=== PATIENT | female | born 1950 | race Caucasian/White ===

== ENCOUNTER → 2021-08-06 10:09 | Outpatient (BNVA) | payer MEDICARE, MEDICAID, SELFPAY | PROVIDERS: PCP Family Medicine; Visit Provider Nurse Practitioner Family | DX: M25.50 Pain in unspecified joint (principal); M79.7 Fibromyalgia; M96.1 Postlaminectomy syndrome, not elsewhere classified | CPT/HCPCS: 99202 ==

== ENCOUNTER → 2021-09-01 08:06 | Outpatient (BNVA) | payer MEDICARE, MEDICAID, SELFPAY | PROVIDERS: PCP Family Medicine; Visit Provider Nurse Practitioner Family | DX: M25.50 Pain in unspecified joint (principal); M79.7 Fibromyalgia; M96.1 Postlaminectomy syndrome, not elsewhere classified | CPT/HCPCS: 99212 ==

== ENCOUNTER → 2021-09-15 09:45 | Outpatient (BNVA) | payer MEDICARE, MEDICAID, SELFPAY | PROVIDERS: PCP Family Medicine; Visit Provider Nurse Practitioner Family | DX: M96.1 Postlaminectomy syndrome, not elsewhere classified (principal); M79.7 Fibromyalgia; M25.50 Pain in unspecified joint | CPT/HCPCS: 99212 ==

== ENCOUNTER → 2021-10-15 09:44 | Outpatient (BNVA) | payer MEDICARE, MEDICAID, SELFPAY | PROVIDERS: PCP Family Medicine; Visit Provider Nurse Practitioner Family | DX: M25.50 Pain in unspecified joint (principal); M79.7 Fibromyalgia; M96.1 Postlaminectomy syndrome, not elsewhere classified | CPT/HCPCS: 99212 ==

== ENCOUNTER 2024-10-30 14:30 | Outpatient (AMB) | payer MEDICARE, MEDICAID, SELFPAY ==
--- NOTE | 2024-10-30 14:41 | MHC.OFFVIS ---
Vital Signs 10/30/24 14:42 Height 5 ft 6 in BMI Reason not done Patient refused/unable BP 124/57 L Blood Pressure Location Lt brachial Position Sitting Respiration 17 Pulse 99 Pulse Source Pulse Oximeter Pulse Oximetry (%) 92 Oxygen Delivery Method Room Air Intake Visit Reasons: Low Back Pain VU 10/15/21 w/ Andreina Vergaraashleyjamiekelly Intake Note: Pt states she last took tramadol 10/30/24 @ 7am Returned Goods Inspector Required: No Allergies Utyenoe-HZC-VuO Reductase Inhibitor Allergy (Mild, Verified 10/30/24 14:43) rash Medication List - Last Reconciled 10/30/24 by Tanya Zhang, SHARDA hydrochlorothiazide 25 mg PO DAILY levothyroxine 100 mcg PO DAILY minoxidil mg PO omeprazole 40 mg PO DAILY pregabalin 100 mg PO DAILY tramadol 100 mg PO DAILY PRN valacyclovir 1,000 mg PO BID HPI Comments Details: Lucy is very pleasant 74 years old female who presents in my office with complains on severe pain in the right shoulder arm and forearm well as widespread pain in the lower back. She reports that this pain started many years ago. Her pain in the back is related to spondylosis surgery which was performed in [place]. The surgery was done at T 10 through S1 procedure. For about 1 year and a half she felt very good after surgery. However unfortunately 1 of her screws broke, the hardware was removed, and since then patient is suffering from intractable lower back pain. She also complains on pain in the right shoulder she stated that she went to [facility] for shoulder arthroscopy and spurs removal and unfortunately according to the patient too much of the tissue were removed and now patient is scheduled in November for right total shoulder replacement. In terms of tissue damage she reports her pain as sharp cutting lacerating spreading radiating and piercing sensation. She can not sleep normally because of her pain she can not do activities of daily living she can not take care of herself she can not function normally. She is on permanent disability. She is using cane for ambulation. Currently she is receiving tramadol for her pain. She states that her primary care physician refuses to prescribe her tramadol. She is in my office today to become a member of chronic opioid program. She had extensive physical therapy after shoulder surgery. She has images however they are not available for me today. Past medical history significant for mini stroke and I hemorrhage she is also suffering from arthritis shortness of breath and asthma. Past surgical history see as above. She denies smoking cigarettes admits drinking alcohol drinks coffee and caffeinated beverages and denies recreational drugs. Review of Systems Const All systems reviewed & are unremarkable except as noted in HPI and below Physical Exam Vital Signs: Last Vital Signs Pulse 99 10/30/24 14:42 Resp 17 10/30/24 14:42 BP 124/57 L 10/30/24 14:42 Pulse Ox 92 10/30/24 14:42 Oxygen Delivery Method Room Air 10/30/24 14:42 Const General: cooperative, healthy appearing, no acute distress and alert Nutritional Appearance: overweight Orientation/consciousness: patient oriented x3 Limitations: ambulation with cane HEENT Head: Yes normal to inspection, Yes normocephalic and Yes atraumatic Ears: hearing grossly normal bilaterally Eyes General: appearance normal, both eyes and all related structures Neck Neck: Yes normal visual inspection, Yes supple and Yes no JVD Resp Effort & Inspection: normal respiratory effort, able to speak in complete sentences and no audible wheezes Cardio Jugular venous distension: no JVD Peripheral pulses: Peripheral pulses 2+ throughout (no appreciable rhythmic abnormalities) Back/Spine/Pelvis Other: Very well-healed scar in the posterior surface midline of the back without redness swelling or logical discharge Neuro General: patient oriented x3 Gait exam (Neuro): Antalgic gait present Motor exam (neuro): 5/5 motor strength present throughout Extrem Other: Very limited range of motion of the right shoulder joint. Psych Appearance: grossly normal Mental Status: mental status grossly normal Speech and movement: Pressured speech present Affect: normal affect Attitude: cooperative Thought process: Normal thought process present and Circumstantial thought process present Thought content: Normal thought content present Insight: Good insight present (Psych) Judgement: Good judgement present (Psych) Assessment & Plan Assessment & Plan (1) Failed back syndrome: Code(s): M96.1 - Postlaminectomy syndrome, not elsewhere classified Category: Medical (2) Right shoulder pain: Code(s): M25.511 - Pain in right shoulder Category: Medical (3) Osteoarthritis of right shoulder: Code(s): M19.011 - Primary osteoarthritis, right shoulder Category: Medical (4) Chronic pain syndrome: Code(s): G89.4 - Chronic pain syndrome Category: Medical Plan Prolonged and difficult conversation was held today with the patient. She is insisting me to start her on opioid medications as of today. I explained to the patient that we have our protocol to starting patient on the opioid medications and I carefully explained to her what protocol consists of. She will be sent for the urine drug screen today. She will be able to submitted only tomorrow. She stated that she took her tramadol today and she is planning to take it tomorrow. I also gave her opioid information page, opioid consent and opioid agreement. I told her to carefully read this. In the past she was in our chronic opioid program however she terminated it herself. We would need to perform opioid addiction risk next time as well as see her urine drug screen. Patient Instructions: I here by testify that I spent 48 minutes in conversation with this patient as well as planning her care and organizing this note. Coding Level of Care Code New Pt Level 4 (77648) Diagnoses Failed back syndrome M96.1 Right shoulder pain M25.511 Osteoarthritis of right shoulder M19.011 Chronic pain syndrome G89.4
[2024-10-30 14:42] VITALS: BP 124/57; PULSE 99; RESP 17; O2SAT 92
--- OUTSIDE RECORDS SUMMARY | 2024-10-30 16:24 | XMS_ITS | Data Portability ---
Author Organization [facility] Address [address] [address] Assessment Encounter Date Assessment Date Assessment LastModified by Organization Details LastModified Time 01/15/2022 01/15/2022 Patient is recovering s/p lumbar removal of hardware. [email or web address] Not available 01/15/2022 12:18:30 03/05/2022 03/05/2022 Patient is recovering s/p removal of lumbar hardware. She has pain related to chronic low back pain [email or web address] Not available 03/05/2022 13:10:02 Plan of Treatment Reminders Order Date Submit Date Provider Last Modified By Organization Details Last Modified Time Details Appointments None recorded. Lab None recorded. Referral physical therapist referral - s/p instrumenta tion removal L5-S1 2021 022 [email or web address] Not available 15:57:07 Procedures None recorded. Surgeries None recorded. Imaging None recorded. Medication Orders tramadol 50 mg tablet 2021 022 [email or web address] [id number], [address] [place], [address], 15:51:21 tramadol 50 mg tablet 2021 022 MARVEL [id number], [address] [place], [address], 12:22:08 Patient TargetsNo targets recorded. Patient InstructionsNo instructions recorded. Reason for Referral Physical Therapist Referral for Lumbar spondylosis improve pain and functionality, return to normal activity s/p instrumentation removal L5-S1 Referring Physician: Holden Cantu, Orthopedic Surgery, Encounter Date: 01/15/2022 Results Created Date Observation Date Name Description Value Unit Range Abnormal Flag Note LastModifiedBy Organization Detail LastModifiedTime 01/19/2001/15/2022 XR, lumba r spine , 2 view No observ ation record ed. [facility] [address] [place], [address], 02/11/2022 10:55:27 03/08/20 22 03/05/2022 XR, lumba r spine No observ ation record ed. Not Available 03/2022 14:46:00 Result Notes None recorded. Problems Name Problem SNOMED Code Status Onset Date Resolution Date Notes Provider Name and Address Organization Details Recorded Time Idiopathic scoliosis of thoracic spine 740923757 Active Other idiopathic scoliosis, thoracolum bar region Debbie Luis Armando spence [facility] 2 20:37:29 Pseudoarth rosis of spine 554266732 Active Lumbar Debbie spence [facility] 2 20:38:07 Problem Notes None recorded. Procedures Surgical History Date Name Laterality Status Provider Name and Address Organization Details Recorded Time 12/04/19 removal spinal instrumentation completed Ivon Naylor [facility] 01/15/2022 11:27:59 08/02/19 20 fusion completed Debbie Durán [facility] 12/26/19 22 20:47:56 Imaging Results Imaging Date Name Status LastModified by Organiz ation Details LastModified Time 01/15/2022 XR, lumbar spine, 2 view completed [facility] [address] [place], [address], 02/11/2022 10:55:27 03/05/2022 XR, lumbar spine completed Information not available 03/09/2022 14:46:00 Procedure Notes None recorded. Medical Equipment None Reported. Medications Name Sig Start Date Stop Date Status Note LastModified by Organization Details LastModified Time tramadol 50 mg tablet Take 1 tablet every 6 hours by oral route. 2021 active Not Available Not Available Not Avai lable acetamino phen ER 650 mg tablet,ex tended release Take 2 tablets every 8 hours by oral route as needed. 01/15 completed Not Available Not Available Not Available Valium 5 mg tablet Take 1 tablet every 8 hours by oral route as needed. 01/15 completed For pain spasms Not Available Not Available Not Available Percocet 5 mg-325 mg tablet Take 1 tablet every 6 hours by oral route as needed. 01/15 completed Not Available Not Available Not Available Lyrica 225 mg capsule Take 1 capsule every day by oral route. active Not Available Not Available No t Available levothyro xine Take as directed active Not Available Not Available No t Available omeprazol e Take as directed active Occasion ally Not Available Not Available Not Available valacyclo vir Take as directed active Not Available Not Available No t Available metoprolo l succinate Take as directed active Not Available Not Available No t Available Vitals Date Recorded Body height Body mass index (BMI) Body weight Provider Name and Address Organization Details Last Updated DateTime 01/15/2022 167.64 cm 28.2 kg/m2 57823.66 g Ivon Naylor [facility] 01/15/2022 11:44:45 Social History Question Answer Notes LastModified by Organizat ion Details LastModified Time Tobacco Smoking Status [facility] 20:48:33 What Is Your Level Of Caffeine Consumption? Moderate Information not available 01/15/2022 In The 14 Days Before Symptom Onset, Have You Had Close Contact With A Laboratory-confir med COVID-19 While That Case Was Ill? No Information not available 01/15/2022 In The 14 Days Before Symptom Onset, Have You Had Close Contact With A Person Who Is Under Investigation For COVID-19 While That Person Was Ill? No Information not available 01/15/2022 Are You Currently Employed? No Retired Information not available 01/15/2022 Do You Use Any Illicit Or Recreational Drugs? No Information not available 01/15/2022 Sex: Unknown Functional Status None recorded. Mental Status None recorded. Family History Relationship Description Onset Age of this Age Resolved Age Notes LastModified by Organization Details LastModified Time Unspecified Relation Malignant neoplastic disease [email or web address] Not available 2021 20:49:18 Unspecified Relation Diabetes mellitus [email or web address] Not available 2021 20:49:26 Unspecified Relation Disorder of lung [email or web address] Not available 2021 20:49:41 Unspecified Relation Kidney disease [email or web address] Not available 2021 20:49:49 Unspecified Relation Arthritis [email or web address] Not available 2021 20:49:57 Medical History Condition Response asthma Y arthritis Y other Y Gynecological HistoryNo gynecological history recorded. Obstetrics History GPAL:G 0 P 0 0 0 0 Past Encounters Encounter ID Performer Location Encounter Start Date Encounter Closed Date Diagnosis/Indication Diagnosis SNOMED-CT Code Diagnosis ICD10 Code Diagnosis Note [id number] INGRID Saenz [facility] [address] [phone] 01/15/2022 10:52:39 01/15/2022 12:06:57 Lumbar spondylosis 058366247 M47.896 I recommend 6 weeks of PT. I have provided tramadol refill for pain. Gentle increase in exercise and activity. [id number] Anup Sauceda MD [facility] [address] [address] 03/05/2022 11:28:00 03/05/2022 13:09:49 Lumbar spondylosis 598655312 M47.896 She may proceed with left knee arthroplas ty. She request a refill of tramadol which we will provide. However, I recommend pain management or PCP for any further refills. All questions were answered. Health Concerns Section Related Observation LastModified by Organization Detai ls LastModified Time None Recorded Concern Status LastModified by Organization Details LastModified Time None Recorded Advance Directives Directive None Recorded Payers Encounter Date Sequence Insurance Name Policy Number Policy [place] Covered Member ID [place] Member ID Guarantor Name 01/15/2022 1 [place] [employer] Lucy Hendrickson [id number] Lucy Hendrickson 01/15/2022 2 [place] [facility]rickson [id number] Lucy Hendrickson 03/05/2022 1 [place] [employer] Lucy Hendrickson [id number] Lucy Hendrickson 03/05/2022 2 [place] [facility] Lucy Hendrickson [id number] Lucy Hendrickson Notes Date Note Type Note Provider Name and Address Organization Details Recorded Time 01/15/2022 text/html Ms. Hendrickson return s to the office for her 2nd post op approximately 6 weeks s/p emergent instrumentation removal at L5-S1 on 12/03/2021. She was last seen 3 weeks ago and described uncontrollable severe pain in her low back and buttocks. She was prescribed Valium 5mg , Tylenol ER 650mg to take in addition to the Percocet 5/325mg and Ibuprofen 800mg she was already taking. INGRID Saenz [address] [place] [address], [phone], [facility] 01/15/2022 12:22:09 03/05/2022 text/html Ms. Hendrickson return s to the office for post op follow up 3 months s/p instrumentation removal at L5-S1 on 12/03/2021. She continues to have lower back pain. She is scheduled to have a total knee arthroplasty but has been delayed secondary to pain in her lower back. She had a recent lumbar MRI showing no evidence of stenosis. She denies weakness or paresthesias. Anup Sauceda MD [address] [place], [phone], [facility] 03/07/2022 17:41:10 OBGyn Episode No OBEpisode recorded.
--- OUTSIDE RECORDS SUMMARY | 2024-10-30 16:24 | XMS_ITS | Data Portability ---
Author Organization [place] [facility], [place], [facility] Address [address] [place] [phone] Assessment No assessment recorded. Plan of Treatment Reminders Order Date Submit Date Provider Last Modified By Organization Details Last Modified Time Details Appointments None recorded. Lab venipunctu re 2015 016 WACONIA Maples [facility], [address], [place], [address], 6 13:15:11 CMP, serum or plasma 2015 016 WACONIA [facility], [address], [place], [address], 6 16:55:48 urinalysis , complete 2015 016 WACONIA [facility], [address], [place], [address], 6 10:27:44 T3, free, serum or plasma 2015 016 WACONIA [facility], [address], [place], [address], 6 18:03:45 lipid panel, serum 2015 016 WACONIA Maples [facility], [address], [place], [address], 6 16:55:48 CBC 2015 016 WACONIA [facility], [address], [place], [address], 6 16:49:13 T4, free, serum 2015 016 [facility], [address], [place], [address], 6 18:03:44 TSH, serum or plasma 2015 016 [facility], [address], [place], [address], 6 18:03:[address] referral - CALL TO SCHEDULE APPTPle ase call to schedule the consultati on. If you have any difficulty making this appointmen t, please contact us to assist you. Also, please send consult note when complete. 2015 016 MARVEL Lafleur MD ([facility]), [address] , [place], [address], 6 03:56:28 ENT referral - Please call to schedule the consultati on. If you have any difficulty making this appointmen t, please contact us to assist you. Also, please send consult note when complete. 2012 013 MARVEL Carballo MD, [address] [facility], [facility] [address], [address], 3 04:56:50 Procedures None recorded. Surgeries None recorded. Imaging MAMMO, screening, digital, bilateral - G0202 Screening Mammo, Bilateral 13225 CAD 2015 016 [facility] (Outpt Scheduling), [address] [facility], [place], [address], 6 09:22:39 electrocar diogram 2015 016 ecorrigan In-Office Order, Internal Use Only DO Not Attach Compendium DO Not Attach Compendium, Do Not Delete/merge, [id number] 6 09:52:37 holter monitor 2015 016 mgoff [facility] (Chelle Porter), [address], [place], [address], 6 08:28:06 x-ray, chest - Radiologis t protocol unless specified otherwise 2015 016 MARVEL [facility], [facility] [employer] [facility], All Locations, [place], [address], 6 21:30:20 MAMMO, screening, digital, bilateral - G0202 Screening Mammo, Bilateral 58895 CAD 2012 013 MARVEL [facility] (Interface Testing) ? DO Not Use, [address] [facility], [address], [place], [address], 3 04:58:37 Medication Orders None recorded. Patient TargetsNo targets recorded. Patient Instructions Encounter Date Encounter Id Patient Instructions Last Modified By Organization Details Last Modified Time 11/03/2012 [id number] REVIEWED TESTING WITH PT.? QUESTIONS ANSWERED.? F/U SCHEDULED BELOW OR RTC SOONER IF? ? ?ANY PROBLEMS ARISE.? ? ? PT AGREES.? ? ? micaela Not available 11/03/2012 14:41:13 07/10/2013 [id number] REVIEWED TESTING WITH PT.? QUESTIONS ANSWERED.? F/U SCHEDULED BELOW OR RTC SOONER IF? ? ?ANY PROBLEMS ARISE.? ? ? PT AGREES.? ? ? micaela Not available 07/10/2013 14:24:42 08/09/2013 [id number] ? ? ?Discussed treatment with pt and all questions answered.? ? ? Advised pt to follow up with our office as scheduled.? ? ? Advised her that once she has the documentation needed, we will fill it out.? ? ? Pt agreed hillary Not available 08/09/2013 21:16:46 12/25/2015 [id number] GET OLD RECORDS micaela Not available 12/25/2015 11:24:10 01/08/2016 [id number] COPY TESTING TO SPECIALIST AND COPT TO PT. REVIEWED TESTING TO PATIENT micaela Not available 01/08/2016 14:43:29 Reason for Referral Please call to schedule the consultation. If you have any difficulty making this appointment, please contact us to assist you. Also, please send consult note when complete. Referring Physician: Lora Buenrostro [facility], Encounter Date: 11/03/2012 [place] Referral for El ectrocardiogram abnormal CALL TO SCHEDULE APPTPlease call to schedule the consultation. If you have any difficulty making this appointment, please contact us to assist you. Also, please send consult note when complete. Referring Physician: Lora Buenrostro [facility], Encounter Date: 12/25/2015 Results Created Date Observation Date Name Description Value Unit Range Abnormal Flag Note LastModifiedBy Organization Detail LastModifiedTime 11/03/19 13 11/02/2012 thyro id stimu latin g hormo ne (TSH) TSH 4.100 mIU/m L 0.500- 6.000 Not Available [facility] [address] [facility] [address] [place], [address], 11/02/2012 17:50:17 11/03/19 13 11/02/2012 T4 free FT4 (free thyroxine) 0.80 NG/dL 0.82-1 .74 low Not Available [facility] [address] [place], [address], 11/02/2012 17:50:18 11/03/19 13 11/02/2012 T3 free T3, free 2.02 pg/mL 2.00-4 .40 Not Available [facility] [address] [facility] [address] [place], [address], 11/02/2012 17:50:18 11/03/19 13 11/03/2012 venip unctu re 1 venipuncture CHARGE Not Available [facility] [address] [place] [address] [address] [place], [address], 11/03/2012 11:21:00 12/26/19 16 12/26/2015 urina lysis , compl ete color Yellow Not Available [facility] [address] [place] [address] By, [place], [address], 12/26/2015 10:27:44 12/26/19 16 12/26/2015 urina lysis , compl ete appearance CLEAR clear Not Available [facility] [address] [place] [address], [address], 12/26/2015 10:27:44 12/26/19 16 12/26/2015 urina lysis , compl ete specific gravity 1.020 Not Available [facility] [address] [place] [address], [address], 12/26/2015 10:27:44 12/26/19 16 12/26/2015 urina lysis , compl ete pH 6.5 Not Available [facility] [address] [place] [address], [address], 12/26/2015 10:27:44 12/26/19 16 12/26/2015 urina lysis , compl ete glucose Negati ve negati ve Not Available [facility] [address] [place] [address], [address], 12/26/2015 10:27:44 12/26/19 16 12/26/2015 urina lysis , compl ete bilirubin Negati ve negati ve Not Available [facility] [address] [place] [address] [address] [facility], [place], [address], 12/26/2015 10:27:44 12/26/19 16 12/26/2015 urina lysis , compl ete ketone Negati ve negati ve Not Available [facility] [address] [facility] [address], [place], [address], 12/26/2015 10:27:44 12/26/19 16 12/26/2015 urina lysis , compl ete blood Negati ve negati ve Not Available [facility] [address] [place] [address] [address], [place], [address], 12/26/2015 10:27:44 12/26/19 16 12/26/2015 urina lysis , compl ete protein Negati ve negati ve Not Available [facility] [address] [place], [place] [address]y [address], [place], [address], 12/26/2015 10:27:44 12/26/19 16 12/26/2015 urina lysis , compl ete urobilinogen 0.2 E.U./d L Not Available [facility] [address] [place] [address] [address], [place], [address], 12/26/2015 10:27:44 12/26/19 16 12/26/2015 urina lysis , compl ete nitrite Negati ve negati ve Not Available [facility] [address] [place] [address] [address], [place], [address], 12/26/2015 10:27:44 12/26/19 16 12/26/2015 urina lysis , compl ete leukocytes Small negati ve abnormal Not Available [facility] [address] [place], [place] [address]y [address], [place], [address], 12/26/2015 10:27:44 12/26/19 16 12/26/2015 CBC WBC 5.6 x10^3 /uL 4.4-11 .0 Not Available [facility] [address] [place], [place] [address], [place], [address], 12/26/2015 16:49:13 12/26/19 16 12/26/2015 CBC RBC 3.79 x10^6 /uL 4.50-5 .10 low Not Available [facility] [address], [place], [address], 12/26/2015 16:49:13 12/26/19 16 12/26/2015 CBC HGB 12.9 g/dL 12.3-1 5.3 Not Available [facility] [address], [place], [address], 12/26/2015 16:49:13 12/26/19 16 12/26/2015 CBC HCT 38.8 % 35.9-4 4.6 Not Available [facility] [address], [place], [address], 12/26/2015 16:49:13 12/26/19 16 12/26/2015 CBC MCV 102.3 fL 80.0-9 6.0 high Not Available [facility] [address], [place], [address], 12/26/2015 16:49:13 12/26/19 16 12/26/2015 CBC MCH 34.2 pg 27.5-3 3.2 high Not Available [facility] [address] [place] [address] [address], [place], [address], 12/26/2015 16:49:13 12/26/19 16 12/26/2015 CBC MCHC 33.4 g/dL 33.4-3 5.5 Not Available [facility] [address], [place], [address], 12/26/2015 16:49:13 12/26/19 16 12/26/2015 CBC RDW 13.3 % 11.6-1 3.7 Not Available [facility] [address], [place], [address], 12/26/2015 16:49:13 12/26/19 16 12/26/2015 CBC plt 240 x10^3 /uL 150-45 0 Not Available [facility] Counts include 234 beds at the [facility], [place], [address], 12/26/2015 16:49:13 12/26/19 16 12/26/2015 CBC MPV 8.9 fL 7.4-10 .4 Not Available [facility] Counts include 234 beds at the [facility], [place], [address], 12/26/2015 16:49:13 12/26/19 16 12/26/2015 CBC neut # 2.5 x10^3 /uL 1.5-7. 2 Not Available [facility] [address] [place] [address] [address], [place], [address], 12/26/2015 16:49:13 12/26/19 16 12/26/2015 CBC lymph# 2.0 x10^3 /uL 0.7-4. 9 Not Available [facility] [address] [place] [address] [address] [place], [address], 12/26/2015 16:49:13 12/26/19 16 12/26/2015 CBC mono# 0.7 x10^3 /uL 0.1-0. 9 Not Available [facility] [address] [place] [address] [address] [place], [address], 12/26/2015 16:49:13 12/26/19 16 12/26/2015 CBC eos # 0.3 x10^3 /uL 0.0-0. 4 Not Available [facility] [address] [place] [address] [address], [place], [address], 12/26/2015 16:49:13 12/26/19 16 12/26/2015 CBC baso # 0.0 x10^3 /uL 0.0-0. 2 Not Available [facility] [address] [place] [address] [address], [place], [address], 12/26/2015 16:49:13 12/26/19 16 12/26/2015 CBC neut % 45.2 % 42.2-7 5.2 Not Available [facility] [address] [place], [place] [address]y [address], [place], [address], 12/26/2015 16:49:13 12/26/19 16 12/26/2015 CBC mono% 12.6 % 1.7-9. 3 high Not Available [facility] [address] [place], [place] [address], [place], [address], 12/26/2015 16:49:13 12/26/19 16 12/26/2015 CBC eos% 4.9 % 1.0-6. 0 Not Available [facility] [address] [place], [place] [address]y [address] [place], [address], 12/26/2015 16:49:13 12/26/19 16 12/26/2015 CBC baso% 0.8 % 0.0-4. 0 Not Available [facility] [address] [place], [place] [address], [place], [address], 12/26/2015 16:49:13 12/26/19 16 12/26/2015 CBC lymph % 36.5 % 20.5-5 1.1 Not Available [facility] [address] [place], [place] [address]y [address], [place], [address], 12/26/2015 16:49:13 12/26/19 16 12/26/2015 CMP, serum or plasm a sodium 140 mmol/ L 135-14 5 Not Available [facility] [address] [place], [place] [address], [place], [address], 12/26/2015 16:55:48 12/26/19 16 12/26/2015 CMP, serum or plasm a potassium 4.3 mmol/ L 3.6-5. 1 Not Available [facility] [address] [place], [place] [address]y [address] [place], [address], 12/26/2015 16:55:48 12/26/19 16 12/26/2015 CMP, serum or plasm a chloride 104 mmol/ L 100-11 5 Not Available [facility] [address] [place], [place] [address]y [address], [place], [address], 12/26/2015 16:55:48 12/26/19 16 12/26/2015 CMP, serum or plasm a carbon dioxide 30 mmol/ L 21-33 Not Available [facility] [address] [place], [place] [address], [place], [address], 12/26/2015 16:55:48 12/26/19 16 12/26/2015 CMP, serum or plasm a glucose 80 mg/dL 70-100 Not Available [facility] [address] [place], [place] [address]y [address] [place], [address], 12/26/2015 16:55:48 12/26/19 16 12/26/2015 CMP, serum or plasm a BUN 15 mg/dL 7-25 Not Available [facility] [address] [place], [place] [address] [place], [address], 12/26/2015 16:55:48 12/26/19 16 12/26/2015 CMP, serum or plasm a creatinine 0.9 mg/dL 0.6-1. 3 Not Available [facility] [address] [place], [place] [address]y [address] [place], [address], 12/26/2015 16:55:48 12/26/19 16 12/26/2015 CMP, serum or plasm a BUN/creat ratio 16.7 calc 10.0-2 5.0 Not Available [facility] [address] [place], [place] [address]y [address] [place], [address], 12/26/2015 16:55:48 12/26/19 16 12/26/2015 CMP, serum or plasm a calcium 9.2 mg/dL 8.8-10 .6 Not Available [facility] [address] [place] [address] [address] [place], [address], 12/26/2015 16:55:48 12/26/19 16 12/26/2015 CMP, serum or plasm a total protein 7.2 g/dL 6.4-8. 9 Not Available [facility] [address] [place] [address], [address], 12/26/2015 16:55:48 12/26/19 16 12/26/2015 CMP, serum or plasm a albumin 4.0 g/dL 3.5-5. 7 Not Available [facility] [address] [place] [address], [address], 12/26/2015 16:55:48 12/26/19 16 12/26/2015 CMP, serum or plasm a globulin 3.2 g/dL 1.3-4. 0 Not Available [facility] [address] [place] [address], [address], 12/26/2015 16:55:48 12/26/19 16 12/26/2015 CMP, serum or plasm a A/G ratio 1.3 calc 1.0-2. 8 Not Available [facility] [address] [place] [address], [address], 12/26/2015 16:55:48 12/26/19 16 12/26/2015 CMP, serum or plasm a alk. phosphatase 103 U/L 20-128 Not Available [facility] [address] [place] [address] [address] [place], [address], 12/26/2015 16:55:48 12/26/19 16 12/26/2015 CMP, serum or plasm a ALT (SGPT) 10 U/L 7-52 Not Available [facility] [address] [facility] [address], [place], [address], 12/26/2015 16:55:48 12/26/19 16 12/26/2015 CMP, serum or plasm a AST (SGOT) 16 U/L 13-39 Not Available [facility] [address] [facility] [address], [place], [address], 12/26/2015 16:55:48 12/26/19 16 12/26/2015 CMP, serum or plasm a total bilirubin 0.61 mg/dL 0.30-1 .00 Not Available [facility] [address] [facility] [address], [place], [address], 12/26/2015 16:55:48 12/26/19 16 12/26/2015 CMP, serum or plasm a GFR >60.0 >=60.0 IF PATIE NT IS AFRIC AN AMERI CAN, MULTI PLY RESUL T BY 1.21 Not Available [facility] [address] [facility] [address], [place], [address], 12/26/2015 16:55:48 12/26/19 16 12/26/2015 lipid panel , serum cholesterol 211 mg/dL 20-180 high Not Available [facility] [address] [facility] [address] [place], [address], 12/26/2015 16:55:48 12/26/19 16 12/26/2015 lipid panel , serum triglyceride s 61 mg/dL 30-150 Not Available [facility] [address] [facility] [address], [place], [address], 12/26/2015 16:55:48 12/26/19 16 12/26/2015 lipid panel , serum HDL cholesterol 67 mg/dL 23-[address] [facility] [address] [facility] [address], [place], [address], 12/26/2015 16:55:48 12/26/19 16 12/26/2015 lipid panel , serum LDL calculated 132 mg/dL <=100 high Not Available [facility] [address], [address], 12/26/2015 16:55:48 12/26/19 16 12/26/2015 lipid panel , serum VLDL cholesterol 12 calc Not Available [facility] [address], [address], 12/26/2015 16:55:48 12/26/19 16 12/26/2015 lipid panel , serum HDL risk factor 3.1 calc RISK FACTO R MALE FEMAL E 1/2 AVG RISK 3.4 3.3 AVG RISK 5.0 4.0 2X AVG RISK 9.6 7.1 3X AVG RISK 24.0 11.0 Not Available [facility] [address], [address], 12/26/2015 16:55:48 12/26/19 16 12/26/2015 lipid panel , serum cholesterol/ HDL ratio 3 calc CHOL/ HDL RATIO <3 OPTIM AL 3-4 BORDE RLINE >6 HIGH RISK Not Available [facility] [address], [address], 12/26/2015 16:55:48 12/26/19 16 12/26/2015 lipid panel , serum non-HDL cholesterol 144 calc NON-H DL KAYLEN STERO L <190 MG/DL LOW RISK <160 MG/DL MODER ATE RISK <130 MG/DL HIGH RISK Not Available [facility] [address], [address], 12/26/2015 16:55:48 12/26/19 16 12/26/2015 T4, free, serum FT4 (free thyroxine) 1.46 NG/dL 0.82-1 .74 Not Available [facility] [address] [address] [place], [address], 12/26/2015 18:03:44 12/26/19 16 12/26/2015 TSH, serum or plasm a TSH 1.020 mIU/m L 0.500- 5.000 Not Available [facility] [address] [facility] [address] [place], [address], 12/26/2015 18:03:45 12/26/19 16 12/26/2015 T3, free, serum or plasm a T3, free 2.57 pg/mL 2.00-4 .40 Not Available [facility] [address] [facility] [address] [place], [address], 12/26/2015 18:03:45 12/26/19 16 12/28/2015 cultu re, urine culture, urine, routine SEE NOTE CULTU RE, URINE , ROUTI NE MICRO NUMBE R: [id number] TEST STATU S: FINAL SPECI MEN SOURC E: URINE SPECI MEN QUALI TY: ADEQU ATE RESUL T: Multi ple organ isms prese nt, each less than 10,00 0 CFU/m L. These organ isms, commo nly found on exter nal and inter nal genit tasha, are consi dered to be colon izers . No furth er testi ng perfo rmed. Not Available [facility] [address] [facility] [address] [place], [address], 12/28/2015 00:51:38 12/26/19 16 12/26/2015 venip unctu re venipuncture CHARGE Not Available [facility] [address] [facility] [address] [place], [address], 12/26/2015 13:15:11 12/25/19 16 elect kevin diogr am No observ ation record ed. ecorrigan Not Available 2015 09:52:36 12/25/19 16 10/16/2013 exter nal recor ds No observ ation record ed. [facility] (Radiology) [address], [place], [address], 12/25/2015 17:44:35 12/26/19 16 yesenia r monit or No observ ation record ed. [facility] ([facility]) [address], [place], [address], 01/08/2016 14:43:29 12/26/19 16 12/26/2015 chest 2 views CHEST: TWO VIEWS Histor y: Palpit ations . Compar adrian: No prior studie s, medica l record s, imagin g or imagin g report s of this anatom ic region are availa ble for correl ation. Findin gs: Minima l perihi lar vascul ar promin ence. No acute lobar consol idatio n. If concer dafne for subtle nodule s or lesion s, CT scan is more sensit meg. Cardia c silhou ette grossl y within normal limits . Scolio sis. Degene rative osseou s change s. If clinic al suspic ions persis t, follow up exams may be helpfu l. Impres oswald: No acute pulmon selwyn infilt rates or edema. Scolio sis. Degene rative osseou s change s. Thank you for this referr al. Please Note: The [place] [employer] y, [facility] and the [place] Preven tative Servic es Task Force now approv e CT Low Dose Chest Screen ing in the follow ing patien ts: * Age 55-77 who curren tly smoke or who have quit within the last 15 years * Asympt omatic patien ts with a 30 pack year smokin g histor y (i.e. 1 pack/d ay for 30 years; 2 pack/d ay for 15 years) Electr onical ly signed Guicho degroot Radiol ogist: Reese jimenez M.D. [address], [address], 01/08/2016 14:43:30 01/22/20 16 01/22/2016 echo exam, OB, 2D compl ete No observ ation record ed. [facility] [address] [address] , [place], [address], 01/23/2016 10:27:52 01/29/20 16 01/23/2016 regad enoso n stres s test (PROC ) No observ ation record ed. [facility] [address] , [place], [address], 01/30/2016 07:54:09 Result Notes None recorded. Problems Name Problem SNOMED Code Status Onset Date Resolution Date Notes Provider Name and Address Organization Details Recorded Time Osteoporosis 24929510 Active Porsche Hernández null, [facility], [facility] 13:37:37 Hearing loss 15257625 Active Porsche Hernández null, [facility] 13:37:37 Gastro-esophag eal reflux disease with esophagitis 238486031 Active Porsche Hernández null, 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 13:37:37 Viral disease 02743591 Active Porsche Hernández null, [facility], [facility] 13:37:36 Malaise and fatigue 403708158 Active Porsche Hernández null, [facility] 13:37:37 Disorder of hair AND/OR hair follicle Active Porsche Hernández null, [facility] 13:37:37 Palpitations 22270601 Active Lora Buenrostro, [address], [place], [address], [facility] Physician [facility], [facility] 14:44:17 Electrocardiog donald abnormal 710853842 Active Lora Buenrostro, DO [address], [place], [address], [facility] [employer] [facility], [facility] 6 14:44:17 Problem Notes None recorded. Procedures Surgical History Date Name Laterality Status Provider Name and Address Organization Details Recorded Time 3 Medicare AWV completed Lora Buenrostro, DO [address], [place], [address], [facility] [employer] [facility], [facility] 11/03/2012 14:42:18 2 Colonoscopy completed [facility] In[facility], [facility] 04/25/2012 11:53:35 Imaging Results Imaging Date Name Status LastModified by Organization Details LastModified Time 12/25/2015 electrocardiogram completed [facility] Informa tion not available 07/24/2016 09:52:36 10/16/2013 external records completed [facility] (Radiology) [address] [place] [address], [address], 12/25/2015 17:44:35 12/26/2015 holter monitor completed [facility] ([facility]) [address], [place], [address], 01/08/2016 14:43:29 12/26/2015 chest 2 views completed [address], [address], 01/08/2016 14:43:30 01/22/2016 echo exam, OB, 2D complete completed [facility] [address], [place], [address], 01/23/2016 10:27:52 01/23/2016 regadenoson stress test (PROC) completed [facility] [address], [place], [place], [address], 01/30/2016 07:54:09 Procedure Notes None recorded. Medical Equipment None Reported. Allergies Allergen ID Allergen Name Allergen Category Reaction Reaction Severity Criticality Documentation Date Start Date Code Code System Note Provider Name and Address Organization Details Recorded Time 9451 Product containin g 3-hydroxy -3-methyl glutaryl- coenzyme A reductase inhibitor (product) medicatio n myalgias (muscle pain) Not available Not available 04/25/2012 49259 009 SNOMED Raine Arguelloler [place], [place] - [facility], [facility] 2 11:51:25 Medications Name Sig Start Date Stop Date Status Note LastModified by Organization Details LastModified Time methocarbamol 500 mg tablet Take 1 tablet twice a day by oral route. active Not Available Not Available No t Available prednisone 10 mg tablet active Not Available Not Available No t Available valacyclovir 1 gram tablet TK 1 T PO D active Not Available Not Available No t Available promethazine 12.5 mg tablet active Not Available Not Availab le Not Available spironolactone 100 mg tablet TAKE 1 TABLET BY MOUTH TWICE DAILY 2013 active Not Available Not Available Not Avai lable levothyroxine 75 mcg tablet TAKE 1 TABLET BY MOUTH EVERY DAY active Not Available Not Available No t Available levothyroxine 100 mcg tablet Take 1 tablet every day by oral route. active Not Available Not Available No t Available levothyroxine 88 mcg tablet Take 1 tablet every day by oral route. active Not Available Not Available No t Available cephalexin 500 mg capsule active Not Available Not Available N ot Available neomycin-polym yxin-dexameth 3.5 mg/mL-10,000 unit/mL-0.1% eye drops active Not Available Not Available No t Available triamcinolone acetonide 0.025 % topical ointment active Not Available Not Available Not Available omeprazole 20 mg capsule,delaye d release Take 1 capsule every day by oral route for 90 days. active Not Available Not Available No t Available hydrocortisone 2.5 % topical cream IDALMIS THIN LAYER EXT AA BID active Not Available Not Available No t Available metoprolol succinate ER 25 mg tablet,extende d release 24 hr TK SS T PO ONCE D active Not Available Not Available No t Available cefdinir 300 mg capsule active Not Available Not Available N ot Available amoxicillin 875 mg-potassium clavulanate 125 mg tablet active Not Available Not Availabl e Not Available nabumetone 500 mg tablet Take 1 tablet as needed by oral route. active up to 4 a day Not Available Not Available Not Available Restasis 0.05 % eye drops in a dropperette active Not Available Not Availabl e Not Available Premarin 0.625 mg tablet Take 1 tablet 3 times a week by oral route. active Not Available Not Available No t Available Lyrica 50 mg capsule Take 1 capsule every day by oral route in the morning. active Not Available Not Available No t Available Lyrica 100 mg capsule Take 2 capsules every day by oral route at dinner. active Not Available Not Available No t Available Lyrica 150 mg capsule active Not Available Not Available Not Available Ashley Low Dose Aspirin 1 QD active Not Available Not Available Not Available omeprazole 20 mg tablet,delayed release Take 1 tablet every day by oral route. active Not Available Not Available No t Available Vitals Date Recorded Body weight Body height Body mass index (BMI) Systolic blood pressure Diastolic blood pressure Provider Name and Address Organization Details Last Updated DateTime 11/03/2012 84346.48 001 g 167.64 cm 27.9 kg/m2 118 mm[Hg] 76 mm[Hg] Thuy Pearl [facility], [facility] 3 14:34:49 Date Recorded Body height Respiratory rate Body temperature Heart rate Oxygen saturation Oxygen saturation in Arterial blood by Pulse oximetry Body weight Body mass index (BMI) Systolic blood pressure Diastolic blood pressure Provider Name and Address Organization Details Last Updated DateTime 6 167.64 cm 16 /min 98.2 [degF] 75 /min 97 % 97 % 89028.5 8845 g 29.9 kg/m2 126 mm[Hg] 80 mm[Hg] Porsche Hernández [facility], [facility] 6 10:19:09 Date Recorded Body height Body temperature Body mass index (BMI) Oxygen saturation Oxygen saturation in Arterial blood by Pulse oximetry Heart rate Body weight Respiratory rate Systolic blood pressure Diastolic blood pressure Provider Name and Address Organization Details Last Updated DateTime 6 167.64 cm 98.2 [degF] 30 kg/m2 97 % 97 % 83 /min 07445.1 94518 g 16 /min 122 mm[Hg] 84 mm[Hg] Porsche Hernández [facility], [facility] 6 13:54:00 Date Recorded Body weight Body height Body mass index (BMI) Heart rate Respiratory rate Systolic blood pressure Diastolic blood pressure Provider Name and Address Organization Details Last Updated DateTime 3 90361.9 6394 g 167.64 cm 26.1 kg/m2 76 /min 18 /min 134 mm[Hg] 82 mm[Hg] Mignon Phelan [facility], [facility] 3 14:10:15 Date Recorded Body weight Body height Body mass index (BMI) Heart rate Respiratory rate Systolic blood pressure Diastolic blood pressure Provider Name and Address Organization Details Last Updated DateTime 4 12432.0 3423 g 167.64 cm 28.9 kg/m2 74 /min 16 /min 128 mm[Hg] 80 mm[Hg] Lola Radu [facility], [facility] 4 13:09:46 Social History Question Answer Notes LastModified by [employer] Details LastModified Time Tobacco Smoking Status Never Smoker Raine spence [facility], [facility] 04/25/2012 11:55:35 How Much Tobacco Do You Chew? None Information not available 04/25/2012 Which Illicit Or Recreational Drugs Have You Used? None Information not available 04/25/2012 What Is Your Occupation? Disability Information not available 04/25/2012 Alcohol Use 1-2 Per Day 1 Wine Per Day Information not available 04/25/2012 Marital Status Informatio n not available 04/25/2012 How Much Tobacco Do You Smoke? No Information not available 04/25/2012 Sex: Female Functional Status Question Answer Note LastModified by Yashiat Kloudco Details LastModified Time What is your exercise level? Occasional 3 x a week Information not available 04/25/2012 Mental Status None recorded. Family History Relationship Description Onset Age of this Age Resolved Age Notes LastModified by Organization Details LastModified Time Father Polyp of colon previo usly record ed as Colon polyp( s) [email or web address] Not available 01/08/2016 13:38:29 Father Dyslipidemia [email or web address] Not maggi ilable 01/08/2016 13:38:29 Mother Dyslipidemia [email or web address] Not maggi ilable 01/08/2016 13:38:29 Medical History Condition Response Cancer (location) N Other N Gout N Thyroid Disease Y Kidney Stones N Measles/Mumps N Emphysema/COPD N Sexually Transmitted Disease N Depression N Prostate Problems N Vascular Disease N Rash/Skin Condition N Amputation (location) N Paralysis N Headaches/Migraines N Cardiac Pacemaker/defibrillator N Nerve Damage / Neuropathy Y Arthritis Y Sleep disorder/Insomnia N Heart disease / Heart Attack N HIV/AIDS N Stroke/TIA N High Cholesterol N Colon Problems Y Kidney Disease N Memory Loss/Alzheimer's N Gallbladder disease N High blood pressure N Congestive heart failure Y Falls N Alcohol Overuse N Blood Thinner Treatment N Hormone Replacement Y Nervous Breakdown N Anemia N Urinary Problems N Back pain N Diabetes N Rheumatic Fever Y Bleeding Disorder N Cardiac Arrhythmias /irregular heart rat e N Osteopenia/Osteoporosis Y Anxiety/Stress N Asthma N Vision Problems N Erectile / Sexual Dysfunction N Seizures N Jaundice N Hepatitis N GERD/Ulcer Y Allergies (other than meds) N Gynecological HistoryNo gynecological history recorded. Obstetrics History GPAL:G 2 P 1 0 0 0 Type Value Full Term 1 Total 2 Past Encounters Encounter ID Performer Location Encounter Start Date Encounter Closed Date Diagnosis/Indication Diagnosis SNOMED-CT Code Diagnosis ICD10 Code Diagnosis Note [id number] [facility] [place] [address] [place] [address] 04/25/2012 11:17:15 04/25/2012 13:02:58 [id number] DO EDVIN [facility] [address] [place] [address] 05/09/2012 14:25:21 05/09/2012 15:45:30 [id number] DO EDVIN [place] [facility] [address] [place] [address] 07/13/2012 13:41:00 07/13/2012 15:20:26 [id number] DO EDVIN [place] [facility] [address] [place] [address] 11/03/2012 14:06:57 11/03/2012 15:01:[id number] [place] [address] 07/10/2013 13:37:04 07/10/2013 14:40:39 Gastro-esophageal reflux disease with esophagitis [id number] STABLE. CONT CURRENT MEDS Hypothyroidism [id number] NORMAL THYROID FUNCTION ON RECENT LAB Fibromyositis 59312325 F IBROMYALG [place]. CONT F/U WITH DR JOHNSON Malaise and fatigue [id number] REFER TO ENDO FOR CONSULT FOR VARIOUS ISSUES OF FATIGUE, HAIR LOSS ETC--PT DIDN'T WANT TO GO THERE. SHE IS FEELING OK. CONT SAME TREATMENT Skin finding [id number] [place] [facility] [employer]. SET UP FOR BIOPSY IN 3 [id number] Lora Buenrostro DO [facility] [address] [place] [address] 08/09/2013 12:56:26 08/09/2013 14:05:07 Gastro-esophageal reflux disease with esophagitis [id number] STABLE. CONT CURRENT MEDS Hypothyroidism [id number] NORMAL THYROID FUNCTION ON RECENT LAB Fibromyositis 23322769 S TABLE. FIBROMYALG IA. CONT F/U WITH DR JOHNSON INSTRUCTED . Malaise and fatigue 784092615 STABLE. NO CHANGE SINCE LAST VISIT. CONT SAME TREATMENT Skin finding [id number] [place] [employer] [employer]. PT WANTS TO CHECK WITH BILLING TO VERIFY COST PRIOR TO GETTING LESION REMOVED. PT WILL F/U SCHEDULED. [id number] Lora Buenrostro DO [facility] [address] [place] [address] 12/25/2015 10:10:59 12/25/2015 11:49:13 Palpitations 41066624 R00.2 PT IS ADVISED TO SEE CARDIOLOGI ST FOR HER C/O OF PALPITATIO NS AND TACHYCARDI A. EKG SHOWS Q WAVE III WITH T WAVE INVERSION. NO COMPARISON . TO ER IF PAIN OCCURS. CHECK LAB. EKG HR 66. Electrocar diogram abnormal [id number] R94.[address] [id number] Thuy Pearl [facility] [address] [facility] [place] [address] 01/08/2016 13:26:40 01/08/2016 14:48:45 Palpitations 34337551 R00.2 PT IS ADVISED TO SEE CARDIOLOGI ST FOR HER C/O OF PALPITATIO NS AND TACHYCARDI A. EKG SHOWS Q WAVE III WITH T WAVE INVERSION. NO COMPARISON . TO ER IF PAIN OCCURS. CHECK LAB. EKG HR 66. 6/8 WORKUP NEG SO FAR. PT TO SEE CARDIOLOIG IST TODAY FOR CONSULT. COPY TESTING FOR PT TO HAND CARRY Electrocar diogram abnormal 962957168 R94.[address] Screening mammography 24 256063 Z12.31 Health Concerns Section Related Observation LastModified by Organization Detai ls LastModified Time None Recorded Concern Status LastModified by Organization Details LastModified Time None Recorded Advance Directives Directive None Recorded Payers Encounter Date Sequence Insurance Name Policy Number Policy [place] Covered Member ID [place] Member ID Guarantor Name 11/03/2012 1 [place] Marco Goodman [id number] Lucy Hendrickson 11/03/2012 2 [place] Lucy Hendrickson [id number] Lucy Hendrickson 07/10/2013 1 [place] Marco Goodman [id number] Lucy Hendrickson 08/09/2013 1 [place] Marco Goodman [id number] Lucy Hendrickson 12/25/2015 1 [place] Maroc Goodman [id number] Lucy Hendrickson 12/25/2015 2 [id number]SECONDARY TO MEDICARE) Lucy Hendrickson [id number] Lucy Hendrickson 01/08/2016 1 [place] Marco Goodman [id number] Lucy Hendrickson 01/08/2016 2 [id number] [place]SECONDARY TO MEDICARE) Lucy Hendrickson [id number] Lucy Hendrickson Notes Date Note Type Note Provider Name and Address Organization Details Recorded Time 12/25/2015 text/html Acute HPIReporte d bypatient.Notes:PT HASN'T BEEN SEEN IN OVER 2 YEARS. SHE APPARENTLY HAS TRANSFERRED TO DR HILL BUT I WASN'T AWARE OF IT WHEN PT CAME IN TODAY. SHE TELLS ME THAT SHE HAS HAD PALPITATIONS AND HAS BEEN UNDER TREMENDOUS STRESS TRYING TO LEAVE THE STATE . MY HEART WAS ALL OVER THE PLACE WHEN I INITIALLY CAME INTO THE ROOM SHE TOLD ME HER SYMPTOMS AND TOLD ME SHE HAD SEEN A DOCTOR BUT REFUSED TO TELL ME WHO IT WAS, STATING IT WAS IRRELAVENT AND SHE WASN'T COMFORTABLE TELLING ME WHO IT WAS. I TOLD HER I AM A DOCTOR AND NEED TO HAVE DETAILS THEN SHE TOLD ME WHO IT WAS. SHE WAS UNHAPPY HERE, SEE LAST PHONE MESSAGE, AND THEREFORE WENT TO DR HILL. NOW SHE SAYS SHE IS UNHAPPY WITH HIM AND DIDN'T THINK SHE NEEDED TO HAVE TO PAY FOR TESTING. IF I HAD KNOWN ABOUT HER COMMENTS FROM 2013 I WOULD HAVE DISCHARGED HER FROM THE PRACTICE BUT I AM JUST SEEING IT TODAY. HER COMMENTS WERE INAPPROPRIATE AND I REVIEWED THE ISSUES WITH HER TODAY. NO RECORDS HERE FROM DR FERNANDO. APPARENTLY SHE HAD EKG AND OREDERED STRESS TEST BUT SHE DIDN'T WANT TO PAY THE $200 SO SHE CAME HERE TO SEE WHAT SHE COULD DO MEDICALLY . SHE IS GETTING PALPITATIONS AND POUNDING HEART ALONG WITH PAIN OFF AND ON FOR A YEAR. SHE HAS NEVER GONE TO ER FOR THIS AND HASN'T SEEN A GRADUATE INTERN. SHE NEVER DID THE STRESS TEST. LAST LAB 09/16 PER PT BUT NO RECORDS HERE. SHE SAYS SHE WAS TOLD SHE WOULD PROB NEED TO SEE GRADUATE INTERN BUT DIDN'T GO. SHE DIDN'T DO STRESS TEST WITH HIM DUE TO FINANCES. SHE IS C/O SELLING HER HOUSE, HER EYE EXAM, HER FINANCES, HER FEET ETC. SHE IS GETTING THE SYMPTOMS OF CHEST POUNDING 24/7 DENIES SOB OR DIZZINESS OR LOC. SHE ISN'T VERY ACTIVE BECAUSE SHE HAS A LEFT FOOT BOOT ON. NO FHX OF CAD. SHE SAYS SHE HAS NEVER HEARD HER HEART BEFORE UP UNTIL 18 MONTHS AGO. Lora Buenrostro, [address] [facility] [address], [place], [address], [facility] - [facility], [facility] 12/25/2015 14:22:29 01/08/2016 text/html Acute HPIReporte d bypatient.Notes:PT HASN'T BEEN SEEN IN OVER 2 YEARS. SHE APPARENTLY HAS TRANSFERRED TO DR HILL BUT I WASN'T AWARE OF IT WHEN PT CAME IN TODAY. SHE TELLS ME THAT SHE HAS HAD PALPITATIONS AND HAS BEEN UNDER TREMENDOUS STRESS TRYING TO LEAVE THE STATE . MY HEART WAS ALL OVER THE PLACE WHEN I INITIALLY CAME INTO THE ROOM SHE TOLD ME HER SYMPTOMS AND TOLD ME SHE HAD SEEN A DOCTOR BUT REFUSED TO TELL ME WHO IT WAS, STATING IT WAS IRRELAVENT AND SHE WASN'T COMFORTABLE TELLING ME WHO IT WAS. I TOLD HER I AM A DOCTOR AND NEED TO HAVE DETAILS THEN SHE TOLD ME WHO IT WAS. SHE WAS UNHAPPY HERE, SEE LAST PHONE MESSAGE, AND THEREFORE WENT TO DR HILL. NOW SHE SAYS SHE IS UNHAPPY WITH HIM AND DIDN'T THINK SHE NEEDED TO HAVE TO PAY FOR TESTING. IF I HAD KNOWN ABOUT HER COMMENTS FROM 2013 I WOULD HAVE DISCHARGED HER FROM THE PRACTICE BUT I AM JUST SEEING IT TODAY. HER COMMENTS WERE INAPPROPRIATE AND I REVIEWED THE ISSUES WITH HER TODAY. NO RECORDS HERE FROM DR FERNANDO. APPARENTLY SHE HAD EKG AND OREDERED STRESS TEST BUT SHE DIDN'T WANT TO PAY THE $200 SO SHE CAME HERE TO SEE WHAT SHE COULD DO MEDICALLY . SHE IS GETTING PALPITATIONS AND POUNDING HEART ALONG WITH PAIN OFF AND ON FOR A YEAR. SHE HAS NEVER GONE TO ER FOR THIS AND HASN'T SEEN A GRADUATE INTERN. SHE NEVER DID THE STRESS TEST. LAST LAB 09/16 PER PT BUT NO RECORDS HERE. SHE SAYS SHE WAS TOLD SHE WOULD PROB NEED TO SEE GRADUATE INTERN BUT DIDN'T GO. SHE DIDN'T DO STRESS TEST WITH HIM DUE TO FINANCES. SHE IS C/O SELLING HER HOUSE, HER EYE EXAM, HER FINANCES, HER FEET ETC. SHE IS GETTING THE SYMPTOMS OF CHEST POUNDING / DENIES SOB OR DIZZINESS OR LOC. SHE ISN'T VERY ACTIVE BECAUSE SHE HAS A LEFT FOOT BOOT ON. NO FHX OF CAD. SHE SAYS SHE HAS NEVER HEARD HER HEART BEFORE UP UNTIL 18 MONTHS AGO. 01/07 PT HERE FOR RECHECK. SHE CAN HEAR HER HEART BEATING WHICH SHE SAYS SHE NEVER HEARD IN THE PAST AND ONE OF HER FRIENDS HAD A HEART PROBLEM AND SHE COULD HEAR HER HEART BEAT SO SHE WAS AFRAID. HOLTER STABLE. NO TACHYCARDIA. LAB NORMAL CXR NORMAL. NO CHEST PAIN. SHE SEES DR LAFLEUR TODAY Lora Buenrostro, [address] [facility] [address], [place], [address], [facility] - [facility], [facility] 01/08/2016 14:44:31 OBGyn Episode No OBEpisode recorded.
--- OUTSIDE RECORDS SUMMARY | 2024-10-30 16:24 | XMS_ITS | Patient Health Record ---
Author Organization [facility] Address [address] [place] [address] Care Team Providers Care Klystrom Tube Tester Name Role Phone LoretaPavan Primary Care Provider Harjeet Muniz MD MSc, Raine Unavailable [phone] Allergies Allergen (clinical drug ingredient) Drug/Non Drug Allergy documented on EMR Reaction Allergy Type Onset Date Status Substance with 7-wpmebwi-7-methylgluta ryl-coenzyme A reductase inhibitor mechanism of action (substance) Statins Unknown Drug Allergy Active Reason For Referral No Information Medications Medication SIG (Take, Route, Frequency, Duration) Notes Start Date End Date Status Omeprazole 40 MG 1 capsule 30 minutes before morning meal Orally Once a day for 30 day(s) Active hydroCHLOROthiazide 25 MG 1 tablet in th e morning Orally Once a day for 30 day(s) Active Levothyroxine Sodium 100 MCG 1 tablet in the morning on an empty stomach Orally Once a day for 30 day(s) Active Metoprolol Succinate 25 MG 1 capsule Ora lly Once a day for 30 day(s) Active valACYclovir HCl 1 GM 1 tablet Orally On ce a day for 10 day(s) Active Pregabalin 100 MG 1 capsule Orally Onc e a day Active Social History Alcohol screen Question Answer Notes Did you have a drink contain ing alcohol in the past year? Yes How often did you have a dri nk containing alcohol in the past year? Four or more times a week How many drinks did you have on a typical day when you were drinking in the past year? 1 or 2 How often did you have six o r more drinks on one occasion in the past year? Never Points 4 Interpretation Positive Drug Question Answer Notes Have you used drugs other th an those for medical reasons in the past 12 months? No Plan Of Treatment No Information Insurance Providers Payer Name Payer Address Payer Phone Subscriber Number Group Number Insured Name Patient Relationship to Insured Coverage Start Date Coverage End Date MEDICARE [place] [address] [place] [phone] [id number] Lucy Hendrickson Self - patient is the insured Medical (General) History Medical History History ICD Code Fibromyalgia Osteoarthritis Mild asthma Surgical History Surgery Date(Month/Year) Tonsillectomy 3x left hand surgeries (thumb joint fusi on), 2x right hand surgeries Right knee fusion 2014 Hammer left toe Uterus suspension lumbar fusion L2-S1 for scoliosis 020
--- OUTSIDE RECORDS SUMMARY | 2024-10-30 16:24 | XMS_ITS | Data Portability ---
Author Organization [place] [facility], Allergy Address [address] [place] [address] Care Team Providers Care Metropolitan Editor Name Role Phone ZAID HICKS Primary Care Provider Assessment Encounter Date Assessment Date Assessment LastModified by Organization Details LastModified Time 02/28/2024 02/28/2024 73-year-old female presents for cerumen removal. Cerumen impaction removed bilaterally. Bilateral TMs are intact. Follow-up in three months for repeat debridement. [email or web address] Not available 02/28/2024 10:26:38 05/31/2024 05/31/2024 73-year-old female presents for cerumen removal. Cerumen impaction removed bilaterally. Bilateral TMs are intact. Follow-up in three months for repeat debridement. [email or web address] Not available 05/31/2024 09:18:25 08/31/2024 08/31/2024 Patient has a long history of cerumen impaction. In the past she was seen at 3-month intervals. Today's visit there is no cerumen and I would recommend we begin extending the duration between visits as we are short staffed in our office. Next visit in 6 months with INGRID [email or web address] Not available 08/31/2024 09:17:15 Plan of Treatment Reminders Order Date Submit Date Provider Last Modified By Organization Details Last Modified Time Details Appointments Establish ed 15 2024 09:00A Baltazar TUTTLE PA-C Not available Not available Not available Lab None recorded. Referral None recorded. Procedures None recorded. Surgeries None recorded. Imaging None recorded. Medication Orders None recorded. Patient TargetsNo targets recorded. Patient InstructionsNo instructions recorded. Reason for Referral None Reported. Results Created Date Observation Date Name Description Value Unit Range Abnormal Flag Note LastModifiedBy Organization Detail LastModifiedTime 03/22/20 24 12/27/2018 imagi ng/di agnos tic resul t No observ ation record ed. [email or web address] Not Available 07:53:32 03/22/20 24 06/24/2021 imagi ng/di agnos tic resul t No observ ation record ed. [email or web address] Not Available 07:53:36 03/22/20 24 12/27/2018 audio gram No observ ation record ed. [email or web address] Not Available 07:54:09 Result Notes None recorded. 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; Note: Date Diagnosed : 12/16/2017 4:34 PM (388.72) Not Available [facility] 4 03:01:37 Posterior rhinorrhe a 66298602 Active 2016 Postnasal drip; Note: Date Diagnosed : 7 3:49 PM (R09.82) Not Available [facility] 4 03:01:37 Impacted cerumen in right ear 77369989533 40482 Active 2018 Impacted cerumen, right ear; Note: Date Diagnosed : 08/23/2018 2:40 PM (H61.21) Not Available [facility] 4 03:01:38 Acute sinusitis 39724988 Active 2020 Acute sinusitis , unspecifi ed; Note: Date Diagnosed : 1 10:47 AM (J01.90) Not Available [facility] 4 03:01:37 Abnormal auditory perceptio n 87667009 Active 2017 Other abnormal auditory perceptio ns, right ear; Note: Date Diagnosed : 12/16/2017 3:53 PM (H93.291) Not Available [facility] 4 03:01:37 Sensorine ural hearing loss of bilateral ears 110623153 Active 2018 Sensorine ural hearing loss, bilateral ; Note: Date Diagnosed : 12/27/2018 2:45 PM (H90.3) Not Available [facility] 4 03:01:36 Impacted cerumen in left ear 90886593850 56033 Active 2017 Impacted cerumen, left ear; Note: Date Diagnosed : 12/16/2017 3:48 PM (H61.22) Not Available [facility] 4 03:01:35 Ulcerativ e rhinitis 84046975 Active 2020 Nasal mucositis (ulcerati ve); Note: Date Diagnosed : 11/04/2020 3:45 PM (J34.81) Not Available [facility] 4 03:01:35 Problem Notes None recorded. Procedures Surgical History Date Name Laterality Status Provider Name and Address Organization Details Recorded Time 4 Cerumen removal without microscope bilat completed INGA SHAY PA-C [address] [place] [address], [phone], [facility] 05/31/2024 09:19:06 4 Cerumen removal without microscope bilat completed INGA SHAY PA-C [address] [place] [address], [phone], [facility] 02/28/2024 10:26:17 Imaging Results Imaging Date Name Status LastModified by [facility] Details LastModified Time 12/27/2018 imaging/diagno stic result completed Information not available 03/22/2024 07:53:32 06/24/2021 imaging/diagno stic result completed Information not available 03/22/2024 07:53:36 12/27/2018 audiogram completed Information not available 03/22/2024 07:54:09 Procedure Notes None recorded. Medical Equipment None Reported. Allergies Allergen ID Allergen Name Allergen Category Reaction Reaction Severity Criticality Documentation Date Start Date Code Code System Note Provider Name and Address Organization Details Recorded Time 634657 Product containin g 3-hydroxy -3-methyl glutaryl- coenzyme A reductase inhibitor (product) medicatio n other Not available Not available 12/14/2023 32646 009 SNOMED React ion: unkno wn, unspe cifie d;; Not Available [facility] 01:19:12 Medications Name Sig Start Date Stop Date Status Note LastModified by Organization Details LastModified Time amoxicill in 500 mg capsule TAKE 4 CAPSULES BY MOUTH 1 HOUR PRIOR TO PROCEDUR E 05/31 completed Not Available Not Available Not Available Augmentin 875 mg-125 mg tablet by mouth 05/31 completed Medicati on ID: [id number] D uration Value: 10 Prescri bed By Name: ANDREA Kim nd Name: Silvio waters Send Method: E-Prescr ibed Sub s Allowed: subs OK Speci al Instruct ion: 1 po bid for 10 days Med icationG enericNa me: Augmenti n Not Available Not Available Not Available acetamino phen 325 mg tablet TAKE 3 TABLETS BY MOUTH EVERY 8 HOURS,X3 0 DAYS,TEM PERATURE GREATER THAN 100.5 08/31 completed Not Available Not Available Not Available ibuprofen 800 mg tablet TAKE 1 TABLET BY MOUTH THREE TIMES A DAY FOR 14 DAYS 05/31 completed Not Available Not Available Not Available valacyclo vir 1 gram tablet TAKE 1 TABLET BY MOUTH EVERY DAY active Not Available Not Available No t Available meloxicam 15 mg tablet TAKE 1 TABLET BY MOUTH EVERY DAY WITH FOOD/MIL K 08/31 completed Not Available Not Available Not Available ondansetr on HCl 4 mg tablet TAKE 1 TABLET EVERY 6 HOURS NEEDED 08/31 completed Not Available Not Available Not Available hydroxyzi ne pamoate 50 mg capsule TAKE 1 CAPSULE BY MOUTH AT BEDTIME 08/31 completed Not Available Not Available Not Available clopidogr el 75 mg tablet TAKE 1 TABLET BY MOUTH EVERY DAY active Not Available Not Available No t Available omeprazol e 40 mg capsule,d elayed release TAKE 1 CAPSULE BY MOUTH EVERY DAY active Not Available Not Available No t Available minoxidil 2.5 mg tablet TAKE 2 TABLETS DAILY FOR HAIR LOSS. active Not Available Not Available No t Available aspirin 81 mg tablet,de layed release TAKE 1 TABLET BY MOUTH EVERY DAY active Not Available Not Available No t Available tramadol 50 mg tablet TAKE 1 TABLET BY MOUTH TWICE A DAY NEEDED active Not Available Not Available No t Available acetamino phen 500 mg tablet TAKE 2 TABLETS BY MOUTH EVERY 6 HOURS NEEDED FOR PAIN active Not Available Not Available No t Available amoxicill in 500 mg tablet TAKE 4 TABS ONE HOUR PRIOR TO DENTAL APPOINTM ENT 05/31 completed Not Available Not Available Not Available levothyro xine 75 mcg tablet 01/07 completed Medicati on ID: [id number] D uration Value: 30 Reason: () Brand Name: levothyr oxine Se nd Method: E-Prescr ibed Sub s Allowed: subs HERMANN [place] Instruct ion: TK 1 T PO QD Medic ationGen ericName : levothyr oxine Not Available Not Available Not Available levothyro xine 100 mcg tablet TAKE 1 TABLET BY MOUTH EVERY DAY active Not Available Not Available No t Available oxycodone -acetamin ophen 5 mg-325 mg tablet TAKE 1-2 TABLETS EVERY 12 HOURS NEEDED FOR 7 DAYS 08/31 completed Not Available Not Available Not Available potassium chloride ER 20 mEq tablet,ex tended release(p art/cryst ) 08/31 completed Medicati on ID: [id number] D uration Value: 30 Brand Name: william powers chloride Send Method: E-Prescr ibed Sub s Allowed: subs HERMANN [place] Instruct ion: TK 1 T PO BID Medi cationGe nericNam e: potdomenicaiu m chloride Not Available Not Available Not Available benzonata te 100 mg capsule 09/20 completed Medicati on ID: [id number] D uration Value: 5 Brand Name: benzonat ate Send Method: E-Prescr ibed Sub s Allowed: subs HERMANN [place] Instruct ion: TK 1 C PO TID PRF COUGH Me dication GenericN sheridan: benzonat ate Not Available Not Available Not Available metronida zole 0.75 % topical cream APPLY TO THE AFFECTED AREAS ON THE FACE TWICE DAILY active Not Available Not Available No t Available hydrochlo rothiazid e 25 mg tablet 08/31 completed Medicati on ID: [id number] D uration Value: 90 Brand Name: justin [place] Send Method: E-Prescr ibed Sub s Allowed: subs OK Speci al Instruct ion: TK 1 T PO D ADD THIS TO D SPIRONOL ACTONE FOR PEDAL EDEMA Me dication GenericN sheridan: hydrochl orothiaz lea Not Available Not Available Not Available mupirocin 2 % topical ointment 1 a small amount to affected area 05/31 completed Medicati on ID: [id number] D uration Value: 14 Prescri bed By Name: ANDREA Cast nd Name: vickyi n Send Method: E-Prescr ibed Sub s Allowed: subs OK Speci al Instruct ion: Apply a small amount to the nose TID Medi cationGe nericNam e: mupiroci n Not Available Not Available Not Available metoprolo l succinate ER 25 mg tablet,ex tended release 24 hr TAKE 1 TABLET BY MOUTH EVERY DAY active Not Available Not Available No t Available ibuprofen 600 mg tablet active Not Available Not Available Not Available estradiol 0.01% (0.1 mg/gram) vaginal cream 1 GM VAGINALL Y EVERY WEDNESDAY AND WEDNESDAY active Not Available Not Available No t Available albuterol sulfate HFA 90 mcg/actua tion aerosol inhaler 2 PUFFS INHALATI ON EVERY 6 HOURS,X3 0 DAYS, NEEDED WHEEZING /SHORTNE SS OF BREATH,U SE WITH SPACER 08/31 completed Not Available Not Available Not Available morphine 15 mg immediate release tablet active Not Available Not Available Not Available finasteri de 5 mg tablet TAKE 1/2 TABLET BY MOUTH DAILY active Not Available Not Available No t Available naproxen 500 mg tablet TAKE 1 TABLET BY MOUTH TWICE A DAY 08/31 completed Not Available Not Available Not Available diazepam 5 mg tablet 1 TABLET BY MOUTH EVERY 12 HOURS,X3 DAYS, NEEDED TO DECREASE SPASMS, DO NOT DRIVE/DR INK ALCOHOL 08/31 completed Not Available Not Available Not Available oxycodone 5 mg tablet TAKE 1 TABLET BY MOUTH EVERY 4 HOURS NEEDED FOR PAIN (SEVERE) 08/31 completed Not Available Not Available Not Available cyclospor ine 0.05 % eye drops in a dropperet te INSTILL 1 DROP INTO BOTH EYES TWICE A DAY active Not Available Not Available No t Available pregabali n 100 mg capsule TAKE 1 CAPSULE BY MOUTH TWICE A DAY active Not Available Not Available No t Available pregabali n 150 mg capsule TAKE 1 CAPSULE BY MOUTH TWICE A DAY 05/31 completed Not Available Not Available Not Available pregabali n 200 mg capsule 05/31 completed Medicati on ID: [id number] B rand Name: pregabal in Send Method: E-Prescr ibed Sub s Allowed: subs OK Medic ationGen ericName : pregabal in Not Available Not Available Not Available pregabali n 225 mg capsule 09/20 completed Medicati on ID: [id number] D uration Value: 90 Brand Name: pregabal in Send Method: E-Prescr ibed Sub s Allowed: subs OK Speci al Instruct ion: TAKE 1 CAPSULE BY MOUTH TWICE A DAY Medi cationGe nericNam e: pregabal in Not Available Not Available Not Available Pulmicort Flexhaler 180 mcg/actua tion breath activated INHALE 1 PUFF 2 TIMES DAILY 08/31 completed Not Available Not Available Not Available diclofena c 1 % topical gel APPLY 2 GRAMS TO THE AFFECTED AREA(S) BY TOPICAL ROUTE 4 TIMES PER DAY 08/31 completed Not Available Not Available Not Available Vitals Date Recorded Body height Body mass index (BMI) Body weight Provider Name and Address Organization Details Last Updated DateTime 02/28/2024 167.64 cm 29.1 kg/m2 69002.63 g Marleni Butler [place] [facility] 02/28/2024 09:35:32 Date Recorded Body height Body mass index (BMI) Body weight Provider Name and Address Organization Details Last Updated DateTime 05/31/2024 167.64 cm 29.1 kg/m2 86812.63 g Katy Nam [place] [facility] 05/31/2024 09:13:53 Date Recorded Body height Body weight Provider Name and Address Organization Details Last Updated DateTime 08/31/2024 167.64 cm 43303.63 g Leni Cordova [place] [facility] 08/31/2024 09:03:18 Social History None recorded. Functional Status None recorded. Mental Status None recorded. Family History Nothing Reported. Medical History Condition Response Allergies/Hayfever Y Thyroid Problems Y Asthma Y GERD/Reflux Y Gynecological HistoryNo gynecological history recorded. Obstetrics History GPAL:G 0 P 0 0 0 0 Past Encounters Encounter ID Performer Location Encounter Start Date Encounter Closed Date Diagnosis/Indication Diagnosis SNOMED-CT Code Diagnosis ICD10 Code Diagnosis Note [id number] GUTIERREZ KELLY MD [facility] [address] [address] 02/28/2024 09:32:41 02/28/2024 09:52:53 Impacted cerumen of bilateral ears [id number] 351067 H61.23 [id number] ANGELLA OSUNA MD [facility] [address] [address] 05/31/2024 09:05:50 05/31/2024 12:37:39 Impacted cerumen of bilateral ears 3472638232 819244 H61.23 [id number] GUTIERREZ KELLY MD [facility] [address] [address] 08/31/2024 08:59:10 08/31/2024 09:16:53 Impacted cerumen of bilateral ears 1302701651 759126 H61.23 Health Concerns Section Related Observation LastModified by Organization Detai ls LastModified Time None Recorded Concern Status LastModified by Organization Details LastModified Time None Recorded Advance Directives Directive None Recorded Payers Encounter Date Sequence Insurance Name Policy Number Policy [place] Covered Member ID [place] Member ID Guarantor Name 02/28/2024 2 [place] Lucy Hendrickson [id number] Lucy Hendrickson 02/28/2024 1 [place] [employer] Lucy Hendrickson [id number] Lucy Hendrickson 05/31/2024 2 [place] [facility] Lucy Hendrickson [id number] Lucy Hendrickson 05/31/2024 1 [place] [employer] Lucy Hendrickson [id number] Lucy Hendrickson 08/31/2024 2 [place] [facility] Lucy Hendrickson [id number] Lucy Hendrickson 08/31/2024 1 [place] [facility] Lucy Hendrickson [id number] Lucy Hendrickson Notes Date Note Type Note Provider Name and Address Organization Details Recorded Time 02/28/2024 text/html 73-year-old female presents for cerumen removal. No otologic concerns. GUTIERREZ KELLY MD [address] [place] [address], [phone], [place] [facility] 02/28/2024 17:20:33 05/31/2024 text/html 73-year-old female presents for cerumen removal. No otologic concerns. ANGELLA OSUNA MD [address] [place] [address], [phone], [place] [facility] 05/31/2024 13:37:40 08/31/2024 text/html 73-year-old female presents for cerumen removal. No otologic concerns. GUTIERREZ KELLY MD [address] [place] [address], [phone], [place] [facility] 08/31/2024 09:17:31 OBGyn Episode No OBEpisode recorded.
--- OUTSIDE RECORDS SUMMARY | 2024-10-30 16:24 | XMS_ITS | Continuity of Care Document ---
Author Organization [facility] Address [address] [place] [address] Phone [phone] Social History Type Date Description Comments Sex Unknown Medical Devices Description No Information Available Encounters Description No Information Available Assessments Description No Information Available Plan of Treatment No Information Available Functional Status Description No Information Available Mental Status Description No Information Available Referrals Description No Information Available
--- OUTSIDE RECORDS SUMMARY | 2024-10-30 16:24 | XMS_ITS ---
Author Name [facility] Organization Unknown History of Medication Use Medication Directions Dispensed Refills Start Date End Date Stat metoPROLOL TARTRATE-hydroCHLOROth iazide (LOPRESSOR HCT) 100-25 MG per tablet Take 1 tablet by mouth daily. 12.5MG active levothyroxine (SYNTHROID, LEVOTHROID) 100 MCG tablet Take 1 tablet (100 mcg total) by mouth daily on an empty stomach. active pregabalin (LYRICA) 200 MG capsule Take 1 capsule (200 mg total) by mouth 2 (two) times a day. active Problems Problem Status Onset Date Problem Type Date of Resoluti on Source Muscle weakness active EncounterDiagnosisAct CCT Polyneuropathy active EncounterDiagnosisAct CCT Encounters Encounter Type Encounter Reason Primary Diagnosis Location Date Ambulatory Polyneuropathy, unspecified Polyneuropathy, unspecified [facility] 06/28/2023 [facility]ulatory [facility] 06/07/2023 Ambulatory Muscle weakness (generalized) Muscle weakness (generalized) [facility] 06/07/2023 Care Team Organization Name Specialty Phone Email Start Date End Da te [facility] ZAID HICKS [facility] 06/07/2023 06/07/20 [facility] HIC[facility] 06/07/2023 10/19/19 [facility]
--- OUTSIDE RECORDS SUMMARY | 2024-10-30 16:25 | XMS_ITS | Clinical Summary ---
Author Organization [facility] Address [address] [place] [address] Care Team Providers Care Manager Food Beverage Name Role Phone Pavan Kan MD Primary Care Provider [phone] Allergies Active Allergy Reactions Criticality Noted Date Comments Oxycodone 09/11/2021 Statins Other (See Comments) 06/03/2018 Other reaction(s): Statin not tolerated pt states dosen't know name of medication Medications Medication Sig Dispensed Refills Start Date End Date Status Acetaminophen 325 MG CAPS Take 650 mg by mouth. 0 03/23/2021 Act meg albuterol 108 (90 Base) MCG/ACT inhaler 0 09/10/2021 Active baclofen (LIORESAL) 10 MG tablet Take 10 mg by mouth. 0 07/17/2021 Ac tive Restasis 0.05 % ophthalmic emulsion Place 1 drop into both eyes 2 (two) times a day. 0 07/09/2021 Active erythromycin (ROMYCIN) ophthalmic ointment APPLY TO AFFECTED AREA OF LEFT UPPER LID AT BEDTIME 0 08/20/2021 Active estradiol (ESTRACE) 0.1 MG/GM vaginal cream INSERT 1 GRAM VAGINALLY DAILY AT BEDTIME 0 06/09/2021 Active hydroCHLOROthiazide (HYDRODIURIL) tablet 25 mg Take 25 mg by mouth daily. 0 08/25/2021 Active levothyroxine (SYNTHROID) tablet 100 mcg Take 100 mcg by mouth daily. 0 07/09/2021 Active metoprolol succinate (TOPROL-XL) 24 hr tablet 25 mg Take 25 mg by mouth daily. 0 08/12/2021 Active metroNIDAZOLE (METROCREAM) 0.75 % cream APPLY TOPICALLY TO AFFECTED AREAS OF FACE TWICE A DAY 0 08/01/2021 Active minoxidil (LONITEN) 2.5 MG tablet TAKE 1/2 TABLET DAILY FOR HAIR LOSS OR ONE TABLET EVERY OTHER DAY 0 08/09/2021 Active Mirabegron ER (MYRBETRIQ) 25 MG TB24 24 hr tablet Take 25 mg by mouth. 0 06/23/2021 Active omeprazole (PriLOSEC) 40 MG capsule Take 40 mg by mouth daily. 0 07/09/2021 Active pregabalin (LYRICA) capsule 100 mg See Instructions, 1 capsule By Mouth a day, # 30 capsule, 3 Refills, Maintenance, 05/13/21 13:25:00 EDT, Capsule, [id number], Partial fill upon patient request if the prescription is for a schedule II opioid drug., 168, cm, 04/30/21 11:10:00... 0 05/13/2021 Active traMADol (ULTRAM) 50 MG tablet Take 50 mg by mouth. 0 08/19/2021 Ac tive Active Problems No known active problems Social History Tobacco Use Types Packs/Day Years Used Date Smoking Tobacco: Never Smokeless Tobacco: Never Alcohol Use Standard Drinks/Week Comments Yes 0 (1 standard drink = 0.6 oz pur e alcohol) Sex and Gender Information Value Date Recorded Sex Assigned at Female 03/25/2023 10:42 AM EDT Gender Identity Not on file Sexual Orientation Not on file Job Start Date Occupation Industry Not on file Not on file Not on file Last Filed Vital Signs Vital Sign Reading Time Taken Comments Blood Pressure 137/108 05/13/2023 9:20 AM EDT Pulse 86 05/13/2023 9:20 AM EDT Temperature 35.9 ??C (96.7 ??F) 05/13/2023 9:20 AM ED T Respiratory Rate - - Oxygen Saturation 100% 05/13/2023 9:20 AM EDT Inhaled Oxygen Concentration - - Weight - - Height - - Body Mass Index - - Plan of Treatment Health Maintenance Due Date Last Done Comments Hepatitis C Screening 1950 Depression Screening 1962 Preventative Health Evaluation 1968 DTap / Tdap / Td (1 - Tdap) 1969 Colon Cancer Screening (Colonoscopy) 1995 Breast Cancer Screening (Mammogram) 2000 Shingrix-Zoster Vaccine (1 o f 2) 2000 Fall Risk Assessment 2015 Osteoporosis Screening (DEXA Scan) 2015 Pneumococcal Vaccine (1 of - PCV) 2015 COVID-19 Vaccine (3 2023-2 5 season) 2024 10/26/2020, 09/27/2020 Influenza Vaccine (#1) 2024 RSV Adult > 60+ Yrs or (1 - 1-dose 75+ series) 2025 Hepatitis B Vaccines Aged Out No long er eligible based on patient's age to complete this topic RSV Ped < 20 months Aged Out No longe r eligible based on patient's age to complete this topic Care Teams Manager Food Beverage Relationship Specialty Start Date End Date Pavan Kan MD [address] [place] [address] PCP - General Family Medicine 08/08/21
--- OUTSIDE RECORDS SUMMARY | 2024-10-30 16:25 | XMS_ITS | Clinical Summary ---
Author Organization [facility] Address [address] [place] [address] Care Team Providers Care Thread Inspector Name Role Phone Pavan Kan MD Primary Care Provider [phone] Allergies Active Allergy Reactions Criticality Noted Date Comments Oxycodone Other (See Comments) Low 09/11/2021 Dizzy Statins Other (See Comments) Low 06/29/2022 Chronic pain. Medications Medication Sig Dispensed Refills Start Date End Date Status metoPROLOL TARTRATE-hydroCHLOROth iazide (LOPRESSOR HCT) 100-25 MG per tablet Take 1 tablet by mouth daily. 12.5MG Active OMEprazole (PriLOSEC) 40 MG capsule Take 1 capsule (40 mg total) by mouth every morning before breakfast. Active levothyroxine (SYNTHROID, LEVOTHROID) 100 MCG tablet Take 1 tablet (100 mcg total) by mouth daily on an empty stomach. Active valGANciclovir (VALCYTE) 450 MG tablet Take 1 mg by mouth every morning with breakfast. 1 GRAM Active minoxidil (LONITEN) 2.5 MG tablet Take 1 tablet (2.5 mg total) by mouth daily. Active pregabalin (LYRICA) 200 MG capsule Take 1 capsule (200 mg total) by mouth 2 (two) times a day. Active Social History Tobacco Use Types Packs/Day Years Used Date Smoking Tobacco: Never Assessed Alcohol Use Standard Drinks/Week Comments Never 0 (1 standard drink = 0.6 oz pur e alcohol) Sex and Gender Information Value Date Recorded Sex Assigned at Not on file Gender Identity Not on file Sexual Orientation Not on file Last Filed Vital Signs Vital Sign Reading Time Taken Comments Blood Pressure 139/83 06/07/2023 11:15 AM EST Pulse 70 06/07/2023 11:15 AM EST Temperature - - Respiratory Rate - - Oxygen Saturation - - Inhaled Oxygen Concentration - - Weight 85.1 kg (187 lb 11.2 oz) 023 11:15 AM EST Height 167.6 cm (5' 6 ) 06/07/2023 11:1 5 AM EST Body Mass Index 30.3 06/07/2023 11:15 AM EST Plan of Treatment Health Maintenance Due Date Last Done Comments Hepatitis C Virus Screening 1950 DTaP/Tdap/Td Vaccines (1 - Tdap) 1969 Mammogram 1990 Colonoscopy 1995 Pneumococcal Vaccines 50+ (1 of 1 - PCV) 2000 Zoster (Shingles) Vaccine (1 of 2) 2000 DXA Bone Density (Females,Ages 65 and older) 2015 Influenza Vaccine 03/02/2024 COVID-19 Vaccine (3 - 2023-2 5 season) 2024 10/26/2020, 09/27/2020 RSV Vaccine 60 years and older and Patients (1 - 1-dose 75+ series) 2025 Hepatitis B Vaccines Aged Out No long er eligible based on patient's age to complete this topic Care Teams Thread Inspector Relationship Specialty Start Date End Date Pavan Kan MD [address] [place] [address] PCP - General Psychiatry, General 05/25/23
== END 2024-10-30 15:16 | disposition home or self-care (01) ==
LOC: HO.PMC 14:31
PROVIDERS: PCP Family Medicine; Visit Provider Anesthesiology
DX: M96.1 Postlaminectomy syndrome, not elsewhere classified (principal); M25.511 Pain in right shoulder; M19.011 Primary osteoarthritis, right shoulder; G89.4 Chronic pain syndrome
CPT/HCPCS: 99204

== ENCOUNTER → 2024-10-30 14:30 | Outpatient (BNVA) | payer MEDICARE, MEDICAID, SELFPAY | PROVIDERS: PCP Family Medicine; Visit Provider Anesthesiology | DX: M96.1 Postlaminectomy syndrome, not elsewhere classified (principal); G89.4 Chronic pain syndrome; M19.011 Primary osteoarthritis, right shoulder; Z86.73 Personal history of transient ischemic attack (TIA), and cerebral infarction without residual deficits | CPT/HCPCS: 99202 ==

== ENCOUNTER 2025-04-28 09:56 | Emergency (ER) | payer MEDICARE, MEDICAID, SELFPAY ==
--- OUTSIDE RECORDS SUMMARY | 2016-01-02 20:00 | XMS_ITS | Continuity of Care Document ---
Author Organization [facility] Address [address] [place] [phone] Phone Care Team Providers Care Yarn Dry Room Worker Name Role Phone RCM, Rendering Unavailable Unavailable [...] Copied on Encounter [facility], [facility] [place], [place], [id number] , tel: [phone] [facility] No Information Demarcus-0 3-201 6 RCM Rendering . [address] [place] [address], [address], [place]. tel: [phone] [facility], [address] [place] [address], [id number] , [place] tel: [phone] [facility] Pseudophakia Maxim-0 3-201 4 RCM Rendering . [address] [place] [address], [address], [place]. tel: [phone] [facility], [address] [place] [address], [id number] , [place] tel: [phone] [facility] PseudophakiaCorneal Edema/ Decomp Unspec Dec-2 4-201 3 RCM Rendering . [place], [address], [place]. tel: [phone] [facility], [address] [place], [id number] , [place] tel: [phone] [facility] Cataract Posterior SubcapsularCataract Nuclear Sclerotic 3 RCM Rendering . [place], [address], [place]. tel: [phone] Family History Family Member Type Diagnosis Age At Onset No Information Payers Payer name Insurance type Covered democrat ID Authoriza tion(s) No Information Social History [...]
--- NOTE | ~2025-04-28 | XR_ITS ---
CLINICAL HISTORY: injury, pain; patient states unable to remove rings for imaging 4 view right wrist Comparison: None provided Findings: There are postoperative changes related to the 1st digit with fusion of the 1st metacarpal and proximal phalanx and resection of the proximal 1st metacarpal. There is chondrocalcinosis of the triangular fibrocartilage. No erosions. No radiopaque foreign body. No acute bony abnormalities are noted. IMPRESSION: 1. No acute findings 2. Chondrocalcinosis of the triangular fibrocartilage. 3. Postoperative changes 1st digit as above. This document has been electronically signed by: Grady Mendes MD on 04/28/2025 12:53:18
--- NOTE | ~2025-04-28 | XR_ITS ---
CLINICAL HISTORY: injury, pain; patient states unable to remove rings for imaging 3 view right hand Comparison: None provided Findings: There are postoperative changes related to the 1st digit with fusion of the 1st metacarpal and proximal phalanx and resection of the proximal 1st metacarpal. There is chondrocalcinosis of the triangular fibrocartilage. No erosions. No radiopaque foreign body. No acute bony abnormalities are noted. IMPRESSION: 1. No acute findings 2. Chondrocalcinosis of the triangular fibrocartilage. 3. Postoperative changes 1st digit as above. This document has been electronically signed by: Grady Mendes MD on 04/28/2025 12:51:16
[2025-04-28 10:18] VITALS: BP 105/68; BP 128/66; PULSE 90; PULSE 92; RESP 20; TEMP 36.5; O2SAT 98; O2SAT 99; BMI 29.0
--- NOTE | 2025-04-28 10:28 | ED.EXTPRO ---
HPI - Extremity Problem General Chief complaint: Extremity Injury, Upper Stated complaint: PAIN IN LEFT HAND Time Seen by Provider: 04/28/25 10:10 Source: patient, RN notes reviewed and old records reviewed Mode of arrival: EMS Limitations: no limitations History of Present Illness ED Provider: ANDREA Garcia HPI Narrative: 74-year-old female with medical history of chronic pain syndrome, osteoarthritis, fibromyalgia, presents to the ED due to right hand pain that began yesterday after moving boxes at home. Patient states she noticed some pain last night after finishing the moving job. Patient states she woke up this morning with increased pain of the right hand, warmth, and pain with moving the hand. Patient denies fevers Related Data Home Medications ?Medication ?Instructions ?Recorded ?Confirmed hydrochlorothiazide 25 mg tablet 25 mg PO DAILY 08/06/21 10/30/24 levothyroxine 100 mcg tablet 100 mcg PO DAILY 08/06/21 10/30/24 omeprazole 40 mg capsule,delayed 40 mg PO DAILY 08/06/21 10/30/24 release valacyclovir 1 gram tablet 1,000 mg PO BID 08/06/21 10/30/24 minoxidil 2.5 mg tablet mg PO 09/01/21 10/30/24 pregabalin 100 mg capsule 100 mg PO DAILY 10/30/24 10/30/24 tramadol 50 mg tablet 100 mg PO DAILY PRN pain 10/30/24 Previous Rx's ?Medication ?Instructions ?Recorded oxycodone 5 mg capsule 5 mg PO BID PRN pain #6 caps 04/28/25 prednisone 10 mg tablet 10 mg PO DAILY #47 tabs 04/28/25 Allergies Allergy/AdvReac Type Severity Reaction Status Date / Time [id number] Reductase Allergy Mild rash Verified 04/28/25 10:22 Inhibitor Review of Systems Review of Systems: CONST: Negative for fever, body aches and chills. HENT: Negative for neck pain/stiffness, headache, congestion, sore throat, swelling. EYES: Negative for discharge/pain or vision changes. RESP: Negative for cough/hemoptysis and shortness of breath. CV: Negative chest pain, difficulty breathing, palpitations. ABD: Negative pain, nausea, vomiting. : Negative increase frequency, dysuria, blood in urine or stool. MUSC: Negative for muscle aches, edema. POS pain of dorsal R hand SKIN: Negative rash, lesions/sores. NEURO: Negative headache, dizziness, weakness. [facility] Past Medical History Attestation statement: The following information was validated with the patient. Source: old records reviewed and nursing notes reviewed Social History Social History Advance Directives: Yes Advance Directives Information Provided: No Advance Directives on File: No Do you have a plan to hurt others: No Plan Physical Exam Vital Signs: Vital Signs: Last Vital Signs Temp 98 F 04/28/25 14:51 Pulse 79 04/28/25 14:51 Resp 16 04/28/25 14:51 BP 130/58 L 04/28/25 14:51 Pulse Ox 98 04/28/25 14:51 O2 Del Method Room Air 04/28/25 14:51 BMI result Body Mass Index 29.0 GENERAL APPEARANCE: ?AxOx4, no acute distress. HEENT: ?NC, AT. MMM. EOMI, clear conjunctiva, oropharynx clear. NECK: ?Supple without lymphadenopathy.? No stiffness or restricted ROM. HEART:? Normal rate and regular rhythm, normal S1/S2, no m/r/g LUNGS:? CTAB, moving air well. No crackles or wheezes are heard. EXTREMITIES: ?Without cyanosis, clubbing or edema. NEUROLOGICAL: ?Grossly nonfocal. Alert and oriented, moving all 4 extremities. Observed to ambulate with normal gait. Skin: ?Warm and dry without any rash. Medications Administered Discontinued Medications Generic Name Dose Route Start Last Admin Trade Name Songq PRN Reason Stop Dose Admin Acetaminophen 975 mg 04/28/25 10:33 04/28/25 10:41 Acetaminophen 325 Mg Tablet PO 04/28/25 10:34 975 mg ONCE ONE Administration Ketorolac Tromethamine 30 mg 04/28/25 13:25 04/28/25 13:33 Ketorolac Tromethamine 30 Mg/Ml Vial IM 04/28/25 13:26 30 mg ONCE ONE Administration Morphine Sulfate 2 mg 04/28/25 11:08 04/28/25 11:26 Morphine Sulfate 2 Mg/Ml Cartridge IM 04/28/25 11:09 2 mg ONCE ONE Administration Protocol Oxycodone HCl 5 mg 04/28/25 10:32 04/28/25 10:41 Oxycodone Hcl Immed Release 5 Mg Tablet PO 04/28/25 10:33 5 mg ONCE ONE Administration Prednisone 60 mg 04/28/25 14:31 04/28/25 14:44 Prednisone 20 Mg Tablet PO 04/28/25 14:32 60 mg ONCE ONE Administration Medical Decision Making Medical Decision Making [facility] Narrative: 74-year-old female with medical history of chronic pain syndrome, osteoarthritis, fibromyalgia, presents to the ED due to right hand pain that began yesterday after moving boxes at home. Patient states she noticed some pain last night after finishing the moving job. Patient states she woke up this morning with increased pain of the right hand, warmth, and pain with moving the hand. Patient denies fevers Plan: labs, XR R hand, XR R wrist Labs without leukocytosis/leukopenia, macrocytic anemia with hemoglobin of 10.9, hematocrit of 31.6, ESR mildly elevated at 38, CRP mildly elevated at 0.64, no electrolyte abnormality. XR R wrist negative for fracture or dislocation however does reveal chondrocalcinosis of the triangular fibrocartilage XR R hand negative for fracture or dislocation, however does reveal costochondritis of the triangular fibrocartilage same as XR R wrist. 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 Patient will be prescribed prednisone taper for treatment, with first dose given in the department. I counseled patient to follow up with her primary care doctor. Patient is in agreement with the plan. Differential Diagnosis Differential Diagnoses: The differential diagnosis associated with the presentation includes Gout Cellulitis Hand fracture Tenosynovitis Admission/Observation Consideration of admission/observation: Escalation of care including admission/observation considered Lab Data [facility] Lab Attestation statement: I reviewed the patient's lab results. 04/28/25 10:54 04/28/25 10:54 Labs: Lab Results 04/28/25 Range/Units 10:54 WBC 9.4 (4.8-10.8) X10*3/uL RBC 3.05 L (4.20-5.50) X10*6/uL Hgb 10.9 L (12.0-16.0) g/dl Hct 31.6 L (37.0-47.0) % MCV 103.6 H (80.0-98.0) fL MCH 35.7 H (27.0-33.0) pg MCHC 34.5 (31.0-35.0) g/dl RDW 13.7 (11.0-16.0) % Plt Count 223 (160-400) X10*3/uL MPV 9.4 (9.4-12.3) fL Immature Gran % (Auto) 0.5 H (0.0-0.4) % Neut % (Auto) 66.2 (45-73) % Lymph % (Auto) 18.8 L (20-40) % [place] % (Auto) 12.7 H (2-11) % Eos % (Auto) 1.1 (0-4) % Baso % (Auto) 0.7 (0-2) % Lymph # (Auto) 1.8 (1.2-4.9) X10*3/uL [place] # (Auto) 1.2 (0.1-1.2) X10*3/uL Eos # (Auto) 0.1 (0.0-0.4) X10*3/uL Baso # (Auto) 0.1 (0.0-0.2) X10*3/uL Abs Immat Gran (auto) 0.05 H (0.00-0.03) X10*3/uL Absolute Neuts (auto) 6.2 (2.0-8.3) x10*3/uL Absolute Nucleated RBC 0.000 (0.0-0.012) X10*3/uL Nucleated RBC % (auto) 0.0 (0.0-0.2) /100WBC ESR 38 H (0-20) MM/HR Sodium 140 (135-145) mmol/L Potassium 3.6 (3.3-5.1) mmol/L Chloride 109 H (96-108) mmol/L Carbon Dioxide 26 (22-29) mmol/L Anion Gap 9 L (12-20) BUN 20 H (9-16) mg/dL Creatinine 0.84 (0.5-1.4) mg/dL Estim Creat Clear Calc 63.2 Estimated GFR > 60 Random Glucose 116 H (60-115) mg/dL Uric Acid 4.5 (2.4-5.7) mg/dL Calcium 8.4 (8.4-10.2) mg/dL Total Bilirubin 0.6 (0.0-1.0) mg/dL AST 22 (5-31) U/L ALT 10 (0-31) U/L Alkaline Phosphatase 76 (39-117) U/L C-Reactive Protein 0.64 H (< or = 0.50) mg/dL Total Protein 6.3 L (6.5-8.0) g/dL Albumin 3.6 (3.5-5.0) g/dL Independent Interpretation I performed an independent interpretation of an: Plain X-Ray Interpretation: XR R hand negative for fracture or dislocation, I agree with the radiologist's interpretation XR R wrist negative for fracture dislocation, I agree with the radiologist's interpretation Radiology Impression Discussion of test interpretation with radiology: I have reviewed the radiologist's reading. Radiologist Impression: XR R hand Findings: There are postoperative changes related to the 1st digit with fusion of the 1st metacarpal and proximal phalanx and resection of the proximal 1st metacarpal. There is chondrocalcinosis of the triangular fibrocartilage. No erosions. No radiopaque foreign body. No acute bony abnormalities are noted. IMPRESSION: 1. No acute findings 2. Chondrocalcinosis of the triangular fibrocartilage. 3. Postoperative changes 1st digit as above. This document has been electronically signed by: Grady Mendes MD on 04/28/2025 12:51:16 Dictated By: Grady Mnedes MD Signed By: <Electronically signed by Grady Mendes MD in [place]> 04/28/25 1252 XR R wrist Findings: There are postoperative changes related to the 1st digit with fusion of the 1st metacarpal and proximal phalanx and resection of the proximal 1st metacarpal. There is chondrocalcinosis of the triangular fibrocartilage. No erosions. No radiopaque foreign body. No acute bony abnormalities are noted. IMPRESSION: 1. No acute findings 2. Chondrocalcinosis of the triangular fibrocartilage. 3. Postoperative changes 1st digit as above. This document has been electronically signed by: Grady Mendes MD on 04/28/2025 12:53:18 Dictated By: Grady Mendes MD Signed By: <Electronically signed by Grady Mendes MD in [place]> 04/28/25 1254 External Record Review External record reviewed: Inpatient record, Office record and Outpatient record Chronic Conditions Patient?s care impacted by: Other (chronic pain syndrome, osteoarthritis, fibromyalgia) Discharge Plan Discharge Clinical Impression: Pseudogout of hand Patient Disposition: Home, Self-Care Additional Instructions: You were evaluated in the emergency department due to right hand pain. Your lab work was negative for evidence of infection however your inflammatory markers were elevated showing inflammation of the right hand. The right hand and right wrist x-ray revealed chondral calcification of the tissue this is consistent with pseudogout. You will be prescribed a prednisone taper to treat. You were given your 1st dose while in the department today. You do not need to take another dose until tomorrow, please finish entire course of medication Additionally, you can manage this pain by alternating 500 mg of Tylenol, and 400 mg of ibuprofen every 6 hours. Please return to the emergency department if you experiencing worsening hand pain, fevers over 100.4?, chest pain, shortness of breath or any new/worsening/concerning symptoms. Prescriptions: New prednisone 10 mg tablet 10 mg PO DAILY Qty: 47 0RF Rx Instructions: Patient received 1st 60 mg dose in the emergency department Days 2-5 take 60 mg (6 pills total) Days 6-7 take 50 mg (5 pills total) Days 8-9 take 40 mg (4 pills total) Days 10-11 take 30 mg (3 pills total) Days 12-13 take 20 mg (2 pills total) Day 14 take 10 mg, (1 pill) oxycodone 5 mg capsule 5 mg PO BID PRN (Reason: pain) Qty: 6 0RF Rx Instructions: Partial Fill upon patient request. No Action minoxidil 2.5 mg tablet PO levothyroxine 100 mcg tablet 100 mcg PO DAILY omeprazole 40 mg capsule,delayed release(DR/EC) 40 mg PO DAILY valacyclovir 1 gram tablet 1,000 mg PO BID hydrochlorothiazide 25 mg tablet 25 mg PO DAILY tramadol 50 mg tablet 100 mg PO DAILY PRN (Reason: pain) pregabalin 100 mg capsule 100 mg PO DAILY Interventions: ED Discharge Assessment Last Done: 04/28/25 14:51 Print Language: Italian
--- OUTSIDE RECORDS SUMMARY | 2025-04-28 10:35 | XMS_ITS | Clinical Summary ---
Author Organization [facility] Address [address] [place] [address] Care Team Providers Care Certified Addiction Counselor Name Role Phone Yojana Pyle DMD Primary Care Provider [phone] Source Comments PLEASE NOTE, if this patient is a minor, it may be UNLAWFUL to discuss sensitive information that is contained in these records (such as FAMILY PLANNING, MENTAL HEALTH or SUBSTANCE ABUSE) with the minor patient's parent or other person without the patient's specific authorization.[facility] Medications chlorhexidine gluconate (PERIDEX) 0.12 % solutionIndicati ons:Gum inflammation Swish and spit 15 mL 2 (two) times daily 473 mL 2 Active fluoride, sodium, (SF 5000 PLUS) 1.1 % creaIndications: Encounter for dental examination Place in mouth once daily apply a thin ribbon on toothbrush. [place] thoroughly once daily for two minutes, preferably at bedtime. After use expectorate. For best results, do not eat, drink, or rinse for 30 minutes. 51 g 2 2 Active amoxicillin (AMOXIL) 500 mg capsuleIndicatio ns:Prophylactic antibiotic TAKE 4 CAPSULES BY MOUTH 1 HOUR BEFORE DENTAL APPOINTMENT FOR PROPHYLAXIS. 8 Capsule 5 Active Active Problems Problem Noted Date Diagnosed Date Interstitial lung disease (CMS & HHS-HCC) 2024 Back pain 02/05/2022 Neck pain 02/05/2022 Encounters Date Type Department Care Team Description 02/27/2025 9:00 AM EDT Office Visit [facility] [address] [place] [phone] Lola Garcia from Last 3 Months Immunizations Immunization Administration Dates Next Due Moderna COVID-19 Vaccine, re d cap blue label, 12+ Primary Series 10/26/2020,09/27/2020 Social History Tobacco Use Types Packs/Day Years Used Date Smoking Tobacco: Never Smokeless Tobacco: Never Tobacco Cessation:Counseling Given: Not Answered Social Connections Answer Date Recorded Connectedness 0 04/13/2024 Financial Resource Strain Answer Date R ecorded Financial Resource Strain 0 2020 Stress Answer Date Recorded Stress 0 09/27/2020 Physical Activity Answer Date Recorded Physical Activity 0 09/27/2020 Food Insecurity Answer Date Recorded Food 0 04/27/2024 Transportation Needs Answer Date Record ed Transportation 0 09/27/2020 Housing Stability Answer Date Recorded Housing 0 09/27/2020 Safety and Environment Answer Date Sixto rded Safety 0 09/27/2020 Utilities Answer Date Recorded Utilities 0 09/27/2020 Employment Answer Date Recorded Stress 0 04/13/2024 Comments Unknown Sex and Gender Information Value Date Recorded Sex Assigned at Not on file Legal Sex Female 6:42 AM PDT Gender Identity Not on file Sexual Orientation Not on file Last Filed Vital Signs Vital Sign Reading Time Taken Comments Blood Pressure 123/75 02/28/2025 1:47 PM EDT Pulse 66 02/28/2025 1:47 PM EDT Temperature - - Respiratory Rate - - Oxygen Saturation - - Inhaled Oxygen Concentration - - Weight - - Height - - Body Mass Index - - Plan of Treatment Upcoming Encounters Date Type Department Care Team (Late st Contact Info) Description 08/30/2025 9:00 AM EST Office Visit [facility] [place] [phone] Lola Gracia [address] [place] [id number] Health Maintenance Due Date Last Done Comments Hepatitis C Screening 1950 Lipid Screening 1950 Medicare Annual Wellness Visit 1968 Imm-DTaP/Tdap/Td (1 - Tdap) 1969 Breast Cancer Screening (Mammogram) 1990 CT Colonography 1995 Colonoscopy 1995 Colorectal Cancer Screening 1995 FIT/gFOBT 1995 Fecal DNA 1995 Flexible Sigmoidoscopy 1995 Imm-Pneumococcal 50+ (1 of 1 - PCV) 2000 Imm-Zoster, Recombinant (1 of 2) 2000 Bone Density Screening 2015 Falls Prevention 2015 Alcohol and Drug Screen 08/02/2024 Depression Annual Screen 08/02/2024 Cja-DONAZ-03 (3 - season) 2025 021, 09/27/2020 Imm-Influenza (#1) 2025 Hypertension Screening (#1) 02/28/2026 Tobacco Screening 02/28/2026 02/28/2025 Dental BW 03/01/2026 02/27/2025, 08/03, 02/23/2024, Additional history exists Dental Examination 03/01/2026 02/27/2025, 0 08/29/2024, 02/23/2024, Additional history exists Dental Perio Charting 03/01/2026 02/27/2025 , 08/29/2024, 02/23/2024, Additional history exists Dental Prophy 03/01/2026 02/27/2025, 08/03, 02/02/2024, Additional history exists Dental FMX/Pano 02/24/2029 02/23/2024 Procedures Procedure Name Priority Date/Time Associated Diagnosis Comments PERIODIC ORAL EVALUATION ESTABLISHED PATIENT Routine 02/27/2025 9:00 AM EDT Encounter for dental examination DENTAL CASE MANAGEMENT - MOTIVATIONAL INTV Routine 02/27/2025 9:00 AM EDT Encounter for dental examination PROPHYLAXIS - ADULT Routine 02/27/2025 9 :00 AM EDT Encounter for dental examination COMP PERIODONTAL EVALUATION - NEW/EST PATIENT Routine 02/27/2025 9:00 AM EDT Encounter for dental examination BITEWINGS - FOUR RADIOGRAPHIC IMAGES Routine 02/27/2025 9:00 AM EDT Encounter for dental examination CARIES RISK ASSESSMENT & DOC FINDING HIGH RISK Routine 02/27/2025 9:00 AM EDT Encounter for dental examination NUTRITIONAL COUNSELING CONTROL OF DENTAL DISEASE Routine 02/27/2025 9:00 AM EDT Encounter for dental examination ORAL HYGIENE INSTRUCTIONS Routine 02/27/2025 9:00 AM EDT Encounter for dental examination ORAL CANCER SCREENING Routine 02/27/2025 9:00 AM EDT Encounter for dental examination CASE PRESENTATION SUBS DTL & EXTENSIVE TX PLN Routine 02/27/2025 9:00 AM EDT Encounter for dental examination INTRAORAL - COMP SERIES OF RADIOGRAPHIC IMAGES Routine 02/23/2024 9:00 AM EDT Caries from Last 3 Months or Most Recently Relevant to Health Maintenance Insurance HEALTH SAFETY [facility] [place] Care Teams Certified Addiction Counselor Relationship Specialty Start Date End Date Yojana Pyle DMD [address] [place] [address] PCP - General 10/11/20
--- OUTSIDE RECORDS SUMMARY | 2025-04-28 10:36 | XMS_ITS ---
Author Name [facility] Organization Unknown History of Medication Use Medication Directions Dispensed Refills Start Date End Date Stat us levothyroxine (SYNTHROID, LEVOTHROID) 100 MCG tablet Take 1 tablet (100 mcg total) by mouth daily on an empty stomach. active metoPROLOL TARTRATE-hydroCHLOROth iazide (LOPRESSOR HCT) 100-25 MG per tablet Take 1 tablet by mouth daily. 12.5MG active pregabalin (LYRICA) 200 MG capsule Take 1 capsule (200 mg total) by mouth 2 (two) times a day. active Allergies Allergen Reaction Severity Comment Documented Date Source Statu s STATINS OTHER (SEE COMMENTS) Chronic pain. 06/29/2022 CCT active OXYCODONE OTHER (SEE COMMENTS) Dizzy 09/11/2021 CCT active Problems Problem Status Onset Date Problem Type Date of Resoluti on Source Muscle weakness active EncounterDiagnosisAct CCT Polyneuropathy active EncounterDiagnosisAct CCT Encounters Encounter Type Encounter Reason Primary Diagnosis Location Date Ambulatory Polyneuropathy, unspecified Polyneuropathy, unspecified [facility] 06/28/2023 Ambulatory [facility] 06/07/2023 Ambulatory Muscle weakness (generalized) Muscle weakness (generalized) [facility] 06/07/2023 Care Team Organization Name Specialty Phone Email Start Date End Da te [facility] 06/07/2023 10/19/19 [facility] 06/07/2023 06/07/20 [facility]
--- OUTSIDE RECORDS SUMMARY | 2025-04-28 10:36 | XMS_ITS | Clinical Summary ---
Author Organization [facility] Address [address] [place] [address] Care Team Providers Care Vector Control Assistant Name Role Phone Pavan Kan MD Primary Care Provider [phone] Allergies Active Allergy Reactions Criticality Noted Date [...] Refills, Maintenance, 05/13/21 13:25:00 EDT, Capsule, [id number], Partial fill upon patient request if the [...] 86 05/13/2023 9:20 AM EDT Temperature 35.9 C (96.7 F) 05/13/2023 9:20 AM EDT Respiratory Rate - - Oxygen Saturation 100% [...] (DEXA Scan) 2015 Pneumococcal Vaccine (1 of 1 - PCV) 2015 COVID-19 Vaccine (3 - 2024-2 6 season) 2025 10/26/2020, 09/27/2020 Influenza Vaccine (#1) 2025 RSV Adult > 60+ Yrs or (1 - 1-dose 75+ series) 2025 Hepatitis B Vaccines Aged Out No long er eligible based on patient's age to complete this topic RSV Ped < 20 months Aged Out No longe r eligible based on patient's age to complete this topic Care Teams Vector Control Assistant Relationship Specialty Start Date End Date Pavan Kan MD [address] [place] [id number] PCP - General Family Medicine 08/08/21
--- OUTSIDE RECORDS SUMMARY | 2025-04-28 10:36 | XMS_ITS | Clinical Summary ---
Author Organization [facility] Address [address] [place] [address] Care Team Providers Care Health Occupations Instructor Name Role Phone Pavan Kan MD Primary Care Provider [phone] Allergies Active Allergy Reactions Criticality Noted Date Comments Oxycodone Other (See Comments) Low 09/11/2021 Dizzy Statins Other (See Comments) Low 06/29/2022 Chronic pain. Medications metoPROLOL TARTRATE-hydroC HLOROthiazide (LOPRESSOR HCT) 100-25 MG per tablet Take [...] drink = 0.6 oz pur e alcohol) Comments Unknown Sex and Gender Information Value Date Recorded Sex Assigned at Not on file Legal Sex Female 10:29 AM EDT Gender Identity Not on file [...] Health Maintenance Due Date Last Done Comments Advance Care Planning 1950 Hepatitis C Virus Screening 1950 DTaP/Tdap/Td Vaccines (1 - Tdap) 1969 Mammogram 1990 Colonoscopy 1995 Pneumococcal Vaccines 50+ (1 of 1 - PCV) 2000 Zoster (Shingles) Vaccine (1 of 2) 2000 DXA Bone Density (Females,Ages 65 and older) 2015 Influenza Vaccine 03/02/2025 COVID-19 Vaccine (3 - 2024-2 6 season) 2025 10/26/2020, 09/27/2020 RSV Vaccine 60 years and older and Patients (1 - 1-dose 75+ series) 2025 Hepatitis B Vaccines Aged Out No long er eligible based on patient's age to complete this topic Insurance MEDICARE PART A & B [facility] Care Teams Health Occupations Instructor Relationship Specialty Start Date End Date Pavan Kan MD [address] [place] [address] PCP - General Psychiatry, General 05/25/23
--- OUTSIDE RECORDS SUMMARY | 2025-04-28 10:36 | XMS_ITS | Patient Health Record ---
Author Organization [facility] Address [address] [place] [address] Care Team Providers Care Payer Specialist Name Role Phone Kan, Gary Primary Care Provider Harjeet Muniz MD MSc, Raine Unavailable [phone] Allergies Allergen (clinical drug ingredient) Drug/Non Drug Allergy documented on EMR Reaction Allergy Type Onset Date Status Substance with 7-afvihdh-0-methylgluta ryl-coenzyme A reductase inhibitor mechanism of action (substance) Statins Unknown Drug Allergy Active Reason For Referral No Information Medications Medication SIG (Take, Route, Frequency, Duration) Notes Start Date End Date Status Omeprazole 40 MG 1 capsule 30 minutes before morning meal Orally Once a day; Duration: 30 day(s) Active hydroCHLOROthiazide 25 MG 1 tablet in th e morning Orally Once a day; Duration: 30 day(s) Active Levothyroxine Sodium 100 MCG 1 tablet in the morning on an empty stomach Orally Once a day; Duration: 30 day(s) Active Metoprolol Succinate 25 MG 1 capsule Ora lly Once a day; Duration: 30 day(s) Active valACYclovir HCl 1 GM 1 tablet Orally On ce a day; Duration: 10 day(s) Active Pregabalin 100 MG 1 [...] MEDICARE NGS [address] [place] [id number] Lucy Hendrickson Self - patient is the insured Medical (General) History Medical History History ICD Code Fibromyalgia Osteoarthritis Mild asthma Surgical History Surgery Date(Month/Year) Tonsillectomy 3x left hand surgeries (thumb joint fusi on), 2x right hand surgeries Right knee fusion 2014 Hammer left toe Uterus suspension lumbar fusion L2-S1 for scoliosis 020
--- OUTSIDE RECORDS SUMMARY | 2025-04-28 10:36 | XMS_ITS | Patient Health Record ---
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 Name Role Phone Pavan Kan Primary Care Provider UnavailJuan Luis Greco Unavailable [phone] Ysabel Medina Unavailable [phone] Elida Paniagua Unavailable [phone] Allergies Allergen (clinical drug ingredient) Drug/Non Drug Allergy documented on EMR Reaction Allergy Type Onset Date Status oxycodone Oxycodone Unknown Drug Allergy Active Substance with 1-sqaoovq-5-methylgluta ryl-coenzyme A reductase inhibitor mechanism of action (substance) Statins Unknown Drug Allergy Active Reason For Referral No Information Medications Medication SIG (Take, Route, Frequency, Duration) Notes Start Date End Date Status Levothyroxine Sodium 100 MCG 1 tablet in the morning on an empty stomach Orally Once a day Active Finasteride 5 MG 1 tablet Orally Once a day Active valACYclovir HCl 1 GM 1 tablet Orally On ce a day Active traMADol HCl 50 MG 1 tablet as needed Orally Once a day Active Restasis 0.05 % 1 drop into affected eye Ophthalmic Twice a day Active Omeprazole 40 MG 1 capsule 1/2 to 1 h our before morning meal Orally Once a day Active Metoprolol Tartrate 25 MG 1 tablet with food Orally Twice a day Active Omeprazole 20 MG 1 capsule 1/2 to 1 h our before morning meal Orally Once a day Active Acetaminophen 500 MG 1 capsule as needed Orally every 6 hrs Active Problems Problem Type SNOMED Code ICD Code Onset Dates Problem Status W/U Status Risk Notes Problem Essential hypertension (44019467) Essential (primary) hypertension (I10) Active confirmed Problem Ventricular premature depolarization (360877478) 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) Active confirmed Problem Idiopathic pulmonary fibrosis (306886877) Idiopathic pulmonary fibrosis (J84.112) Active confirmed Problem Non-pressure 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 (L97.822) Active confirmed Problem Fibromyalgia (092260722) Fibromyalgia (M79.7) Active confirmed Problem Post-laminectomy syndrome (70322817) Postlaminectomy syndrome, not elsewhere classified (M96.1) Active confirmed Problem Open wound of left lower leg (5795851900057598 6) Unspecified open wound, left lower leg, subsequent encounter (S81.802D) Active confirmed Problem Anemia (218028592) Anemia (D64.9) Active confirmed Problem Renal failure (88541785) Renal failure (N19) Active confirmed Problem Hypothyroidism (68767881) Hypothyroidism (E03.9) Active confirmed Problem Macrocytosis (90461219) Macrocytosis (D75.89) Active confirmed Problem Urinary incontinence (692693097) Urinary incontinence (R32) Active confirmed Vital Signs Heart Rate 87 /min 10/31/2024 Temperature 97.0 degrees Fahrenheit 10/31/2024 Respiratory Rate 18 /min 10/31/2024 Height-cm 167.64 cm 10/31/2024 Oximetry 93 % 10/31/2024 Blood pressure diastolic 72 mm Hg 10/31/2024 Weight-kg 77.11 kg 10/31/2024 Height 66 in 10/31/2024 Blood pressure systolic 128 mm Hg 10/31/2024 Weight 170 lbs 10/31/2024 BMI 27.44 kg/m2 10/31/2024 Encounters Encounter Location Date Provider Diagnosis [facility] [address] [address] 09/05/2024 Juan Luis Cheung Essential (primary) hypertension I10 and Unspecified open wound, left lower leg, initial encounter S81.802A [facility] [address] [address] 09/12/2024 Jooyun Paniagua Unspecified open wound, left lower leg, initial encounter S81.802A ; Unspecified open wound, left lower leg, subsequent encounter S81.802D and Essential (primary) hypertension I10 [facility] [address] [address] 09/19/2024 Juan Luis Cheung Unspecified open wound, left lower leg, subsequent encounter S81.802D ; Non-pressure 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 L97.822 and Essential (primary) hypertension I10 [facility] [address] [address] 09/26/2024 Juan Luis Cheung Unspecified open wound, left lower leg, subsequent encounter S81.802D ; Non-pressure 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 L97.822 and Essential (primary) hypertension I10 [facility] [address] [address] 10/03/2024 Juan Luis Orrnne Unspecified open wound, left lower leg, subsequent encounter S81.802D ; Non-pressure 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 L97.822 and Essential (primary) hypertension I10 [facility] [address] [address] 10/10/2024 Juan Luis Cheung Unspecified open wound, left lower leg, subsequent encounter S81.802D ; Non-pressure 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 L97.822 and Essential (primary) hypertension I10 [facility] [address] 10/17/2024 Juan Luis Cheung Unspecified open wound, left lower leg, subsequent encounter S81.802D ; Non-pressure 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 L97.822 and Essential (primary) hypertension I10 [facility] [address] 10/24/2024 Juan Luis Cheung Unspecified open wound, left lower leg, subsequent encounter S81.802D ; Non-pressure 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 L97.822 and Essential (primary) hypertension I10 [facility] [address] 10/31/2024 Anzjeanninea Tyrela Essential (primary) hypertension I10 and Non-pressure 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 L97.822 [facility] [address] [address] 09/01/2024 Juan Luis Cheung [facility] [address] [place] [address] 09/06/2024 Juan Luis Cheung [facility] [address] [address] 09/22/2024 Juan Luis Cheung Assessments Encounter Date Diagnosis (ICD Code) Assessment Notes Treatment Notes Treatment Clinical Notes Section Notes 09/05/2024 Essential (primary) hypertension (ICD-10 - I10) 09/05/2024 Unspecified open wound, left lower leg, initial encounter (ICD-10 - S81.802A) 09/12/2024 Unspecified open wound, left lower leg, initial encounter (ICD-10 - S81.802A) 09/12/2024 Unspecified open wound, left lower leg, subsequent encounter (ICD-10 - S81.802D) On assessment today, Lucy is noted to be afebrile and other VS were within normal limits. The patient reports burning paiin related to wound. We removed dressings, and examined the wound site. The open hematoma to left anterior paniagua: the wound bed is noted with blood clots, mod thick slough throughout with epibole and fibrinous edges. There was mild surround erythema, but no increased warmth or foul odor noted. There was no suggestive s/s of an underlying infectious process. After examination, I discussed the indication of debridement and they were agreeable. I then performed debridement to remove devitalized tissues as outlined. She tolerated procedure well.The wound site were then cleansed with saline and thereafter, we applied Aquacel extra onto the wound sites and zinc to taye wound areas. The sites were then covered with a dry dressing. Patient will continue to perform the above dressing changes every other day. Pt did not tolerat the PARTH due to the left leg pain today. S/S of infection reviewed and when to go to ED. Patient was educated on elevating their legs and protect wound site. Patient will have FU in one week I, VERENA Rose, examined, evaluated, and treated the patient. Dr. Sejal Burnett was available for any questions or concerns that I may have had. 09/19/2024 Non-pressure 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 (ICD-10 - L97.822) 09/19/2024 Unspecified open wound, left lower leg, subsequent encounter (ICD-10 - S81.802D) Lucy returns today for her weekly follow-up visit. Currently, she is performing her own dressing changes with Aquacel extra as she reports she has a silver allergy. She has no other acute concerns today. On assessment today, Lucy is noted to be afebrile and other VS were within normal limits. She denies pain or discomfort related to wound. We removed dressings, and I examined the wound site.There is no suggestive underlying s/s of infectious property, no odor. Wound to left anterior paniagua: Her wound is noted as stable with no significant changes based on measurements and assessment from last visit. The wound bed is noted with dry blood and slough throughout. The periwound is noted with fibrinous edges. After examination, I discussed the indication of debridement and they were agreeable. I then performed debridement to remove devitalized tissues as outlined above. She tolerated procedure well. The wound site were then cleansed with saline and thereafter, we applied Xeroform onto the wound sites and zinc to taye wound areas. The sites were then covered with a dry dressing. I recommend changing dressing from Aquacel to Xeroform due to wound bed is dry and scant drainage Patient will continue to perform the above dressing changes every day. S/S of infection reviewed and when to go to ED. Patient was educated on elevating their legs and protect wound site. Patient will have FU in one week I Juan Luis Cheung, MSN, TRACK HOE OPERATOR, SECURITY AND PRIVACY CONSULTANT-C, examined, evaluated, and treated the patient. Dr. Sejal Burnett was available for any questions or concerns that I may have had. 09/26/2024 Unspecified open wound, left lower leg, subsequent encounter (ICD-10 - S81.802D) 10/03/2024 Unspecified open wound, left lower leg, subsequent encounter (ICD-10 - S81.802D) 10/10/2024 Unspecified open wound, left lower leg, subsequent encounter (ICD-10 - S81.802D) 10/17/2024 Unspecified open wound, left lower leg, subsequent encounter (ICD-10 - S81.802D) 10/24/2024 Unspecified open wound, left lower leg, subsequent encounter (ICD-10 - S81.802D) 10/31/2024 Essential (primary) hypertension (ICD-10 - I10) 10/31/2024 Non-pressure 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 (ICD-10 - L97.822) 10/24/2024 Non-pressure 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 (ICD-10 - L97.822) 10/10/2024 Non-pressure 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 (ICD-10 - L97.822) 10/17/2024 Non-pressure 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 (ICD-10 - L97.822) 09/26/2024 Non-pressure 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 (ICD-10 - L97.822) 10/03/2024 Non-pressure 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 (ICD-10 - L97.822) 09/19/2024 Essential (primary) hypertension (ICD-10 - I10) 09/12/2024 Essential (primary) hypertension (ICD-10 - I10) 10/03/2024 Essential (primary) hypertension (ICD-10 - I10) 09/26/2024 Essential (primary) hypertension (ICD-10 - I10) 10/10/2024 Essential (primary) hypertension (ICD-10 - I10) 10/17/2024 Essential (primary) hypertension (ICD-10 - I10) 10/24/2024 Essential (primary) hypertension (ICD-10 - I10) 09/05/2024 [place] Ayala is a 74 [id number] that presents today for initial evaluation and treatment of wound to left calf, hematoma with ulcer Past medical history is significant for HTN, hypothyroid, anemia, renal failure, fibromyalgia The patient reports that the wound was first noted Aug 08 2024, and they went to the hospital and for treatment used water to cleanse every day then an antibiotic ointment and covered with dry dressing. On assessment today, Lucy is noted to be afebrile and other VS were within normal limits. The patient denies pain or discomfort related to wound. We removed dressings, with no suggestive s/s of an underlying infectious process. There was no foul odor noted. Open hematoma to left anterior paniagua: the wound bed is noted with dry blood, mod slough throughout with epibole and fibrinous edges. After examination, I discussed the indication of debridement and they were agreeable. I then performed debridement to remove devitalized tissues as outlined. She tolerated procedure well. The wound site were then cleansed with saline and thereafter, we applied Aquacel AG onto the wound sites and zinc to taye wound areas. The sites were then covered with a dry dressing. Patient was educated on elevating their legs and protect wound site Patient will continue to perform the above dressing changes every other day need PARTH done at next visitS/S of infection reviewed and when to go to ED Patient will have FU in one week A total of 45 minutes was spent on this visit (face to face and non face to face) documenting HPI and performing physical exam, reviewing previous notes and testing, reviewing and adjusting treatment plan, counseling the patient on treatment choices, disease process, expected outcomes, and documenting the findings in the note. I, Juan Luis Cheung, MSN, TRACK HOE OPERATOR, SECURITY AND PRIVACY CONSULTANT-C, examined, evaluated, and treated the patient. Dr. Sejal Burnett was available for any questions or concerns that I may have had. Reviewed past medical records, labs, hospitalizations, performed a complete wound assessment to assist in the identification of underlying cause of the wound to individualize treatment plan going forward. Will obtain consultations as indicated from different disciplines if not already involved with current care, including but not limited to: vascular intervention, endocrine, diabetic and nutrition education, infectious disease, dermatology, surgery. Will continue to review and assess interventions including but not limited to orthotics, and compression therapy, PARTH, labs, and cultures. Documentation will be provided to primary physicians or referring physicians to keep them informed of patients' progress. Due to the many factors that impact the healing of wounds, including but not limited to endocrine disorder, autoimmune disorders, Diabetes, weight gain, cardiovascular disease, poor circulation, and medications, and more not listed, and the role they play on the delay in wound healing, all referrals will be made promptly as well as discussed with patient prior too. We reviewed the importance of multidisciplinary team to maximize wound outcomes.patient verbalized understand and denies questions or concerns at this time 09/26/2024 Other Lucy presents for her weekly FU visit for wound to left anterior paniagua. VNA is assisting with dressing changes that consist of Xeroform and dry dressing daily. 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 She has no other acute concerns today. On assessment today, Lucy is noted to be afebrile and other VS were within normal limits. She denies pain or discomfort related to wound. We removed dressings, and I examined the wound site.There is no suggestive underlying s/s of infectious property, no odor. Wound to left anterior paniagua: she continues with her wound being stable based on assessment and measurements. However, the measurements have improved slightly this week. She continues with slough throughout the wound bed and the periwound is fibrinous. She had granulation noted to the wound bed. After examination, I discussed the indication of debridement and they were agreeable. I then performed debridement to remove devitalized tissues as outlined above. She tolerated procedure well. The wound site were then cleansed with saline and thereafter, we applied Xeroform onto the wound sites and zinc to taye wound areas. The sites were then covered with a dry dressing. Patient/VNA continue to perform the above dressing changes daily S/S of infection reviewed and when to go to ED. Patient was educated on elevating their legs and protect wound site. Patient will have FU in one week I Juan Luis Cheung, MSN, TRACK HOE OPERATOR, SECURITY AND PRIVACY CONSULTANT-C, examined, evaluated, and treated the patient. Dr. Sejal Burnett was available for any questions or concerns that I may have had. 10/03/2024 [place] Ayala continues with weekly FU visit for wound to left anterior paniagua. Currently her treatment is with xerform daily, and VNA is assisting with dressing changes. She reports just using dry guaze and dressing stilcking to her wound. She has no other acute concerns today. On assessment today, Lucy is noted to be afebrile and other VS were within normal limits. She denies pain or discomfort related to wound. We removed dressings, and I examined the wound site.There is no suggestive underlying s/s of infectious property, no odor. Wound to left anterior paniagua:her wound has improved based on assessment and measurements. She continues with slough throughout the wound bed and the periwound is fibrinous. She had granulation noted to the wound bed. After examination, I discussed the indication of debridement and they were agreeable. I then performed debridement to remove devitalized tissues as outlined above. She tolerated procedure well. The wound site were then cleansed with saline and thereafter, we applied hydrogel onto the wound sites and zinc to taye wound areas. The sites were then covered with a dry dressing. Patient/VNA continue to perform the above dressing changes daily S/S of infection reviewed and when to go to ED. Patient was educated on elevating their legs and protect wound site. she was using neosporin on her wound, however educated not to apply products not recommended by wound care at this time Patient will have FU in one week I Juan Luis Cheung, MSN, TRACK HOE OPERATOR, SECURITY AND PRIVACY CONSULTANT-C, examined, evaluated, and treated the patient. Dr. Sejal Burnett was available for any questions or concerns that I may have had. 10/10/2024 Other On assessment today, Lucy is noted to be afebrile and other VS were within normal limits. She denies pain or discomfort related to wound. However, with debridement, during or not during procedure, she will yell in pain if you are near the wound. Talking to her to aid with distraction helps reduce her anxiety, and then she does not yell. We removed dressings, and I examined the wound site.There is no suggestive underlying s/s of infectious property, no odor. Wound to left anterior paniagua:her wound has improved based on assessment and measurements. Her wound is noted with hyperkeratotic tissue to periwound with wound bed is noted with exudate, biofilm formation, and scant amount of slough. This is a probable contributing factor for slow wound healing. After examination, I discussed the indication of debridement and they were agreeable. I then performed debridement to remove devitalized tissues as outlined above. She tolerated procedure well. The wound site were then cleansed with saline and thereafter, we applied hydrogel onto the wound sites and zinc to taye wound areas. The sites were then covered with a dry dressing. Patient/VNA continue to perform the above dressing changes daily S/S of infection reviewed and when to go to ED. Due to patient limiting time of debridement, Her wound is noted with hyperkeratotic tissue to periwound with wound bed noted with exudate, biofilm formation. This is a probable contributing factor for slow wound healing. Patient will have FU in one week I Juan Luis Cheung, MSN, TRACK HOE OPERATOR, SECURITY AND PRIVACY CONSULTANT-C, examined, evaluated, and treated the patient. Dr. Sejal Burnett was available for any questions or concerns that I may have had. 10/17/2024 Other On assessment today, Lucy is noted to be afebrile and other VS were within normal limits. She denies pain or discomfort related to wound. However, she yells when near the wound. We removed dressings, and I examined the wound site.There is no suggestive underlying s/s of infectious property, no odor. Wound to left anterior paniagua:her wound has improved based on assessment and measurements. Her wound is noted with thick callus to periwound. The wound bed I is noted with granular tissue today and minimal slough. After examination, I discussed the indication of debridement and they were agreeable. I then performed debridement to remove devitalized tissues as outlined above. She tolerated procedure well. The wound site were then cleansed with saline and thereafter, we applied hydrogel onto the wound sites and zinc to taye wound areas. The sites were then covered with a dry dressing. Patient/VNA continue to perform the above dressing changes dailyShe is educated on importance of not cutting gauze due to the fibers getting into the wound, she verbalized understanding of educationS/S of infection reviewed and when to go to ED. Typically patient does not allow for enough time during debridement to remove devitalized tissue in its entirety, however today I was able to remove the callus to periwound which revealed healthy growing skin underneath. Patient will have FU in one week I Juan Luis Cheung, MSN, TRACK HOE OPERATOR, SECURITY AND PRIVACY CONSULTANT-C, examined, evaluated, and treated the patient. Dr. Sejal Burnett was available for any questions or concerns that I may have had. 10/24/2024 Other On assessment today, Lucy is noted to be afebrile and other VS were within normal limits. She denies pain or discomfort related to wound. We removed dressings, and I examined the wound site.There is no suggestive underlying s/s of infectious property, no odor. Wound to left anterior paniagua:her wound has improved based on assessment and measurements. Her wound is noted with callus /fibrinous rim. The wound bed is noted with granular tissue today ,bifilm, slough After examination, I discussed the indication of debridement and they were agreeable. I then performed debridement to remove devitalized tissues as outlined above. She tolerated procedure well. The wound site were then cleansed with saline and thereafter, we applied hydrogel onto the wound sites and zinc to taye wound areas. The sites were then covered with a dry dressing. Patient/VNA continue to perform the above dressing changes dailyShe is educated on importance of not cutting gauze due to the fibers getting into the wound, she verbalized understanding of educationS/S of infection reviewed and when to go to ED. Typically patient does not allow for enough time during debridement to remove devitalized tissue in its entirety, however today I was able to remove the callus to periwound which revealed healthy growing skin underneath. Patient will have FU in one week I Juan Luis Cheung, MSN, TRACK HOE OPERATOR, SECURITY AND PRIVACY CONSULTANT-C, examined, evaluated, and treated the patient. Dr. Sejal Burnett was available for any questions or concerns that I may have had. 10/31/2024 Other On exam, vital signs stable, afebrile, non-ill appearing. I removed the dressing and examined the wound located on the left anterior lower leg. The wound is now covered with a dry scab, no drainage, no surrounding erythema or signs of infection. We applied skin prep and covered the gauze. I recommended applying daily moisturizer and allow the scab to fall off naturally. She does not need any further follow up. Thank you for allowing us to participate in your care. I Ysabel CARTWRIGHT-C, examined, evaluated and treated the patient. Dr. Sejal Burnett was available for any question or concerns that I may have had. Plan Of Treatment No Information Insurance Providers Payer Name Payer Address Payer Phone Subscriber Number Group Number Insured Name Patient Relationship to Insured Coverage Start Date Coverage End Date Medicare [address] [place], [place] [id number] Lucy Hendrickson Self - patient is the insured [address] [facility] [address] (Medicaid) [address] [place], [place] [id number] [phone] [id number] Lucy Hendrickson Self - patient is the insured 8 Medical (General) History Medical History History ICD Code Back pain M54.9 Dyspnea on exertion R06.09 Contusion of unspecified eyelid and taye ocular area, initial encounter S00.10XA Postlaminectomy syndrome, not elsewhere classified M96.1 Fibromyalgia M79.7 Nontraumatic hematoma of soft tissue M79 .81 Hypothyroidism E03.9 Muscle weakness M62.81 Idiopathic pulmonary fibrosis J84.112 Anemia D64.9 Macrocytosis D75.89 Cyst of pancreas K86.2 Essential (primary) hypertension I10 Ventricular premature depolarization I49 .3 Renal failure N19 Spinal stenosis, lumbosacral region M48. 07 Urinary incontinence R32 Unspecified open wound, left lower leg, initial encounter S81.802A Surgical History Surgery Date(Month/Year) shoulder surgery Right back surgery hysterectomy tonsillectomy midurethral sling
--- OUTSIDE RECORDS SUMMARY | 2025-04-28 10:37 | XMS_ITS | Patient Health Record ---
Author Organization [facility] Address [address] [place] [address] Care Team Providers Care Asphalt Blender Name Role Phone Herlinda Zaragoza MD Primary Care Provider Unavail able Allergies Allergen (clinical drug ingredient) Drug/Non Drug Allergy documented on EMR Reaction Allergy Type Onset Date Status Dog dander dog dander (uncoded) Unknown Allergy Active Pollen pollen (uncoded) Unknown Allergy Act meg Statins Support Unknown Drug Allergy A ctive Reason For Referral No Information Medications Medication SIG (Take, Route, Frequency, Duration) Notes Start Date End Date Status HYDROcodone-Acetaminophen 5- 325 MG Tablet 1 tablet as needed Orally tid Active Lyrica 225 MG Capsule 1 capsule Orally bid Active Levothyroxine Sodium 75 MCG Tablet 1 tablet in the morning on an empty stomach Orally Once a day Active Metoprolol Succinate 25 MG Capsule ER 24 Hour Sprinkle 1 capsule Orally Once a day Active valACYclovir HCl 1 GM Tablet 1 tablet Orally qd Active hydroCHLOROthiazide 25 MG Tablet 1 tablet in the morning Orally Once a day Active Social History Tobacco Use: Social History Observation Description Date Details (start date - stop date) Never Smoker NA - NA Social History Tobacco Use: Social Info Question Answer Notes Tobacco Use/Smoking Are you a nonsmoker Additional Findings: Tobacco Non-User Current no n-smoker Section Notes: mother and father both smoke d and developed lung cancer Problems Problem Type SNOMED Code ICD Code Onset Dates Problem Status W/U Status Risk Notes Problem Thoracic spondylosis without myelopathy (682667558) Spondylosis without myelopathy or radiculopathy, thoracic region (M47.814) Active confirmed Plan Of Treatment No Information Insurance Providers Payer Name Payer Address Payer Phone Subscriber Number Group Number Insured Name Patient Relationship to Insured Coverage Start Date Coverage End Date [place] [address] [place] [phone] [id number] ABDIEL HOUSE Self - patient is the insured [employer] [place] of [place] [address] [place] [phone] [id number] HARSH ABDIEL Self - patient is the insured Medical (General) History Medical History History ICD Code solitary sacrolitis scoliosis deformity of spine chronic pain syndrome tronchanteric bursitis fibromyalgia disorder of sacrum lumbosacral stenosis low back pain degeneration of lumbosacral intervertebr al disc lumbar spondylosis Surgical History Surgery Date(Month/Year) bl hand surgery bl foot surgery tonsillectomy hysterectomy
[2025-04-28] MEDS: oxyCODONE HCl Immed Release 5 MG TABLET PO (10:41)
[2025-04-28 10:59] LABS: MANUAL DIFF FLAG NO
[2025-04-28 11:00] LABS: Hematocrit 31.6 % (37.0-47.0); Hemoglobin 10.9 g/dl (12.0-16.0); Imm Gran Abs Auto 0.05 X10*3/uL (0.00-0.03); Imm Gran Pct Auto 0.5 % (0.0-0.4); Lymphocytes Absolute Auto 1.8 X10*3/uL (1.2-4.9); Mean Corpuscular HGB Conc 34.5 g/dl (31.0-35.0); Mean Corpuscular Hemoglobin 35.7 pg (27.0-33.0); Mean Corpuscular Volume 103.6 fL (80.0-98.0); NRBC Abs Auto 0.000 X10*3/uL (0.0-0.012); NRBC Pct Auto 0.0 /100WBC (0.0-0.2); Platelet Count 223 X10*3/uL (160-400); Red Blood Count 3.05 X10*6/uL (4.20-5.50); White Blood Count 9.4 X10*3/uL (4.8-10.8)
[2025-04-28 11:17] LABS: Alanine Aminotransferase 10 U/L (0-31); Albumin Level 3.6 g/dL (3.5-5.0); Alkaline Phosphatase 76 U/L (39-117); Anion Gap 9 (12-20); Aspartate Amino Transferase 22 U/L (5-31); Blood Urea Nitrogen 20 mg/dL (9-16); Calcium 8.4 mg/dL (8.4-10.2); Carbon Dioxide 26 mmol/L (22-29); Chloride 109 mmol/L (96-108); Creatinine Clr Calc Pharmacy 63.2; Estimated Glomerular Filt Rate > 60; Potassium 3.6 mmol/L (3.3-5.1); Sodium 140 mmol/L (135-145); Total Protein 6.3 g/dL (6.5-8.0)
[2025-04-28 11:30] VITALS: BP 99/52; PULSE 89; RESP 19; O2SAT 98
[2025-04-28 12:00] VITALS: BP 99/52; PULSE 89; RESP 19; O2SAT 98
[2025-04-28 13:37] VITALS: BP 104/57; PULSE 85; RESP 16; O2SAT 98
[2025-04-28 13:45] LABS: Uric Acid 4.5 mg/dL (2.4-5.7)
[2025-04-28 14:46] VITALS: BP 130/58; PULSE 79; RESP 16; O2SAT 98
[2025-04-28 14:51] VITALS: BP 130/58; PULSE 79; RESP 16; TEMP 36.6; O2SAT 98
== END 2025-04-28 15:05 | disposition home or self-care (01) ==
PROVIDERS: Emergency Provider Emergency Medicine
DX: M10.9 Gout, unspecified (principal)
CPT/HCPCS: 36415; 73110; 73130; 80053; 84550; 85025; 85652; 86140; 96372; 99284; 99285; J1885; J2270

== ENCOUNTER 2025-05-19 00:35 | Emergency (ER) | payer MEDICARE, MEDICAID, SELFPAY ==
--- OUTSIDE RECORDS SUMMARY | 2016-01-02 20:00 | XMS_ITS | Continuity of Care Document ---
Author Organization [facility] Address [address] [place] [phone] Phone Care Team Providers Care Bender Hand Name Role Phone RCM, Rendering Unavailable Unavailable [...] Copied on Encounter [facility], [facility] [place], [place], [id number] , tel: [phone] [facility] Location No Information Demarcus-0 3-201 6 RCM Rendering . [address] [place] [address], [address], [place]. tel: [phone] [facility], [address] [place] [address], [id number] , [place] tel: [phone] [facility] Pseudophakia Maxim-0 3-201 4 RCM Rendering . [address] [place] [address], [address], [place]. tel: [phone] [facility], [address] [place] [address], [id number] , [place] tel: [phone] [facility] PseudophakiaCorneal Edema/ Decomp Unspec Dec-2 4-201 3 RCM Rendering [place], [address], [place]. tel: [phone] [facility], [address] [place], [id number] , [place] tel: [phone] [facility] Cataract Posterior SubcapsularCataract Nuclear Sclerotic 3 RCM Rendering [place], [address], [place]. tel: [phone] Family History Family Member Type Diagnosis Age At Onset No Information Payers Payer name Insurance type Covered constitution party ID Authoriza tion(s) No Information Social [...] V43.1 Impression/Plan Related to Diagn osis Description: LENS (PSEUDOPHAKOS) OS \nDiagnosis Code: V43.1 Impression/Plan Related to Diagn osis Description: EDEMA, CORNEAL NOS OS \nDiagnosis Code: 371.20 Impression/Plan Related to Diagn osis Description: CATARACT, NUCLEAR SCLEROSIS OS \nDiagnosis Code: 366.16 Impression/Plan Related to Diagn osis Description: CATARACT, POSTERIOR SUBCAPSULAR (SENILE) OS \nDiagnosis Code: 366.14 Assessments Type Assessment Date No Information Patient Care Teams Name Effective Dates (start - stop) Status Members No Information
[2025-05-19] VITALS (8 sets, daily range): BP systolic 119–138; BP diastolic 60–70; PULSE 85–101; RESP 16–20; TEMP 36.7–37; O2SAT 90–98; BMI 29.0
--- NOTE | ~2025-05-19 | XR_ITS ---
CLINICAL HISTORY: Pleurisy; Recent Sx Exam: AP portable chest x-ray. Comparison: None provided. Findings: Lungs are hypoinflated. Cardiac silhouette is within normal limits for this degree of inflation. There is consolidation of the mid to medial aspect of the left lung base with partial obscuration of the left inferior heart border and left medial hemidiaphragm. No infiltrates are seen within the right lung. There may be a small left pleural effusion. No pneumothorax. Reverse right shoulder arthroplasty is in place. There soft tissue gas superior to the prosthesis suggesting recent surgery. No pneumothorax or pleural effusion seen on the right. Impression: 1. Likely recent reverse right shoulder arthroplasty. Correlation with the timing of the patient's surgery suggested. 2. Hypoinflation with left basilar consolidation and likely small left pleural effusion. This can be seen with atelectasis or pneumonia This document has been electronically signed by: Salty Dee MD on 05/19/2025 05:09:42
--- NOTE | ~2025-05-19 | CT_ITS ---
CLINICAL HISTORY: Pleurisy; Positive D Dimer CT angiography chest with contrast. 3D Postprocessing. Comparison: None provided Findings: The heart size is normal. RV/LV ratio is normal. Unremarkable thoracic aorta and great vessels. No aneurysm. No acute pulmonary embolus. The visualized thyroid and mediastinum are unremarkable. There is bilateral consolidation most pronounced in the lower lobes. Differential considerations would include pneumonia, subsegmental atelectasis, or scarring.. The visualized upper abdomen is unremarkable. The bones are intact. IMPRESSION: 1. No pulmonary embolus. 2. Bilateral consolidation, differential considerations noted This document has been electronically signed by: Juan Luis Pacheco MD on 05/19/2025 09:56:21
--- OUTSIDE RECORDS SUMMARY | 2025-05-19 01:20 | XMS_ITS | Data Portability ---
Author Organization [facility] Address [address] [address] Assessment Encounter Date Assessment Date Assessment LastModified by Organization Details LastModified Time 01/15/2022 01/15/2022 Patient is recovering s/p lumbar removal of hardware. [email or web address] Not available 01/15/2022 12:18:30 03/05/2022 03/05/2022 Patient is recovering s/p removal of lumbar hardware. She has pain related to chronic low back pain [email or web address] Not available 03/05/2022 13:10:02 Plan of Treatment [...] mg tablet 2021 022 [email or web address] [id number], [address] [place], [address], 15:51:21 tramadol 50 mg tablet 2021 022 [id number], [address] [place], [address], 12:22:08 Patient TargetsNo targets recorded. Patient InstructionsNo instructions recorded. Reason for Referral Physical Therapist Referral for Lumbar spondylosis improve pain and functionality, return to normal activity s/p instrumentation removal L5-S1 Referring Physician: Holden Cantu, Orthopedic Surgery, [phone] Encounter Date: 01/15/2022 Results Created Date Observation Date Name Description Value Unit Range Abnormal Flag Note LastModifiedBy Organization Detail LastModifiedTime 01/19/20 22 01/15/2022 XR, lumba r spine , 2 view No observ ation record ed. [facility] [address], [place], [address], 02/11/2022 10:55:27 03/08/20 22 03/05/2022 XR, lumba r spine No observ ation record ed. Not Available 03/2022 14:46:00 Result Notes None recorded. Problems Name Problem SNOMED Code Status Onset Date Resolution Date Notes Provider Name and Address Organization Details Recorded Time Idiopathic scoliosis of thoracic spine 707047737 Active Other idiopathic scoliosis, thoracolum bar region Debbie spence [facility] 2 20:37:29 Pseudoarth rosis of spine 014381173 Active Lumbar Debbie spence [facility] 2 20:38:07 Problem Notes None recorded. Procedures Surgical History Date Name Laterality Status Provider Name and Address Organization Details Recorded Time 12/04/19 removal spinal instrumentation completed Ivon Naylor [facility] 01/15/2022 11:27:59 08/02/19 fusion completed Debbie Durán [facility] 12/26/19 22 20:47:56 Imaging Results None recorded. Procedure Notes None recorded. Medical Equipment None [...] 6 hours by oral route as needed. 06/16 /2022 completed Not Available Not Available Not Available [...] Updated DateTime 01/15/2022 167.64 cm 28.2 kg/m2 14762.66 g Ivon Adamsherbertbrandycece [facility] 01/15/2022 11:44:45 Social History Question Answer Notes LastModified by Organizat ion Details LastModified Time Tobacco Smoking Status Never Smoker Debbie spence, [facility] 12/25/2021 20:48:33 What Is Your Level Of Caffeine Consumption? Moderate Information not available 01/15/2022 In The 14 Days Before Symptom Onset, Have You Had Close Contact With A Laboratory-confirm ed COVID-19 While That Case Was Ill? No Information n ot available 01/15/2022 In The 14 Days Before Symptom Onset, Have You Had Close Contact With A Person Who Is Under Investigation For COVID-19 While That Person Was Ill? No Information not available 01/15/2022 Sex: Unknown Functional Status Question Answer Note LastModified by Organizat ion Details LastModified Time Do you use any illicit or recreational drugs? No Information not available 01/15/2022 What is your level of alcohol consumption? Yes 1 glass of wine daily [email or web address] Information not available 12/25/2021 Are you currently employed? No Retired Information not available 01/15/2022 Mental Status None recorded. Family History Relationship Description Onset Age of this Age Resolved Age Notes LastModified by Organization Details LastModified Time Unspecified Relation Malignant neoplastic disease [email or web address] Not available 2021 20:49:18 Unspecified Relation Diabetes mellitus [email or web address] Not available 2021 20:49:26 Unspecified Relation Disorder of lung [email or web address] Not available 2021 20:49:41 Unspecified Relation Kidney disease [email or web address] Not available 2021 20:49:49 Unspecified Relation Arthritis [email or web address] Not available 2021 20:49:57 Medical History Condition Response ARTHRITIS Y other Y ASTHMA Y Gynecological HistoryNo gynecological history recorded. Obstetrics History GPAL:G 0 P 0 0 0 0 Past Encounters Encounter ID Performer Location Encounter Start Date Encounter Closed Date Diagnosis/Indication Diagnosis SNOMED-CT Code Diagnosis ICD10 Code Diagnosis IMO Codes Diagnosis Note [id number] INGRID Saenz [facility] [address] [address] 01/15/2022 10:52:39 01/15/2022 12:06:57 Lumbar spondylosis 524309419 M47.896 I recommend 6 weeks of PT. I have provided tramadol refill for pain. Gentle increase in exercise and activity. [id number] Anup Sauceda MD [facility] [address] [phone] 03/05/2022 11:28:00 03/05/2022 13:09:49 Lumbar spondylosis 095653926 M47.896 She may proceed with left knee [...] Recorded Advance Directives Directive None Recorded Payers Insurance Date Sequence Insurance Name Policy Number Policy [place] Covered Member ID [place] Member ID Guarantor Name 03/05/2022 2 [place] Lucy Hendrickson [id number] Lucy Hendrickson 03/05/2022 1 [place]IC[place] B[place] [employer] Lucy Hendrickson [id number] Lucy Hendrickson Notes Date Note Type Note Provider Name and Address Organization Details Recorded Time 01/15/2022 text/html Ms. Hendrickson returns to the office for her 2nd post op approximately 6 weeks s/p emergent instrumentation removal at L5-S1 on 12/03/2021. She was last seen 3 weeks ago and described uncontrollable severe pain in her low back and buttocks. She was prescribed Valium 5mg , Tylenol ER 650mg to take in addition to the Percocet 5/325mg and Ibuprofen 800mg she was already taking. INGRID Saenz [address] [place] [address], [phone], [facility] 01/15/2022 12:22:09 03/05/2022 text/html Ms. Hendrickson returns to the office for post op follow up 3 months s/p instrumentation removal at L5-S1 on 12/03/2021. She continues to have lower back pain. She is scheduled to have a total knee arthroplasty but has been delayed secondary to pain in her lower back. She had a recent lumbar MRI showing no evidence of stenosis. She denies weakness or paresthesias. Anup Sauceda MD [address] [place] [address], [phone], [facility] 03/07/2022 17:41:10 OBGyn Episode No OBEpisode recorded.
--- OUTSIDE RECORDS SUMMARY | 2025-05-19 01:20 | XMS_ITS | Clinical Summary ---
Author Organization [facility] Address [address] [place] [address] Care Team Providers Care Sales Promotion Manager Name Role Phone Pavan Kan MD Primary Care Provider [phone] Allergies Active Allergy Reactions Criticality Noted Date [...] Refills, Maintenance, 05/13/21 13:25:00 EDT, Capsule, [id number], Partial fill upon patient request if the [...] age to complete this topic Care Teams Sales Promotion Manager Relationship Specialty Start Date End Date Pavan Kan MD [address] [place] [id number] PCP - General Family Medicine 08/08/21
--- OUTSIDE RECORDS SUMMARY | 2025-05-19 01:20 | XMS_ITS | Clinical Summary ---
Author Organization [facility] Address [address] [place] [address] Care Team Providers Care Certified Wellness Program Coordinator Name Role Phone Yojana Pyle DMD Primary Care Provider [phone] Source Comments PLEASE NOTE, if this patient [...] daily apply a thin ribbon on toothbrush. [place] thoroughly once daily for two minutes, preferably at bedtime. After use expectorate. For best results, do not eat, drink, or rinse for 30 minutes. 51 g 2 2 Active amoxicillin (AMOXIL) 500 mg capsuleIndicatio ns:Prophylactic antibiotic TAKE 4 CAPSULES BY MOUTH 1 HOUR BEFORE DENTAL APPOINTMENT FOR PROPHYLAXIS. 8 Capsule 5 Active Active Problems Problem Noted Date Diagnosed Date Interstitial lung disease 10/19/2024 Back pain 02/05/2022 Neck pain 02/05/2022 Encounters Date Type Department Care Team Description 02/27/2025 9:00 AM EDT Office Visit [facility] [address] [place] [phone] Lola Garcia from Last 3 Months Immunizations [...] Description 08/30/2025 9:00 AM EST Office Visit [facility] [place] [address] Lola Garcia [address] [place] [phone] Health Maintenance Due Date Last Done Comments [...] Drug Screen 08/02/2024 Depression Annual Screen 08/02/2024 Xca-KEEOR-13 (3 - season) 2025 021, 09/27/2020 Imm-Influenza [...] Relevant to Health Maintenance Insurance HEALTH SAFETY NET DENTAL MEDIC[place] - [place] Care Teams Certified Wellness Program Coordinator Relationship Specialty Start Date End Date Yojana Pyle DMD [address] [place] [address] PCP - General 10/11/20
--- OUTSIDE RECORDS SUMMARY | 2025-05-19 01:20 | XMS_ITS | Data Portability ---
Author Organization [place] [facility] Address [address] [place] [id number] Care Team Providers Care Contract Associate Manager Name Role Phone ZAID HICKS Primary Care Provider [phone] Assessment Encounter Date Assessment Date Assessment LastModified by Organization Details LastModified Time 03/23/2020 03/23/2020 Overview/History : 69-year-old female released from rehab 4 days ago reports feeling not herself, weak, dizzy, nauseous sense and reports at least 2 weeks of diarrhea for which she had been on an antibiotic and was to have continued after discharge from rehab but never received the prescription. States followed with PCP regarding this and is calling the pharmacy to ensure that it has arrived today. Denies fevers but reports occasional chills. Denies chest pain, palpitations, worsening shortness of breath, abdominal pain, vomiting. Reports drinking soda, juice, eating soup and cereal. Exam: Tired appearing female, afebrile. Heart sounds regular, lungs clear, abdomen soft and nontender with normoactive bowel sounds. Extraocular motions intact without nystagmus. Cranial nerves II-X normal although patient not fully cooperative with exam. EKG sinus tachycardia, no ischemic changes. Chem-8 shows very mild hypokalemia. DDx considered, but not limited to: Consider continued C diff infection unresolved likely due to lack of antibiotic coverage. Consider electrolyte derangement, blood work shows a very mild hypokalemia likely in the setting of HCTZ use and C diff with poor oral intake. Consider dehydration although patient is urinating well. Work up/Results: EKG sinus tachycardia, no ischemic changes. Chem-8 shows very mild hypokalemia. Plan/Discussion: Patient does not appear to have actual altered mental status and appears neurologically intact on exam. Patient advised to hold HCTZ for 2 days, has already taken it today, and this medication has been removed from her medication dose back for her. I advised to drink plenty of fluids throughout the day, suggested Gatorade, power aid, Pedialyte. Advise eat regularly throughout the day. Patient is following up with PCP and her pharmacy regarding vancomycin for treatment of C. diff. Advised if symptoms worsen, go to the ED. Patient instructed to call if symptoms worsen or do not improve; patient acknowledges understands and agrees with plan. Note created with voice recognition software and may contain grammatical errors due to this. Patients PCP contacted and updated on patient status. Patient verbalized understanding of discharge instructions and when to follow up with PCP/911/ED as needed. Patient in agreement with current plan and treatment. Proper Personal Protective Equipment (PPE), including gloves, eye protection and masks were donned and doffed appropriately and all equipment cleaned using approved technique with germicidal disposable wipes prior to and after care of this patient according to [facility]'s infection prevention protocols. In order to obtain further information and compare any laboratory results/values, I have accessed patient records on the [employer]. This information was pertinent in my medical decision making today. [email or web address] Not available 03/23/2020 13:11:26 04/08/2020 04/08/2020 Overview/History : Overview: 69yoF known to pmx fibromyalgia, HTN, and major spine surgery is seen for 2 days of diffuse weakness. Patient had a recent diagnosis of cdiff and was treated with vancomycin. On wednesday her stool was negative for cdiff. She reports 3bm yesterday and one today. No fever or abdominal pain. No nausea or vomiting. No chest pain, sob, nasal congestion, cough, or headach. Patient reports chronic back R hip and R knee pain. She has had injections into her right hip and knee without relief. She denies any sick contact. Exam: Patient is slightly hypotensive, and unchanged from last vitis non toxic appearing Heart and lung sounds are clear Abdomen is soft and non tender no Le edema noted 5/5 motor throughout all 4 extremities. DDx considered, but not limited to: hypotension hypothyroidism dehydration transverse myelitis-doubt as no weakness on exam Work up/Results: chem 8 demonstrated an elevated BUN Plan/Discussion: The patient is slightly hypotensive actively drinking Gatorade seen today for diffuse body weakness. She is not demonstrating any signs of an infection at this time and does not have any weakness on exam. Her blood work demonstrated dehydration and mild hyponatremia. She is tolerating fluids well. We will also check her TSH and Free T4 and follow up. The patient was instructed to stop her hydrochlorothiazi de at this time due to her low blood pressure and hyponatremia. She will call her primary care provider tomorrow. The patient was instructed to seek immediate medical care if she develops chest pain, shortness of breathe, abdominal pain, worsened weakness or feels she is going to pass out. She verbalized understanding and was agreeable with overall plan. Again I reiterized the importance of drinking plenty of fluids. Proper Personal Protective Equipment (PPE), including gloves, eye protection and masks were donned and doffed appropriately and all equipment cleaned using approved technique with germicidal disposable wipes prior to and after care of this patient according to [facility]'s infection prevention protocols. In order to obtain further information and compare any laboratory results/values, I have accessed old patient records. This information was pertinent in my medical decision making today. Time On Scene with Patient: 00:40:01 [email or web address] Not available 04/08/2020 13:56:42 11/18/2021 11/18/2021 Time On Scene with Patient: 00:52:59 Overview/History: 71 y/o female known to DH pmhx fibromyalgia, HTN, hyporhyroidism, major spine surgery, and chronic pain syndrome. She was taken to [facility] via ambulance for severe right lower back pain on 11/12 with imaging being done. Prior to her hospital visit she had an MRI of her back ordered by from [facility]. She was discharged on 11/14 with Dilaudid and instructed to follow up with PCP as well as neurosurgeon. She has an appointment on 11/20 with neurosurgeon located in [place] for pain management. She is out of Hydromorphone prescribed by ER. She denies any physical trauma leading to her ER visit. She contacted PCP office for refill of pain medication however he is not in the office. She is currently on Lyrica, Ibuprofen, and Tylenol which she states is not helping with her back pain. Exam: Patient sitting on her couch, overweight, well developed. VS stable. Ambulates with walker HEENT: Normacephalic, atraumatic, EOMI Lungs: BLCTA Cardiac: RRR Skin:Dry and intact, no rash, no bruise Back: lower spinal tenderness, right paraspinous tenderness. Psych: Alert and oriented, pleasant. Plan/Discussion: Patient was admitted for intractable chronic back pain. She needs to follow up with neurosurgeon in [place] for resolution of problem however is reluctant to do so. PCP office was contacted, speaking to Dayanna who would relay the message to provider available for possible 2 day supply of pain medication, until she is seen by neurosurgeon on 11/20 for pain management. PCP office will contact her directly with any questions,concern s, and outcome of refill medication. The patient is advised to make an appt with PCP in 3-5 days to discuss ongoing symptoms/ further management. The patient is also advised to go to the ED immediately for any worsening symptoms. The patient understood and agreed with this plan. The patient was given discharge instructions and all questions were answered prior to DH team departure. In order to obtain further information and compare any laboratory results/values, I have accessed patient records on the [employer] [employer]. This information was pertinent in my medical decision making today. MRI ordered by done on 11/09/21 with impression of: There is a well-circumscribe d fluid collection in the surgical bed extending from T12 through L4, measuring approximately 14 cm in superior inferior extent, and approximately 5.6 x 2.9 cm in cross-section. There is diffuse fatty atrophy of the posterior paraspinal musculature. Edema of the posterior soft tissues is identified. No significant abnormality of the prevertebral soft tissues. Findings by level: T12-L1: Prior fusion and laminectomy. No significant disc herniation, central stenosis, or neural foraminal narrowing. L1-2: Prior fusion and laminectomy. No significant disc herniation, central stenosis, or neural foraminal narrowing. L2-3: Prior fusion and laminectomy. No significant disc herniation, central stenosis, or neural foraminal narrowing. L3-4: Prior fusion and laminectomy. No significant central canal stenosis or neural foraminal narrowing. L4-5: Prior fusion and laminectomy. Grade 1 anterolisthesis. No significant central stenosis or neural foraminal narrowing. L5-S1: Prior fusion and laminectomy. Mild broad-based disc osteophyte complex. No significant central stenosis. Suspected mild right and no left neural foraminal narrowing. Not available 11/18/2021 14:26:11 04/09/2023 04/09/2023 Time On Scene with Patient: 00:34:48 Brief Overview: 72 y/o female c/o chronic edema in her feet and ankles. states she used to take HCTZ for this but PCP DC the med as her potassium was low. pt reports the past 2-3 days ankles and feet have been swollen again L>R. swelling is worse at the end of the day and better when she gets up in the am. no calf pain, redness, warmth, wounds or reported injury. Vital Signs: BP 126/70, HR 77, RR 18, T 98.4, O2 99% RA Exam: 72 y/o female well appearing, alert NAD sitting in living room chair. lungs: CTAB no wheezes rales or rhonchi. heart: RRR no murmur rubs or gallops. no peripheral edema. no calf tenderness or edema, negative homans. mild edema noted lateral ankle and dorsal feet bilaterally, non pitting. varicosities noted bilaterally. skin: warm and dry no rashes or lesions. no erythema, warmth. strength is normal and equal bilaterally. distal pulses 2+ bilaterally. DDx considered, with rationale: DVT: considered but no unilateral edema or calf tenderness. no tachycardia. CHF: considered but lungs are clear, no peripheral edema, no reported weight gain. Cellulitis: considered but no erythema, warmth or abrasions or wounds on exam. Results/ work up: n/a Proper Personal Protective Equipment (PPE), including gloves, eye protection and masks were donned and doffed appropriately and all equipment cleaned using approved technique with germicidal disposable wipes prior to and after care of this patient according to [facility]'s infection prevention protocols. [email or web address] Not available 04/09/2023 17:19:50 Plan of Treatment Reminders Order Date Submit Date Provider Last Modified By Organization Details Last Modified Time Details Appointments None recorded. Lab BMP + ionized calcium, serum or plasma 020 [email or web address] Spr [facility] h, [address] [place] [address], [id number], 0 08:09:42 TSH, serum or plasma MARVEL [facility] (Centralized Electronic Ordering - All Locations), Patient Can Go To The Location Of Their Choice, [id number] 0 19:26:00 BMP + ionized calcium, serum or plasma 020 [facility], [place], [address], 0 12:04:27 Referral None recorded. Procedures None recorded. Surgeries None recorded. Imaging None recorded. Medication Orders None recorded. Patient TargetsNo targets recorded. Patient Instructions Encounter Date Encounter Id Patient Instructions Last Modified By Organization Details Last Modified Time 04/08/2020 [id number] CONTINUE TO TAKE YOUR MEDICATIONS INSTRUCTED YOU NEED TO INCREASE YOUR FLUID INTAKE FOLLOW UP WITH YOUR PRIMARY CARE PROVIDER INSTRUCTED YOUR VITAL SIGNS TODAY WERE: Temp 96.8 Heart Rate 78 Blood pressure 104/60 Respiration rate 16 Oxygen saturation 100% ALL OF YOUR LAB WORK TODAY APPEARED NORMAL OTHER THAN YOU ARE DEHYDRATED AND YOU ABSOLUTELY NEED TO DRINK MORE FLUIDS WE WILL CALL WITH THE RESULTS OF YOUR TSH AND FREE T4 I WOULD TALK TO YOUR PRIMARY CARE PROVIDER ABOUT STOPPING YOUR HYDROCHLOROTHIAZIDE YOUR BLOOD PRESSURE CONTINUES TO BE ON THE LOW SIDE AND AGAIN YOU ARE DEHYDRATED PLEASE AGAIN SEEK MEDICAL CARE IF SYMPTOMS CONTINUE WE MAY NEED TO GIVE YOU IV FLUIDS AT THAT TIME PLEASE ALSO SEEK MEDICAL CARE IF YOU DEVELOP A FEVER, CHEST PAIN, SHORTNESS OF BREATHE, ABDOMINAL PAIN OR YOUR DIARRHEA CONTINUES. Thank you for your visit with [facility] today. We cannot always find the exact cause of your symptoms during your initial visit. Please follow up with your primary care provider or specialist within 24-48 hours to be rechecked or seek medical attention if your symptoms do not go away or get worse. If you develop any new or worsening symptoms and need after hours care, please go to nearest ER and/or call 911. If you have additional concerns or develop a change in your condition between 8am-10pm, please call [facility] at [phone] to help navigate your care. [email or web address] Not available 04/08/2020 12:58:28 11/18/2021 [id number] Please follow up with neurosurgeon on 11/20 for pain management. Seek ER care with worsening of symptoms. [email or web address] Not available 11/18/2021 14:27:35 04/09/2023 [id number] [facility] you [facility] yo [facility]. We cannot always find the exact cause of your symptoms during your initial visit. Please follow up with your primary care provider or specialist within 2-3 days to be rechecked or seek medical attention if your symptoms do not go away or get worse. If you develop any new or worsening symptoms and need after hours care, please go to nearest ER and/or call 911. If you have additional concerns or develop a change in your condition between 8am-10pm, please call [facility] at [phone] to help navigate your care. [email or web address] Not available 04/09/2023 17:28:05 Reason for Referral None Reported. Results Created Date Observation Date Name Description Value Unit Range Abnormal Flag Note LastModifiedBy Organization Detail LastModifiedTime 03/23/20 20 03/23/2020 BMP + ioniz ed calci um, serum or plasm a glu 131 mg/dL 70-105 Not Available [facility] [address] [place], [address], 03/30/2020 21:53:37 03/23/20 20 03/23/2020 BMP + ioniz ed calci um, serum or plasm a BUN 12 mg/dL 8-26 Not Available [facility] [address] [place], [address], 03/30/2020 21:53:37 03/23/2003/23/2020 BMP + ioniz ed calci um, serum or plasm a crea 0.6 mg/dL 0.6-1. 3 Not Available [facility] [address] [place], [address], 03/30/2020 21:53:37 03/23/20 20 03/23/2020 BMP + ioniz ed calci um, serum or plasm a Na 138 mmol/ L 138-14 6 Not Available [facility] [address] [place], [address], 03/30/2020 21:53:37 03/23/20 20 03/23/2020 BMP + ioniz ed calci um, serum or plasm a K 3.2 mmol/ L 3.5-4. 9 Not Available [address], [address], 03/30/2020 21:53:37 03/23/20 20 03/23/2020 BMP + ioniz ed calci um, serum or plasm a cL 94 mmol/ L 98-109 Not Available [address], [address], 03/30/2020 21:53:37 03/23/20 20 03/23/2020 BMP + ioniz ed calci um, serum or plasm a TCO2 30 mmol/ L 24-29 Not Available [address], [address], 03/30/2020 21:53:37 03/23/20 20 03/23/2020 BMP + ioniz ed calci um, serum or plasm a angap 18 mmol/ L 10-20 Not Available [address], [address], 03/30/2020 21:53:37 03/23/20 20 03/23/2020 BMP + ioniz ed calci um, serum or plasm a ica 1.17 mmol/ L 1.12-1 .32 Not Available [address], [address], 03/30/2020 21:53:37 03/23/20 20 03/23/2020 BMP + ioniz ed calci um, serum or plasm a HCT 35 %pcv 37-47 Not Available [address], [address], 03/30/2020 21:53:37 03/23/20 03/23/2020 BMP + ioniz ed calci um, serum or plasm a Hb 11.9 g/dL 12-17 Not Available [address], [address], 03/30/2020 21:53:37 04/08/2004/08/2020 TSH, serum or plasm a TSH 0.85 uIU/m L (0.4-4 .00) Not Available [facility] (Centralized Electronic Ordering - All Locations) Patient Can Go To The Location Of Their Choice, [id number] 04/08/2020 19:25:59 04/08/20 20 04/08/2020 BMP + ioniz ed calci um, serum or plasm a glu 109 mg/dL 70-105 Not Available [address], [address], 04/09/2020 11:20:23 04/08/2004/08/2020 BMP + ioniz ed calci um, serum or plasm a BUN 38 mg/dL 8-26 Not Available [address], [address], 04/09/2020 11:20:23 04/08/20 20 04/08/2020 BMP + ioniz ed calci um, serum or plasm a crea 0.9 mg/dL 0.6-1. 3 Not Available [address], [address], 04/09/2020 11:20:23 04/08/2004/08/2020 BMP + ioniz ed calci um, serum or plasm a Na 136 mmol/ L 138-14 6 Not Available [address], [address], 04/09/2020 11:20:23 04/08/20 20 04/08/2020 BMP + ioniz ed calci um, serum or plasm a K 3.9 mmol/ L 3.5-4. 9 Not Available [address], [place], [address], 04/09/2020 11:20:23 04/08/20 20 04/08/2020 BMP + ioniz ed calci um, serum or plasm a cL 99 mmol/ L 98-109 Not Available [address], [address], 04/09/2020 11:20:23 04/08/20 20 04/08/2020 BMP + ioniz ed calci um, serum or plasm a TCO2 23 mmol/ L 24-29 Not Available [address], [address], 04/09/2020 11:20:23 04/08/20 20 04/08/2020 BMP + ioniz ed calci um, serum or plasm a angap 18 mmol/ L 10-20 Not Available [address], [address], 04/09/2020 11:20:23 04/08/20 20 04/08/2020 BMP + ioniz ed calci um, serum or plasm a ica 1.18 mmol/ L 1.12-1 .32 Not Available [address], [address], 04/09/2020 11:20:23 04/08/20 20 04/08/2020 BMP + ioniz ed calci um, serum or plasm a HCT 43 %pcv 37-47 Not Available [address], [address], 04/09/2020 11:20:23 04/08/20 20 04/08/2020 BMP + ioniz ed calci um, serum or plasm a Hb 14.6 g/dL 12-17 Not Available [address], [address], 04/09/2020 11:20:23 04/04/20 20 [email or web address] No observ ation record ed. [email or web address] Not Available 2019 14:42:52 Result Notes None recorded. Procedures Surgical History Date Name Laterality Status Provider Name and Address Organization Details Recorded Time 04/08/20 20 Venipuncture - completed INGRID HERRERA [address], [place], [address], [place] [facility] 04/12/2020 08:38:22 03/23/20 20 Venipuncture - completed INGRID ELLIS [address], [place], [address], [place] [facility] 03/23/2020 12:08:42 03/23/20 20 ECG Interpretation - completed INGRID ELLIS [address], [place], [address], [place] [facility] 03/23/2020 12:49:31 Back Surgery completed INGRID العلي [address], [place], [address], [place] [facility] 04/09/2023 15:44:35 Imaging Results None recorded. Procedure Notes None recorded. Medical Equipment None Reported. Allergies Allergen ID Allergen Name Allergen Category Reaction Reaction Severity Criticality Documentation Date Start Date Code Code System Note Provider Name and Address Organization Details Recorded Time 113564 Product containin g 3-hydroxy -3-methyl glutaryl- coenzyme A reductase inhibitor (product) medicatio n Not available Not available Not available 03/23/2020 14945 009 SNOMED INGRID ELLIS [address] [place], [address], [place] [facility] 11:[facility] Medications Name Sig Start Date Stop Date Status Note LastModified by Organization Details LastModified Time bchz ketoprofen 15 pain en APPLY 4-5 GRAMS (4-5 PUMPS) TOPICALLY TO AFFECTED AREA TWICE DAILY RIGHT ANKLE 04/09 completed Not Available Not Available Not Available celecoxib 200 mg capsule TAKE 1 CAPSULE BY MOUTH EVERY DAY 04/09 completed Not Available Not Available Not Available cyclobenzap rine 10 mg tablet TAKE 1 TABLET BY MOUTH EVERYDAY AT BEDTIME 11/18 completed Not Available Not Available Not Available acetaminoph en 325 mg tablet TAKE 3 TABLETS BY MOUTH EVERY 8 HOURS,X30 DAYS,TEMP ERATURE GREATER THAN 100.5 04/09 completed Not Available Not Available Not Available doxycycline hyclate 100 mg capsule 03/23 completed Not Available Not Available Not Available tizanidine 2 mg tablet TAKE 1 TABLET BY MOUTH EVERYDAY AT BEDTIME 11/18 completed Not Available Not Available Not Available Vitamin C 500 mg tablet TAKE 1 TABLET BY MOUTH EVERY DAY 04/09 completed Not Available Not Available Not Available ibuprofen 800 mg tablet TAKE 1 TABLET BY MOUTH THREE TIMES DAILY WITH FOOD 04/09 completed Not Available Not Available Not Available tizanidine 4 mg tablet TAKE 1 TABLET BY MOUTH EVERY 8 HOURS 04/09 completed Not Available Not Available Not Available valacyclovi r 1 gram tablet TAKE 1 TABLET BY MOUTH TWICE A DAY active Not Available Not Available No t Available hydrocodone 5 mg-acetamin ophen 325 mg tablet 04/08 completed Not Available Not Available Not Available chlorpromaz ine 100 mg tablet 04/09 completed Not Available Not Available Not Available meloxicam 15 mg tablet TAKE 1 TABLET BY MOUTH ONCE DAILY 04/09 completed Not Available Not Available Not Available ondansetron HCl 4 mg tablet TAKE 1 TAB BY MOUTH THREE TIMES A DAY NEEDED NAUSEA/ VOMITING 04/09 completed Not Available Not Available Not Available prednisone 20 mg tablet 04/08 completed Not Available Not Available Not Available methylpredn isolone 4 mg tablet TAKE 6 TABLETS ON DAY 1 DIRECTED ON PACKAGE AND DECREASE BY 1 TAB EACH DAY FOR A TOTAL OF 6 DAYS 11/18 completed Not Available Not Available Not Available omeprazole 40 mg capsule,del ayed release TAKE 1 CAPSULE BY MOUTH EVERY DAY active Not Available Not Available No t Available minoxidil 2.5 mg tablet TAKE 2 TABLETS BY MOUTH DAILY FOR HAIR LOSS active Not Available Not Available No t Available tramadol 50 mg tablet TAKE 1 TABLET BY MOUTH EVERY DAY NEEDED FOR PAIN active Not Available Not Available No t Available amoxicillin 500 mg tablet TAKE 4 TABS ONE HOUR PRIOR TO DENTAL APPOINTME NT 04/09 completed Not Available Not Available Not Available levothyroxi ne 100 mcg tablet TAKE 1 TABLET BY MOUTH EVERY DAY active Not Available Not Available No t Available oxycodone-a cetaminophe n 5 mg-325 mg tablet TAKE 1-2 TABLETS BY MOUTH EVERY [address] DRIVE WHILE TAKING THIS MEDICATIO N 04/09 completed Not Available Not Available Not Available hydromorpho ne 2 mg tablet TAKE 1-2 TABS BY MOUTH EVERY 6 HRS NEEDED PAIN DO NOT DRIVE WHILE TAKING THIS MEDICATIO N 04/09 completed Not Available Not Available Not Available diazepam 2 mg tablet TAKE 1 TABLET BY MOUTH THREE TIMES A DAY NEEDED FOR MUSCLE SPASMS 04/09 completed Not Available Not Available Not Available baclofen 10 mg tablet TAKE 1 TABLET BY MOUTH TWICE A DAY NEEDED FOR MUSCLE SPASMS 04/09 completed Not Available Not Available Not Available doxepin 100 mg capsule 04/09 completed Not Available Not Available Not Available erythromyci n 5 mg/gram (0.5 %) eye ointment APPLY TO AFFECTED AREA OF LEFT UPPER LID AT BEDTIME 04/09 completed Not Available Not Available Not Available metronidazo le 0.75 % topical cream APPLY TO THE AFFECTED AREAS ON THE FACE TWICE A DAY 04/09 completed Not Available Not Available Not Available vancomycin 50 mg/mL oral solution 11/18 completed Not Available Not Available Not Available docusate sodium 100 mg capsule TAKE 1 CAPSULE BY MOUTH DAILY NEEDED FOR CONSTIPAT ION 04/09 completed Not Available Not Available Not Available omeprazole 20 mg capsule,del ayed release TAKE 1 CAPSULE BY MOUTH EVERY DAY 11/18 completed Not Available Not Available Not Available hydrochloro thiazide 25 mg tablet TAKE 1 TABLET BY MOUTH EVERY DAY 04/09 completed Not Available Not Available Not Available metoprolol succinate ER 25 mg tablet,exte nded release 24 hr TAKE 1 TABLET BY MOUTH EVERY DAY active Not Available Not Available No t Available diazepam 10 mg tablet TAKE 1 TABLET BY MOUTH THREE TIMES A DAY 04/09 completed Not Available Not Available Not Available ibuprofen 600 mg tablet TAKE 1 TABLET BY MOUTH EVERY 6 HOURS NEEDED FOR PAIN WITH FOOD OR MILK 11/18 completed Not Available Not Available Not Available estradiol 0.01% (0.1 mg/gram) vaginal cream INSERT 1 GRAM VAGINALLY DAILY AT BEDTIME 04/09 completed Not Available Not Available Not Available albuterol sulfate HFA 90 mcg/actuati on aerosol inhaler INHALE 2 PUFFS EVERY 6 HOURS NEEDED FOR WHEEZING/ SHORTNESS OF BREATH 04/09 completed Not Available Not Available Not Available hydromorpho ne 4 mg tablet TAKE 1/2 TO 1 TABLET BY MOUTH EVERY 4 HOURS NEEDED FOR MODERATE TO SEVERE PAIN 04/09 completed Not Available Not Available Not Available naproxen 500 mg tablet TAKE 1 TABLET BY MOUTH TWICE A DAY WITH FOOD 04/09 completed Not Available Not Available Not Available diazepam 5 mg tablet TAKE 1 TABLET BY MOUTH 3 TIMES A DAY 04/09 completed Not Available Not Available Not Available amoxicillin 875 mg-potassiu m clavulanate 125 mg tablet TAKE 1 TABLET BY MOUTH TWICE A DAY FOR 10 DAYS 11/18 completed Not Available Not Available Not Available oxycodone 5 mg tablet TAKE 1 TABLET BY MOUTH EVERY 4 HOURS NEEDED FOR PAIN (SEVERE) 04/09 completed Not Available Not Available Not Available cyclosporin e 0.05 % eye drops in a dropperette INSTILL 1 DROP INTO BOTH EYES TWICE A DAY 04/09 completed Not Available Not Available Not Available metoprolol tartrate 25 mg tablet TK 1/2 T PO D 11/18 completed Not Available Not Available Not Available duloxetine 20 mg capsule,del ayed release TAKE 1 CAPSULE BY MOUTH EVERY DAY 04/09 completed Not Available Not Available Not Available pregabalin 25 mg capsule TAKE 3 CAPSULES BY MOUTH DAILY AT BEDTIME 04/09 completed Not Available Not Available Not Available pregabalin 75 mg capsule TAKE 1 CAPSULE BY MOUTH TWICE A DAY 04/09 completed Not Available Not Available Not Available pregabalin 100 mg capsule TAKE 1 CAPSULE BY MOUTH TWICE A DAY 04/09 completed Not Available Not Available Not Available pregabalin 150 mg capsule TAKE 1 CAPSULE BY MOUTH TWICE A DAY active Not Available Not Available No t Available pregabalin 225 mg capsule TAKE 1 CAPSULE BY MOUTH TWICE A DAY 11/18 completed Not Available Not Available Not Available Restasis active Not Available Not Avai lable Not Available cholecalcif stephani (vitamin D3) 50 mcg (2,000 unit) capsule TAKE 1 CAPSULE BY MOUTH EVERY DAY 04/09 completed Not Available Not Available Not Available Gavilyte-C 240 gram-22.72 gram-6.72 gram-5.84 gram oral solution TAKE 8 OUNCE BY MOUTH DIRECTED FOLLOW INSTRUCTI ONS GIVEN BY DOCTORS OFFICE 04/09 completed Not Available Not Available Not Available Gavilax 17 gram/dose oral powder TAKE 17 GRAMS DAILY FOR 7 DAYS. DISSOLVE IN WATER BEFORE TAKING 04/09 completed Not Available Not Available Not Available Myrbetriq 25 mg tablet,exte nded release TAKE 1 TABLET BY MOUTH EVERY DAY 04/09 completed Not Available Not Available Not Available Eliquis 2.5 mg tablet TAKE 1 TABLET BY MOUTH TWO TIMES A DAY 04/09 completed Not Available Not Available Not Available Narcan 4 mg/actuatio n nasal spray GENTLY INSERT THE TIP INTO ONE NOSTRIL AND PRESS THE PLUNGER FIRMLY; IF NO RESPONSE MAY REPEAT EVERY 2 TO 3 MINUTES IN ALTERNATE NOSTRIL 04/09 completed Not Available Not Available Not Available Firvanq 04/09 completed Not Available Not Available Not Available Vitals Date Recorded Body temperature Respiratory rate Heart rate Oxygen saturation Oxygen saturation in Arterial blood by Pulse oximetry Systolic And Diastolic Provider Name and Address Organization Details Last Updated DateTime 2 97.4 [degF] 18 /min 92 /min 96 % 96 % 124/70 mm[Hg] Not Available [facility] 2 13:00:42 Date Recorded Oxygen saturation Oxygen saturation in Arterial blood by Pulse oximetry Heart rate Respiratory rate Body temperature Systolic And Diastolic Provider Name and Address Organization Details Last Updated DateTime 0 95 % 95 % 98 /min 22 /min 98.3 [degF] 102/68 mm[Hg] Not Available [facility] 0 11:53:22 Date Recorded Body temperature Heart rate Oxygen saturation Oxygen saturation in Arterial blood by Pulse oximetry Respiratory rate Systolic And Diastolic Provider Name and Address Organization Details Last Updated DateTime 0 96.8 [degF] 78 /min 100 % 100 % 16 /min 104/60 mm[Hg] Not Available [facility] 0 12:32:15 Date Recorded Body temperature Oxygen saturation Oxygen saturation in Arterial blood by Pulse oximetry Respiratory rate Heart rate Systolic And Diastolic Provider Name and Address Organization Details Last Updated DateTime 3 98.4 [degF] 99 % 99 % 18 /min 77 /min 126/70 mm[Hg] Not Available [facility] 15:41:53 Social History Question Answer Notes LastModified by Organizat ion Details LastModified Time Tobacco Smoking Status Never Smoker [facility] [address] [place], [address], [place] [facility] 04/09/2023 15:44:50 Excessive Alcohol Or Drug Use No Information not available 04/09/2023 Does This Patient Have A PCP? Yes [email or web address] Information not available 04/09/2023 Has The Patient Seen Their PCP In The Past 6 Months? Yes Information not available 04/09/2023 What Is Your Housing Situation Today? I Have Housing [email or web address] Information not available 04/09/2023 Sex: Unknown Functional Status Question Answer Note LastModified by Organizat ion Details LastModified Time Do you use any illicit or recreational drugs? No [email or web address] Information not available 04/09/2023 What is your level of alcohol consumption? None [email or web address] Information not available 04/09/2023 Mental Status None recorded. Family History Nothing Reported. Medical History Condition Response Coronary Artery Disease N COPD N Depression N Hypothyroidism Y Diabetes N Cancer N Stroke N Asthma N High Cholesterol N Pulmonary Embolism N Hypertension Y Kidney Disease N Gynecological HistoryNo gynecological history recorded. Obstetrics History GPAL:G 0 P 0 0 0 0 Past Encounters Encounter ID Performer Location Encounter Start Date Encounter Closed Date Diagnosis/Indication Diagnosis SNOMED-CT Code Diagnosis ICD10 Code Diagnosis IMO Codes Diagnosis Note [id number] [facility] [address] [place] [address] 03/23/2020 11:45:44 03/26/2020 16:19:58 Altered mental status 511129704 R41.82 Weakness present 0770470 07 M62.81 Dizziness 318114007 R42 Clostridio ides difficile infection 024380522 A04.72 [id number] [facility] [address] [facility] [place] [address] 04/08/2020 12:16:53 04/11/2020 11:59:41 Muscle weakness 90315050 M62.81 [id number] Enid Stewart NP [facility] [address] [facility] [address] 11/18/2021 12:54:28 11/19/2021 15:58:45 Chronic low back pain 250561888 M54.50 [id number] [facility] [address] [facility] [place] [address] 04/09/2023 15:35:37 04/12/2023 14:59:37 Venous stasis edema of bilateral lower limbs 4414142631 2764696 I87.2 Status of condition: Exacerbati on/Acute on chronic. Testing/Re sults: n/a Discussion :advised pt to elevate her legs and feet.follo w low sodium diet.no pitting edema on exam.compr ession stockings would be helpful if she can tolerate wearing them during the day.edema likely related to venous stasis and possibly OA seen on recent MRI left ankle.pict ures taken on scene today for pcp review. Plan, Medication Management & Follow-up recommenda tions:foll ow up with pcp in 3-5 days or sooner prn.go to the ER with worsening symptoms cp, sob, weakness, dizziness, increasing edema, erythema, calf pain/ leg pain, numbness, fever, weight gain. Essential hypertension 88653548 I10 Status of condition: Chronic. Testing/Re sults: BP 126/70 on scene. Discussion : BP controlled on current regimen. she is asymptomat ic. Plan, Medication Management & Follow-up recommenda tions:foll ow up with pcp as scheduled. go to the ER with worsening symptoms cp, sob, weakness, dizziness, weight gain, HAs, vision changes. Health Concerns Section Related Observation LastModified by Organization Detai ls LastModified Time None Recorded Concern Status LastModified by Organization Details LastModified Time None Recorded Advance Directives Directive None Recorded Payers Insurance Date Sequence Insurance Name Policy Number [place] Covered Member ID Becah Member ID Guarantor Name 03/22/2020 1 [place] [employer] [employer] Lucy Hendrickson [id number] Lucy Hendrickson 03/22/2020 1 *SELF PAY* Lucy Hendrickson [id number] Lucy Hendrickson 04/08/2023 1 [place] [employer] [employer] Lucy Hendrickson [id number] Lucy Hendrickson 11/19/2021 2 [place] [facility] Lucy Hendrickson [id number] Lucy Hendrickson 04/15/2023 1 [place]: [facility] [employer] Lucy Hendrickson [id number] Lucy Hendrickson 04/09/2023 2 [place] [facility] Lucy Hendrickson [id number] Lucy Hendrickson Notes Date Note Type Note Provider Name and Address Organization Details Recorded Time 03/23/2020 text/html 69-year-old female, with recent back surgery, presents for evaluation. Reports had back surgery in [place] on 01/29, 01/30, and 01/[address] Sauceda and was released from rehab at [facility] 4 days ago. States has not been feeling herself but cannot explain, only states usually does her makeup but has not wanted to. States has had diarrhea for 2 weeks. Denies fever but states has felt chills. Denies chest pain, palpitations, worsening shortness of breath, abdominal pain, vomiting, urinary difficulty. Reports dizziness, nausea, weakness. Reports drinking soda, juice, eating cereal, soup. Reports was supposed to be on a liquid antibiotic, but has not received. States her PCP ordered this but the pharmacy has not received it. States she believes her problems are due to not having this antibiotic. [facility] [address], [place], [address], [place] [facility] 03/23/2020 13:11:37 04/08/2020 text/html 69yoF pmhx fibromyalgia, scoliosis, hypoglycemia, and hypothyroidism is seen today for diffuse body weakness x 2 days. Patient reports she has been eating and drinking well. No COLEMAN, chest pain, sob, URI symptoms, no sig abdominal pain. Patient did have a hx of c diff. Recent fecal sample went out and was negative. Patient recently underwent 3 significant thoracis and lumbar surgeries in December and January. Patient did take some oxycodone yesterday for the pain, she has otherwise been taking Lyrica for the pain [facility] [address], [place], [address], [place] [facility] 04/12/2020 08:38:31 11/18/2021 text/html 71 y/o female known to DH pmhx fibromyalgia, HTN, hyporhyroidism, major spine surgery, and chronic pain syndrome. She was taken to [facility] via ambulance for severe right lower back pain on 11/12 with imaging being done. Prior to her hospital visit she had an MRI of her back ordered by from [facility]. She was discharged on 11/14 with Dilaudid and instructed to follow up with PCP as well as neurosurgeon. She has an appointment on 11/20 with neurosurgeon located in [place] for pain management. She denies any physical trauma leading to her ER visit. She contacted PCP office for refill of pain medication however he is not in the office. She is currently on Lyrica, Ibuprofen, and Tylenol which she states is not helping with her back pain. Enid Stewart NP [address], [place], [address], [place] [facility] 11/18/2021 14:27:44 04/09/2023 text/html General HPI Temp late - DHReported by Patient 72 y/o female known to new to provider with hx of HTN, hypothyroidism, fibromyalgia, macrocytic anemia, spinal stenosis, failed back surgical syndrome, interstitial lung disease, scoliosis. pt reports she has had chronic edema in her feet for years. she used to take HCTZ for edema but her pcp DC the med a while ago due to her hypokalemia. pt reports the past couple days her feet and ankles have been swollen L>R. she reports she did recently have an MRI of her left ankle and was told she had moderate OA. pt states edema is worse at the end of the day and better in the am when she wakes up. no wounds, redness, warmth. she denies cp, sob, wheezing, cough, weakness, dizziness. she denies decreased ROM, no numbness. Recent chem from 03/13/23 shows BUN 19, Creat 0.8, K 4.1, GFR 78. [facility] [address], [place], [address], [place] [facility] 04/09/2023 17:30:25 OBGyn Episode No OBEpisode recorded.
--- OUTSIDE RECORDS SUMMARY | 2025-05-19 01:20 | XMS_ITS | Continuity of Care Document ---
Author Organization [facility] Address [address] [place] [address] Phone [phone] Social History Type Date Description Comments Sex Female Sex Unknown Medical Devices Description No Information Available Encounters Description No Information Available Assessments Description No Information Available Plan of Treatment No Information Available Functional Status Description No Information Available Mental Status Description No Information Available Referrals Description No Information Available
--- OUTSIDE RECORDS SUMMARY | 2025-05-19 01:20 | XMS_ITS | Patient Health Record ---
Author Organization [facility] Address [address] [place] [address] Care Team Providers Care Softball Core Molder Name Role Phone Pavan Kan Primary Care Provider UnavailJuan Luis Greco Unavailable [phone] Ysabel Medina Unavailable [phone] Elida Paniagua Unavailable [phone] Allergies Allergen (clinical drug ingredient) Drug/Non Drug Allergy documented on EMR Reaction Allergy Type Onset Date Status oxycodone Oxycodone Unknown Drug Allergy Active Substance with 2-zckrzcu-7-methylgluta ryl-coenzyme A reductase inhibitor mechanism of action [...] W/U Status Risk Notes Problem Essential hypertension (93085318) Essential (primary) hypertension (I10) Active confirmed Problem Ventricular premature depolarization (716174857) 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) Active confirmed Problem Idiopathic pulmonary fibrosis (206071442) Idiopathic pulmonary fibrosis (J84.112) Active confirmed Problem Non-pressure 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 (L97.822) Active confirmed Problem Fibromyalgia (444748856) Fibromyalgia (M79.7) Active confirmed Problem Post-laminectomy syndrome (08659739) Postlaminectomy syndrome, not elsewhere classified (M96.1) Active confirmed Problem Open wound of left lower leg (9042526266587272 6) Unspecified open wound, left lower leg, subsequent encounter (S81.802D) Active confirmed Problem Anemia (970391693) Anemia (D64.9) Active confirmed Problem Renal failure (87793191) Renal failure (N19) Active confirmed Problem Hypothyroidism (01242700) Hypothyroidism (E03.9) Active confirmed Problem Macrocytosis (98982629) Macrocytosis (D75.89) Active confirmed Problem Urinary incontinence (848019149) Urinary incontinence (R32) Active confirmed Vital Signs Heart Rate 87 /min 10/31/2024 Temperature 97.0 degrees Fahrenheit 10/31/2024 Respiratory Rate 18 /min 10/31/2024 Blood pressure diastolic 72 mm Hg 10/31/2024 Oximetry 93 % 10/31/2024 Height-cm 167.64 cm 10/31/2024 Weight-kg 77.11 kg 10/31/2024 Height 66 in 10/31/2024 Blood pressure systolic 128 mm Hg 10/31/2024 Weight 170 lbs 10/31/2024 BMI 27.44 kg/m2 10/31/2024 Encounters Encounter Location Date Provider Diagnosis [facility] [address] [address] 09/05/2024 Juan Luis Cheung Essential (primary) hypertension I10 and Unspecified open wound, left lower leg, initial encounter S81.802A [facility] [address] [address] 09/12/2024 Jooyun Paniagua Unspecified open wound, left lower leg, initial encounter S81.802A ; Unspecified open wound, left lower leg, subsequent encounter S81.802D and Essential (primary) hypertension I10 [facility] [address] [address] 09/19/2024 Juan Luis Cheung Unspecified open wound, left lower leg, subsequent encounter S81.802D ; Non-pressure 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 L97.822 and Essential (primary) hypertension I10 [facility] [address] [address] 09/26/2024 Juan Luis Cheung Unspecified open wound, left lower leg, subsequent encounter S81.802D ; Non-pressure 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 L97.822 and Essential (primary) hypertension I10 [facility] [address] [address] 10/03/2024 Juan Luis Orrnne Unspecified open wound, left lower leg, subsequent encounter S81.802D ; Non-pressure 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 L97.822 and Essential (primary) hypertension I10 [facility] [address] [address] 10/10/2024 Juan Luis Cheung Unspecified open wound, left lower leg, subsequent encounter S81.802D ; Non-pressure 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 L97.822 and Essential (primary) hypertension I10 [facility] [address] 10/17/2024 Juan Luis Cheung Unspecified open wound, left lower leg, subsequent encounter S81.802D ; Non-pressure 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 L97.822 and Essential (primary) hypertension I10 [facility] [address] 10/24/2024 Juan Luis Cheung Unspecified open wound, left lower leg, subsequent encounter S81.802D ; Non-pressure 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 L97.822 and Essential (primary) hypertension I10 [facility] [address] 10/31/2024 Anzjeanninea Tyrela Essential (primary) hypertension I10 and Non-pressure 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 L97.[address] [facility] [address] [address] 09/01/2024 Juan Luis Cheung [facility] [address] [place] [address] 09/06/2024 Juan Luis Cheung [facility] [address] [address] 09/22/2024 Juan Luis Cheung Assessments Encounter Date [...] one week I Juan Luis Cheung, MSN, POWER NUT RUNNER OPERATOR, BOLT MACHINE OPERATOR-C, examined, evaluated, and treated the patient. Dr. [...] I10) 09/05/2024 [place] Ayala is a 74 [id number] that presents today for initial evaluation and [...] the note. I, Juan Luis Cheung, MSN, POWER NUT RUNNER OPERATOR, BOLT MACHINE OPERATOR-C, examined, evaluated, and treated the patient. Dr. [...] one week I Juan Luis Cheung, MSN, POWER NUT RUNNER OPERATOR, BOLT MACHINE OPERATOR-C, examined, evaluated, and treated the patient. Dr. [...] one week I Juan Luis Cheung, MSN, POWER NUT RUNNER OPERATOR, BOLT MACHINE OPERATOR-C, examined, evaluated, and treated the patient. Dr. [...] one week I Juan Luis Cheung, MSN, POWER NUT RUNNER OPERATOR, BOLT MACHINE OPERATOR-C, examined, evaluated, and treated the patient. Dr. [...] one week I Juan Luis Cheung, MSN, POWER NUT RUNNER OPERATOR, BOLT MACHINE OPERATOR-C, examined, evaluated, and treated the patient. Dr. [...] one week I Juan Luis Cheung, MSN, POWER NUT RUNNER OPERATOR, BOLT MACHINE OPERATOR-C, examined, evaluated, and treated the patient. Dr. [...] Medicare [address] [place], [place] [id number] Lucy Hendrickson Self - patient is the insured 5 [facility] (Medicaid) [address] [place], [place] [id number] Lucy Hendrickson Self - patient is the [...]
--- OUTSIDE RECORDS SUMMARY | 2025-05-19 01:20 | XMS_ITS | Clinical Summary ---
Author Organization [facility] Address [address] [place] [address] Care Team Providers Care Supervisor Riprap Placing Name Role Phone Pavan Kan MD Primary Care Provider [phone] Allergies Active Allergy Reactions Criticality Noted Date [...] 6 season) 2025 10/26/2020, 09/27/2020 RSV Vaccine 50 years and older and Patients (1 - 1-dose 75+ series) 2025 Hepatitis B Vaccines Aged Out No long er eligible based on patient's age to complete this topic Insurance MEDICARE PART A & B [facility] Care Teams Supervisor Riprap Placing Relationship Specialty Start Date End Date Pavan Kan MD [address] [place] [address] PCP - General Psychiatry, General 05/25/23
--- OUTSIDE RECORDS SUMMARY | 2025-05-19 01:21 | XMS_ITS | Patient Health Record ---
Author Organization [facility] Address [address] [place] [address] Care Team Providers Care Microsoft Bi Consultant Name Role Phone Herlinda Zaragoza MD Primary [...] Risk Notes Problem Thoracic spondylosis without myelopathy (537788325) Spondylosis without myelopathy or radiculopathy, thoracic region (M47.814) Active confirmed Plan Of Treatment No Information Insurance Providers Payer Name Payer Address Payer Phone Subscriber Number Group Number Insured Name Patient Relationship to Insured Coverage Start Date Coverage End Date [place] B [place] [address] [place] [phone] [id number] ABDIEL HOUSE Self - patient is the insured [employer] [place] of [place] [address] [place] [phone] [id number] HARSH ABDIEL Self - patient is the insured Medical (General) History Medical History History ICD Code solitary sacrolitis scoliosis deformity of spine chronic pain syndrome tronchanteric bursitis fibromyalgia disorder of sacrum lumbosacral stenosis low back pain degeneration of lumbosacral intervertebr al disc lumbar spondylosis Surgical History Surgery Date(Month/Year) bl hand surgery bl foot surgery tonsillectomy hysterectomy
--- OUTSIDE RECORDS SUMMARY | 2025-05-19 01:21 | XMS_ITS | Patient Health Record ---
Author Organization [facility] Address [address] [place] [address] Care Team Providers Care Hog Grader Name Role Phone Kan, Gary Primary Care Provider Harjeet Muniz MD MSc, Raine Unavailable [phone] Allergies Allergen (clinical drug ingredient) Drug/Non Drug Allergy documented on EMR Reaction Allergy Type Onset Date Status Substance with 1-jddrgba-1-methylgluta ryl-coenzyme A reductase inhibitor mechanism of action [...] MEDICARE [place] [address] [place] [phone] [id number] Lucy Hendrickson Self - patient is the insured Medical (General) History Medical History History ICD Code Fibromyalgia Osteoarthritis Mild asthma Surgical History Surgery Date(Month/Year) Tonsillectomy 3x left hand surgeries (thumb joint fusi on), 2x right hand surgeries Right knee fusion 2014 Hammer left toe Uterus suspension lumbar fusion L2-S1 for scoliosis 020
--- OUTSIDE RECORDS SUMMARY | 2025-05-19 01:21 | XMS_ITS | Data Portability ---
Author Organization [place] [facility] [place], [facility] - INPATIENT Address [address] [place] [id number] Care Team Providers Care Loss Control Manager Name Role Phone ZAID HICKS Primary Care Provider [phone] Assessment Encounter Date Assessment Date Assessment LastModified by Organization Details LastModified Time 02/25/2024 02/25/2024 Imaging: Radiogr aphs of the right shoulder were reviewed. There is significant superior translation of the humeral head relative the glenoid acromiohumeral interval is significantly narrowed. There may be evidence of a anterior acromial fracture. Minimal degenerative change of the glenohumeral joint. Impression and plan: Abdiel is a very pleasant 73-year-old female with cuff tear arthropathy of the right shoulder. I long conversation with her in the office today. We talked about treatment options. Unfortunately she really is quite limited and decompensated on the right side. She has a advanced cuff tear arthropathy. We talked about treatment options. We discussed both nonoperative as well as operative intervention. Unfortunately, the only operative intervention would be a reverse shoulder arthroplasty given her failed prior surgery and advanced cuff tear arthropathy. She feels that she is so limited that she really needs to do something more definitive and therefore I do think that would be reasonable. We discussed risk, benefits and alternatives of this. She like to proceed. She will need a CT scan for preoperative planning purposes. Will get this scheduled for her at her earliest convenience. All of her questions were addressed today. I have discussed a reverse shoulder replacement with the patient. The success rate of the procedure largely depends upon the condition of the shoulder girdle musculature, bone stock, and the extent of destruction of the function of the rotator cuff and the adjacent shoulder musculature. I have discussed the potential benefits and risks of reverse shoulder replacement, including but not limited to stress fracture of the acromion or scapular spine, component loosening, dislocation, and infection. Alternative treatments were also discussed such as continued observation, activity modification, occasional steroid injection and prolonged use of NSAIDS (and the risks associated with the use of NSAIDS). We discussed the potential need for revision surgery in the future and risks of hardware failure. We also discussed surgical risks including risk of anesthetic complications, bleeding, infection, dislocation, damage to nerves and blood vessels, poor wound healing, and need for more surgery. This is a summary of the discussion with Abdiel and in no way is intended to be a verbatim summation of everything discussed. I spent a total of 30 minutes on the day of the visit, which included time spent preparing to see the patient by reviewing any pertinent aspects of the patient's medical record, such as prior clinical notes, imaging studies or test results, obtaining patient history, performing a medically necessary examination, counseling/educating the patient on both nonoperative and operative management of their condition including the expected recovery time frame and treatment course, ordering tests including CT , independently interpreting test results including XR , coordinating patient care, and documenting information in the EHR. [id number] Not available 02/25/2024 09:54:32 11/24/2024 11/24/2024 X-Ray AP/Grashey right shoulder-11/24/24: Superior migration of humeral head consistent with rotator cuff tearing or deficiency. Acetabularization of the acromion. Rotator cuff arthropathy. Severe glenohumeral osteoarthritis with complete loss of glenohumeral joint spacing. Inferior osteophyte formation. ASSESSMENT: - Right shoulder arthritis with rotator cuff tear - Unsteadiness and muscle loss in legs post-back surgery - Fluid on lower back PLAN: I discussed with the patient the nature of her right shoulder condition, including the presence of arthritis and a rotator cuff tear. I explained that while injections and physical therapy are options, she may ultimately require a shoulder replacement. However, due to her current unsteadiness and balance issues, I advised postponing the surgery until her balance improves. I emphasized the importance of addressing her lower back fluid and muscle loss in her legs to improve her overall stability. The patient was given a booklet with information about the surgery and how to prepare. She was also provided with the contact information for my sales assistant, Lucie, for any further questions or concerns. We agreed to keep the surgery date for 12/20, but will reassess her balance closer to the date to determine if it is safe to proceed. Had a lengthy conversation today with the patient regarding their shoulder. Patient has watched the pre-visit video. Explained to patient in detail the anatomy of a shoulder. Reviewed X-Rays. Reviewed all possible treatment options which include: nothing until pain is unbearable, injections or surgery. Discussed the possible surgical options would be a total shoulder replacement or a reverse shoulder replacement. I am more inclined to perform a reverse for the patient given the anatomic replacement's risk for rotator cuff tearing in the future, as well as the reverse's improved longevity comparatively. Discussed optimal treatment outcomes, with realistic healing, pain and range of motion levels post-surgically. Reviewed the seven general surgical risks; infection, medical risk factors, dislocation/popping out of socket, implant failure, nerve injury, stress fracture, and the possibility of still having pain. I am especially concerned by the patient's risk for acromial stress fracture. Should this occur, immobilization in a sling will be necessary for 4-6 weeks, which can be quite discouraging. Surgical repair of the fracture may be necessary, but this is a very rare occurrence. Ultimately, there is a chance that, functionally, the patient will be unchanged or worse off compared to their current condition should this fracture occur. Barring any complications, however, surgery should improve the patient's general pain and function reliably. Despite the risks and benefits, they would like to proceed with surgery, as the pain and dysfunction affect their quality of life on a daily basis. They are scheduled for a RIGHT Reverse for 12/20/24. Reviewed operative and post op healing process. Discussed that patient is allowed to do small movements in front of body and driving usually is allowed within 2-6 weeks, once they are off pain medication and has practiced with family/friends. Patient received a pre-op binder. Given the patient's pain, dysfunction, and advanced degenerative changes, advised against enrollment in a formal physical therapy program, as this will likely exacerbate their shoulder pain. I spent a total of 45 minutes on the day of the visit which included In depth discussion and shared decision making with patient regarding options for non-surgical and surgical treatment. This discussion included but was not limited to preoperative optimization, surgical procedure and approach, appropriate implant selection and technologies, benefits and risks of surgery as well as postoperative care and recovery. This plan is subject to change based on clinical presentation and intraoperative decision making. This appointment note was dictated in real-time using AI-assisted software. Given the limitations of this software, please disregard any redundancies, grammatical errors, or oversimplification of medical terminology throughout this transcript. [email or web address] Not available 11/24/2024 08:43:48 Plan of Treatment Reminders Order Date Submit Date Provider Last Modified By Organization Details Last Modified Time Details Appointments Post-Oper ative F/U 20 2024 11:40A M INGRID CORLEY Not available Not available Not available Post-Oper ative F/U 20 2024 11:40A M BRANDON OTTO MD Not available Not available Not available Post-Oper ative F/U 15 2025 12:30P M INGRID CORLEY Not available Not available Not available Lab None recorded. Referral None recorded. Procedures None recorded. Surgeries orthopaed ic surgery (SURG) 2024 025 [email or web address] [facility] (Surgery Scheduling), [address] [place] [address], [id number], 04/19/2025 12:27:44 Imaging None recorded. Medication Orders None recorded. Patient TargetsNo targets recorded. Patient InstructionsNo instructions recorded. Reason for Referral None Reported. Results Created Date Observation Date Name Description Value Unit Range Abnormal Flag Note LastModifiedBy Organization Detail LastModifiedTime 04/18/2004/18/2025 CBC WBC 7.53 K/uL 4.00-1 1.00 Not Available [facility] [address] [place], [address], 04/18/2025 13:18:36 04/18/2004/18/2025 CBC RBC 3.35 M/uL 3.60-5 .30 low Not Available [facility] [address] [place], [address], 04/18/2025 13:18:36 04/18/2004/18/2025 CBC hemoglobin 11.6 g/dL 12.0-1 6.0 low Not Available [facility] [address] [facility], [place], [address], 04/18/2025 13:18:36 04/18/20 25 04/18/2025 CBC hematocrit 35.3 % 36.0-4 8.0 low Not Available [facility] [address] [place] [address], [place], [address], 04/18/2025 13:18:36 04/18/20 25 04/18/2025 CBC MCH 34.6 pg 27.0-3 4.0 high Not Available [facility] [address] [place] [address], [place], [address], 04/18/2025 13:18:36 04/18/20 25 04/18/2025 CBC MCHC 32.9 g/dL 31.0-3 6.0 Not Available [facility] [address] [place] [address], [place], [address], 04/18/2025 13:18:36 04/18/20 25 04/18/2025 CBC MCV 105 fL 80-98 high Not Available [facility] [address] [place] [address], [place], [address], 04/18/2025 13:18:36 04/18/20 25 04/18/2025 CBC RDW 13.5 % 11.5-1 4.5 Not Available [facility] [address] [place] [address], [place], [address], 04/18/2025 13:18:36 04/18/20 25 04/18/2025 CBC RDW-SD 52.7 fL 35.1-4 6.3 high Not Available [facility] [address] [place] [address], [address], 04/18/2025 13:18:36 04/18/20 25 04/18/2025 CBC platelet count 273 K/uL 150-40 0 Not Available [facility] [address] [place] [address] Ave, [place], [address], 04/18/2025 13:18:36 04/18/20 25 04/18/2025 CBC mean platelet volume 10.0 fL 9.4-12 .4 Not Available [facility] [address] [facility], [place], [address], 04/18/2025 13:18:36 04/18/20 25 04/18/2025 BASIC METAB OLIC PANEL sodium 139 mmol/ L 135-14 5 Not Available [facility] [address] [facility], [place], [address], 04/18/2025 13:49:02 04/18/20 25 04/18/2025 BASIC METAB OLIC PANEL potassium 3.9 mmol/ L 3.5-5. 3 Not Available [facility] [address] [facility], [place], [address], 04/18/2025 13:49:02 04/18/20 25 04/18/2025 BASIC METAB OLIC PANEL chloride 103 mmol/ L 100-11 2 Not Available [facility] [address] [facility], [place], [address], 04/18/2025 13:49:02 04/18/20 25 04/18/2025 BASIC METAB OLIC PANEL total CO2 23 mmol/ L 21-30 Not Available [facility] [address] [facility], [place], [address], 04/18/2025 13:49:02 04/18/20 25 04/18/2025 BASIC METAB OLIC PANEL anion gap 13 mmol/ L 4-20 Not Available [facility] [address] [facility], [place], [address], 04/18/2025 13:49:02 04/18/20 25 04/18/2025 BASIC METAB OLIC PANEL BUN 16 mg/dL 6-20 Not Available [facility] [address] [facility], [place], [address], 04/18/2025 13:49:02 04/18/20 25 04/18/2025 BASIC METAB OLIC PANEL creatinine 0.80 mg/dL 0.00-1 .30 Not Available [facility] [address] [facility], [place], [address], 04/18/2025 13:49:02 04/18/20 25 04/18/2025 BASIC METAB OLIC PANEL glucose 94 mg/dL 70-105 Not Available [facility] [address] [facility], [place], [address], 04/18/2025 13:49:02 04/18/20 25 04/18/2025 BASIC METAB OLIC PANEL calcium 9.6 mg/dL 8.4-10 .2 Not Available [facility] [address] [facility], [place], [address], 04/18/2025 13:49:02 04/18/20 25 04/18/2025 BASIC METAB OLIC PANEL estimated GFR (CKD-epi) 77 mL/mi n/bsa Not Available [facility] [address] [facility], [place], [address], 04/18/2025 13:49:02 04/18/20 25 04/18/2025 NASAL MRSA/ SA BY PCR cepheid MRSA Negati ve negati ve Not Available [facility] [address] [facility], [place], [address], 04/18/2025 15:53:03 04/18/20 25 04/18/2025 NASAL MRSA/ SA BY PCR cepheid SA Negati ve negati ve Not Available [facility] [address] [facility], [place], [address], 04/18/2025 15:53:03 05/15/20 24 05/11/2024 MRI, brain + brain stem, w/ contr ast No observ ation record ed. [email or web address] [facility] (Imaging) [address] [place], [address], 05/15/2024 16:20:02 05/16/20 24 05/11/2024 MRI, brain + brain stem, w/ contr ast No observ ation record ed. [email or web address] [facility] [address] [place], [address], 05/16/2024 14:21:05 04/20/20 25 04/18/2025 CT, rosalba carballo, w/o contr ast [facility] Pt Name : GÓMEZ HENDRICKSON 5 - Date: 1950 Sex: F Locati on : [facility] CT Visit: [id number] Admit Date: 2024 Date of Servic e: 2024 Exam : CT SHOULD ER RIGHT WO CONTRA ST Status : Final Order MD : Giancarlo OTTO NDREW Ord Tel#:[phone] CC Provid er:, ------ ------ ------ ------ ------ ------ ------ ------ ------ ------ ------ ------ ------ - PROCED URE: Right should er CT scan withou t contra st REASON FOR EXAM: Pain. No prior surger y. Osteoa rthrit is. COMPAR PRASAD: None TECHNI QUE: Right should er CT scan was perfor med withou t contra st. Dose reduct ion techni ques were utiliz ed, includ ing mA and/or kV adjust ment. 3D reform ats were perfor med on an indepe ndent workst ation. [employer] protoc ol. FINDIN GS: The acromi oclavi cular joint exhibi ts wideni ng with irregu larity of the joint margin s, compat ible with arthro emily. Os acromi ramona with sclero tic change and bone loss. Small adjace nt ossifi c fragme nt. Unders urface of the acromi on is flat. Rotato r cuff muscle bulk exhibi ts marked supras pinatu s and infras pinatu s fatty atroph y and volume loss. Large joint effusi on. No minera lized loose bodies are detect ed. The santo l head is superi kun migrat ed relati ve to the glenoi d with marked narrow ing of the acromi ohumer al interv al, in keepin g with rotato r cuff defici ency. There is marked glenoh umeral osteoa rthrit is with severe joint space narrow ing, eburna tion and margin al osteop hytes. Severa l millim eters of santo l head medial izatio n with concav e remode ling of the glenoi d. Walch classi ficati on A2. Medial aspect of the santo l head exhibi ts loss of the typica l subcho ndral bone plate contou r with flatte violeta and deform ity. Osseou s minera lizati on is normal . No soft tissue collec tion. Muscle bulk is preser fatimah. No acute rib abnorm ality. Dorsal aspect of the right lung exhibi ts periph eral patchy opacit y is attrib uted to depend ent atelec tasis (axial image 266). No axilla ry lympha denopa thy. IMPRES RADHA: 1. Marked glenoh umeral osteoa rthrit is. Large accomp anying joint effusi on. 2. Rotato r cuff arthro emily based on inferi or chroni c rotato r cuff defici ency via muscle atroph y and superi or migrat ion of the santo l head. 3. Os acromi ramona is degene rated with AC joint degene ration as well. Recomm end attent ion here if revers e total should er arthro plasty is contem plated . 4. Partia lly imaged right lung findin gs dorsal ly are most in keepin g with depend ent atelec tasis. REPORT SIGNED BY: JUSTINE LANDRY 11:30: [address] Pre Surgic al Planni ng Matchp [employer]int protoc ol [facility] @12: 45p, please call pt to nayeli contreras, same day, thanky ou Workst ation: [id number] [facility] [address], [place], [address], 04/20/2025 12:20:35 Result Notes Documentation Provider Name and Address Organization Details Recorded Time Ct, Shoulder, W/o Contrast : [facility] Pt Name : ABDIEL HENDRICKSON -Date: 1950 Sex: F Location : [facility] CT Visit: [id number] Admit Date: 04-18-2025 Date of Service: 04-20-2025 Exam : CT SHOULDER RIGHT WO CONTRAST Status: Final Order MD : BRANDON OTTO Tel#: cc Provider:, PROCEDURE: Right shoulder CT scan without contrast REASON FOR EXAM: Pain. No prior surgery. Osteoarthritis. COMPARISON: None TECHNIQUE: Right shoulder CT scan was performed without contrast. Dose reduction techniques were utilized, including mA and/or kV adjustment. 3D reformats were performed on an independent workstation. [employer] protocol. FINDINGS: The acromioclavicular joint exhibits widening with irregularity of the joint margins, compatible with arthropathy. Os acromiale with sclerotic change and bone loss. Small adjacent ossific fragment. Undersurface of the acromion is flat. Rotator cuff muscle bulk exhibits marked supraspinatus and infraspinatus fatty atrophy and volume loss. Large joint effusion. No mineralized loose bodies are detected. The humeral head is superiorly migrated relative to the glenoid with marked narrowing of the acromiohumeral interval, in keeping with rotator cuff deficiency. There is marked glenohumeral osteoarthritis with severe joint space narrowing, eburnation and marginal osteophytes. Several millimeters of humeral head medialization with concave remodeling of the glenoid. Walch classification A2. Medial aspect of the humeral head exhibits loss of the typical subchondral bone plate contour with flattening and deformity. Osseous mineralization is normal. No soft tissue collection. Muscle bulk is preserved. No acute rib abnormality. Dorsal aspect of the right lung exhibits peripheral patchy opacity is attributed to dependent atelectasis (axial image 266). No axillary lymphadenopathy. IMPRESSION: 1. Marked glenohumeral osteoarthritis. Large accompanying joint effusion. 2. Rotator cuff arthropathy based on inferior chronic rotator cuff deficiency via muscle atrophy and superior migration of the humeral head. 3. Os acromiale is degenerated with AC joint degeneration as well. Recommend attention here if reverse total shoulder arthroplasty is contemplated. 4. Partially imaged right lung findings dorsally are most in keeping with dependent atelectasis. REPORT SIGNED BY: JUSTINE LANDRY 04/20/25 11:30:[address] Pre Surgical Planning [employer] protocol [facility] 05-18-25@12:45p, please call pt to schedule, same day, [facility] INGRID Corley [address], [place], [address], [facility] [place] 04/20/2025 12:20:35 Problems Name Problem SNOMED Code Status Onset Date Resolution Date Notes Provider Name and Address Organization Details Recorded Time Pain of bilateral shoulder regions Active 025 Neelam Tinsley [facility] [place] 10:26:40 Problem Notes Documentation Provider Name and Address Organization Details Recorded Time Consult Note : Inpatient Consultation Date of Service: 05/10/2025 Patient: Abdiel Hendrickson : 1950 CSN: [id number] Location: [address] Room/Bed: 416/416B Reason For Consultation: Medical comanagement. History of Present Illness: Abdiel Hendrickson is a 74 y.o. female was seen at the request of Dr Otto. Patient presents with several years history of progressive worsening right lateral shoulder pain limiting functional ability. Admitted with a diagnosis of right shoulder osteoarthritis and had right arthroplasty reverse shoulder May 2025 Surgery was done under general anesthesia. Block as well for pain management postoperatively. Had fentanyl IntraOp for pain management propofol for sedation phenylephrine ephedrine at times for episodes of low blood pressure dexamethasone 4 mg IV for nausea prophylaxis tranexamic acid to reduce perioperative bleed and 2 g of cefazolin. EBL total 150 cc. [facility] Later in the day consult requested other alternatives for pain management due to increased pain. Patient used to take tramadol at home with no much benefit now. Will continue daily tramadol since patient is seen for long-term tramadol at home and started Percocet therapy. Denies any chest pain or shortness of breath. No palpitations. No fever or chills. No abdominal discomfort. Voiding without any difficulties. History: Past Medical History: Diagnosis Date Asthma Fibromyalgia Genital herpes Hypertension Hypoglycemia Hypothyroidism Lumbar radiculopathy Microcytic anemia Primary osteoarthritis of right shoulder PVC's (premature ventricular contractions) Scoliosis Spinal stenosis TIA (transient ischemic attack) 2022 Urinary incontinence Past Surgical History: Procedure Laterality Date REPLACEMENT TOTAL KNEE Left 10/2022 FOOT SURGERY Left 01/2025 ARTHROPLASTY REVERSE SHOULDER Right 05/09/2025 Surgeon: Brandon Otto MD; Location: [facility] Main OR; Service: Orthopaedics; Laterality: Right; BACK SURGERY x2 BLEPHAROPLASTY UPPER EYELID BILATERAL CATARACT EXTRACTION Bilateral HYSTERECTOMY Mid urethral sling SHOULDER SURGERY Left Rotator cuff repair TONSILLECTOMY No family history on file. Social History Tobacco Use Smoking status: Never Substance Use Topics Alcohol use: Yes Comment: 1 glass of wine every evening Drug use: Never Allergies: Oxycodone and Vhucllc-dqk-xlb reductase inhibitors Home medication Medications Prior to Admission Medication Sig aspirin 81 MG EC tablet Take 1 tablet (81 mg total) by mouth in the morning. cycloSPORINE (RESTASIS) 0.05 % ophthalmic emulsion Administer 1 drop to both eyes in the morning and 1 drop before bedtime. Patient to supply. ezetimibe (ZETIA) 10 mg tablet Take 1 tablet (10 mg total) by mouth in the morning. finasteride (PROSCAR) 5 mg tablet Take 0.5 tablets (2.5 mg total) by mouth in the morning. levothyroxine (SYNTHROID, LEVOXYL) 100 MCG tablet Take 1 tablet (100 mcg total) by mouth every morning. metoprolol ER (TOPROL-XL) 25 MG 24 hr tablet Take 1 tablet (25 mg total) by mouth in the morning. minoxidiL (LONITEN) 2.5 MG tablet Take 2 tablets (5 mg total) by mouth in the morning. Will not need in hospital. pregabalin (LYRICA) 100 MG capsule Take 1 capsule (100 mg total) by mouth in the morning and 1 capsule (100 mg total) before bedtime. traMADoL (ULTRAM) 50 mg tablet Take 1 tablet (50 mg total) by mouth daily as needed for pain. valACYclovir (VALTREX) 1000 MG tablet Take 1 tablet (1,000 mg total) by mouth in the morning. amoxicillin (AMOXIL) 500 MG capsule Take 4 capsules (2,000 mg total) by mouth. Prior to dental estradioL (ESTRACE) 0.01 % (0.1 mg/gram) vaginal cream Insert 1 g into the vagina 2 times a week. Hospital Medications: Scheduled Meds:aspirin, 81 mg, Oral, Daily ezetimibe, 10 mg, Oral, QHS levothyroxine, 100 mcg, Oral, Daily (0600) metoprolol ER, 25 mg, Oral, Daily non-formulary medication, 1 drop, Both Eyes, BID pregabalin, 100 mg, Oral, BID sennosides, 17.2 mg, Oral, QHS traMADoL, 50 mg, Oral, QHS valACYclovir, 1,000 mg, Oral, Daily Continuous Infusions:lactated Ringers, , Last Rate: Stopped (05/10/25146) lactated Ringers, , Last Rate: Stopped (05/10/25146) PRN Meds:. polyethylene glycol OR bisacodyl OR bisacodyl naloxone ondansetron OR ondansetron oxyCODONE-acetaminophen oxyCODONE-acetaminophen Review of Systems: Review of Systems Constitutional: Negative. HENT: Negative. Eyes: Negative. Cardiovascular: Negative. Respiratory: Negative. Endocrine: Negative. Hematologic/Lymphatic: Negative. Skin: Negative. Musculoskeletal: Positive for joint pain and joint swelling. Gastrointestinal: Negative. Genitourinary: Negative. Neurological: Negative. Psychiatric/Behavioral: Negative. Physical Exam: Physical Exam Constitutional: Appearance: Normal appearance. HENT: Head: Normocephalic. Mouth/Throat: Mouth: Mucous membranes are moist. Pharynx: Oropharynx is clear. Eyes: Extraocular Movements: Extraocular movements intact. Conjunctiva/sclera: Conjunctivae normal. Pupils: Pupils are equal, round, and reactive to light. Cardiovascular: Rate and Rhythm: Normal rate and regular rhythm. Pulses: Normal pulses. Heart sounds: Normal heart sounds. Pulmonary: Effort: Pulmonary effort is normal. Breath sounds: Normal breath sounds. Abdominal: General: Abdomen is flat. Palpations: Abdomen is soft. Musculoskeletal: General: Normal range of motion. Cervical back: Normal range of motion. Skin: General: Skin is warm. Capillary Refill: Capillary refill takes less than 2 seconds. Neurological: General: No focal deficit present. Mental Status: She is alert and oriented to person, place, and time. Psychiatric: Mood and Affect: Mood normal. Behavior: Behavior normal. Wound dressing dry and intact Right upper extremity in sling. Labs, Imaging & Other Studies: Lab: Laboratory: All recent labs have been reviewed. Pertinent labs include Recent Results (from the past 24 hours) CBC Collection Time: 05/10/25 9:47 AM Result Value Ref Range WBC 14.31 (H) 4.00 - 11.00 K/uL RBC 3.26 (L) 3.60 - 5.30 M/uL Hemoglobin 11.2 (L) 12.0 - 16.0 g/dL Hematocrit 33.8 (L) 36.0 - 48.0 % MCH 34.4 (H) 27.0 - 34.0 pg MCHC 33.1 31.0 - 36.0 g/dL MCV 104 (H) 80 - 98 fL RDW 13.9 11.5 - 14.5 % RDW-SD 53.0 (H) 35.1 - 46.3 fL Platelet Count 236 150 - 400 K/uL MPV 9.6 9.4 - 12.4 fL Basic Metabolic Panel Collection Time: 05/10/25 9:47 AM Result Value Ref Range Sodium 136 135 - 145 mmol/L Potassium 3.9 3.5 - 5.3 mmol/L Chloride 100 100 - 112 mmol/L Total CO2/Bicarbonate 24 21 - 30 mmol/L Anion Gap 12 4 - 20 mmol/L Anion Gap BUN 15 6 - 20 mg/dL Creatinine, Blood 1.10 0.00 - 1.30 mg/dL Glucose, Blood 147 (H) 70 - 105 mg/dL Calcium 8.2 (L) 8.4 - 10.2 mg/dL Estimated GFR(CKD-EPI) 53 mL/min/BSA Magnesium Collection Time: 05/10/25 9:47 AM Result Value Ref Range Magnesium, Blood 1.8 1.6 - 2.6 mg/dL Microbiology: No results found for this visit on 05/09/25. Imaging Radiology: Recent imaging studies have been reviewed and are notable for XR Shoulder AP Right Portable Result Date: 05/10/2025 INDICATION: check hardware COMPARISON: CT right shoulder 04/18/2025 FINDINGS: Interval placement of right sided reverse shoulder arthroplasty. No hardware complication. Soft tissue emphysema overlies right shoulder in keeping with recent surgery. No suspicious osseous lesion. Degenerative spurring of acromioclavicular joint. ECG 12 lead Result Date: 04/20/2025 Sinus rhythm Right bundle branch block CT Shoulder Right WO Contrast Result Date: 04/20/2025 PROCEDURE: Right shoulder CT scan without contrast REASON FOR EXAM: Pain. No prior surgery. Osteoarthritis. COMPARISON: None TECHNIQUE: Right shoulder CT scan was performed without contrast. Dose reduction techniques were utilized, including mA and/or kV adjustment. 3D reformats were performed on an independent workstation. [employer] protocol. FINDINGS: The acromioclavicular joint exhibits widening with irregularity of the joint margins, compatible with arthropathy. Os acromiale with sclerotic change and bone loss. Small adjacent ossific fragment. Undersurface of the acromion is flat. Rotator cuff muscle bulk exhibits marked supraspinatus and infraspinatus fatty atrophy and volume loss. Large joint effusion. No mineralized loose bodies are detected. The humeral head is superiorly migrated relative to the glenoid with marked narrowing of the acromiohumeral interval, in keeping with rotator cuff deficiency. There is marked glenohumeral osteoarthritis with severe joint space narrowing, eburnation and marginal osteophytes. Several millimeters of humeral head medialization with concave remodeling of the glenoid. Walch classification A2. Medial aspect of the humeral head exhibits loss of the typical subchondral bone plate contour with flattening and deformity. Osseous mineralization is normal. No soft tissue collection. Muscle bulk is preserved. No acute rib abnormality. Dorsal aspect of the right lung exhibits peripheral patchy opacity is attributed to dependent atelectasis (axial image 266). No axillary lymphadenopathy. 1. Marked glenohumeral osteoarthritis. Large accompanying joint effusion. 2. Rotator cuff arthropathy based on inferior chronic rotator cuff deficiency via muscle atrophy and superior migration of the humeral head. 3. Os acromiale is degenerated with AC joint degeneration as well. Recommend attention here if reverse total shoulder arthroplasty is contemplated. 4. Partially imaged right lung findings dorsally are most in keeping with dependent atelectasis. Pending Data: Pending Results Order Current Status Surgical Pathology Tissue Exam In process Impression: 74 years old female past medical history of fibromyalgia, asthma, hypertension, patient with history of hypoglycemia in the past and hypothyroidism, lumbar radiculopathy, PVCs, scoliosis, spinal stenosis and TIA in 2022 urinary continence admitted with diagnosis of osteoarthritis of the right shoulder and had reverse total shoulder arthroplasty. Assessment/Plan: Principal Problem: 1. Primary osteoarthritis of right shoulder/reverse right total shoulder arthroplasty. 2. Acute pain. Assessment: Patient had nerve block with procedure for pain control. On day 1 postop increased pain uncontrolled by tramadol. Used to take tramadol at home for long time for pain management. Continue daily tramadol and switch to management for as needed pain on Percocet as needed every 6 hours. Plan: Continue Percocet therapy as needed for moderate-severe pain. Ice therapy repositioning. Continue PT OT yesterday. Encourage incentive spirometry and laxatives needed. Long-term use of tramadol continue daily tramadol 3. Anemia due to active blood loss on chronic anemia. Slight drop of hemoglobin from 11.6-11.2 postop. Hemodynamically stable. No further intervention needed. Repeat CBC in AM. 4. Hypertension Assessment: Stable no concerns. Plan: Plan of care is to continue metoprolol therapy 25 mg daily extended release. 5. Fibromyalgia and chronic pain. At home patient is to take tramadol therapy for pain management. Continue daily in hospital. On Lyrica therapy 100 mg twice a day to continue. Hold for sedation and avoid using same time with Percocet therapy. 6. Hypothyroidism currently stable no issues. Assessment: No issues stable. Plan: Continue same management. Levothyroxine 100 mcg daily with empty stomach. 7. Frequent PVCs at home at baseline. No issues postop. Heart rate regular normal. Check electrolytes and replace accordingly. Orthopedic team aware plan of care This note was made with voice recognition software. It has been edited for content however errors may persist. Please contact the author with any questions or concerns. 80 minutes of clinical time was spent today on documentation and patient care. Signed by: Ramses Goss MD Lucie spence MA [facility] [place] 05/13/2025 14:37:38 Procedures Surgical History Date Name Laterality Status Provider Name and Address Organization Details Recorded Time 4 Orthopaedic Surgery completed Serina Dillon [facility] [place] 02/25/2024 09:04:18 2 Orthopaedic Surgery completed Serina Dillon [facility] [place] 02/25/2024 09:03:44 0 Orthopaedic Surgery completed Serina Dillon [facility] [place] 02/25/2024 09:10:37 Imaging Results None recorded. Procedure Notes None recorded. Medical Equipment None Reported. Allergies Allergen ID Allergen Name Allergen Category Reaction Reaction Severity Criticality Documentation Date Start Date Code Code System Note Provider Name and Address Organization Details Recorded Time 20770204 Product containin g 3-hydroxy -3-methyl glutaryl- coenzyme A reductase inhibitor (product) medicatio n Not available Not available Not available 02/25/2024 16434 009 SNOMED Serina Wilma [facility] [place] 4 09:01:13 [id number] oxycodone medicatio n Not available Not available Not available 05/14/2025 7804 RxNorm Carlos Teague [facility] [place] 5 09:25:06 Medications Name Sig Start Date Stop Date Status Note LastModified by Organization Details LastModified Time tramadol 50 mg tablet 1-2 tablet PO Q4-6H PRN postop pain, take lowest dose necessary for pain control 2024 active Not Available Not Available Not Avai lable levothyroxi ne active Not Available Not Available Not Available amoxicillin active Not Available Not A vailable Not Available finasteride active Not Available Not A vailable Not Available omeprazole active Not Available Not Av ailable Not Available metoprolol tartrate active Not Available Not Available Not Available tramadol active Not Available Not Avai lable Not Available hydrochloro thiazide 02/24 completed Not Available Not Available Not Available valacyclovi r active Not Available Not Available Not Available THSC Levothyroxi ne Sodium 02/24 completed Not Available Not Available Not Available Restasis active Not Available Not Avai lable Not Available pregabalin active Not Available Not Av ailable Not Available Vitals Date Recorded Body height Body mass index (BMI) Body weight Provider Name and Address Organization Details Last Updated DateTime 11/24/2024 167.64 cm 27.8 kg/m2 52918.89 g Sherron BossLeandroThuan michael [facility] [place] 11/24/2024 07:08:38 Date Recorded Body height Body mass index (BMI) Body weight Provider Name and Address Organization Details Last Updated DateTime 02/25/2024 167.64 cm 29.1 kg/m2 60318.63 g Serina Dillon [facility] [place] 02/25/2024 09:00:56 Social History None recorded. Functional Status None recorded. Mental Status None recorded. Family History Nothing Reported. Medical History Condition Response Any Other Significant Medical Issues Y Blood Clots / Phlebitis Y Gynecological HistoryNo gynecological history recorded. Obstetrics History GPAL:G 0 P 0 0 0 0 Past Encounters Encounter ID Performer Location Encounter Start Date Encounter Closed Date Diagnosis/Indication Diagnosis SNOMED-CT Code Diagnosis ICD10 Code Diagnosis IMO Codes Diagnosis Note [id number] OFELIA GUTIERREZ MD [facility] Office [address] [place] [id number] 02/25/2024 08:23:03 02/25/2024 10:01:09 Osteoarthritis 207906508 M19.446 [id number] Brandon Otto MD [facility] [address], [address] [place] [address] 11/24/2024 06:42:44 11/24/2024 08:15:10 Osteoarthritis of joint of right shoulder region 7487887462 58191 M19.814 [id number] Health Concerns Section Related Observation LastModified by Organization Detai ls LastModified Time None Recorded Concern Status LastModified by Organization Details LastModified Time None Recorded Advance Directives Directive None Recorded Payers Insurance Date Sequence Insurance Name Policy Number Policy [place] Covered Member ID [place] Member ID Guarantor Name 05/11/2025 1 [place] [employer] Abdiel Hendrickson [id number] Abdiel Hendrickson 05/11/2025 2 [place] Abdiel Hendrickson [id number] Abdiel Hendrickson 05/11/2025 [employer] CLAIMS (MEDICARE DME REGION A) Abdiel Hendrickson [id number] Abdiel Hendrickson Notes Date Note Type Note Provider Name and Address Organization Details Recorded Time 02/25/2024 text/html Abdiel Hendrickson is a 73-year-old female who presents to the clinic for a follow-up visit regarding her right shoulder. She underwent shoulder surgery on 11/16/2020 to address a bone spur and arthritis. Post-surgery, she attended physical therapy but has since been unable to raise her arm and experiences shoulder pain. She was informed after the surgery that her rotator cuff was torn, a fact she later discovered was known prior to the surgery. This was her fifth surgery in four years, with the other four unrelated to her shoulder. She reports that her shoulder condition has worsened since the surgery and she has been told her shoulder is frozen . She experiences pain radiating down her arm to her wrist, but no numbness or tingling. She rates her shoulder pain as 6 to 8 out of 10 and estimates her shoulder function to be at 20% of normal. She has not taken any anti-inflammatory medications or pain relievers since her shoulder surgery recovery period. Prior to the surgery, she received cortisone injections in both shoulders for a couple of years. She also had a back surgery for scoliosis four years ago, which she describes as a disaster, leading to a two-month bedridden recovery and significant muscle loss. She currently experiences lower back pain. OFELIA GUTIERREZ MD [address] [place] [address], [phone] [place] 04/17/2024 08:52:58 11/24/2024 text/html Abdiel Hendrickson is a 74-year-old female who presents for a new problem involving her right shoulder. The patient has a history of right shoulder pain and limited motion, which she attributes to arthritis with a rotator cuff tear. The symptoms began approximately one year ago following a surgery to clean out a bone spur on 10/2021. Since then, she has experienced persistent pain, which she rates as a 6 on good days and excruciating on bad days. She is unable to lift her right arm and has difficulty performing daily activities such as hanging curtains. The patient has had four surgeries in the past five years, including two back surgeries, a knee replacement, and a hand surgery. She also has a history of a rotator cuff repair on her left shoulder. The patient reports severe muscle loss in her legs due to prolonged bed rest following her back surgery, resulting in unsteadiness and difficulty walking. She uses a cane in her right hand, which complicates her balance issues. Additionally, she has been diagnosed with fluid on her lower back and experiences significant pain in her lower back and right shoulder, especially when lying on her right side. The patient has had injections for pain relief in the past, which provided some relief. She expresses frustration with her current condition and the impact it has on her quality of life.Right shoulder pain: 7-10 Brandon Otto MD [address] [place] [address] Rd [address], [place], [phone], [facility] [place] 11/27/2024 08:25:34 OBGyn Episode No OBEpisode recorded.
--- OUTSIDE RECORDS SUMMARY | 2025-05-19 01:21 | XMS_ITS | Data Portability ---
Author Organization [place] - [facility], Allergy Address [address] [place] [phone] Care Team Providers Care Editor Managing Newspaper Name Role Phone HICKS ZAID Primary Care Provider Assessment Encounter Date Assessment Date Assessment LastModified by Organization Details LastModified Time 02/28/2024 02/28/2024 73-year-old female presents for cerumen removal. Cerumen impaction removed bilaterally. Bilateral TMs are intact. Follow-up in three months for repeat debridement. [email or web address] Not available 02/28/2024 10:26:38 05/31/2024 05/31/2024 73-year-old female presents for cerumen removal. Cerumen impaction removed bilaterally. Bilateral TMs are intact. Follow-up in three months for repeat debridement. [email or web address] Not available 05/31/2024 09:18:25 08/31/2024 08/31/2024 Patient has a long history of cerumen impaction. In the past she was seen at 3-month intervals. Today's visit there is no cerumen and I would recommend we begin extending the duration between visits as we are short staffed in our office. Next visit in 6 months with INGRID [email or web address] Not available 08/31/2024 09:17:15 01/10/2025 01/10/2025 Excess cerumen removed bilaterally. No signs of acute or chronic inflammation. Both tympanic membranes and middle ear spaces appear normal. Reassurance provided. Patient is very concerned about cerumen accumulation and would like to have her ears cleaned by PA in 4 months. We will arrange this for her. Recommended use of mineral oil periodically to soften her cerumen. Not available 01/10/2025 09:15:03 Plan of Treatment Reminders Order Date Submit Date Provider Last Modified By Organization Details Last Modified Time Details Appointments None record ed. Lab None record ed. Referral None record ed. Procedures None record ed. Surgeries None record ed. Imaging None record ed. Medication Orders None record ed. Patient TargetsNo targets recorded. 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; Note: Date Diagnosed : 12/16/2017 4:34 PM (388.72) Not Available [facility] 4 03:01:37 Abnormal auditory perceptio n 54832508 Active 2017 Other abnormal auditory perceptio ns, right ear; Note: Date Diagnosed : 12/16/2017 3:53 PM (H93.291) Not Available [facility] 4 03:01:37 Impacted cerumen in left ear [id number] 17890 Active 2017 Impacted cerumen, left ear; Note: Date Diagnosed : 12/16/2017 3:48 PM (H61.22) Not Available [facility] 4 03:01:35 Impacted cerumen in right ear [id number] 41719 Active 2018 Impacted cerumen, right ear; Note: Date Diagnosed : 08/23/2018 2:40 PM (H61.21) Not Available [facility] 4 03:01:38 Sensorine ural hearing loss of bilateral ears 480591936 Active 2018 Sensorine ural hearing loss, bilateral ; Note: Date Diagnosed : 12/27/2018 2:45 PM (H90.3) Not Available [facility] 4 03:01:36 Ulcerativ e rhinitis 46956081 Active 2020 Nasal mucositis (ulcerati ve); Note: Date Diagnosed : 11/04/2020 3:45 PM (J34.81) Not Available [facility] 4 03:01:35 Acute sinusitis 45907379 Active 2020 Acute sinusitis , unspecifi ed; Note: Date Diagnosed : 1 10:47 AM (J01.90) Not Available [facility] 4 03:01:37 Problem Notes None recorded. Procedures Surgical History Date Name Laterality Status Provider Name and Address Organization Details Recorded Time 5 Cerumen removal without microscope bilat cancelled INGRID MEDINA [address] [facility],[address], [phone], [facility] - [facility] 05/07/2025 12:49:08 5 Cerumen removal with microscope bilateral completed RAFITA HIGGINS MD [address] [facility],[place] [address], [place], [phone], [place] - [facility] 01/10/2025 09:16:38 4 Cerumen removal without microscope bilat completed INGA SHAY PA-C 100 [facility], [place], [address], [facility] 05/31/2024 09:19:06 4 Cerumen removal without microscope bilat completed INGA SHAY PA-C [address] [facility] [address], [place], [phone], [facility] 02/28/2024 10:26:17 Imaging Results None recorded. Procedure Notes None recorded. Medical Equipment None Reported. Allergies Allergen ID Allergen Name Allergen Category Reaction Reaction Severity Criticality Documentation Date Start Date Code Code System Note Provider Name and Address Organization Details Recorded Time 608573 Product containin g 3-hydroxy -3-methyl glutaryl- coenzyme A reductase inhibitor (product) medicatio n other Not available Not available 12/14/2023 09081 009 SNOMED React ion: unkno wn, unspe cifie d;; Not Available [facility] 01:[facility]12 Medications Name Sig Start Date Stop Date Status Note LastModified by Organization Details LastModified Time Santyl 250 unit/gram topical ointment APPLY TOPICALL Y TO AFFECTED AREA AFTER CLEANING ONCE DAILY active Not Available Not Available No t Available amoxicill in 500 mg capsule TAKE 4 CAPSULES BY MOUTH 1 HOUR BEFORE DENTAL APPOINTM ENT FOR PROPHYLA XIS. 05/12 completed Not Available Not Available Not Available Augmentin 875 mg-125 mg tablet by mouth 05/31 completed Medicati on ID: [id number] D uration Value: 10 Prescri bed By [...] completed Not Available Not Available Not Available prednison e 10 mg tablet PLEASE SEE ATTACHED FOR DETAILED DIRECTIO NS active Not Available Not Available No t Available doxycycli ne hyclate 100 mg capsule TAKE 1 CAPSULE BY MOUTH TWICE A DAY FOR 7 DAYS 01/10 completed Not Available Not Available Not Available [...] 2 TABLETS BY MOUTH DAILY FOR HAIR LOSS. active Not Available Not Available No t Available aspirin 81 mg tablet,de layed release TAKE 1 TABLET BY MOUTH EVERY DAY active Not Available Not Available No t Available tramadol 50 mg tablet TAKE 1 TAB BY MOUTH ONCE A DAY NEEDED FOR PAIN. MAX DAILY DOSE=1 active Not Available Not Available No t [...] mcg tablet 01/07 completed Medicati on ID: [id number] D uration Value: 30 Reason: () Brand [...] art/cryst ) 08/31 completed Medicati on ID: [id number] D uration Value: 30 Brand Name: william powers chloride Send Method: E-Prescr ibed Sub s Allowed: subs OK Speci al Instruct ion: TK 1 T PO BID Medi cationGe nericNam e: william powers chloride Not Available Not Available Not Available benzonata te 100 mg capsule 09/20 completed Medicati on ID: [id number] D uration Value: 5 Brand Name: benzonat ate Send Method: E-Prescr ibed Sub s Allowed: subs OK Speci al Instruct ion: TK 1 C PO TID PRF COUGH Me dication GenericN sheridan: benzonat ate Not Available Not Available Not Available metronida zole 0.75 % topical cream APPLY TO THE AFFECTED AREAS ON THE FACE TWICE DAILY active Not Available Not Available No t Available oxycodone 5 mg capsule TAKE 1 CAPSULE BY MOUTH TWICE A DAY NEEDED FOR PAIN active Not Available Not Available No t Available ibuprofen 400 mg tablet TAKE 1 TABLET BY MOUTH EVERY 6 HOURS NEEDED FOR FEVER active Not Available Not Available No t Available hydrochlo rothiazid e 25 mg tablet 08/31 completed Medicati on ID: [id number] D uration Value: 90 Brand Name: hydrochl orothiaz lea Send Method: E-Prescr ibed Sub s Allowed: subs OK Speci al Instruct ion: TK 1 T PO D ADD THIS TO D SPIRONOL ACTONE FOR PEDAL EDEMA Me dication GenericN sheridan: hydrochl orothiaz lea Not Available Not Available Not Available mupirocin 2 % topical ointment 1 a small amount to affected area 05/31 completed Medicati on ID: [id number] D uration Value: 14 Prescri bed By Name: ANDREA Cast nd Name: rosalee n Send Method: E-Prescr ibed Sub s [...] No t Available ibuprofen 600 mg tablet 01/10 completed Not Available Not Available Not Available estradiol 0.01% (0.1 mg/gram) vaginal cream APPLY 1 GRAM VAGINALL Y EVERY WEDNESDAY AND WEDNESDAY active Not Available Not Available No t Available morphine 15 mg immediate release tablet 01/10 completed Not Available Not Available Not Available ondansetr on 4 mg disintegr ating tablet DISSOLVE 1 TABLET BY MOUTH EVERY 8 HOURS NEEDED FOR NAUSEA AND VOMITING active Not Available Not Available No t Available finasteri de 5 mg tablet TAKE [...] completed Not Available Not Available Not Available Ventolin HFA 90 mcg/actua tion aerosol inhaler INHALE 2 PUFFS BY MOUTH EVERY 6 HOURS NEEDED FOR WHEEZE FOR SHORTNES S OF BREATH active Not Available Not Available No t Available oxycodone 5 mg tablet PLEASE SEE ATTACHED FOR DETAILED DIRECTIO NS active Not Available Not Available No t Available ezetimibe 10 mg tablet TAKE 1 TABLET BY MOUTH EVERY DAY active Not Available Not Available No t Available cyclospor ine 0.05 % eye drops [...] mg capsule 05/31 completed Medicati on ID: [id number] B rand Name: pregabal in Send Method: E-Prescr ibed Sub s Allowed: subs OK Medic ationGen ericName : pregabal in Not Available Not Available Not Available pregabali n 225 mg capsule 09/20 completed Medicati on ID: [id number] D uration Value: 90 Brand Name: pregabal [...] BY TOPICAL ROUTE 4 TIMES PER DAY active Not Available Not Available No t Available Vitals Date Recorded Body height Body weight Provider Name and Address Organization Details Last Updated DateTime 08/31/2024 167.64 cm 05611.63 g Leni Cordova [place] [facility] 08/31/2024 09:03:18 Date Recorded Body height Provider Name an d Address Organization Details Last Updated DateTime 01/10/2025 167.64 cm DANYELLE YOKASTA [place] [facility] 01/10/2025 08:49:28 Date Recorded Body height Body mass index (BMI) Body weight Provider Name and Address Organization Details Last Updated DateTime 02/28/2024 167.64 cm 29.1 kg/m2 69328.63 g Marleni Butler [place] [facility] 02/28/2024 09:35:32 Date Recorded Body height Body mass index (BMI) Body weight Provider Name and Address Organization Details Last Updated DateTime 05/31/2024 167.64 cm 29.1 kg/m2 21268.63 g Katy Nam [place] [facility] 05/31/2024 09:13:53 Social History None recorded. Functional Status None [...] ICD10 Code Diagnosis IMO Codes Diagnosis Note [id number] INGA SHAY PA-C [facility] [address] [address] 02/28/2024 09:32:41 02/28/2024 09:52:53 Impacted cerumen of bilateral ears [id number] 076574 H61.23 [id number] INGA SHAY PA-C [facility] [address] [address] 05/31/2024 09:05:50 05/31/2024 12:37:39 Impacted cerumen of bilateral ears 4438408265 857522 H61.23 [id number] GUTIERREZ KELLY MD [facility] [address] [address] 08/31/2024 08:59:10 08/31/2024 09:16:53 Impacted cerumen of bilateral ears 2608728385 190703 H61.23 [id number] RAFITA HIGGINS MD [facility] [address] [address] 01/10/2025 08:44:07 01/10/2025 11:18:09 Impacted cerumen of bilateral ears 6914708448 785522 H61.23 Abnormal a uditory perception 94611667 H93.291 Health Concerns Section Related Observation LastModified by Organization Detai ls LastModified Time None Recorded Concern Status LastModified by Organization Details LastModified Time None Recorded Advance Directives Directive None Recorded Payers Insurance Date Sequence Insurance Name Policy Number Policy [place] Covered Member ID [place] Member ID Guarantor Name 05/12/2025 2 [place]: [facility] Lucy Hendrickson [id number] Lucy Hendrickson 05/12/2025 1 MEDICARE [place]: [facility] [employer] Lucy Hendrickson [id number] Lucy Hendrickson Notes Date Note Type Note Provider Name and Address Organization Details Recorded Time 02/28/2024 text/html ROS as noted in the [facility] 73-year-old female presents for cerumen removal. No otologic concerns. GUTIERREZ KELLY MD [address] [place] [address], [phone], [facility] - [facility] 02/28/2024 17:20:33 05/31/2024 text/html ROS as noted in the [facility] 73-year-old female presents for cerumen removal. No otologic concerns. ANGELLA OSUNA MD [address] [facility],[place] [address], [place], [address], [facility] - [facility] 05/31/2024 13:37:40 08/31/2024 text/html ROS as noted in the [facility] 73-year-old female presents for cerumen removal. No otologic concerns. GUTIERREZ KELLY MD [address] [facility],[place] [address], [place], [phone], [facility] 08/31/2024 09:17:31 01/10/2025 text/html ROS as noted in the HPI Patient comes in today to have her ears checked and cleaned. She reports that she needs cerumen removal periodically and has needed this for many years. She has been noticing some popping sensation particularly in the right ear compared to the left. No pain or discharge. RAFITA HIGGINS MD [address] [facility],[place] [address], [place], [address], [facility] 01/10/2025 09:17:06 OBGyn Episode No OBEpisode recorded.
--- NOTE | 2025-05-19 02:05 | ED.GENADULT ---
HPI - General Adult General Chief complaint: General Medical Stated complaint: Lower back pain, recent surgery on L shoulder Time Seen by Provider: 05/19/25 02:03 Source: patient and EMS Mode of arrival: EMS Limitations: no limitations History of Present Illness ED Provider: Thomas QUINTERO HPI narrative: The patient is a 74-year-old female with a history of chronic pain syndrome, failed back syndrome, fibromyalgia, polyarthralgia, and chronic right shoulder pain with osteoarthritis with right shoulder surgery at [facility] in [place] 9 days ago on 05/09/2025, presenting to the ED for evaluation of persistent right shoulder and low back pain, but also for evaluation of mid upper back pain which is pleuritic in nature. Patient reports since the surgery she has been experiencing gradually worsening mid back pain in the scapular region which is exacerbated by deep respiration. The patient reports she was initially treated with oxycodone but states she is unable to take this due to a nausea/vomiting reaction. The patient was then treated with Ultram which she states is not controlling her pain. The patient reports she is scheduled to follow up with her surgeon on Wednesday but presents to the ED due to ongoing pain. The patient denies associated shortness of breath, dyspnea exertion, chest pain, fever/chills, nausea, vomiting, cough, hemoptysis, or recent trauma, denies any falls since the surgery. Related Data Home Medications ?Medication ?Instructions ?Recorded ?Confirmed hydrochlorothiazide 25 mg tablet 25 mg PO DAILY 08/06/21 10/30/24 levothyroxine 100 mcg tablet 100 mcg PO DAILY 08/06/21 10/30/24 omeprazole 40 mg capsule,delayed 40 mg PO DAILY 08/06/21 10/30/24 release valacyclovir 1 gram tablet 1,000 mg PO BID 08/06/21 10/30/24 minoxidil 2.5 mg tablet mg PO 09/01/21 10/30/24 pregabalin 100 mg capsule 100 mg PO DAILY 10/30/24 10/30/24 tramadol 50 mg tablet 100 mg PO DAILY PRN pain 10/30/24 Previous Rx's ?Medication ?Instructions ?Recorded oxycodone 5 mg capsule 5 mg PO BID PRN pain #6 caps 04/28/25 prednisone 10 mg tablet 10 mg PO DAILY #47 tabs 04/28/25 hydromorphone 2 mg tablet 2 mg PO BID PRN pain #5 tabs 05/19/25 Allergies Allergy/AdvReac Type Severity Reaction Status Date / Time [id number] Reductase Allergy Mild rash Verified 05/19/25 00:45 Inhibitor Review of Systems Review of Systems: Yes all other systems are reviewed and are negative [facility] Social History Social History Smoked in Last 30 Days: No Use of substances other than those prescribed or required for medical reasons: No Advance Directives: No Advance Directives Information Provided: Yes Do you have a plan to hurt others: No Plan Physical Exam ED Vital Signs: Vital Signs - 24 hr 05/19/25 00:42 05/19/25 06:00 05/19/25 07:31 Temperature 98.0 F 98.6 F Pulse Rate 95 85 Respiratory Rate 20 18 18 Blood Pressure 138/61 122/60 Pulse Oximetry 96 97 Oxygen Delivery Method Room Air Room Air 05/19/25 08:29 05/19/25 10:20 05/19/25 12:05 Temperature 98.4 F 98.3 F 98.2 F Pulse Rate 85 90 88 Respiratory Rate 16 16 16 Blood Pressure 119/65 127/70 137/61 Pulse Oximetry 98 95 90 L Oxygen Delivery Method Room Air Room Air Room Air 05/19/25 15:12 05/19/25 15:12 Temperature 98.3 F Pulse Rate 100 Respiratory Rate 18 18 Blood Pressure 132/69 Pulse Oximetry 94 Oxygen Delivery Method Room Air BMI result Body Mass Index 29.0 CONSTITUTIONAL: The patient appears uncomfortable, chronically ill, but otherwise non-toxic, well nourished and in no acute distress. Vital signs as documented. HEAD: Atraumatic, normocephalic. EYES: EOMs grossly intact, pupils equal, conjunctiva clear, no exudate. ENT: Nares patent, no discharge. Airway patent, no audible stridor, visible mucosa is pink and moist without noted lesions. NECK: Trachea is midline, no obvious masses or gross abnormalities. CHEST: Symmetric movement, normal appearance. LUNGS: LS present and CTAB, no w/r/r. Non-labored work of breathing. CARDIAC: Regular Rhythm, S1/S2 appreciated, no murmurs, rubs or gallops. ABDOMEN: Abdomen soft and non-tender x4 quadrants, no palpable masses or organomegaly. : Deferred. BACK: Patient reports pain diffusely through the mid and lower back, reports increased pain and yells out with movement and deep respiration, no midline spinous process tenderness to palpation, no crepitus or step-off. EXTREMITIES: Right upper extremity is in postoperative sling, with multiple areas of ecchymosis and limited range of motion secondary to pain. Distal CSM is intact, 2+ radial pulse. Normal tone, moves all other extremities spontaneously without reported pain. No obvious acute injury or deformity noted. NEURO: Alert and oriented x3, CN II-XII appear grossly intact. Cerebellar Functioning grossly intact. No obvious sensory or motor deficits. Speech clear and appropriate. PSYCH: Anxious, tearful affect, appropriate eye contact, fluid speech, with appropriate response to questioning. No reported suicidality or homicidality. SKIN: Warm, dry, color appropriate, normal turgor. No rashes noted. Course Reevaluation(s) Reevaluation #1: Dr. Barrientos's progress note; 1032; 05/19/2025. I assumed care for this patient at 06:[address] angio of the chest to rule out pulmonary embolism, CT is unremarkable for acute embolism, questioning consolidation to bilateral lung bases, patient has no cough, no shortness of breath, no hypoxia, no fever, no chills, indicating no antibiotic administration. Will start the patient on physician observation, case management/physical therapy evaluation for possible placement, continue with pain control. Time: 10:32 Reevaluation #2: Patient feels better after Dilaudid IV in the emergency department, patient has an appointment with the orthopedic surgeon on Wednesday and requesting to be discharged with strong pain medication to keep up her appointment, case management/PT input is appreciated. Will discharge to follow-up with PCP. Time: 15:20 Medications Administered Discontinued Medications Generic Name Dose Route Start Last Admin Trade Name Freq PRN Reason Stop Dose Admin Hydromorphone HCl 1 mg 05/19/25 07:26 05/19/25 07:31 Hydromorphone Hcl 1 Mg/Ml Syringe IVPUSH 05/19/25 07:27 1 mg ONCE ONE Administration Protocol Hydromorphone HCl 1 mg 05/19/25 15:06 05/19/25 15:12 Hydromorphone Hcl 1 Mg/Ml Syringe IVPUSH 05/19/25 15:07 1 mg ONCE ONE Administration Protocol Sodium Chloride 1,000 mls @ 999 mls/hr 05/19/25 02:30 05/19/25 04:00 Ns IV 05/19/25 03:30 Infused .Q1H1M CRISTAL Infusion Iohexol 100 ml 05/19/25 07:57 05/19/25 07:57 Iohexol 350 Mg/Ml 100 Ml Infus..Btl IV 05/19/25 07:58 65 ml ONCE ONE Administration Morphine Sulfate 4 mg 05/19/25 02:22 05/19/25 02:57 Morphine Sulfate 4 Mg/Ml Cartridge IVPUSH 05/19/25 02:23 4 mg ONCE ONE Administration Protocol Ondansetron HCl 4 mg 05/19/25 02:22 05/19/25 02:56 Ondansetron Hcl 4 Mg/2 Ml Vial IVPUSH 05/19/25 02:23 4 mg ONCE ONE Administration Medical Decision Making Medical Decision Making MDM Narrative: 5:41 AM 05/19/2025 (Doe QUINTERO): The patient is a 74-year-old female with a history of chronic pain syndrome, failed back syndrome, fibromyalgia, polyarthralgia, and chronic right shoulder pain with osteoarthritis with right shoulder surgery at [facility] in [place] 9 days ago on 05/09/2025, presenting to the ED for evaluation of persistent right shoulder and low back pain, but also for evaluation of mid upper back pain which is pleuritic in nature. Patient reports since the surgery she has been experiencing gradually worsening mid back pain in the scapular region which is exacerbated by deep respiration. The patient reports she was initially treated with oxycodone but states she is unable to take this due to a nausea/vomiting reaction. The patient was then treated with Ultram which she states is not controlling her pain. The patient reports she is scheduled to follow up with her surgeon on Wednesday but presents to the ED due to ongoing pain. The patient denies associated shortness of breath, dyspnea exertion, chest pain, fever/chills, nausea, vomiting, cough, hemoptysis, or recent trauma, denies any falls since the surgery. The patient arrives to the ED via ambulance in no acute distress, vital signs stable, no hypoxia. The patient reports diffuse pain throughout her back and arm. Lung sounds are clear to auscultation bilaterally, no rhonchi, however patient does wince with deep respiration and reports increased pain in her back. The patient is not anticoagulated. Remainder of exam is unremarkable. The patient was evaluated with basic laboratory workup, chest x-ray, D-dimer, and patient was treated with morphine for pain. The patient's laboratory evaluation shows no leukocytosis, significant anemia, electrolyte abnormality, or RADHA. The patient's LFTs are unremarkable. The patient's chest x-ray has resulted and shows hypoinflation with a left basilar consolidation and likely small left pleural effusion, possibly consistent with atelectasis versus pneumonia. The patient's D-dimer however is also elevated at 1314, and we will obtain a CTA chest to rule out postoperative PE as the source of the patient's pleuritic pain, CTA we will also provide better clarification regarding atelectasis versus pneumonia. Lab Data MDM Lab Attestation statement: I reviewed the patient's lab results. 05/19/25 02:55 05/19/25 02:55 Labs: Lab Results 05/19/25 Range/Units 02:55 WBC 9.0 (4.8-10.8) X10*3/uL RBC 3.10 L (4.20-5.50) X10*6/uL Hgb 10.5 L (12.0-16.0) g/dl Hct 31.5 L (37.0-47.0) % MCV 101.6 H (80.0-98.0) fL MCH 33.9 H (27.0-33.0) pg MCHC 33.3 (31.0-35.0) g/dl RDW 13.3 (11.0-16.0) % Plt Count 423 H D (160-400) X10*3/uL MPV 9.3 L (9.4-12.3) fL Immature Gran % (Auto) 0.7 H (0.0-0.4) % Neut % (Auto) 71.9 (45-73) % Lymph % (Auto) 13.0 L (20-40) % Phelps % (Auto) 11.7 H (2-11) % Eos % (Auto) 1.9 (0-4) % Baso % (Auto) 0.8 (0-2) % Lymph # (Auto) 1.2 (1.2-4.9) X10*3/uL Phelps # (Auto) 1.1 (0.1-1.2) X10*3/uL Eos # (Auto) 0.2 (0.0-0.4) X10*3/uL Baso # (Auto) 0.1 (0.0-0.2) X10*3/uL Abs Immat Gran (auto) 0.06 H (0.00-0.03) X10*3/uL Absolute Neuts (auto) 6.5 (2.0-8.3) x10*3/uL Absolute Nucleated RBC 0.000 (0.0-0.012) X10*3/uL Nucleated RBC % (auto) 0.0 (0.0-0.2) /100WBC D-Dimer High Sensitivty 1314 NG/ML Sodium 135 (135-145) mmol/L Potassium 3.6 (3.3-5.1) mmol/L Chloride 100 (96-108) mmol/L Carbon Dioxide 24 (22-29) mmol/L Anion Gap 15 (12-20) BUN 10 (9-16) mg/dL Creatinine 0.76 (0.5-1.4) mg/dL Estim Creat Clear Calc 70.0 Estimated GFR > 60 Random Glucose 108 (60-115) mg/dL Calcium 8.9 (8.4-10.2) mg/dL Total Bilirubin 0.7 (0.0-1.0) mg/dL AST 22 (5-31) U/L ALT < 6 (0-31) U/L Alkaline Phosphatase 91 (39-117) U/L Total Protein 7.1 (6.5-8.0) g/dL Albumin 3.4 L (3.5-5.0) g/dL Radiology Impression Discussion of test interpretation with radiology: I have reviewed the radiologist's reading. Radiologist Impression: Exam: AP portable chest x-ray. Comparison: None provided. Findings: Lungs are hypoinflated. Cardiac silhouette is within normal limits for this degree of inflation. There is consolidation of the mid to medial aspect of the left lung base with partial obscuration of the left inferior heart border and left medial hemidiaphragm. No infiltrates are seen within the right lung. There may be a small left pleural effusion. No pneumothorax. Reverse right shoulder arthroplasty is in place. There soft tissue gas superior to the prosthesis suggesting recent surgery. No pneumothorax or pleural effusion seen on the right. Impression: 1. Likely recent reverse right shoulder arthroplasty. Correlation with the timing of the patient's surgery suggested. 2. Hypoinflation with left basilar consolidation and likely small left pleural effusion. This can be seen with atelectasis or pneumonia This document has been electronically signed by: Salty Dee MD on 05/19/2025 05:09:42 Discharge Plan Discharge Clinical Impression: Right shoulder pain, Chronic pain syndrome Patient Disposition: Home, Self-Care Instructions: Arthralgia (ED) Additional Instructions: Avoid heavy lifting or pushing, and follow-up with your orthopedic surgeon as scheduled. Prescriptions: New hydromorphone 2 mg tablet 2 mg PO BID PRN (Reason: pain) Qty: 5 0RF Rx Instructions: Partial Fill upon patient request. No Action prednisone 10 mg tablet 10 mg PO DAILY Qty: 47 0RF Rx Instructions: Patient received 1st 60 mg dose in the emergency department Days 2-5 take 60 mg (6 pills total) Days 6-7 take 50 mg (5 pills total) Days 8-9 take 40 mg (4 pills total) Days 10-11 take 30 mg (3 pills total) Days 12-13 take 20 mg (2 pills total) Day 14 take 10 mg, (1 pill) oxycodone 5 mg capsule 5 mg PO BID PRN (Reason: pain) Qty: 6 0RF Rx Instructions: Partial Fill upon patient request. minoxidil 2.5 mg tablet PO levothyroxine 100 mcg tablet 100 mcg PO DAILY omeprazole 40 mg capsule,delayed release(DR/EC) 40 mg PO DAILY valacyclovir 1 gram tablet 1,000 mg PO BID hydrochlorothiazide 25 mg tablet 25 mg PO DAILY tramadol 50 mg tablet 100 mg PO DAILY PRN (Reason: pain) pregabalin 100 mg capsule 100 mg PO DAILY Print Language: Australian
[2025-05-19 03:03] LABS: MANUAL DIFF FLAG NO
[2025-05-19 03:04] LABS: Hematocrit 31.5 % (37.0-47.0); Hemoglobin 10.5 g/dl (12.0-16.0); Imm Gran Abs Auto 0.06 X10*3/uL (0.00-0.03); Imm Gran Pct Auto 0.7 % (0.0-0.4); Lymphocytes Absolute Auto 1.2 X10*3/uL (1.2-4.9); Mean Corpuscular HGB Conc 33.3 g/dl (31.0-35.0); Mean Corpuscular Hemoglobin 33.9 pg (27.0-33.0); Mean Corpuscular Volume 101.6 fL (80.0-98.0); NRBC Abs Auto 0.000 X10*3/uL (0.0-0.012); NRBC Pct Auto 0.0 /100WBC (0.0-0.2); Platelet Count 423 X10*3/uL (160-400); Red Blood Count 3.10 X10*6/uL (4.20-5.50); White Blood Count 9.0 X10*3/uL (4.8-10.8)
[2025-05-19 03:33] LABS: Alanine Aminotransferase < 6 U/L (0-31); Albumin Level 3.4 g/dL (3.5-5.0); Alkaline Phosphatase 91 U/L (39-117); Anion Gap 15 (12-20); Aspartate Amino Transferase 22 U/L (5-31); Blood Urea Nitrogen 10 mg/dL (9-16); Calcium 8.9 mg/dL (8.4-10.2); Carbon Dioxide 24 mmol/L (22-29); Chloride 100 mmol/L (96-108); Creatinine Clr Calc Pharmacy 70.0; Estimated Glomerular Filt Rate > 60; Potassium 3.6 mmol/L (3.3-5.1); Sodium 135 mmol/L (135-145); Total Protein 7.1 g/dL (6.5-8.0)
[2025-05-19 03:37] LABS: D Dimer High Sensitivity 1314 NG/ML
[2025-05-19] MEDS: iohexoL 350 MG/ML 100 ML INFUS..BTL IV (07:57)
--- NOTE | 2025-05-19 12:37 | MHC.CM.PN ---
Addendum entered by Minnie Cisneros 05/19/25 15:13: Review of PT eval - STR recommended. Met with pt to discuss: pt states she would like to return to home with existing family support (son) and has an appt on Wednesday with her ortho surgeon in [place]. She is requesting IV Dilaudid before she returns to home. CM spoke with her son who will arrive to ED to transport his mother to home. ED care team aware of plan Original Note: Received consult for assessment of d/c needs: Met with pt who declined to speak with CM until she had a clear diagnosis for the pain she is experiencing. Pt is s/p right shoulder arthroplasty but states this new onset of back pain is not surgical related. PT eval ordered. CM updated ED providers on above ; will reapproach pt later today.
--- OUTSIDE RECORDS SUMMARY | 2025-07-11 20:00 | XMS_ITS | Clinical Summary ---
Author Organization Unknown Care Team Providers Care Footwear Stitcher Name Role Phone PHILLIP CAUSEY MD, KANDICE Unavailable Unavaila ble QUACH PT, JESUS MANUEL Unavailable Unavailable KAYLAN MANAGEMENT INFORMATION SYSTEMS DIRECTOR, ALPESH Unavailable Unavailable READING OT, HARISH Unavailable Unavailable CONDINO VETO/MAGALLON, JASMIN Unavailable Unav ailable Payers Payer Name Policy Type Policy Number Effective Date Expira tion Date MEDICARE.NGS.PDGM [id number] Problems Condition Name Condition Details Condition Category Status Onset Date Resolution Date Last Treatment Date Treating Clinician Comments PRIMARY OSTEOARTHRIT IS, RIGHT SHOULDER Active 2024-08 00:00: 00 ESSENTIAL (PRIMARY) HYPERTENSION Active 2024-08 00:00: 00 VENTRICULAR PREMATURE DEPOLARIZATI ON Active 2024-08 00:00: 00 UNSPECIFIED ASTHMA, UNCOMPLICATE D Active 2024-08 00:00: 00 SPINAL STENOSIS, SITE UNSPECIFIED Active 2024-08 00:00: 00 RADICULOPATH Y, LUMBAR REGION Active 2024-08 00:00: 00 FIBROMYALGIA Active 2024-08 00:00: 00 IRON DEFICIENCY ANEMIA, UNSPECIFIED Active 2024-08 00:00: 00 HYPOTHYROIDI SM, UNSPECIFIED Active 2024-08 00:00: 00 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 Ordering Clinician Indication Dosage Frequency Signature (SIG) Comments Components Firvanq 25 mg/mL oral solution 03-20 00:00: 00 05-09 23:59 :00 No [id number] 5 mL 4 TIMES DAILY 5 mL 4 TIMES DAILY (route: oral) Med Classific ation: Anti-Infe ctive Agents hydrochloro thiazide 25 mg tablet 03-20 00:00: 00 05-09 23:59 :00 No [id number] 1 tablet DAILY 1 tablet DAILY (route: oral) Med Classific ation: Cardiovas cular Therapy Agents levothyroxi ne 100 mcg capsule 03-20 00:00: 00 05-09 23:59 :00 No [id number] 1 capsule DAILY 1 capsule DAILY (route: oral) Med Classific ation: Endocrine metoprolol succinate ER 25 mg tablet,exte nded release 24 hr 03-20 00:00: 00 05-09 23:59 :00 No [id number] 12.5 mg DAILY 12.5 mg DAILY (route: oral) Med Classific ation: Cardiovas cular Therapy Agents omeprazole 40 mg capsule,del ayed release 03-20 00:00: 00 05-09 23:59 :00 No [id number] 1 capsule DAILY 1 capsule DAILY (route: oral) Med Classific ation: Gastroint estinal Therapy Agents pregabalin 225 mg capsule 03-20 00:00: 00 05-09 23:59 :00 No [id number] 1 capsule 2 TIMES DAILY 1 capsule 2 TIMES DAILY (route: oral) Med Classific ation: Central Nervous System Agents Restasis 0.05 % eye drops in a dropperette 03-20 00:00: 00 05-09 23:59 :00 No [id number] 1 dropper ette 2 TIMES DAILY 1 dropperett e 2 TIMES DAILY (route: ophthalmic (eye)) Med Classific ation: Ophthalmi c Agents valacyclovi r 1 gram tablet 2020-0 8-19 00:00: 00 05-09 23:59 :00 No [id number] 1 tablet DAILY 1 tablet DAILY (route: oral) Med Classific ation: Anti-Infe ctive Agents Vital Signs Vital Name Observation Time Observation Value Commen ts Temperature 2025-05-16 09:41:00.000 98.5 [degF] Temperature 2025-05-14 15:31:00.000 97.1 [degF] BMI (%) 2025-05-14 15:15:04.000 29 kg/m2 Height 2025-05-14 15:14:55.000 66 [in_us] Pulse 2025-05-16 09:41:00.000 97 /min Pulse 2025-05-14 15:31:00.000 100 /min O2 Saturation (%) 2025-05-16 09:41:00.000 100 % O2 Saturation (%) 2025-05-14 15:31:00.000 94 % Respirations 2025-05-16 09:41:00.000 18 /min Respirations 2025-05-14 15:31:00.000 18 /min Weight (lbs) 2025-05-14 15:15:04.000 180 [lb_av] Systolic Blood Pressure 2025-05-16 09:41:00.000 100 mm [Hg] Systolic Blood Pressure 2025-05-14 15:31:00.000 122 mm [Hg] Diastolic Blood Pressure 2025-05-16 09:41:00.000 70 mm [Hg] Diastolic Blood Pressure 2025-05-14 15:31:00.000 78 mm [Hg] Plan of Treatment Planned Activity Planned Date Details Comments Future Scheduled Test AGENCY MAY PERFORM A RESUMPTION OF CARE VISIT FOLLOWING ANY HOSPITAL ADMISSION. PT TO EVALUATE, OBSERVE / ASSESS, AND MONITOR, MANAGEMENT INFORMATION SYSTEMS DIRECTOR TO OBSERVE AND MONITOR, PROVIDE SKILLED THERAPEUTIC INTERVENTION, ACTIVITY, EDUCATION, AND TRAINING TO ADDRESS; [code = AGENCY MAY PERFORM A RESUMPTION OF CARE VISIT FOLLOWING ANY HOSPITAL ADMISSION. PT TO EVALUATE, OBSERVE / ASSESS, AND MONITOR, MANAGEMENT INFORMATION SYSTEMS DIRECTOR TO OBSERVE AND MONITOR, PROVIDE SKILLED THERAPEUTIC INTERVENTION, ACTIVITY, EDUCATION, AND TRAINING TO ADDRESS;] Future Scheduled Test SIT TO/FRO M STAND TRANSFERS (PT/MANAGEMENT INFORMATION SYSTEMS DIRECTOR) [code = SIT TO/FROM STAND TRANSFERS (PT/MANAGEMENT INFORMATION SYSTEMS DIRECTOR)] Future Scheduled Test PT/MANAGEMENT INFORMATION SYSTEMS DIRECTOR TO PROVIDE GAIT TRAINING FOR IMPROVED MOBILITY AND /OR TO NORMALIZE GAIT PATTERN [code = PT/MANAGEMENT INFORMATION SYSTEMS DIRECTOR TO PROVIDE GAIT TRAINING FOR IMPROVED MOBILITY AND /OR TO NORMALIZE GAIT PATTERN] Future Scheduled Test PT/MANAGEMENT INFORMATION SYSTEMS DIRECTOR TO PROVIDE STAIR TRAINING [code = PT/MANAGEMENT INFORMATION SYSTEMS DIRECTOR TO PROVIDE STAIR TRAINING] Future Scheduled Test NEUROMUSCU LAR RE-EDUCATION / BALANCE / POSTURAL CONTROL (PT) [code = NEUROMUSCULAR RE-EDUCATION / BALANCE / POSTURAL CONTROL (PT)] Future Scheduled Test THERAPEUTI C EXERCISES AND ESTABLISHING A HOME EXERCISE PROGRAM (PT/MANAGEMENT INFORMATION SYSTEMS DIRECTOR) [code = THERAPEUTIC EXERCISES AND ESTABLISHING A HOME EXERCISE PROGRAM (PT/MANAGEMENT INFORMATION SYSTEMS DIRECTOR)] Future Scheduled Test PT/MANAGEMENT INFORMATION SYSTEMS DIRECTOR TO IDENTIFY FALL RISK FACTORS; EDUCATE THE PATIENT/CAREGIVER ON WAYS TO REDUCE FALL RISK FACTORS AND ESTABLISH HOME EXERCISE PROGRAM TO MINIMIZE FALL RISK. MAY TEACH THE PATIENT FLOOR RECOVERY WHEN CLINICALLY APPROPRIATE [code = PT/MANAGEMENT INFORMATION SYSTEMS DIRECTOR TO IDENTIFY FALL RISK FACTORS; EDUCATE THE PATIENT/CAREGIVER ON WAYS TO REDUCE FALL RISK FACTORS AND ESTABLISH HOME EXERCISE PROGRAM TO MINIMIZE FALL RISK. MAY TEACH THE PATIENT FLOOR RECOVERY WHEN CLINICALLY APPROPRIATE] Future Scheduled Test PT / MANAGEMENT INFORMATION SYSTEMS DIRECTOR T O EDUCATE ON SHOULDER REPLACEMENT SELF-MANAGEMENT. [code = PT / MANAGEMENT INFORMATION SYSTEMS DIRECTOR TO EDUCATE ON SHOULDER REPLACEMENT SELF-MANAGEMENT.] Future Scheduled Test PT TO ASSE SS / MANAGEMENT INFORMATION SYSTEMS DIRECTOR TO MONITOR FOR AND REPORT EARLY SIGNS OF ANTICOAGULANT TOXICITY TO THE PHYSICIAN AND/OR THE RN CLINICAL LEAD ATHLETE FOR PHYSICIAN NOTIFICATION AND TO PROVIDE PATIENT/CAREGIVER EDUCATION ON ANTICOAGULANT THERAPY [code = PT TO ASSESS / MANAGEMENT INFORMATION SYSTEMS DIRECTOR TO MONITOR FOR AND REPORT EARLY SIGNS OF ANTICOAGULANT TOXICITY TO THE PHYSICIAN AND/OR THE RN CLINICAL LEAD ATHLETE FOR PHYSICIAN NOTIFICATION AND TO PROVIDE PATIENT/CAREGIVER EDUCATION ON ANTICOAGULANT THERAPY] Future Scheduled Test PT / MANAGEMENT INFORMATION SYSTEMS DIRECTOR T O MONITOR AND EDUCATE ON OXYGEN SATURATION DURING ADLS/IADLS, NOTIFY PHYSICIAN AND/OR THE RN CLINICAL LEAD ATHLETE FOR PHYSICIAN NOTIFICATION AND IF O2 SATS BELOW PHYSICIAN ORDERED PARAMETERS AFTER 10 MIN OF REST [code = PT / MANAGEMENT INFORMATION SYSTEMS DIRECTOR TO MONITOR AND EDUCATE ON OXYGEN SATURATION DURING ADLS/IADLS, NOTIFY PHYSICIAN AND/OR THE RN CLINICAL LEAD ATHLETE FOR PHYSICIAN NOTIFICATION AND IF O2 SATS BELOW PHYSICIAN ORDERED PARAMETERS AFTER 10 MIN OF REST] Future Scheduled Test PT / MANAGEMENT INFORMATION SYSTEMS DIRECTOR T O OBSERVE WOUND/INCISION AND/OR INTACT DRESSING ON R SHOULDER AND REPORT EARLY SIGNS AND SYMPTOMS OF WOUND DETERIORATION, COMPLICATIONS, OR INFECTION TO PHYSICIAN AND/OR THE RN CLINICAL LEAD ATHLETE FOR PHYSICIAN NOTIFICATION. [code = PT / MANAGEMENT INFORMATION SYSTEMS DIRECTOR TO OBSERVE WOUND/INCISION AND/OR INTACT DRESSING ON R SHOULDER AND REPORT EARLY SIGNS AND SYMPTOMS OF WOUND DETERIORATION, COMPLICATIONS, OR INFECTION TO PHYSICIAN AND/OR THE RN CLINICAL LEAD ATHLETE FOR PHYSICIAN NOTIFICATION.] Future Scheduled Test AGENCY MAY PERFORM A RESUMPTION OF CARE VISIT FOLLOWING ANY HOSPITAL ADMISSION. OT TO EVALUATE, OBSERVE / ASSESS, AND MONITOR, VETO TO OBSERVE AND MONITOR, PROVIDE SKILLED THERAPEUTIC INTERVENTION, ACTIVITY, EDUCATION, AND TRAINING TO ADDRESS; PERSONAL HYGIENE/GROOMING (OT/MIXER AND BLENDER) BATHING/SHOWERING (OT/VETO) DRESSING (OT/VETO) TOILET TRANSFER (OT/VETO) BATH/SHOWER TRANSFER (OT/VETO) OT/VETO TO MONITOR FOR AND REPORT EARLY SIGNS OF ANTICOAGULANT TOXICITY TO THE PHYSICIAN AND/OR THE RN CLINICAL LEAD ATHLETE FOR PHYSICIAN NOTIFICATION AND TO PROVIDE PATIENT/CAREGIVER EDUCATION ON ANTICOAGULANT THERAPY OT/MIXER AND BLENDER TO MONITOR AND EDUCATE ON OXYGEN SATURATION DURING ADLS/IADLS, NOTIFY PHYSICIAN AND/OR THE RN CLINICAL LEAD ATHLETE FOR PHYSICIAN NOTIFICATION AND IF O2 SATS BELOW 90% AFTER 10 MIN OF REST. OT/MIXER AND BLENDER MAY EDUCATE ON PAIN MANAGEMENT CLINICALLY INDICATED. OT/VETO TO TEACH SHOULDER REPLACEMENT REPAIR SELF-MANAGEMENT [code = AGENCY MAY PERFORM A RESUMPTION OF CARE VISIT FOLLOWING ANY HOSPITAL ADMISSION. OT TO EVALUATE, OBSERVE / ASSESS, AND MONITOR, MIXER AND BLENDER TO OBSERVE AND MONITOR, PROVIDE SKILLED THERAPEUTIC INTERVENTION, ACTIVITY, EDUCATION, AND TRAINING TO ADDRESS; PERSONAL HYGIENE/GROOMING (OT/MIXER AND BLENDER) BATHING/SHOWERING (OT/VETO) DRESSING (OT/MIXER AND BLENDER) TOILET TRANSFER (OT/VETO) BATH/SHOWER TRANSFER (OT/VETO) OT/MIXER AND BLENDER TO MONITOR FOR AND REPORT EARLY SIGNS OF ANTICOAGULANT TOXICITY TO THE PHYSICIAN AND/OR THE RN CLINICAL LEAD ATHLETE FOR PHYSICIAN NOTIFICATION AND TO PROVIDE PATIENT/CAREGIVER EDUCATION ON ANTICOAGULANT THERAPY OT/MIXER AND BLENDER TO MONITOR AND EDUCATE ON OXYGEN SATURATION DURING ADLS/IADLS, NOTIFY PHYSICIAN AND/OR THE RN CLINICAL LEAD ATHLETE FOR PHYSICIAN NOTIFICATION AND IF O2 SATS BELOW 90% AFTER 10 MIN OF REST. OT/MIXER AND BLENDER MAY EDUCATE ON PAIN MANAGEMENT CLINICALLY INDICATED. OT/MIXER AND BLENDER TO TEACH SHOULDER REPLACEMENT REPAIR SELF-MANAGEMENT] Goal Patient Goal - P ATIENT WOULD LIKE TO DRIVE SAFELY Goal Provider Goal - Goal Provider Goal - PT STG: PATIENT WILL DEMONSTRATE IMPROVED ABILITY TO PERFORM SIT TO/FROM STAND TRANSFERS TO REDUCE THE RISK OF SKIN BREAKDOWN AND REDUCE FALL RISK FROM MOD ASSIST TO INDEPENDENT WITHIN 4 WEEKS Goal Provider Goal - PT STG: PATIENT WILL DEMONSTRATE IMPROVED SAFE FUNCTIONAL MOBILITY BY AMBULATING 300 FT ON ALL SURFACES FROM SBA TO INDEPENDENT WITHIN 4 WEEKS IN ORDER TO [facility] PT STG: PATIENT WILL DEMONSTRATE REDUCED GAIT DEVIATIONS TO REDUCE THE RISK FOR FALLING AND MINIMIZE STRAIN ON KNEES/HIPS AND BACK EVIDENCED BY IMPROVED FLOOR CLEARANCE AND GAIT SPEED USING LRAD TO WALK INDEPENDENTLY IN ORDER TO LEAVE HOME SAFELY WITHIN 4 WEEKS Goal Provider Goal - PT STG: PATIENT WILL DEMONSTRATE IMPROVED ABILITY TO SAFELY NEGOTIATE STAIRS FROM MOD ASSIST TO INDEPENDENT WITH LRAD IN ORDER TO [facility] WITHIN 4 WEEKS Goal Provider Goal - PT GOAL: PATIENT WILL NOT EXPERIENCE ANY FALLS DURING EPISODE OF CARE PT STG: PATIENT WILL DEMONSTRATE REDUCED FALL RISK EVIDENCED BY TUG TEST (CUT SCORE >11 SECONDS INDICATES INCREASED FALL RISK) IMPROVING FROM 38 SEC TO 25 SEC WITHIN 4 WEEKS Goal Provider Goal - PT STG: PATIENT WILL DEMONSTRATE INCREASED STRENGTH OF B HIP FLEXORS FROM 3+ TO 4 WITHIN 4 WEEKS IN ORDER TO IMRPOVE ALL TRANSFERS Goal Provider Goal - PT LTG: PATIENT/CAREGIVER WILL DEMONSTRATE ADHERENCE TO FALL REDUCTION SELF-MANAGEMENT AND REDUCING FALL RISK FACTORS TO MINIMIZE FALL RISK BY END OF EPISODE PT STG: PATIENT WILL BE INDEPENDENT WITH IMPLEMENTATION OF HEP WITHIN 4 WEEKS Goal Provider Goal - PT GOAL: PATIENT WILL DEMONSTRATE OPTIMAL OUTCOMES INCLUDING INCREASED ROM AND STRENGTH WITH NO COMPLICATIONS FOLLOWING SHOULDER REPLACEMENT BY END OF EPISODE. Goal Provider Goal - PT LTG: PATIENT WILL NOT EXHIBIT SIGNS AND SYMPTOMS OF ANTICOAGULANT TOXICITY THROUGHOUT EPISODE OF CARE. Goal Provider Goal - PT LTG: PATIENT WILL MAINTAIN OXYGEN SATURATION WITHIN PHYSICIAN ORDERED PARAMETERS THROUGHOUT EPISODE OF CARE. Goal Provider Goal - PT GOAL: THE PATIENT WILL NOT DEMONSTRATE ANY WOUND COMPLICATIONS DURING THE EPISODE OF CARE. Goal Provider Goal - OT LTG: PATIENT WILL DEMONSTRATE IMPROVED ABILITY TO PERFORM PERSONAL HYGIENE FROM MAX A TO MIN A WITHIN 8 WEEKS. OT STG: PATIENT WILL DEMONSTRATE IMPROVED ABILITY TO COMPLETE SHOWER ROUTINE WITH MODERATE ASSISTANCE WITHIN 4 WEEKS OT LTG: PATIENT WILL DEMONSTRATE IMPROVED ABILITY TO PERFORM BATHING/SHOWERING AND REDUCE CAREGIVER BURDEN FROM UNABLE TO MOD I WITHIN 8 WEEKS OT STG: PATIENT WILL DEMONSTRATE IMPROVED ABILITY TO COMPLETE UPPER BODY DRESSING WITH MODERATE ASSISTANCE WITHIN 4 WEEKS OT LTG: PATIENT WILL DEMONSTRATE IMPROVED ABILITY TO PERFORM UPPER BODY DRESSING TO REDUCE CAREGIVER BURDEN FROM UNABLE TO MOD I WITHIN 8 WEEKS OT STG: PATIENT WILL DEMONSTRATE IMPROVED ABILITY TO COMPLETE LOWER BODY DRESSING WITH MINIMAL ASSISTANCE WITHIN 4 WEEKS OT LTG: PATIENT WILL DEMONSTRATE IMPROVED ABILITY TO PERFORM LOWER BODY DRESSING TO REDUCE CAREGIVER BURDEN FROM MAX A TO MOD I WITHIN 8 WEEKS OT STG: PATIENT WILL DEMONSTRATE IMPROVED ABILITY TO PERFORM TOILET TRANSFERS TO REDUCE FALL RISK AND RISK OF INCONTINENCE AND UTI DEVELOPMENT FROM CGA TO SUP WITHIN 4 WEEKS OT LTG: PATIENT WILL DEMONSTRATE IMPROVED ABILITY AND SAFETY TO PERFORM BATH/SHOWER TRANSFER FROM UNABLE TO IND WITHIN 8 WEEKS. OT GOAL: PATIENT WILL NOT EXHIBIT SIGNS AND SYMPTOMS OF ANTICOAGULANT TOXICITY THROUGHOUT THE EPISODE OF CARE. OT LTG: PATIENT WILL MAINTAIN OXYGEN SATURATION WITHIN PHYSICIAN ORDERED PARAMETERS THROUGHOUT THE EPISODE OF CARE. OT LTG: PATIENT WILL DEMONSTRATE UNDERSTANDING OF PAIN MANAGEMENT TECHNIQUES NEEDED DURING EPISODE OF CARE OT GOAL: PATIENT WILL DEMONSTRATE OPTIMAL OUTCOMES INCLUDING INCREASED ROM AND STRENGTH TO IMPROVE INDEPENDENCE WITH ADLS AND WITH NO COMPLICATIONS FOLLOWING SHOULDER REPLACEMENT BY END OF EPISODE Progress Notes Progress Notes <paragraph>[Visit Date: 2024 by HARISH SABILLON OT]:</paragraph><paragraph>PROVIDED CARE: REVIEWED CALL US PROTOCOL. ASSISTED PATIENT AND SCHEDULING RIDE THROUGH M A R T FOR UPCOMING DOCTOR'S APPOINTMENT. ATTEMPTED TO CONTACT [facility] FOR SOCIAL WORK CONSULT HOWEVER PATIENT DECLINED.</paragraph><paragraph></paragraph><paragraph>PATIENT IS 74-YEAR-OLD FEMALE REFERRED FOR SKILLED OCCUPATIONAL THERAPY EVALUATION AFTER UNDERGOING R TSA. PATIENT CURRENTLY RESIDES IN A FIRST FLOOR APARTMENT ALONE HOWEVER STATES HER SON HAS BEEN STAYING WITH HER TEMPORARILY TO ASSIST NEEDED. PATIENT IS AMBULATING WITHOUT A DEVICE. PATIENT REPORTS SIGNIFICANT PAIN OF 10/10 IN RIGHT SHOULDER STATING PAIN MEDICATIONS DO NOT HELP AND MAKE HER EXTREMELY NAUSEOUS. PATIENT WAS EXTREMELY EMOTIONALLY LABILE AND STATES THAT SHE WAS UNABLE TO COOK AND HAD LACK OF TRANSPORTATION FOR DOCTOR'S APPOINTMENTS HOWEVER WHEN THERAPIST ATTEMPTED TO CONTACT [facility] FOR A SOCIAL WORK CONSULT PATIENT DECLINED STATING SHE DID NOT NEED THEM. THERAPIST ASSISTED PATIENT IN SCHEDULING RIDE FOR UPCOMING DOCTOR'S APPOINTMENT THROUGH [facility]. SINCE RETURNING HOME PATIENT IS REPORTING INCREASED DIFFICULTY WITH ALL ADLS AND IADLS. PATIENT IS WEARING A SLING FOR 2 MONTHS PER PATIENT REPORT HOWEVER WEIGHT BEARING PRECAUTIONS ARE UNCLEAR.</paragraph><paragraph></paragraph><paragraph>PMH: ASTHMA, FIBROMYALGIA, GENITAL HERPES, HTN, HYPOGLYCEMIA, HYPOTHYROIDSM, LUMBAR RADICULOPATHY, MICROCYTIC ANEMIA, PRIMARY OA OF R SHOULDER, PVCS, SCOLIOSIS, SPINAL STENOSIS, TIA, AND URINARY INCONTINENCE.</paragraph><paragraph></paragraph><paragraph>PLOF: IND WITH ADLS AND MOBILITY. ASSISTANCE WITH IADLS</paragraph><paragraph></paragraph><paragraph>CLOF: UNABLE TO SHOWER, MAX TO DEP FOR DRESSING, MOD A FOR TOILETING AND BED MOBILITY, CGA FOR MOBILITY WITHOUT DEVICE</paragraph><paragraph></paragraph><paragraph>MBI SCORE OF 51/100 INDICATING A MODERATELEVEL OF DEPENDENCY ON CAREGIVER.</paragraph><paragraph></paragraph><paragraph>PATIENT WILL BENEFIT FROM SKILLED OCCUPATIONAL THERAPY SERVICES IN ORDER TO INCREASE INDEPENDENCE WITH ADLS AND IADLS AND IMPROVE SAFETY WITH FUNCTIONAL TRANSFERS IN ORDER TO IMPROVE QUALITY OF LIFE.</paragraph><paragraph></paragraph><paragraph>GOALS ESTABLISHED WITH PATIENT/CAREGIVER AND IN AGREEMENT WITH POC.</paragraph><paragraph></paragraph><paragraph>JASMIN MAGALLON TO BE CONTACTED TO DISCUSS PLAN OF CARE AND GOALS.</paragraph> Encounters Start Date/Time End Date/Time Encounter Type Admission Type Attending [facility] Facility Care Department Encounter ID Discharge Date Discharge Status Discharge Condition Discharge Reason Percent Goals Met 2025-05-14 00:00:00 2025-07-12 00:00:00 Outpatient JESUS MANUEL MONTANEZ [facility] [id number]
== END 2025-05-19 15:40 | disposition home or self-care (01) ==
PROVIDERS: Physician Assistant; Emergency Provider Emergency Medicine
DX: M25.511 Pain in right shoulder (principal); G89.4 Chronic pain syndrome; M54.50 Low back pain, unspecified
CPT/HCPCS: 36415; 71045; 71275; 80053; 85025; 85379; 96361; 96374; 96375; 96376; 97162; 99284; 99285; J1171; J2270; J2405; Q9967

== ENCOUNTER → 2025-05-19 02:33 | Outpatient (BNV) | payer MEDICARE, MEDICAID, SELFPAY | PROVIDERS: Emergency Provider Emergency Medicine; Visit Provider Radiology Diagnostic Radiology | DX: R91.8 Other nonspecific abnormal finding of lung field (principal) | CPT/HCPCS: 71275 ==

== ENCOUNTER 2025-05-22 02:02 | Emergency (ER) | payer MEDICARE, MEDICAID, SELFPAY ==
--- OUTSIDE RECORDS SUMMARY | 2016-01-02 20:00 | XMS_ITS | Continuity of Care Document ---
Author Organization [facility] Address [address] [place] [phone] Phone Care Team Providers Care Research Chemist Name Role Phone RCM, Rendering Unavailable Unavailable Allergies, Adverse Reactions, Alerts Substance Reaction Status Criticality lovastatin Active No Information pentostatin Active No Information pitavastatin Active No Information atorvastatin Active No Information pravastatin Active No Information rosuvastatin Active No Information simvastatin Active No Information somatostatin Active No Information cerivastatin Active No Information cilastatin Active No Information fluvastatin Active No Information WARNIN allergy(ies) could not be collected because the type is not supported. Please contact the source practice for further details. Advance Directives Directive Yes / No Effective Date File Name No Information Encounters Encounter Description Practice Location Reason(s) For Visit Diagnoses Date Provider Providers Copied on Encounter [facility], [facility] [place], [place], [id number] , tel: [phone] [facility] Location No Information Demarcus-0 3-201 6 RCM Rendering . [address] [place] [address], [address], [place]. tel: [phone] [facility], [address] [place] [address], [id number] , [place] tel: [phone] [facility] Pseudophakia Maxim-0 3-201 4 RCM Rendering . [address] [place] [address], [address], [place]. tel: [phone] [facility], [address] [place] [address], [id number] , [place] tel: [phone] [facility] PseudophakiaCorneal Edema/ Decomp Unspec Dec-2 4-201 3 RCM Rendering [place], [address], [place]. tel: [phone] [facility], [address] [place], [id number] , [place] tel: [phone] [facility] Cataract Posterior SubcapsularCataract Nuclear Sclerotic 3 RCM Rendering [place], [address], [place]. tel: [phone] Family History Family Member Type Diagnosis Age At Onset No Information Payers Payer name Insurance type Covered green party ID Authoriza tion(s) No Information Social History Type Description Quantity Date Captured Comments Sex Female Smoking Status No Information Chief Complaint And Reason For Visit No Information Reason For Referral Reason For Referral No Information History Of Present Illness Encounter Date Complaint History Of Prese nt Illness No Information Functional Status Date Functional Assessmen t No Information Instructions Date Instruction Additional Infor nikunj Impression/Plan Related to Diagn osis Description: LENS REPLACEMENT NEC OU \nDiagnosis Code: V43.1 Impression/Plan Related to Diagn osis Description: EDEMA, CORNEAL NOS OS \nDiagnosis Code: 371.20 Impression/Plan Related to Diagn osis Description: LENS (PSEUDOPHAKOS) OS \nDiagnosis Code: V43.1 Impression/Plan Related to Diagn osis Description: CATARACT, POSTERIOR SUBCAPSULAR (SENILE) OS \nDiagnosis Code: 366.14 Impression/Plan Related to Diagn osis Description: CATARACT, NUCLEAR SCLEROSIS OS \nDiagnosis Code: 366.16 Assessments Type Assessment Date No Information Patient Care Teams Name Effective Dates (start - stop) Status Members No Information
[2025-05-22] VITALS (7 sets, daily range): BP systolic 99–140; BP diastolic 53–76; PULSE 71–110; RESP 16–18; TEMP 36.2–36.8; O2SAT 93–97; BMI 30.6
--- NOTE | 2025-05-22 02:12 | PC.NURSE ---
pt reports 05/11 R shoulder and upper back pain, this started after surgery onR shoulder 05/09/25, pt states she was seen here recent, Oxycodone makes her sick,Tramadol and hydromorphone have not helped. Post op with surgeon yesterday 05/21/25, they states everything was fine and they confirmed Xrays looked well. Pt states [facility] and would liek ot help her get into a rehab facility to help heal from the surgery.
--- NOTE | 2025-05-22 02:50 | PC.NURSE ---
pt medicated per MAR.
--- NOTE | 2025-05-22 02:56 | ED.GENADULT ---
HPI - General Adult General Chief complaint: Back Pain/Injury Stated complaint: BACK/ARM PAIN Time Seen by Provider: 05/22/25 02:14 Source: patient Limitations: no limitations History of Present Illness ED Provider: Maude Poole PA-C HPI narrative: 74-year-old female with a history of chronic pain syndrome, failed back syndrome, fibromyalgia, polyarthralgia, and chronic right shoulder pain with osteoarthritis s/p right shoulder surgery at [facility] in [place] on 05/09/2025, presenting to the ED for evaluation of persistent right shoulder and chronic low back pain. No new injury, no trauma, the patient's right upper extremity has been in a sling. Patient saw her surgeon yesterday, she has been advised to attend rehab and physical therapy, she declined. Her surgeon did not prescribe any additional opiate pain medication. The patient is here requesting pain medication and physical therapy/rehab. Related Data Home Medications ?Medication ?Instructions ?Recorded ?Confirmed aspirin 81 mg tablet,delayed 81 mg PO DAILY 05/22/25 05/23/25 release cyclosporine 0.05 % eye drops in a 1 drp ophthalmic (eye) BID 05/22/25 05/23/25 dropperette diclofenac sodium 1 % topical gel 2 g topical QID 05/22/25 05/23/25 ezetimibe 10 mg tablet 10 mg PO DAILY 05/22/25 05/23/25 finasteride 5 mg tablet 2.5 mg PO DAILY 05/22/25 05/23/25 hydromorphone 2 mg tablet 2 mg PO BID PRN pain 05/22/25 05/23/25 levothyroxine 100 mcg tablet 100 mcg PO DAILY@0600 05/22/25 05/23/25 metoprolol succinate 25 mg 25 mg PO DAILY 05/22/25 05/23/25 tablet,extended release 24 hr metronidazole 0.75 % topical cream 1 appl topical BID 05/22/25 05/23/25 minoxidil 2.5 mg tablet 5 mg PO DAILY alopecia 05/22/25 05/23/25 ondansetron 4 mg disintegrating 4 mg PO TID PRN Nausea And Vomiting 05/22/25 05/23/25 tablet pregabalin 100 mg capsule 100 mg PO BID 05/22/25 05/23/25 tramadol 50 mg tablet 50 - 100 mg PO Q4-6H PRN pain 05/22/25 05/23/25 valacyclovir 1 gram tablet 1,000 mg PO DAILY 05/22/25 05/23/25 Allergies Allergy/AdvReac Type Severity Reaction Status Date / Time Yhjroiw-[id number] Reductase Allergy Mild rash Verified 05/22/25 02:08 Inhibitor oxycodone AdvReac Mild Dizziness Verified 05/23/25 12:52 Review of Systems Review of Systems: Yes all other systems are reviewed and are negative Constitutional: Constitutional: Denies fatigue and Denies fever(s) Musculoskeletal: Musculoskeletal: Reports back pain, Reports arthralgias and Denies joint swelling Endocrine: Endocrine: Denies fatigue PMFSH Past Medical History Attestation statement: The following information was validated with the patient. Social History Social History Smoked in Last 30 Days: No Use of substances other than those prescribed or required for medical reasons: No Advance Directives: No Advance Directives Information Provided: No Physical Exam ED Vital Signs: Vital Signs - 24 hr 05/23/25 06:16 05/23/25 08:00 Temperature 98.4 F 97.4 F Pulse Rate 72 94 Respiratory Rate 16 18 Blood Pressure 125/52 L 127/60 Pulse Oximetry 97 95 Oxygen Delivery Method Room Air Room Air BMI result Body Mass Index 30.6 Const Other: Alert Orientation/consciousness: patient oriented x3 Resp Effort & Inspection: normal respiratory effort Cardio Other: Normal peripheral perfusion Skin Other: Warm dry no rash Neuro General: patient oriented x3, no focal motor deficits and CN's II-XI intact bilaterally Psych Other: Cooperative Course Reevaluation(s) Reevaluation #1: Time: 03:47 Date: 05/22/25 Provider: INGRID Mckeon Patient in physician observation for case management needs. No acute events reported overnight.? No current issues or complaints. VS stable. Patient is pending placement at facility/pending PT/CM eval. Will continue to monitor. Reevaluation #2: Time: 08:41 Date: 05/22/25 Provider: Susan Garcia PA-C Patient in physician observation for case management needs. No acute events reported overnight.? No current issues or complaints. VS stable. Patient is pending placement at facility for STR. Will continue to monitor as we await case management disposition. - Patient will discharge to [facility] tomorrow morning VIA BLS at 10am Time: 08:56 Reevaluation #3: Time: 08:59 Date: 05/23/25 Provider: Susan Garcia PA-C Patient in physician observation for case management needs. No acute events reported overnight.? No current issues or complaints. VS stable. Patient will be going to [facility] today for 10am for STR placement. Will continue to monitor as we await transportation. Time: 08:59 Medications Administered Discontinued Medications Generic Name Dose Route Start Last Admin Trade Name Freq PRN Reason Stop Dose Admin Acetaminophen 975 mg 05/22/25 02:29 05/22/25 02:43 Acetaminophen 325 Mg Tablet PO 05/22/25 02:30 975 mg ONCE ONE Administration Ketorolac Tromethamine 15 mg 05/22/25 02:29 05/22/25 02:42 Ketorolac Tromethamine 15 Mg/Ml Vial IM 05/22/25 02:30 15 mg ONCE ONE Administration Methocarbamol 1,500 mg 05/22/25 02:29 05/22/25 02:43 Methocarbamol 750 Mg Tablet PO 05/22/25 02:30 1,500 mg ONCE ONE Administration Methocarbamol 1,500 mg 05/22/25 04:28 05/22/25 19:51 Methocarbamol 750 Mg Tablet PO 1,500 mg Q8H PRN Administration Pain, Severe (Pain Scale 7-10) Prednisone 60 mg 05/22/25 02:29 05/22/25 02:43 Prednisone 20 Mg Tablet PO 05/22/25 02:30 60 mg ONCE ONE Administration Prednisone 40 mg 05/22/25 09:00 05/23/25 08:43 Prednisone 20 Mg Tablet PO 06/03/25 08:59 40 mg DAILY CRISTAL Administration Taper Medical Decision Making Medical Decision Making MDM Narrative: 74-year-old female with a history of chronic pain syndrome, failed back syndrome, fibromyalgia, polyarthralgia, and chronic right shoulder pain with osteoarthritis s/p right shoulder surgery at [facility] in [place] on 05/09/2025, presenting to the ED for evaluation of persistent right shoulder and chronic low back pain. No new injury, no trauma, the patient's right upper extremity has been in a sling. Patient saw her surgeon yesterday, she has been advised to attend rehab and physical therapy, she declined. Her surgeon did not prescribe any additional opiate pain medication. The patient is here requesting pain medication and physical therapy/rehab. Problem: Chronic pain syndrome History: Per patient I have considered the following differential diagnoses: Chronic pain, medication seeking behavior, fracture, dislocation, need for rehab/physical therapy Plan: Patient is back in the emergency department secondary to her chronic pain. She was also seen on the 19 of May for same presentation. She was prescribed a short prescription of Dilaudid at that time. The patient admits she saw her surgeon yesterday, who did not refill any additional opiate pain medication. I explained to the patient that I would not be giving any opiate pain medication, that she unfortunately has chronic pain, that it sounds as if she requires pain management again. At one point she was followed by pain management here at [facility]. She had a consult with pain management September of this year, she was insistent on receiving opiate pain medication at that time, she was told that there were protocols in place, that she would have to abide by said protocols, before being prescribed opiate pain medication. It appears the patient never returned for additional assessment: I do not see additional office visits in our system. We will screen basic labs as medical clearance and place orders for physical therapy and case management. I will be managing her pain with a muscle relaxant, Toradol, Tylenol and steroid. I have independently reviewed the following tests: Labs: No leukocytosis, not anemic, no electrolyte abnormality Differential Diagnosis Differential Diagnoses: The differential diagnosis associated with the presentation includes See medical decision-making Admission/Observation Consideration of admission/observation: Escalation of care including admission/observation considered Consult Healthcare Provider Management of the patient was discussed with: Farmworker Cranberry Physical therapy and case management Lab Data MDM Lab Attestation statement: I reviewed the patient's lab results. 05/22/25 02:56 05/22/25 02:56 Labs: Lab Results 05/22/25 05/22/25 Range/Units 02:56 08:59 WBC 7.4 (4.8-10.8) X10*3/uL RBC 2.97 L (4.20-5.50) X10*6/uL Hgb 10.0 L (12.0-16.0) g/dl Hct 29.8 L (37.0-47.0) % MCV 100.3 H (80.0-98.0) fL MCH 33.7 H (27.0-33.0) pg MCHC 33.6 (31.0-35.0) g/dl RDW 13.2 (11.0-16.0) % Plt Count 446 H (160-400) X10*3/uL MPV 9.3 L (9.4-12.3) fL Immature Gran % (Auto) 0.9 H (0.0-0.4) % Neut % (Auto) 70.1 (45-73) % Lymph % (Auto) 13.6 L (20-40) % Beckham % (Auto) 12.8 H (2-11) % Eos % (Auto) 1.9 (0-4) % Baso % (Auto) 0.7 (0-2) % Lymph # (Auto) 1.0 L (1.2-4.9) X10*3/uL Beckham # (Auto) 1.0 (0.1-1.2) X10*3/uL Eos # (Auto) 0.1 (0.0-0.4) X10*3/uL Baso # (Auto) 0.1 (0.0-0.2) X10*3/uL Abs Immat Gran (auto) 0.07 H (0.00-0.03) X10*3/uL Absolute Neuts (auto) 5.2 (2.0-8.3) x10*3/uL Absolute Nucleated RBC 0.000 (0.0-0.012) X10*3/uL Nucleated RBC % (auto) 0.0 (0.0-0.2) /100WBC Sodium 137 (135-145) mmol/L Potassium 3.4 (3.3-5.1) mmol/L Chloride 101 (96-108) mmol/L Carbon Dioxide 27 (22-29) mmol/L Anion Gap 12 (12-20) BUN 14 (9-16) mg/dL Creatinine 0.80 (0.5-1.4) mg/dL Estim Creat Clear Calc 68.2 Estimated GFR > 60 Random Glucose 117 H (60-115) mg/dL Calcium 8.8 (8.4-10.2) mg/dL COVID-19 (ALDO) Negative (Negative) COVID-19 Clin Com See Note Influenza Type A (OLEG) Negative (Negative) Influenza Type B (OLEG) Negative (Negative) Influenza A & B Note See Note Discharge Plan Discharge Clinical Impression: Failed back syndrome Right shoulder pain Qualifiers: Chronicity: unspecified Qualified Code(s): M25.511 - Pain in right shoulder Patient Disposition: Xfer Inpatient Rehab Fac Transfer Details: TO: [facility] Prescriptions: No Action valacyclovir 1 gram tablet 1,000 mg PO DAILY minoxidil 2.5 mg tablet 5 mg PO DAILY aspirin 81 mg tablet,delayed release (DR/EC) 81 mg PO DAILY tramadol 50 mg tablet 50 - 100 mg PO Q4-6H PRN (Reason: pain) levothyroxine 100 mcg tablet 100 mcg PO DAILY@0600 metronidazole 0.75 % cream 1 appl topical BID metoprolol succinate 25 mg tablet extended release 24 hr 25 mg PO DAILY ondansetron 4 mg tablet,disintegrating 4 mg PO TID PRN (Reason: Nausea And Vomiting) finasteride 5 mg tablet 2.5 mg PO DAILY ezetimibe 10 mg tablet 10 mg PO DAILY cyclosporine 0.05 % dropperette 1 drp ophthalmic (eye) BID pregabalin 100 mg capsule 100 mg PO BID diclofenac sodium 1 % gel 2 g topical QID hydromorphone 2 mg tablet 2 mg PO BID PRN (Reason: pain) Patient Comments: hasn't taken this medication since being prescribed in ED Referrals: [facility] [Outside] Referral Note: [phone] Pavan Kan DO [Primary Care Provider, Internal Medicine] Discharge Date/Time: 05/23/25 10:22 Print Language: Sammarinese
[2025-05-22 03:03] LABS: MANUAL DIFF FLAG NO
[2025-05-22 03:04] LABS: Hematocrit 29.8 % (37.0-47.0); Hemoglobin 10.0 g/dl (12.0-16.0); Imm Gran Abs Auto 0.07 X10*3/uL (0.00-0.03); Imm Gran Pct Auto 0.9 % (0.0-0.4); Lymphocytes Absolute Auto 1.0 X10*3/uL (1.2-4.9); Mean Corpuscular HGB Conc 33.6 g/dl (31.0-35.0); Mean Corpuscular Hemoglobin 33.7 pg (27.0-33.0); Mean Corpuscular Volume 100.3 fL (80.0-98.0); NRBC Abs Auto 0.000 X10*3/uL (0.0-0.012); NRBC Pct Auto 0.0 /100WBC (0.0-0.2); Platelet Count 446 X10*3/uL (160-400); Red Blood Count 2.97 X10*6/uL (4.20-5.50); White Blood Count 7.4 X10*3/uL (4.8-10.8)
[2025-05-22 03:16] LABS: Anion Gap 12 (12-20); Blood Urea Nitrogen 14 mg/dL (9-16); Calcium 8.8 mg/dL (8.4-10.2); Carbon Dioxide 27 mmol/L (22-29); Chloride 101 mmol/L (96-108); Creatinine Clr Calc Pharmacy 68.2; Estimated Glomerular Filt Rate > 60; Potassium 3.4 mmol/L (3.3-5.1); Sodium 137 mmol/L (135-145)
--- OUTSIDE RECORDS SUMMARY | 2025-05-22 03:37 | XMS_ITS | Data Portability ---
Author Organization [place] [facility] Address [address] [place] [address] Care Team Providers Care Mobile Homes Repairer Name Role Phone ZAID HICKS Primary Care Provider [phone] Assessment Encounter Date Assessment Date Assessment LastModified [...] after care of this patient according to Count includes the [facility]'s infection prevention protocols. In order to obtain [...] after care of this patient according to Count includes the [facility]'s infection prevention protocols. In order to obtain further information and compare any laboratory results/values, I have accessed old patient records. This information was pertinent in my medical decision making today. Time On Scene with Patient: 00:40:01 Not available 04/08/2020 13:56:42 11/18/2021 11/18/2021 Time On Scene with Patient: 00:52:59 Overview/History: 71 y/o female known to DH pmhx fibromyalgia, HTN, hyporhyroidism, major spine surgery, and chronic pain syndrome. She was taken to [facility] via ambulance for severe right lower back pain on 11/12 with imaging being done. Prior to her hospital visit she had an MRI of her back ordered by from [facility]. She was discharged on 11/14 with Dilaudid and instructed to follow up with PCP as well as neurosurgeon. She has an appointment on 11/20 with neurosurgeon located in [place] for pain management. She is out of [...] needs to follow up with neurosurgeon in [place] for resolution of problem however is reluctant [...] I have accessed patient records on the [employer]. This information was pertinent in [...] right and no left neural foraminal narrowing. [email or web address] Not available 11/18/2021 14:26:11 04/09/2023 04/09/2023 Time [...] after care of this patient according to Count includes the [facility]'s infection prevention protocols. [email or web address] Not available 04/09/2023 17:19:50 Plan of Treatment Reminders Order Date Submit Date Provider Last Modified By Organization Details Last Modified Time Details Appointments None recorded. Lab BMP + ionized calcium, serum or plasma 020 [email or web address] Spr [facility] h, [address] [place] [address], [address], 0 08:09:42 TSH, serum or plasma MARVEL [facility] (Centralized Electronic Ordering - All Locations), Patient Can Go To The Location Of Their Choice, [id number] 0 19:26:00 BMP + ionized calcium, serum or plasma 020 [facility], [place], [address], 0 12:04:27 Referral None recorded. Procedures None recorded. Surgeries None recorded. Imaging None recorded. Medication Orders None recorded. Patient TargetsNo targets recorded. Patient Instructions Encounter Date Encounter Id Patient Instructions Last Modified By Organization Details Last Modified Time 04/08/2020 [id number] CONTINUE TO TAKE YOUR MEDICATIONS INSTRUCTED YOU [...] CONTINUES. Thank you for your visit with Count includes the [facility] today. We cannot always find the [...] in your condition between 8am-10pm, please call Count includes the [facility] at [phone] to help navigate your care. [email or web address] Not available 04/08/2020 12:58:28 11/18/2021 [id number] Please follow up with neurosurgeon on 11/20 for pain management. Seek ER care with worsening of symptoms. [email or web address] Not available 11/18/2021 14:27:35 04/09/2023 [id number] Thank you for yo ur [facility]. We cannot always find the [...] in your condition between 8am-10pm, please call [facility] at [phone] to help navigate your care. [email or web address] Not available 04/09/2023 17:28:05 Reason for Referral None Reported. Results Created Date Observation Date Name Description Value Unit Range Abnormal Flag Note LastModifiedBy Organization Detail LastModifiedTime 03/23/20 20 03/23/2020 BMP + ioniz ed calci um, serum or plasm a glu 131 mg/dL 70-105 Not Available [facility] [address] [place], [address], 03/30/2020 21:53:37 03/23/20 20 03/23/2020 BMP + ioniz ed calci um, serum or plasm a BUN 12 mg/dL 8-26 Not Available [facility] [address] [place], [address], 03/30/2020 21:53:37 03/23/2003/23/2020 BMP + ioniz ed calci um, serum or plasm a crea 0.6 mg/dL 0.6-1. 3 Not Available [facility] [address] [place], [address], 03/30/2020 21:53:37 03/23/20 20 03/23/2020 BMP + ioniz ed calci um, serum or plasm a Na 138 mmol/ L 138-14 6 Not Available [facility] h [address] [place], [address], 03/30/2020 21:53:37 03/23/20 20 03/23/2020 BMP + ioniz ed calci um, serum or plasm a K 3.2 mmol/ L 3.5-4. 9 Not Available [address], [address], 03/30/2020 21:53:37 03/23/20 20 03/23/2020 BMP + ioniz ed calci um, serum or plasm a cL 94 mmol/ L 98-109 Not Available [address], [address], 03/30/2020 21:53:37 03/23/20 20 03/23/2020 BMP + ioniz ed calci um, serum or plasm a TCO2 30 mmol/ L 24-29 Not Available [address], [address], 03/30/2020 21:53:37 03/23/20 20 03/23/2020 BMP + ioniz ed calci um, serum or plasm a angap 18 mmol/ L 10-20 Not Available [address], [address], 03/30/2020 21:53:37 03/23/20 20 03/23/2020 BMP + ioniz ed calci um, serum or plasm a ica 1.17 mmol/ L 1.12-1 .32 Not Available [address], [address], 03/30/2020 21:53:37 03/23/20 20 03/23/2020 BMP + ioniz ed calci um, serum or plasm a HCT 35 %pcv 37-47 Not Available [address], [address], 03/30/2020 21:53:37 03/23/20 03/23/2020 BMP + ioniz ed calci um, serum or plasm a Hb 11.9 g/dL 12-17 Not Available [address], [address], 03/30/2020 21:53:37 04/08/2004/08/2020 TSH, serum or plasm a TSH 0.85 uIU/m L (0.4-4 .00) Not Available [facility] (Centralized Electronic Ordering - All Locations) Patient Can Go To The Location Of Their Choice, [address] 04/08/2020 19:25:59 04/08/20 20 04/08/2020 BMP + ioniz ed calci um, serum or plasm a glu 109 mg/dL 70-105 Not Available [address], [address], 04/09/2020 11:20:23 04/08/2004/08/2020 BMP + ioniz ed calci um, serum or plasm a BUN 38 mg/dL 8-26 Not Available [address], [address], 04/09/2020 11:20:23 04/08/20 20 04/08/2020 BMP + ioniz ed calci um, serum or plasm a crea 0.9 mg/dL 0.6-1. 3 Not Available [address], [address], 04/09/2020 11:20:23 04/08/2004/08/2020 BMP + ioniz ed calci um, serum or plasm a Na 136 mmol/ L 138-14 6 Not Available [address], [address], 04/09/2020 11:20:23 04/08/20 20 04/08/2020 BMP + ioniz ed calci um, serum or plasm a K 3.9 mmol/ L 3.5-4. 9 Not Available [address], [place], [address], 04/09/2020 11:20:23 04/08/20 20 04/08/2020 BMP + ioniz ed calci um, serum or plasm a cL 99 mmol/ L 98-109 Not Available [address], [address], 04/09/2020 11:20:23 04/08/20 20 04/08/2020 BMP + ioniz ed calci um, serum or plasm a TCO2 23 mmol/ L 24-29 Not Available [address], [address], 04/09/2020 11:20:23 04/08/20 20 04/08/2020 BMP + ioniz ed calci um, serum or plasm a angap 18 mmol/ L 10-20 Not Available [address], [address], 04/09/2020 11:20:23 04/08/20 20 04/08/2020 BMP + ioniz ed calci um, serum or plasm a ica 1.18 mmol/ L 1.12-1 .32 Not Available [address], [address], 04/09/2020 11:20:23 04/08/20 20 04/08/2020 BMP + ioniz ed calci um, serum or plasm a HCT 43 %pcv 37-47 Not Available [address], [address], 04/09/2020 11:20:23 04/08/20 20 04/08/2020 BMP + ioniz ed calci um, serum or plasm a Hb 14.6 g/dL 12-17 Not Available [address], [address], 04/09/2020 11:20:23 04/04/20 20 [email or web address] am No observ ation record ed. [email or web address] Not Available 2019 14:42:52 Result Notes None recorded. Procedures Surgical History Date Name Laterality Status Provider Name and Address Organization Details Recorded Time 04/08/20 20 Venipuncture - completed INGRID HERRERA [address], [place], [address], [place] [facility] 04/12/2020 08:38:22 03/23/20 20 Venipuncture - completed INGRID ELLIS [address], [place], [address], [place] [facility] 03/23/2020 12:08:42 03/23/20 20 ECG Interpretation - completed INGRID ELLIS [address], [place], [address], [place] [facility] 03/23/2020 12:49:31 Back Surgery completed INGRID العلي [address], [place], [address], [place] [facility] 04/09/2023 15:44:35 Imaging Results None recorded. Procedure Notes None recorded. Medical Equipment None Reported. Allergies Allergen ID Allergen Name Allergen Category Reaction Reaction Severity Criticality Documentation Date Start Date Code Code System Note Provider Name and Address Organization Details Recorded Time 570840 Product containin g 3-hydroxy -3-methyl glutaryl- coenzyme A reductase inhibitor (product) medicatio n Not available Not available Not available 03/23/2020 25825 009 SNOMED INGRID ELLIS [address] [place], [address], [place] [facility] 11:49:41 Medications Name Sig [...] % 124/70 mm[Hg] Not Available [facility] 2 13:00:42 Date Recorded Oxygen saturation Oxygen saturation in Arterial blood by Pulse oximetry Heart rate Respiratory rate Body temperature Systolic And Diastolic Provider Name and Address Organization Details Last Updated DateTime 0 95 % 95 % 98 /min 22 /min 98.3 [degF] 102/68 mm[Hg] Not Available [facility] 0 11:53:22 Date Recorded Body temperature Heart rate Oxygen saturation Oxygen saturation in Arterial blood by Pulse oximetry Respiratory rate Systolic And Diastolic Provider Name and Address Organization Details Last Updated DateTime 0 96.8 [degF] 78 /min 100 % 100 % 16 /min 104/60 mm[Hg] Not Available [facility] 0 12:32:15 Date Recorded Body temperature Oxygen saturation Oxygen saturation in Arterial blood by Pulse oximetry Respiratory rate Heart rate Systolic And Diastolic Provider Name and Address Organization Details Last Updated DateTime 3 98.4 [degF] 99 % 99 % 18 /min 77 /min 126/70 mm[Hg] Not Available [facility] 15:41:53 Social History Question Answer Notes LastModified by Organizat ion Details LastModified Time Tobacco Smoking Status Never Smoker INGRID العلي [address] [place], [address], [place] [facility] 04/09/2023 15:44:50 Excessive Alcohol Or Drug Use No Information not available 04/09/2023 Does This Patient Have A PCP? Yes [email or web address] Information not available 04/09/2023 Has The Patient Seen Their PCP In The Past 6 Months? Yes [email or web address] Information not available 04/09/2023 What Is Your Housing Situation Today? I Have Housing [email or web address] Information not available 04/09/2023 Sex: Unknown Functional Status Question Answer Note LastModified by Organizat ion Details LastModified Time Do you use any illicit or recreational drugs? No [email or web address] Information not available 04/09/2023 What is your level of alcohol consumption? None [email or web address] Information not available 04/09/2023 Mental Status None [...] ICD10 Code Diagnosis IMO Codes Diagnosis Note [id number] INGRID ELLIS [facility] [address] [facility] [place] [address] 03/23/2020 11:45:44 03/26/2020 16:19:58 Altered mental status 482459242 R41.82 Weakness present 7990905 07 M62.81 Dizziness 716740564 R42 Clostridio ides difficile infection 231053540 A04.72 [id number] INGRID HERRERA [facility] [address] [facility] [place] [address] 04/08/2020 12:16:53 04/11/2020 11:59:41 Muscle weakness 86744081 M62.81 [id number] Enid Stewart NP SPR - [facility] [address] [place] [address] 11/18/2021 12:54:28 11/19/2021 15:58:45 Chronic low back pain 314837550 M54.50 [id number] INGRID العلي [facility] [address] [facility] [place] [address] 04/09/2023 15:35:37 04/12/2023 14:59:37 Venous stasis edema of bilateral lower limbs [id number] 4527906 I87.2 Status of condition: Exacerbati on/Acute on [...] pain, numbness, fever, weight gain. Essential hypertension 37414295 I10 Status of condition: Chronic. Testing/Re sults: [...] Member ID Beach Member ID Guarantor Name 03/22/2020 1 [place]IC[place] B[place] [employer] Lucy Hendrickson [id number] Lucy Hendrickson 03/22/2020 1 *SELF PAY* Lucy Hendrickson [id number] Lucy Hendrickson 04/08/2023 1 [place] [employer] Lucy Hendrickson [id number] Lucy Hendrickson 11/19/2021 2 [place] [facility] Lucy Hendrickson [id number] Lucy Hendrickson 04/15/2023 1 [place] [facility] [employer] Lucy Hendrickson [id number] Lucy Hendrickson 04/09/2023 2 [place] [facility] Lucy Hendrickson [id number] Lucy Hendrickson Notes Date Note Type Note Provider Name and Address Organization Details Recorded Time 03/23/2020 text/html 69-year-old female, with recent back surgery, presents for evaluation. Reports had back surgery in [place] on 01/29, 01/30, and 01/[address] Sauceda and was released from rehab at [facility] 4 days ago. States has not been [...] this antibiotic. INGRID ELLIS [address], [place], [address], [place] [facility] 03/23/2020 13:11:37 04/08/2020 text/html [...] the pain INGRID HERRERA [address], [place], [address], [place] [facility] 04/12/2020 08:38:31 11/18/2021 text/html 71 y/o female known to DH pmhx fibromyalgia, HTN, hyporhyroidism, major spine surgery, and chronic pain syndrome. She was taken to [facility] via ambulance for severe right lower back pain on 11/12 with imaging being done. Prior to her hospital visit she had an MRI of her back ordered by from [facility]. She was discharged on 11/14 with Dilaudid and instructed to follow up with PCP as well as neurosurgeon. She has an appointment on 11/20 with neurosurgeon located in [place] for pain management. She denies any physical trauma leading to her ER visit. She contacted PCP office for refill of pain medication however he is not in the office. She is currently on Lyrica, Ibuprofen, and Tylenol which she states is not helping with her back pain. Enid Stewart NP [address], [place], [address], [place] [facility] 11/18/2021 14:27:44 04/09/2023 text/html [...] GFR 78. INGRID العلي [address], [place], [address], [place] [facility] 04/09/2023 17:30:25 OBGyn Episode No OBEpisode recorded.
--- OUTSIDE RECORDS SUMMARY | 2025-05-22 03:37 | XMS_ITS | Clinical Summary ---
Author Organization [facility] Address [address] [place] [address] Care Team Providers Care Transport Pilot Name Role Phone Yojana Pyle DMD Primary Care Provider [phone] Source Comments PLEASE NOTE, if this patient [...] daily apply a thin ribbon on toothbrush. [place] thoroughly once daily for two minutes, preferably [...] Description 02/27/2025 9:00 AM EDT Office Visit [facility] [address] [place] [address] Lola Garcia from Last 3 Months Immunizations [...] Description 08/30/2025 9:00 AM EST Office Visit [facility] [place] [address] Lola Garcia [address] [place] [address] Health Maintenance Due Date Last Done Comments [...] Drug Screen 08/02/2024 Depression Annual Screen 08/02/2024 [id number] (3 - season) 2025 021, 09/27/2020 Imm-Influenza [...] HEALTH SAFETY [place] DENTAL [place] Care Teams Transport Pilot Relationship Specialty Start Date End Date Yojana Pyle DMD [address] [place] [address] PCP - General 10/11/20
--- OUTSIDE RECORDS SUMMARY | 2025-05-22 03:38 | XMS_ITS | Patient Health Record ---
Author Organization [facility] Address [address] [place] [address] Care Team Providers Care Window Systems Administrator Name Role Phone Pavan Kan Primary Care Provider UnavailJuan Luis Greco Unavailable [phone] Ysabel Medina Unavailable [phone] Elida Paniagua Unavailable [phone] Allergies Allergen (clinical drug ingredient) Drug/Non Drug Allergy documented on EMR Reaction Allergy Type Onset Date Status oxycodone Oxycodone Unknown Drug Allergy Active Substance with 7-retarpk-6-methylgluta ryl-coenzyme A reductase inhibitor mechanism of action [...] W/U Status Risk Notes Problem Essential hypertension (32428296) Essential (primary) hypertension (I10) Active confirmed Problem Ventricular premature depolarization (076250149) 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) Active confirmed Problem Idiopathic pulmonary fibrosis (670593628) Idiopathic pulmonary fibrosis (J84.112) Active confirmed Problem Non-pressure 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 (L97.822) Active confirmed Problem Fibromyalgia (056745834) Fibromyalgia (M79.7) Active confirmed Problem Post-laminectomy syndrome (90721977) Postlaminectomy syndrome, not elsewhere classified (M96.1) Active confirmed Problem Open wound of left lower leg (2113409493773057 6) Unspecified open wound, left lower leg, subsequent encounter (S81.802D) Active confirmed Problem Anemia (957916504) Anemia (D64.9) Active confirmed Problem Renal failure (11025305) Renal failure (N19) Active confirmed Problem Hypothyroidism (35510192) Hypothyroidism (E03.9) Active confirmed Problem Macrocytosis (32186911) Macrocytosis (D75.89) Active confirmed Problem Urinary incontinence (556528875) Urinary incontinence (R32) Active confirmed Vital Signs [...] Date Provider Diagnosis [facility] [address] [address] 09/05/2024 Juan Luis Cheung Essential (primary) hypertension I10 and Unspecified open wound, left lower leg, initial encounter S81.802A [facility] [address] [address] 09/12/2024 Jooyun Paniagua Unspecified open wound, left lower leg, initial encounter S81.802A ; Unspecified open wound, left lower leg, subsequent encounter S81.802D and Essential (primary) hypertension I10 [facility] [address] [address] 09/19/2024 Juan Luis Cheung Unspecified open wound, left lower leg, subsequent encounter S81.802D ; Non-pressure 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 L97.822 and Essential (primary) hypertension I10 [facility] [address] [address] 09/26/2024 Juan Luis Cheung Unspecified open wound, left lower leg, subsequent encounter S81.802D ; Non-pressure 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 L97.822 and Essential (primary) hypertension I10 [facility] [address] [address] 10/03/2024 Juan Luis Orrnne Unspecified open wound, left lower leg, subsequent encounter S81.802D ; Non-pressure 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 L97.822 and Essential (primary) hypertension I10 [facility] [address] [address] 10/10/2024 Juan Luis Cheung Unspecified open wound, left lower leg, subsequent encounter S81.802D ; Non-pressure 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 L97.822 and Essential (primary) hypertension I10 [facility] [address] 10/17/2024 Juan Luis Cheung Unspecified open wound, left lower leg, subsequent encounter S81.802D ; Non-pressure 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 L97.822 and Essential (primary) hypertension I10 [facility] [address] 10/24/2024 Juan Luis Cheung Unspecified open wound, left lower leg, subsequent encounter S81.802D ; Non-pressure 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 L97.822 and Essential (primary) hypertension I10 [facility] [address] 10/31/2024 Anzjeanninea Tyrela Essential (primary) hypertension I10 and Non-pressure 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 L97.822 [facility] [address] [address] 09/01/2024 Juan Luis Cheung [facility] [address] [place] [address] 09/06/2024 Juan Luis Cheung [facility] [address] [address] 09/22/2024 Juan Luis Cheung Assessments Encounter Date [...] one week I Juan Luis Cheung, MSN, SWEATBAND DECORATING MACHINE OPERATOR, WEATHERIZATION COORDINATOR-C, examined, evaluated, and treated the patient. Dr. [...] I10) 09/05/2024 [place] Ayala is a 74 [id number] that presents today for initial evaluation and [...] the note. I, Juan Luis Cheung, MSN, SWEATBAND DECORATING MACHINE OPERATOR, WEATHERIZATION COORDINATOR-C, examined, evaluated, and treated the patient. Dr. [...] one week I Juan Luis Cheung, MSN, SWEATBAND DECORATING MACHINE OPERATOR, WEATHERIZATION COORDINATOR-C, examined, evaluated, and treated the patient. Dr. [...] one week I Juan Luis Cheung, MSN, SWEATBAND DECORATING MACHINE OPERATOR, WEATHERIZATION COORDINATOR-C, examined, evaluated, and treated the patient. Dr. [...] one week I Juan Luis Cheung, MSN, SWEATBAND DECORATING MACHINE OPERATOR, WEATHERIZATION COORDINATOR-C, examined, evaluated, and treated the patient. Dr. [...] one week I Juan Luis Cheung, MSN, SWEATBAND DECORATING MACHINE OPERATOR, WEATHERIZATION COORDINATOR-C, examined, evaluated, and treated the patient. Dr. [...] one week I Juan Luis Cheung, MSN, SWEATBAND DECORATING MACHINE OPERATOR, WEATHERIZATION COORDINATOR-C, examined, evaluated, and treated the patient. Dr. [...] Medicare [address] [place], [place] [id number] Lucy Hendrickson Self - patient is the insured [facility] (Medicaid) [address] [place], [place] [id number] [phone] [id number] Lucy Hendrickson Self - patient is the [...]
--- OUTSIDE RECORDS SUMMARY | 2025-05-22 03:38 | XMS_ITS | Patient Health Record ---
Author Organization [facility] Address [address] [place] [address] Care Team Providers Care Gluing Machine Operator Automatic Name Role Phone Herlinda Zaragoza MD Primary [...] Risk Notes Problem Thoracic spondylosis without myelopathy (707147449) Spondylosis without myelopathy or radiculopathy, thoracic region (M47.814) Active confirmed Plan Of Treatment No Information Insurance Providers Payer Name Payer Address Payer Phone Subscriber Number Group Number Insured Name Patient Relationship to Insured Coverage Start Date Coverage End Date [place] B [place] [address] [place] [phone] [id number] ABDIEL HOUSE Self - patient is the insured [employer] [place] [address] [place] [phone] [id number] HARSH ABDIEL Self - patient is the insured Medical (General) History Medical History History ICD Code solitary sacrolitis scoliosis deformity of spine chronic pain syndrome tronchanteric bursitis fibromyalgia disorder of sacrum lumbosacral stenosis low back pain degeneration of lumbosacral intervertebr al disc lumbar spondylosis Surgical History Surgery Date(Month/Year) bl hand surgery bl foot surgery tonsillectomy hysterectomy
--- OUTSIDE RECORDS SUMMARY | 2025-05-22 03:38 | XMS_ITS | Data Portability ---
Author Organization [place] - [facility], Allergy Address [address] [place] [id number] Care Team Providers Care Animal Laboratory Technician Name Role Phone KURT ZAID Primary Care Provider [phone] Assessment Encounter Date Assessment Date Assessment LastModified by Organization Details LastModified Time 02/28/2024 02/28/2024 73-year-old female presents for cerumen removal. Cerumen impaction removed bilaterally. Bilateral TMs are intact. Follow-up in three months for repeat debridement. [email or web address] Not available 02/28/2024 10:26:38 05/31/2024 05/31/2024 73-year-old female presents for cerumen removal. Cerumen impaction removed bilaterally. Bilateral TMs are intact. Follow-up in three months for repeat debridement. [email or web address] Not available 05/31/2024 09:18:25 08/31/2024 08/31/2024 Patient [...] mineral oil periodically to soften her cerumen. 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 94725288 Active 2017 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; Note: Date Diagnosed : 12/16/2017 4:34 PM (388.72) Not Available [facility] 4 03:01:37 Abnormal auditory perceptio n 79512897 Active 2017 Other abnormal auditory perceptio ns, right ear; Note: Date Diagnosed : 12/16/2017 3:53 PM (H93.291) Not Available [facility] 4 03:01:37 Impacted cerumen in left ear 64956813446 62505 Active 2017 Impacted cerumen, left ear; Note: Date Diagnosed : 12/16/2017 3:48 PM (H61.22) Not Available [facility] 4 03:01:35 Impacted cerumen in right ear 52057455579 54561 Active 2018 Impacted cerumen, right ear; Note: Date Diagnosed : 08/23/2018 2:40 PM (H61.21) Not Available [facility] 4 03:01:38 Sensorine ural hearing loss of bilateral ears 050486850 Active 2018 Sensorine ural hearing loss, bilateral ; Note: Date Diagnosed : 12/27/2018 2:45 PM (H90.3) Not Available [facility] 4 03:01:36 Ulcerativ e rhinitis 22523380 Active 2020 Nasal mucositis (ulcerati ve); Note: Date Diagnosed : 11/04/2020 3:45 PM (J34.81) Not Available [facility] 4 03:01:35 Acute sinusitis 67334164 Active 2020 Acute sinusitis , unspecifi ed; Note: Date Diagnosed : 1 10:47 AM (J01.90) Not Available [facility] 4 03:01:37 Problem Notes None recorded. Procedures Surgical History Date Name Laterality Status Provider Name and Address Organization Details Recorded Time 5 Cerumen removal without microscope bilat cancelled INGRID MEDINA [address] [facility],[address], [address], [facility] 05/07/2025 12:49:08 5 Cerumen removal with microscope bilateral completed RAFITA HIGGINS MD [address] [facility],[place] [address], [place], [address], [place] - [facility] 01/10/2025 09:16:38 4 Cerumen removal without microscope bilat completed INGA SHAY PA-C [address] [facility], [place], [address], [facility] 05/31/2024 09:19:06 4 Cerumen removal without microscope bilat completed INGA SHAY PA-C [address] [facility], [place], [address], [facility] 02/28/2024 10:26:17 Imaging Results None recorded. Procedure Notes None recorded. Medical Equipment None Reported. Allergies Allergen ID Allergen Name Allergen Category Reaction Reaction Severity Criticality Documentation Date Start Date Code Code System Note Provider Name and Address Organization Details Recorded Time 806741 Product containin g 3-hydroxy -3-methyl glutaryl- coenzyme A reductase inhibitor (product) medicatio n other Not available Not available 12/14/2023 23791 009 SNOMED React ion: unkno wn, unspe cifie d;; Not Available [facility] 4 01:19:12 Medications Name Sig Start [...] by mouth 05/31 completed Medicati on ID: [id number] D uration Value: 10 Prescri bed By [...] mcg tablet 01/07 completed Medicati on ID: [id number] D uration Value: 30 Reason: () Brand [...] art/cryst ) 08/31 completed Medicati on ID: [id number] D uration Value: 30 Brand Name: william powers chloride Send Method: E-Prescr ibed Sub s Allowed: subs OK Speci al Instruct ion: TK 1 T PO BID Medi cationGe nericNam e: william powers chloride Not Available Not Available Not Available benzonata te 100 mg capsule 09/20 completed Medicati on ID: [id number] D uration Value: 5 Brand Name: benzonat [...] mg tablet 08/31 completed Medicati on ID: [id number] D uration Value: 90 Brand Name: hydrochl [...] affected area 05/31 completed Medicati on ID: [id number] D uration Value: 14 Prescri bed By [...] mg capsule 05/31 completed Medicati on ID: [id number] B rand Name: pregabal in Send Method: E-Prescr ibed Sub s Allowed: subs OK Medic ationGen ericName : pregabal in Not Available Not Available Not Available pregabali n 225 mg capsule 09/20 completed Medicati on ID: [id number] D uration Value: 90 Brand Name: pregabal [...] Details Last Updated DateTime 08/31/2024 167.64 cm 44411.63 g Leni Cordova [place] [facility] 08/31/2024 09:03:18 Date Recorded Body height Provider Name an d Address Organization Details Last Updated DateTime 01/10/2025 167.64 cm DANYELLE YOKASTA [place] [facility] 01/10/2025 08:49:28 Date Recorded Body height Body mass index (BMI) Body weight Provider Name and Address Organization Details Last Updated DateTime 02/28/2024 167.64 cm 29.1 kg/m2 69375.63 g Marleni Butler [place] [facility] 02/28/2024 09:35:32 Date Recorded Body height Body mass index (BMI) Body weight Provider Name and Address Organization Details Last Updated DateTime 05/31/2024 167.64 cm 29.1 kg/m2 80935.63 g Katy Nam [place] [facility] 05/31/2024 09:13:53 Social History None recorded. Functional [...] Note [id number] INGA SHAY PA-C [facility] [address] [address] 02/28/2024 09:32:41 02/28/2024 09:52:53 Impacted cerumen of bilateral ears 6460040829 540791 H61.23 [id number] INGA SHAY PA-C [facility] [address] [address] 05/31/2024 09:05:50 05/31/2024 12:37:39 Impacted cerumen of bilateral ears 2203551095 743472 H61.23 [id number] GUTIERREZ KELLY MD [facility] [address] [address] 08/31/2024 08:59:10 08/31/2024 09:16:53 Impacted cerumen of bilateral ears 4155015729 155921 H61.23 [id number] RAFITA HIGGINS MD [facility] [address] [address] 01/10/2025 08:44:07 01/10/2025 11:18:09 Impacted cerumen of bilateral ears 3888284347 426882 H61.23 Abnormal a uditory perception 47446604 H93.291 Health Concerns Section Related Observation LastModified by Organization Detai ls LastModified Time None Recorded Concern Status LastModified by Organization Details LastModified Time None Recorded Advance Directives Directive None Recorded Payers Insurance Date Sequence Insurance Name Policy Number Policy [place] Covered Member ID [place] Member ID Guarantor Name 05/12/2025 2 [place] [facility] Lucy Hendrickson [id number] Lucy Hendrickson 05/12/2025 1 MEDICARE B-[place]: [facility] [employer] Lucy Hendrickson [id number] Lucy Hendrickson Notes Date Note Type Note Provider Name and Address Organization Details Recorded Time 02/28/2024 text/html ROS as noted in the [facility] 73-year-old female presents for cerumen removal. No otologic concerns. GUTIERREZ KELLY MD [address] [place] [address], [phone], [facility] - [facility] 02/28/2024 17:20:33 05/31/2024 text/html ROS as noted in the [facility] 73-year-old female presents for cerumen removal. No otologic concerns. ANGELLA OSUNA MD [address] [facility],[place] [address], [place], [address], [facility] - [facility] 05/31/2024 13:37:40 08/31/2024 text/html ROS as noted in the [facility] 73-year-old female presents for cerumen removal. No otologic concerns. GUTIERREZ KELLY MD [address] [facility],[place] [address], [place], [address], [facility] 08/31/2024 09:17:31 01/10/2025 text/html ROS as noted in the HPI Patient comes in today to have her ears checked and cleaned. She reports that she needs cerumen removal periodically and has needed this for many years. She has been noticing some popping sensation particularly in the right ear compared to the left. No pain or discharge. RAFITA HIGGINS MD [address] [facility],[place] [address], [place], [address], [facility] 01/10/2025 09:17:06 OBGyn Episode No OBEpisode recorded.
--- OUTSIDE RECORDS SUMMARY | 2025-05-22 03:38 | XMS_ITS | Patient Health Record ---
Author Organization [facility] Address [address] [place] [address] Care Team Providers Care Patient Scheduler Name Role Phone Kan, Gary Primary Care Provider Harjeet Muniz MD MSc, Raine Unavailable [phone] Allergies Allergen (clinical drug ingredient) Drug/Non Drug Allergy documented on EMR Reaction Allergy Type Onset Date Status Substance with 9-bcokbwu-2-methylgluta ryl-coenzyme A reductase inhibitor mechanism of action [...] MEDICARE NGS [address] [place] [phone] [id number] Lucy Hendrickson Self - patient is the insured Medical (General) History Medical History History ICD Code Fibromyalgia Osteoarthritis Mild asthma Surgical History Surgery Date(Month/Year) Tonsillectomy 3x left hand surgeries (thumb joint fusi on), 2x right hand surgeries Right knee fusion 2014 Hammer left toe Uterus suspension lumbar fusion L2-S1 for scoliosis 020
--- OUTSIDE RECORDS SUMMARY | 2025-05-22 03:38 | XMS_ITS | Clinical Summary ---
Author Organization [facility] Address [address] [place] [address] Care Team Providers Care Cover Marker Name Role Phone Pavan Kan MD Primary Care Provider [phone] Allergies Active Allergy Reactions Criticality Noted Date [...] topic Insurance MEDICARE PART A & B [facility] Care Teams Cover Marker Relationship Specialty Start Date End Date Pavan Kan MD [address] [place] [address] PCP - General Psychiatry, General 05/25/23
--- OUTSIDE RECORDS SUMMARY | 2025-05-22 03:38 | XMS_ITS | Data Portability ---
Author Organization [place] - [facility] [place], [facility] - INPATIENT Address [address] [place] [address] Care Team Providers Care Courseware Developer Name Role Phone ZAID HICKS Primary Care Provider [phone] Assessment Encounter Date Assessment Date Assessment LastModified [...] provided with the contact information for my visual merchandising assistant, Lucie, for any further questions or [...] transcript. [email or web address] Not available 11/24/2024 08:43:48 05/21/2025 05/21/2025 Diagnostic Imagi ng: Independent review of grashey, axillary, and humerus views of Right shoulder demonstrate well aligned prosthetic components. There is no evidence of hardware failure, there is no periprosthetic lucency. The prosthesis is well centered. Alignment is unchanged compared to prior x-rays. No radiographic abnormalities are noted. Assessment/ Plan: 74-year-old female status post right RSA 05/09/2025 secondary to rotator cuff arthropathy. X-rays are great. Incision looks great. All prosthetic components are in good alignment / position with no evidence of hardware failure. The patient no longer needs to wear their sling during the day but may continue to do so for comfort. The patient should continue to sleep in it at night. The patient may begin to use their shoulder for light ADLs while keeping their hands in front of their body and avoiding motions to the side. The ELBOW can go to the side and behind their back. Did not teach the patient the 1st POV exercises at this time given the risk for acromial stress fracture. The patient can shower and get the incision site wet, but should avoid soaking in the shower. Additionally, The patient may begin to practice driving with a friend or family member once they feel comfortable, but should be mindful of the gear shift and ensure the operative side stays inside the strikezone when reaching for it. I sent a refill for pain medication and some antiemetics to her pharmacy on file. I reached out to a rehab in [place], and I will send over a referral so that they can do an evaluation and hopefully admit her directly without having to go stay at a hospital for 3 nights as per Medicare rules. Otherwise, she will in 4 weeks for the 2nd POV. Restrictions: Nonweightbearing right upper extremity. Keep right upper extremity in the box from her shoulders to her hips, no external rotation past neutral. Sling immobilization, but she can take it off to bathe, change, and do range of motion exercises of the hand/wrist/elbow. She does not require any physical therapy at rehab, but can do occupational therapy, and light ADLs with her hand This note was dictated with speech recognition software. Please excuse any errors in spelling/transcripti on, which may have changed the context of the sentence. Not available 05/21/2025 12:37:19 Plan of Treatment Reminders Order Date Submit Date Provider Last Modified By Organization Details Last Modified Time Details Appointments Post-Oper ative F/U 20 2024 11:40A M BRANDON OTTO MD Not available Not available Not available Post-Oper ative F/U 15 2025 12:30P M INGRID CORLEY Not available Not available Not available Lab None recorded. Referral rehabilit ation referral - lon RIOS for hand/wris t/elbow ROM. s/p R RSA 05/09/252024 025 Not available 05/21/2025 16:46:41 Procedures None recorded. Surgeries orthopaed ic surgery (SURG) 2024 025 [email or web address] [facility] (Surgery Scheduling), [address] [place] [address], [address], 04/19/2025 12:27:44 Imaging None recorded. Medication Orders ondansetr on 4 mg disintegr ating tablet 2024 025 [facility]/Pharmacy #[id number], [address] [place], [address], 05/21/2025 13:04:40 hydromorp ekvin 2 mg tablet 2024 025 [facility]/Pharmacy #[id number], [address] [place], [address], 05/21/2025 13:35:28 Patient TargetsNo targets recorded. Patient InstructionsNo instructions recorded. Reason for Referral NWB lon BAL for hand/wrist/e lbow ROM. s/p R RSA 05/09/25 Referring Physician: Juancarlos Contreras, Orthopedic Surgery, Encounter Date: 05/21/2025 Results Created Date Observation Date Name Description Value Unit Range Abnormal Flag Note LastModifiedBy Organization Detail LastModifiedTime 04/18/20 25 04/18/2025 CBC WBC 7.53 K/uL 4.00-1 1.00 Not Available [facility] - [facility] [address], [place], [address], 04/18/2025 13:18:36 04/18/20 25 04/18/2025 CBC RBC 3.35 M/uL 3.60-5 .30 low Not Available [facility] [address], [place], [address], 04/18/2025 13:18:36 04/18/20 25 04/18/2025 CBC hemoglobin 11.6 g/dL 12.0-1 6.0 low Not Available [facility] [address], [place], [address], 04/18/2025 13:18:36 04/18/20 25 04/18/2025 CBC hematocrit 35.3 % 36.0-4 8.0 low Not Available [facility] [address], [place], [address], 04/18/2025 13:18:36 04/18/20 25 04/18/2025 CBC MCH 34.6 pg 27.0-3 4.0 high Not Available [facility] [address], [place], [address], 04/18/2025 13:18:36 04/18/20 25 04/18/2025 CBC MCHC 32.9 g/dL 31.0-3 6.0 Not Available [facility] [address] [place], [address], 04/18/2025 13:18:36 04/18/20 25 04/18/2025 CBC MCV 105 fL 80-98 high Not Available [facility] [address], [place], [address], 04/18/2025 13:18:36 04/18/20 25 04/18/2025 CBC RDW 13.5 % 11.5-1 4.5 Not Available [facility] [address], [place], [address], 04/18/2025 13:18:36 04/18/20 25 04/18/2025 CBC RDW-SD 52.7 fL 35.1-4 6.3 high Not Available [facility] [address], [place], [address], 04/18/2025 13:18:36 04/18/20 25 04/18/2025 CBC platelet count 273 K/uL 150-40 0 Not Available [facility] [address], [place], [address], 04/18/2025 13:18:36 04/18/20 25 04/18/2025 CBC mean platelet volume 10.0 fL 9.4-12 .4 Not Available [facility] [address], [place], [address], 04/18/2025 13:18:36 04/18/20 25 04/18/2025 BASIC METAB OLIC PANEL sodium 139 mmol/ L 135-14 5 Not Available [facility] [address], [place], [address], 04/18/2025 13:49:02 04/18/20 25 04/18/2025 BASIC METAB OLIC PANEL potassium 3.9 mmol/ L 3.5-5. 3 Not Available [facility] [address], [place], [address], 04/18/2025 13:49:02 04/18/20 25 04/18/2025 BASIC METAB OLIC PANEL chloride 103 mmol/ L 100-11 2 Not Available [facility] [address] [facility], [address], 04/18/2025 13:49:02 04/18/20 25 04/18/2025 BASIC METAB OLIC PANEL total CO2 23 mmol/ L 21-30 Not Available [facility] [address], [place], [address], 04/18/2025 13:49:02 04/18/20 25 04/18/2025 BASIC METAB OLIC PANEL anion gap 13 mmol/ L 4-20 Not Available [facility] [address], [place], [address], 04/18/2025 13:49:02 04/18/20 25 04/18/2025 BASIC METAB OLIC PANEL BUN 16 mg/dL 6-20 Not Available [facility] - Lab [address], [place], [address], 04/18/2025 13:49:02 04/18/20 25 04/18/2025 BASIC METAB OLIC PANEL creatinine 0.80 mg/dL 0.00-1 .30 Not Available [facility] [address], [place], [address], 04/18/2025 13:49:02 04/18/20 25 04/18/2025 BASIC METAB OLIC PANEL glucose 94 mg/dL 70-105 Not Available [facility] Lab [address], [place], [address], 04/18/2025 13:49:02 04/18/20 25 04/18/2025 BASIC METAB OLIC PANEL calcium 9.6 mg/dL 8.4-10 .2 Not Available [facility] [address], [place], [address], 04/18/2025 13:49:02 04/18/20 25 04/18/2025 BASIC METAB OLIC PANEL estimated GFR (CKD-epi) 77 mL/mi n/bsa Not Available [facility] [address], [place], [address], 04/18/2025 13:49:02 04/18/2004/18/2025 NASAL MRSA/ SA BY PCR cepheid MRSA Negati ve negati ve Not Available [facility] [address], [place], [address], 04/18/2025 15:53:03 04/18/20 25 04/18/2025 NASAL MRSA/ SA BY PCR cepheid SA Negati ve negati ve Not Available [facility] [address], [place], [address], 04/18/2025 15:53:03 05/15/20 24 05/11/2024 MRI, brain + brain stem, w/ contr ast No observ ation record ed. [address] (Imaging) [address] [place], [address], 05/15/2024 16:20:02 05/16/20 24 05/11/2024 MRI, brain + brain stem, w/ contr ast No observ ation record ed. [address] [facility] [address] [place], [address], 05/16/2024 14:21:05 04/20/20 25 04/18/2025 CT, shoul haris, w/o contr ast [facility] Pt Name : GÓMEZ HENDRICKSON 5 - Date: 1950 Sex: F [facility]ati on : [facility] Visit: [id number] Admit Date: 2024 Date of Servic e: 2024 Exam : CT SHOULD ER RIGHT WO CONTRA ST Status : Final Order MD : Giancarlo OTTOEW Ord Tel#:( [phone] CC Provid er:, ------ ------ ------ ------ [...] al Planni ng Matchp oint protoc ol [facility] @12: 45p, please call pt to nayeli contreras, same day, thanky ou Workst ation: [id number] [facility] - Rad [address] [place] [address], [place], [address], 04/20/2025 12:20:35 Result Notes Documentation Provider Name and Address Organization Details Recorded Time Ct, Shoulder, W/o Contrast : Ju Genalyte [facility] Pt Name : ABDIEL HENDRICKSON -Date: 1950 Sex: F [facility] : [facility] CT Visit: [id number] Admit Date: 04-18-2025 Date of Service: 04-20-2025 [...] reformats were performed on an independent workstation. Matchpoint protocol. FINDINGS: The acromioclavicular joint exhibits widening [...] 11:30:[address] Pre Surgical Planning [facility] protocol [facility] --@12:45p, please call pt to schedule, same day, [facility] INGRID Corley [address], [place], [address], [facility] - [facility] [place] 04/20/2025 12:20:35 Problems Name Problem SNOMED Code Status Onset Date Resolution Date Notes Provider Name and Address Organization Details Recorded Time Pain of bilateral shoulder regions Active 2024 Neelam spence [place] - [facility] [place] 10:26:40 Rotator cuff arthropath y of right shoulder 8624453785617 9106 Active 2024 INGRID Corley [address], [place], [address] , [facility] [place] 12:03:41 Problem Notes Documentation Provider Name and Address Organization Details Recorded Time Consult Note : Inpatient Consultation Date of Service: 05/10/2025 Patient: Abdiel Hendrickson : 1950 CSN: [id number] Location: [address] Room/Bed: 416/416-B Reason For Consultation: Medical comanagement. History of [...] EBL total 150 cc. Transferred postop on Medr floor for monitoring. Later in the day [...] Right 05/09/2025 Surgeon: Brandon Otto MD; [facility] Main OR; Service: Orthopaedics; Laterality: Right; BACK SURGERY x2 BLEPHAROPLASTY UPPER EYELID BILATERAL CATARACT EXTRACTION Bilateral HYSTERECTOMY Mid urethral sling SHOULDER SURGERY Left Rotator cuff repair TONSILLECTOMY No family history on file. Social History Tobacco Use Smoking status: Never Substance Use Topics Alcohol use: Yes Comment: 1 glass of wine every evening Drug use: Never Allergies: Oxycodone and Dfafjgi-ltl-oxs reductase inhibitors Home medication Medications Prior to [...] Continuous Infusions:lactated Ringers, , Last Rate: Stopped (05/10/25 014) lactated Ringers, , Last Rate: Stopped (05/10/25146) [...] reformats were performed on an independent workstation. Matchpoint protocol. FINDINGS: The acromioclavicular joint exhibits widening [...] Signed by: Ramses Goss MD Lucie spence [facility] [place] 05/13/2025 14:37:38 Procedures Surgical History Date Name Laterality Status Provider Name and Address Organization Details Recorded Time 05/09/20 25 Orthopaedic Surgery completed Ivon Deng [facility] [place] 05/21/2025 11:32:59 11/14/19 24 Orthopaedic Surgery completed Serina Dillon [facility] [place] 02/25/2024 09:04:18 06/02/20 22 Orthopaedic Surgery completed Serina Dillon [place] [facility] [place] 02/25/2024 09:03:44 08/02/19 20 Orthopaedic Surgery completed Serina Dillon [facility] [place] 02/25/2024 09:10:37 Imaging Results None recorded. Procedure Notes None recorded. Medical Equipment None Reported. Allergies Allergen ID Allergen Name Allergen Category Reaction Reaction Severity Criticality Documentation Date Start Date Code Code System Note Provider Name and Address Organization Details Recorded Time 662578 Product containin g 3-hydroxy -3-methyl glutaryl- coenzyme A reductase inhibitor (product) medicatio n Not available Not available Not available 02/25/2024 03355 009 SNOMED Serina Dillon bebe [facility] [place] 4 09:01:13 539240 oxycodone medicatio n Not available Not available Not available 05/14/2025 7804 RxNorm Carlos Teague bebe [facility] [place] 5 09:25:06 Medications Name Sig Start Date Stop Date Status Note LastModified by Organization Details LastModified Time tramadol 50 mg tablet 1-2 tablet PO Q4-6H PRN postop pain, take lowest dose necessary for pain control 2024 active Not Available Not Available Not Avai lable hydromorpho ne 2 mg tablet Take 1 tablet every 4 hours by oral route as needed. 2024 active Not Available Not Available Not Avai lable hydromorpho ne 4 mg tablet Take 1/2 tablet by mouth every 4 hours as needed 2024 active Not Available Not Available Not Avai lable ondansetron 4 mg disintegrat ing tablet Place 1 tablet every 4-6 hours by transling ual route as needed, for nausea. 2024 active Not Available Not Available Not [...] active Not Available Not Available Not Available Dilaudid active Not Available Not Avai lable Not Available THSC Levothyroxi ne Sodium 02/24 completed Not Available Not Available Not Available Restasis active Not Available Not Avai lable Not Available pregabalin active Not Available Not Av ailable Not Available Vitals Date Recorded Body height Body mass index (BMI) Body weight Provider Name and Address Organization Details Last Updated DateTime 11/24/2024 167.64 cm 27.8 kg/m2 65548.89 g Sherron Boss-Sta hl [facility] [place] 11/24/2024 07:08:38 Date Recorded Body height Body mass index (BMI) Body weight Provider Name and Address Organization Details Last Updated DateTime 02/25/2024 167.64 cm 29.1 kg/m2 91190.63 g Serina Dillon [facility] [place] 02/25/2024 09:00:56 Date Recorded Body height Body mass index (BMI) Body weight Provider Name and Address Organization Details Last Updated DateTime 05/21/2025 167.64 cm 27.8 kg/m2 83101.89 g Ivon Hoangenter [facility] [place] 05/21/2025 11:33:14 Social History None recorded. Functional Status None [...] ICD10 Code Diagnosis IMO Codes Diagnosis Note [id number] OFELIA GUTIERREZ MD [facility] Office [address] [place] [address] 02/25/2024 08:23:03 02/25/2024 10:01:09 Osteoarthritis 987637705 M19.086 [id number] Brandon Otto MD [address], [address] [place] [address] 11/24/2024 06:42:44 11/24/2024 08:15:10 Osteoarthritis of joint of right shoulder region 3620980267 29507 M19.158 [id number] INGRID Corley [address], [address] [place] [address] 05/21/2025 11:21:52 05/21/2025 12:37:53 Rotator cuff arthropathy of right shoulder 1934756042 1880368 M75.101 M12.811 [id number] Health Concerns Section Related Observation LastModified by Organization Detai ls LastModified Time None Recorded Concern Status LastModified by Organization Details LastModified Time None Recorded Advance Directives Directive None Recorded Payers Insurance Date Sequence Insurance Name Policy Number Policy [place] Covered Member ID Beach Member ID Guarantor Name 05/11/2025 1 [place]: [employer] Abdiel Hendrickson [id number] Abdiel Hendrickson 05/11/2025 2 [place] [facility] Abdiel Hendrickson [id number] Abdiel Hendrickson 05/11/2025 [employer] (MEDICARE DME REGION A) Abdiel Hendrickson [id number] Abdiel Hendrickson Notes Date Note Type [...] experiences lower back pain. OFELIA GUTIERREZ MD [address] [place] [address], [phone] [place] 04/17/2024 08:52:58 11/24/2024 text/html Abdiel Hendrickson is [...] life.Right shoulder pain: 7-10 Brandon Otto MD [address], [place], [address], [facility] [place] 11/27/2024 08:25:34 05/21/2025 text/html 74-year-old female status post right RSA 05/09/2025 secondary to rotator cuff arthropathy. Overall, she is doing very well. She is in a lot of pain. She states that the oxycodone that she was prescribed, which she has taken many times in the past caused her nausea. She went to the emergency room yesterday due to increased pain in her back in her arm, they gave her some short-term pain meds, substance IV meds. She states she really cannot take care of herself. of her son's been helping her, but he works during the day. She would like to go to rehab, but this is now difficult because she has been discharged. INGRID Corley [address], [place], [address], [facility] [place] 05/21/2025 12:37:26 OBGyn Episode No OBEpisode recorded.
--- OUTSIDE RECORDS SUMMARY | 2025-05-22 03:38 | XMS_ITS | Continuity of Care Document ---
Author Organization [facility] Office Address [address], [address] [place] [address] Care Team Providers Care Hot Room Attendant Name Role Phone ZAID HICKS Primary Care Provider Assessment Encounter Date Assessment Date Assessment LastModified by Organization Details LastModified Time 05/21/2025 05/21/2025 Diagnostic Imaging: Independent review of grashey, axillary, and humerus [...] I reached out to a rehab in [place], and I will send over a referral [...] do range of motion exercises of the hand/wrist/elbow . She does not require any physical therapy at rehab, but can do occupational therapy, and light ADLs with her hand This note was dictated with speech recognition software. Please excuse any errors in spelling/transcr iption, which may have changed the context of the sentence. Not available 05/21/2025 12:37:19 Plan of Treatment Reminders Order Date Submit Date Provider Last Modified By Organization Details Last Modified Time Details Appointments Post-Oper ative F/U 20 2024 11:40A M BRANDON OTTO MD Not available Not available Not available Post-Oper ative F/U 15 2025 12:30P INGRID ZAVALETA Not available Not available Not available Lab None recorded. Referral rehabilit ation referral - lon RIOS for hand/wris t/elbow ROM. s/p R RSA 05/09/252024 025 Not available 05/21/2025 16:46:41 Procedures None recorded. Surgeries None recorded. Imaging None recorded. Medication Orders ondansetr on 4 mg disintegr ating tablet 2024 025 [facility]/Pharmacy #[id number], [address] [email or web address], [address], 05/21/2025 13:04:40 hydromorp kevin 2 mg tablet 2024 025 [facility]/Pharmacy #[id number], [email or web address] [place], [place], [address], 05/21/2025 13:35:28 Patient TargetsNo targets recorded. Patient InstructionsNo instructions recorded. Reason for Referral NWB RUE, ok for hand/wrist/e lbow ROM. s/p R RSA 05/09/25 Referring Physician: Juancarlos Velasquez, Orthopedic Surgery, Encounter Date: 05/21/2025 Problems Name Problem SNOMED Code Status Onset Date Resolution Date Notes Provider Name and Address Organization Details Recorded Time Pain of bilateral shoulder regions Active 2024 Neelam spence [facility] [place] 10:26:40 Rotator cuff arthropath y of right shoulder 7777219276375 9106 Active 2024 INGRID Corley [address], [place], [address] , [facility] [place] 12:03:41 Problem Notes None recorded. Procedures Surgical History Date Name Laterality Status Provider Name and Address Organization Details Recorded Time 05/09/20 25 Orthopaedic Surgery completed Ivon Deng [facility] [place] 05/21/2025 11:32:59 11/14/19 24 Orthopaedic Surgery completed Serina Dillon [facility] [place] 02/25/2024 09:04:18 06/02/20 Orthopaedic Surgery completed Serina Dillon [facility] [place] 02/25/2024 09:03:44 08/02/19 Orthopaedic Surgery completed Serina Dillon [facility] [place] 02/25/2024 09:10:37 Imaging Results None recorded. Procedure Notes None recorded. Medical Equipment None Reported. Allergies Allergen ID Allergen Name Allergen Category Reaction Reaction Severity Criticality Documentation Date Start Date Code Code System Note Provider Name and Address Organization Details Recorded Time 20770204 Product containin g 3-hydroxy -3-methyl glutaryl- coenzyme A reductase inhibitor (product) medicatio n Not available Not available Not available 02/25/2024 99669 009 SNOMED Serina spence [facility] [place] 4 09:01:13 186402 oxycodone medicatio n Not available Not available Not available 05/14/2025 7804 RxNorm Carlos spence [facility] [place] 09:25:06 Medications Name Sig Start Date Stop [...] Updated DateTime 05/21/2025 167.64 cm 27.8 kg/m2 31124.89 g Ivon Deng [facility] [place] 05/21/2025 11:33:14 Social History None recorded. Functional [...] ICD10 Code Diagnosis IMO Codes Diagnosis Note [id number] INGRID Corley [place] [facility] [address] [place] [address] 05/21/2025 11:21:52 05/21/2025 12:37:53 Rotator cuff arthropathy of right shoulder 7777678209 8269136 M75.101 M12.811 [id number] Health Concerns Section Related Observation LastModified by Organization Detai ls LastModified Time None Recorded Concern Status LastModified by Organization Details LastModified Time None Recorded Payers Encounter Date Sequence Insurance Name Policy Number Policy [place] Covered Member ID [place] Member ID Guarantor Name 05/21/2025 1 [place] [employer] Lucy Hendrickson [id number] Lucy Hendrickson 05/21/2025 2 [place] [facility] Lucy Hendrickson [id number] Lucy Hendrickson Notes Date Note Type Note Provider Name and Address Organization Details Recorded Time 05/21/2025 text/html 74-year-old female status post right [...] she has been discharged. INGRID Corley [address], [place], [address], [facility] [place] 05/21/2025 12:37:26 OBGyn Episode No OBEpisode recorded.
--- OUTSIDE RECORDS SUMMARY | 2025-05-22 03:38 | XMS_ITS | Continuity of Care Document ---
Author Organization [facility] Address [address] [place] [address] Phone [phone] Social History Type Date Description Comments Sex Female Sex Unknown Medical Devices Description No Information Available Encounters Description No Information Available Assessments Description No Information Available Plan of Treatment No Information Available Functional Status Description No Information Available Mental Status Description No Information Available Referrals Description No Information Available
--- OUTSIDE RECORDS SUMMARY | 2025-05-22 03:38 | XMS_ITS | Clinical Summary ---
Author Organization [facility] Address [address] [place] [address] Care Team Providers Care Trials Manager Name Role Phone Pavan Kan MD Primary Care Provider [phone] Allergies Active Allergy Reactions Criticality Noted Date [...] Refills, Maintenance, 05/13/21 13:25:00 EDT, Capsule, [id number], Partial fill upon patient request if the [...] age to complete this topic Care Teams Trials Manager Relationship Specialty Start Date End Date Pavan Kan MD [address] [place] [id number] PCP - General Family Medicine 08/08/21
[2025-05-22 09:21] LABS: COVID-19 Test Negative (Negative); IDNOW Serial# 55D5AD1C; IDNOW Serial# 58CA691E; Influenza B2 Negative (Negative)
--- NOTE | 2025-05-22 10:29 | PC.NURSE ---
pt is alert and oriented, skin pwd, respirations even and unlabored, pt is reporting 8/10 pain to her right arm/shoulder/back area, pt is currently wearing a sling and is refusing to change into hospital attire because of her pain, pharmacy called to do the med/rec
--- NOTE | 2025-05-22 12:11 | MHC.CM.ED ---
Addendum entered by Racheal Mcbride 05/22/25 14:35: [facility]. MDS and Level 1 completed and sent to [facility] and [facility]. Original Note: Received case management consult overnight. Patient came to the ER d/t back/shoulder pain. Patient had right shoulder surgery at [facility], was inpatient 05/09-05/11. Patient was d/c'd home with [facility]. Patient came to ER due to pain. Physical therapy eval completed. Short term rehab is recommended. Met with patient in regards to discharge planning. Patient lives alone, uses a 4 prong cane for mobility and is active with [facility]. PCP verified as Pavan Kan. Copy of HCP verified to be on file. Patient has been to [facility] in the past. Requesting referral to [facility]. Referral will be made via [facility]. Continue to monitor for d/c needs.
--- NOTE | 2025-05-22 13:43 | PC.NURSE ---
Patient is out of bed to bathroom. Standby assist. Sling remains in place on right arm. PT/CM. Care ongoing by this RN.
--- NOTE | 2025-05-22 15:46 | PHA.MEDREC ---
Addendum entered by Sergo Howell, Courtney 05/22/25 16:05: MED REC CHECKED BY [facility] Original Note: Pharmacy Consult ? Medication Reconciliation Pharmacy reviewed med rec done by nursing. Claims match.
--- NOTE | 2025-05-22 16:02 | MHC.CM.ED ---
[facility] at 10am. Charleen BHAT booked. [facility] with chart. Patient, Justa TATUM and Susan QUINTERO aware. Continue to monitor for d/c needs.
--- NOTE | 2025-05-22 17:24 | MHC.EDTECH ---
Patient offered to wash up and brush teeth but patient refused
--- NOTE | 2025-05-22 17:29 | MHC.EDTECH ---
Patient given dinner tray
[2025-05-23] VITALS: BP 119/61; PULSE 74; RESP 18; TEMP 36.4; O2SAT 93
[2025-05-23 06:16] VITALS: BP 125/52; PULSE 72; RESP 16; TEMP 36.9; O2SAT 97
[2025-05-23 08:00] VITALS: BP 127/60; PULSE 94; RESP 18; TEMP 36.3; O2SAT 95
--- OUTSIDE RECORDS SUMMARY | 2025-07-11 20:00 | XMS_ITS | Clinical Summary ---
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 2024-08 00:00: [...] 03-20 00:00: 00 05-09 23:59 :00 No [id number] 5 mL 4 TIMES DAILY 5 mL 4 TIMES DAILY (route: oral) Med Classific ation: Anti-Infe ctive Agents hydrochloro thiazide 25 mg tablet 03-20 00:00: 00 05-09 23:59 :00 No [id number] 1 tablet DAILY 1 tablet DAILY (route: oral) Med Classific ation: Cardiovas cular Therapy Agents levothyroxi ne 100 mcg capsule 03-20 00:00: 00 05-09 23:59 :00 No [id number] 1 capsule DAILY 1 capsule DAILY (route: oral) Med Classific ation: Endocrine metoprolol succinate ER 25 mg tablet,exte nded release 24 hr 03-20 00:00: 00 05-09 23:59 :00 No [id number] 12.5 mg DAILY 12.5 mg DAILY (route: oral) Med Classific ation: Cardiovas cular Therapy Agents omeprazole 40 mg capsule,del ayed release 03-20 00:00: 00 05-09 23:59 :00 No [id number] 1 capsule DAILY 1 capsule DAILY (route: oral) Med Classific ation: Gastroint estinal Therapy Agents pregabalin 225 mg capsule 03-20 00:00: 00 05-09 23:59 :00 No [id number] 1 capsule 2 TIMES DAILY 1 capsule 2 TIMES DAILY (route: oral) Med Classific ation: Central Nervous System Agents Restasis 0.05 % eye drops in a dropperette 03-20 00:00: 00 05-09 23:59 :00 No [id number] 1 dropper ette 2 TIMES DAILY 1 dropperett e 2 TIMES DAILY (route: ophthalmic (eye)) Med Classific ation: Ophthalmi c Agents valacyclovi r 1 gram tablet 2020-0 8-19 00:00: 00 05-09 23:59 :00 No [id number] 1 tablet DAILY 1 tablet DAILY (route: oral) Med Classific ation: Anti-Infe ctive Agents Vital Signs Vital Name Observation Time Observation Value Commen ts Temperature 2025-05-21 09:00:00.000 97 [degF] Temperature 2025-05-20 19:27:00.000 97 [degF] Temperature 2025-05-16 09:41:00.000 98.5 [degF] Temperature 2025-05-14 15:31:00.000 97.1 [degF] BMI (%) 2025-05-14 15:15:04.000 29 kg/m2 Height 2025-05-14 15:14:55.000 66 [in_us] Pulse 2025-05-21 09:00:00.000 80 /min Pulse 2025-05-20 19:27:00.000 80 /min Pulse 2025-05-16 09:41:00.000 97 /min Pulse 2025-05-14 15:31:00.000 100 /min O2 Saturation (%) 2025-05-16 09:41:00.000 100 % O2 Saturation (%) 2025-05-14 15:31:00.000 94 % Respirations 2025-05-21 09:00:00.000 18 /min Respirations 2025-05-20 19:27:00.000 18 /min Respirations 2025-05-16 09:41:00.000 18 /min Respirations 2025-05-14 15:31:00.000 18 /min Weight (lbs) 2025-05-14 15:15:04.000 180 [lb_av] Systolic Blood Pressure 2025-05-21 09:00:00.000 110 mm [Hg] Systolic Blood Pressure 2025-05-20 19:27:00.000 110 mm [Hg] Systolic Blood Pressure 2025-05-16 09:41:00.000 100 mm [Hg] Systolic Blood Pressure 2025-05-14 15:31:00.000 122 mm [Hg] Diastolic Blood Pressure 2025-05-21 09:00:00.000 62 mm [Hg] Diastolic Blood Pressure 2025-05-20 19:27:00.000 62 mm [Hg] Diastolic Blood Pressure 2025-05-16 09:41:00.000 70 mm [Hg] Diastolic Blood Pressure 2025-05-14 15:31:00.000 78 mm [Hg] Plan of Treatment Planned Activity Planned Date Details Comments Future Scheduled Test AGENCY MAY PERFORM A RESUMPTION OF CARE VISIT FOLLOWING ANY HOSPITAL ADMISSION. PT TO EVALUATE, OBSERVE / ASSESS, AND MONITOR, RESEARCH LABORATORY MANAGER TO OBSERVE AND MONITOR, PROVIDE SKILLED THERAPEUTIC INTERVENTION, ACTIVITY, EDUCATION, AND TRAINING TO ADDRESS; [code = AGENCY MAY PERFORM A RESUMPTION OF CARE VISIT FOLLOWING ANY HOSPITAL ADMISSION. PT TO EVALUATE, OBSERVE / ASSESS, AND MONITOR, RESEARCH LABORATORY MANAGER TO OBSERVE AND MONITOR, PROVIDE SKILLED THERAPEUTIC INTERVENTION, ACTIVITY, EDUCATION, AND TRAINING TO ADDRESS;] Future Scheduled Test SIT TO/FRO M STAND TRANSFERS (PT/RESEARCH LABORATORY MANAGER) [code = SIT TO/FROM STAND TRANSFERS (PT/RESEARCH LABORATORY MANAGER)] Future Scheduled Test PT/RESEARCH LABORATORY MANAGER TO PROVIDE GAIT TRAINING FOR IMPROVED MOBILITY AND /OR TO NORMALIZE GAIT PATTERN [code = PT/RESEARCH LABORATORY MANAGER TO PROVIDE GAIT TRAINING FOR IMPROVED MOBILITY AND /OR TO NORMALIZE GAIT PATTERN] Future Scheduled Test PT/RESEARCH LABORATORY MANAGER TO PROVIDE STAIR TRAINING [code = PT/RESEARCH LABORATORY MANAGER TO PROVIDE STAIR TRAINING] Future Scheduled Test NEUROMUSCU LAR RE-EDUCATION / BALANCE / POSTURAL CONTROL (PT) [code = NEUROMUSCULAR RE-EDUCATION / BALANCE / POSTURAL CONTROL (PT)] Future Scheduled Test THERAPEUTI C EXERCISES AND ESTABLISHING A HOME EXERCISE PROGRAM (PT/RESEARCH LABORATORY MANAGER) [code = THERAPEUTIC EXERCISES AND ESTABLISHING A HOME EXERCISE PROGRAM (PT/RESEARCH LABORATORY MANAGER)] Future Scheduled Test PT/RESEARCH LABORATORY MANAGER TO IDENTIFY FALL RISK FACTORS; EDUCATE THE PATIENT/CAREGIVER ON WAYS TO REDUCE FALL RISK FACTORS AND ESTABLISH HOME EXERCISE PROGRAM TO MINIMIZE FALL RISK. MAY TEACH THE PATIENT FLOOR RECOVERY WHEN CLINICALLY APPROPRIATE [code = PT/RESEARCH LABORATORY MANAGER TO IDENTIFY FALL RISK FACTORS; EDUCATE THE PATIENT/CAREGIVER ON WAYS TO REDUCE FALL RISK FACTORS AND ESTABLISH HOME EXERCISE PROGRAM TO MINIMIZE FALL RISK. MAY TEACH THE PATIENT FLOOR RECOVERY WHEN CLINICALLY APPROPRIATE] Future Scheduled Test PT / RESEARCH LABORATORY MANAGER T O EDUCATE ON SHOULDER REPLACEMENT SELF-MANAGEMENT. [code = PT / RESEARCH LABORATORY MANAGER TO EDUCATE ON SHOULDER REPLACEMENT SELF-MANAGEMENT.] Future Scheduled Test PT TO ASSE SS / RESEARCH LABORATORY MANAGER TO MONITOR FOR AND REPORT EARLY SIGNS OF ANTICOAGULANT TOXICITY TO THE PHYSICIAN AND/OR THE RN CLINICAL SHOTBLAST EQUIPMENT OPERATOR FOR PHYSICIAN NOTIFICATION AND TO PROVIDE PATIENT/CAREGIVER EDUCATION ON ANTICOAGULANT THERAPY [code = PT TO ASSESS / RESEARCH LABORATORY MANAGER TO MONITOR FOR AND REPORT EARLY SIGNS OF ANTICOAGULANT TOXICITY TO THE PHYSICIAN AND/OR THE RN CLINICAL SHOTBLAST EQUIPMENT OPERATOR FOR PHYSICIAN NOTIFICATION AND TO PROVIDE PATIENT/CAREGIVER EDUCATION ON ANTICOAGULANT THERAPY] Future Scheduled Test PT / RESEARCH LABORATORY MANAGER T O MONITOR AND EDUCATE ON OXYGEN SATURATION DURING ADLS/IADLS, NOTIFY PHYSICIAN AND/OR THE RN CLINICAL SHOTBLAST EQUIPMENT OPERATOR FOR PHYSICIAN NOTIFICATION AND IF O2 SATS BELOW PHYSICIAN ORDERED PARAMETERS AFTER 10 MIN OF REST [code = PT / RESEARCH LABORATORY MANAGER TO MONITOR AND EDUCATE ON OXYGEN SATURATION DURING ADLS/IADLS, NOTIFY PHYSICIAN AND/OR THE RN CLINICAL SHOTBLAST EQUIPMENT OPERATOR FOR PHYSICIAN NOTIFICATION AND IF O2 SATS BELOW PHYSICIAN ORDERED PARAMETERS AFTER 10 MIN OF REST] Future Scheduled Test PT / RESEARCH LABORATORY MANAGER T O OBSERVE WOUND/INCISION AND/OR INTACT DRESSING ON R SHOULDER AND REPORT EARLY SIGNS AND SYMPTOMS OF WOUND DETERIORATION, COMPLICATIONS, OR INFECTION TO PHYSICIAN AND/OR THE RN CLINICAL SHOTBLAST EQUIPMENT OPERATOR FOR PHYSICIAN NOTIFICATION. [code = PT / RESEARCH LABORATORY MANAGER TO OBSERVE WOUND/INCISION AND/OR INTACT DRESSING ON R SHOULDER AND REPORT EARLY SIGNS AND SYMPTOMS OF WOUND DETERIORATION, COMPLICATIONS, OR INFECTION TO PHYSICIAN AND/OR THE RN CLINICAL SHOTBLAST EQUIPMENT OPERATOR FOR PHYSICIAN NOTIFICATION.] Future Scheduled Test AGENCY MAY PERFORM A RESUMPTION OF CARE VISIT FOLLOWING ANY HOSPITAL ADMISSION. OT TO EVALUATE, OBSERVE / ASSESS, AND MONITOR, VETO TO OBSERVE AND MONITOR, PROVIDE SKILLED THERAPEUTIC INTERVENTION, ACTIVITY, EDUCATION, AND TRAINING TO ADDRESS; PERSONAL HYGIENE/GROOMING (OT/BOTTOM SANDER) BATHING/SHOWERING (OT/BOTTOM SANDER) DRESSING (OT/VETO) TOILET TRANSFER (OT/VETO) BATH/SHOWER TRANSFER (OT/BOTTOM SANDER) OT/VETO TO MONITOR FOR AND REPORT EARLY SIGNS OF ANTICOAGULANT TOXICITY TO THE PHYSICIAN AND/OR THE RN CLINICAL SHOTBLAST EQUIPMENT OPERATOR FOR PHYSICIAN NOTIFICATION AND TO PROVIDE PATIENT/CAREGIVER EDUCATION ON ANTICOAGULANT THERAPY OT/BOTTOM SANDER TO MONITOR AND EDUCATE ON OXYGEN SATURATION DURING ADLS/IADLS, NOTIFY PHYSICIAN AND/OR THE RN CLINICAL SHOTBLAST EQUIPMENT OPERATOR FOR PHYSICIAN NOTIFICATION AND IF O2 SATS BELOW 90% AFTER 10 MIN OF REST. OT/VETO MAY EDUCATE ON PAIN MANAGEMENT CLINICALLY INDICATED. OT/VETO TO TEACH SHOULDER REPLACEMENT REPAIR SELF-MANAGEMENT [code = AGENCY MAY PERFORM A RESUMPTION OF CARE VISIT FOLLOWING ANY HOSPITAL ADMISSION. OT TO EVALUATE, OBSERVE / ASSESS, AND MONITOR, VETO TO OBSERVE AND MONITOR, PROVIDE SKILLED THERAPEUTIC INTERVENTION, ACTIVITY, EDUCATION, AND TRAINING TO ADDRESS; PERSONAL HYGIENE/GROOMING (OT/BOTTOM SANDER) BATHING/SHOWERING (OT/BOTTOM SANDER) DRESSING (OT/BOTTOM SANDER) TOILET TRANSFER (OT/BOTTOM SANDER) BATH/SHOWER TRANSFER (OT/VETO) OT/BOTTOM SANDER TO MONITOR FOR AND REPORT EARLY SIGNS OF ANTICOAGULANT TOXICITY TO THE PHYSICIAN AND/OR THE RN CLINICAL SHOTBLAST EQUIPMENT OPERATOR FOR PHYSICIAN NOTIFICATION AND TO PROVIDE PATIENT/CAREGIVER EDUCATION ON ANTICOAGULANT THERAPY OT/VETO TO MONITOR AND EDUCATE ON OXYGEN SATURATION DURING ADLS/IADLS, NOTIFY PHYSICIAN AND/OR THE RN CLINICAL SHOTBLAST EQUIPMENT OPERATOR FOR PHYSICIAN NOTIFICATION AND IF O2 SATS BELOW 90% AFTER 10 MIN OF REST. OT/BOTTOM SANDER MAY EDUCATE ON PAIN MANAGEMENT CLINICALLY INDICATED. OT/BOTTOM SANDER TO TEACH SHOULDER REPLACEMENT REPAIR SELF-MANAGEMENT] Goal [...] 4 WEEKS IN ORDER TO LEAVE HOME [facility] FOR MD APPOINTMENTS PT STG: PATIENT WILL [...] WITH LRAD IN ORDER TO LEAVE HOME [facility] FOR MD APPOINTMENTS WITHIN 4 WEEKS Goal [...] FOLLOWING SHOULDER REPLACEMENT BY END OF EPISODE Encounters Start Date/Time End Date/Time Encounter Type Admission Type Attending [email or web address] Care Department Encounter ID Discharge Date Discharge Status Discharge Condition Discharge Reason Percent Goals Met 2025-05-14 00:00:00 2025-07-12 00:00:00 Outpatient JESUS MANUEL MONTANEZ [facility] [id number] 0.00
--- OUTSIDE RECORDS SUMMARY | 2025-07-11 20:00 | XMS_ITS | Clinical Summary ---
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 2024-08 00:00: [...] 03-20 00:00: 00 05-09 23:59 :00 No [id number] 5 mL 4 TIMES DAILY 5 mL 4 TIMES DAILY (route: oral) Med Classific ation: Anti-Infe ctive Agents hydrochloro thiazide 25 mg tablet 03-20 00:00: 00 05-09 23:59 :00 No [id number] 1 tablet DAILY 1 tablet DAILY (route: oral) Med Classific ation: Cardiovas cular Therapy Agents levothyroxi ne 100 mcg capsule 03-20 00:00: 00 05-09 23:59 :00 No [id number] 1 capsule DAILY 1 capsule DAILY (route: oral) Med Classific ation: Endocrine metoprolol succinate ER 25 mg tablet,exte nded release 24 hr 03-20 00:00: 00 05-09 23:59 :00 No [id number] 12.5 mg DAILY 12.5 mg DAILY (route: oral) Med Classific ation: Cardiovas cular Therapy Agents omeprazole 40 mg capsule,del ayed release 03-20 00:00: 00 05-09 23:59 :00 No [id number] 1 capsule DAILY 1 capsule DAILY (route: oral) Med Classific ation: Gastroint estinal Therapy Agents pregabalin 225 mg capsule 03-20 00:00: 00 05-09 23:59 :00 No [id number] 1 capsule 2 TIMES DAILY 1 capsule 2 TIMES DAILY (route: oral) Med Classific ation: Central Nervous System Agents Restasis 0.05 % eye drops in a dropperette 03-20 00:00: 00 05-09 23:59 :00 No [id number] 1 dropper ette 2 TIMES DAILY 1 dropperett e 2 TIMES DAILY (route: ophthalmic (eye)) Med Classific ation: Ophthalmi c Agents valacyclovi r 1 gram tablet 2020-0 8-19 00:00: 00 05-09 23:59 :00 No [id number] 1 tablet DAILY 1 tablet DAILY (route: [...] TO EVALUATE, OBSERVE / ASSESS, AND MONITOR, PLATER HELPER TO OBSERVE AND MONITOR, PROVIDE SKILLED THERAPEUTIC INTERVENTION, ACTIVITY, EDUCATION, AND TRAINING TO ADDRESS; [code = AGENCY MAY PERFORM A RESUMPTION OF CARE VISIT FOLLOWING ANY HOSPITAL ADMISSION. PT TO EVALUATE, OBSERVE / ASSESS, AND MONITOR, PLATER HELPER TO OBSERVE AND MONITOR, PROVIDE SKILLED THERAPEUTIC INTERVENTION, ACTIVITY, EDUCATION, AND TRAINING TO ADDRESS;] Future Scheduled Test SIT TO/FRO M STAND TRANSFERS (PT/PLATER HELPER) [code = SIT TO/FROM STAND TRANSFERS (PT/PLATER HELPER)] Future Scheduled Test PT/PLATER HELPER TO PROVIDE GAIT TRAINING FOR IMPROVED MOBILITY AND /OR TO NORMALIZE GAIT PATTERN [code = PT/PLATER HELPER TO PROVIDE GAIT TRAINING FOR IMPROVED MOBILITY AND /OR TO NORMALIZE GAIT PATTERN] Future Scheduled Test PT/PLATER HELPER TO PROVIDE STAIR TRAINING [code = PT/PLATER HELPER TO PROVIDE STAIR TRAINING] Future Scheduled Test NEUROMUSCU LAR RE-EDUCATION / BALANCE / POSTURAL CONTROL (PT) [code = NEUROMUSCULAR RE-EDUCATION / BALANCE / POSTURAL CONTROL (PT)] Future Scheduled Test THERAPEUTI C EXERCISES AND ESTABLISHING A HOME EXERCISE PROGRAM (PT/PLATER HELPER) [code = THERAPEUTIC EXERCISES AND ESTABLISHING A HOME EXERCISE PROGRAM (PT/PLATER HELPER)] Future Scheduled Test PT/PLATER HELPER TO IDENTIFY FALL RISK FACTORS; EDUCATE THE PATIENT/CAREGIVER ON WAYS TO REDUCE FALL RISK FACTORS AND ESTABLISH HOME EXERCISE PROGRAM TO MINIMIZE FALL RISK. MAY TEACH THE PATIENT FLOOR RECOVERY WHEN CLINICALLY APPROPRIATE [code = PT/PLATER HELPER TO IDENTIFY FALL RISK FACTORS; EDUCATE THE PATIENT/CAREGIVER ON WAYS TO REDUCE FALL RISK FACTORS AND ESTABLISH HOME EXERCISE PROGRAM TO MINIMIZE FALL RISK. MAY TEACH THE PATIENT FLOOR RECOVERY WHEN CLINICALLY APPROPRIATE] Future Scheduled Test PT / PLATER HELPER T O EDUCATE ON SHOULDER REPLACEMENT SELF-MANAGEMENT. [code = PT / PLATER HELPER TO EDUCATE ON SHOULDER REPLACEMENT SELF-MANAGEMENT.] Future Scheduled Test PT TO ASSE SS / PLATER HELPER TO MONITOR FOR AND REPORT EARLY SIGNS OF ANTICOAGULANT TOXICITY TO THE PHYSICIAN AND/OR THE RN CLINICAL ARCHITECTURE CONSULTANT FOR PHYSICIAN NOTIFICATION AND TO PROVIDE PATIENT/CAREGIVER EDUCATION ON ANTICOAGULANT THERAPY [code = PT TO ASSESS / PLATER HELPER TO MONITOR FOR AND REPORT EARLY SIGNS OF ANTICOAGULANT TOXICITY TO THE PHYSICIAN AND/OR THE RN CLINICAL ARCHITECTURE CONSULTANT FOR PHYSICIAN NOTIFICATION AND TO PROVIDE PATIENT/CAREGIVER EDUCATION ON ANTICOAGULANT THERAPY] Future Scheduled Test PT / PLATER HELPER T O MONITOR AND EDUCATE ON OXYGEN SATURATION DURING ADLS/IADLS, NOTIFY PHYSICIAN AND/OR THE RN CLINICAL ARCHITECTURE CONSULTANT FOR PHYSICIAN NOTIFICATION AND IF O2 SATS BELOW PHYSICIAN ORDERED PARAMETERS AFTER 10 MIN OF REST [code = PT / PLATER HELPER TO MONITOR AND EDUCATE ON OXYGEN SATURATION DURING ADLS/IADLS, NOTIFY PHYSICIAN AND/OR THE RN CLINICAL ARCHITECTURE CONSULTANT FOR PHYSICIAN NOTIFICATION AND IF O2 SATS BELOW PHYSICIAN ORDERED PARAMETERS AFTER 10 MIN OF REST] Future Scheduled Test PT / PLATER HELPER T O OBSERVE WOUND/INCISION AND/OR INTACT DRESSING ON R SHOULDER AND REPORT EARLY SIGNS AND SYMPTOMS OF WOUND DETERIORATION, COMPLICATIONS, OR INFECTION TO PHYSICIAN AND/OR THE RN CLINICAL ARCHITECTURE CONSULTANT FOR PHYSICIAN NOTIFICATION. [code = PT / PLATER HELPER TO OBSERVE WOUND/INCISION AND/OR INTACT DRESSING ON R SHOULDER AND REPORT EARLY SIGNS AND SYMPTOMS OF WOUND DETERIORATION, COMPLICATIONS, OR INFECTION TO PHYSICIAN AND/OR THE RN CLINICAL ARCHITECTURE CONSULTANT FOR PHYSICIAN NOTIFICATION.] Future Scheduled Test AGENCY MAY PERFORM A RESUMPTION OF CARE VISIT FOLLOWING ANY HOSPITAL ADMISSION. OT TO EVALUATE, OBSERVE / ASSESS, AND MONITOR, VETO TO OBSERVE AND MONITOR, PROVIDE SKILLED THERAPEUTIC INTERVENTION, ACTIVITY, EDUCATION, AND TRAINING TO ADDRESS; PERSONAL HYGIENE/GROOMING (OT/PHARMACY COORDINATOR) BATHING/SHOWERING (OT/PHARMACY COORDINATOR) DRESSING (OT/VETO) TOILET TRANSFER (OT/VETO) BATH/SHOWER TRANSFER (OT/PHARMACY COORDINATOR) OT/VETO TO MONITOR FOR AND REPORT EARLY SIGNS OF ANTICOAGULANT TOXICITY TO THE PHYSICIAN AND/OR THE RN CLINICAL ARCHITECTURE CONSULTANT FOR PHYSICIAN NOTIFICATION AND TO PROVIDE PATIENT/CAREGIVER EDUCATION ON ANTICOAGULANT THERAPY OT/PHARMACY COORDINATOR TO MONITOR AND EDUCATE ON OXYGEN SATURATION DURING ADLS/IADLS, NOTIFY PHYSICIAN AND/OR THE RN CLINICAL ARCHITECTURE CONSULTANT FOR PHYSICIAN NOTIFICATION AND IF O2 SATS [...] EDUCATION, AND TRAINING TO ADDRESS; PERSONAL HYGIENE/GROOMING (OT/PHARMACY COORDINATOR) BATHING/SHOWERING (OT/PHARMACY COORDINATOR) DRESSING (OT/PHARMACY COORDINATOR) TOILET TRANSFER (OT/PHARMACY COORDINATOR) BATH/SHOWER TRANSFER (OT/VETO) OT/PHARMACY COORDINATOR TO MONITOR FOR AND REPORT EARLY SIGNS OF ANTICOAGULANT TOXICITY TO THE PHYSICIAN AND/OR THE RN CLINICAL ARCHITECTURE CONSULTANT FOR PHYSICIAN NOTIFICATION AND TO PROVIDE PATIENT/CAREGIVER EDUCATION ON ANTICOAGULANT THERAPY OT/VETO TO MONITOR AND EDUCATE ON OXYGEN SATURATION DURING ADLS/IADLS, NOTIFY PHYSICIAN AND/OR THE RN CLINICAL ARCHITECTURE CONSULTANT FOR PHYSICIAN NOTIFICATION AND IF O2 SATS BELOW 90% AFTER 10 MIN OF REST. OT/PHARMACY COORDINATOR MAY EDUCATE ON PAIN MANAGEMENT CLINICALLY INDICATED. OT/PHARMACY COORDINATOR TO TEACH SHOULDER REPLACEMENT REPAIR SELF-MANAGEMENT] Goal [...] 4 WEEKS IN ORDER TO LEAVE HOME [facility] FOR MD APPOINTMENTS PT STG: PATIENT [...] WITH LRAD IN ORDER TO LEAVE HOME [facility] FOR MD APPOINTMENTS WITHIN 4 WEEKS [...] End Date/Time Encounter Type Admission Type Attending [facility] Care Department Encounter ID Discharge Date Discharge Status Discharge Condition Discharge Reason Percent Goals Met 2025-05-14 00:00:00 2025-07-12 00:00:00 Outpatient JESUS MANUEL MONTANEZ [facility] [id number] 0.00
== END 2025-05-23 10:22 ==
PROVIDERS: Physician Assistant Medical; Emergency Provider Emergency Medicine; PCP Family Medicine
DX: M96.1 Postlaminectomy syndrome, not elsewhere classified (principal); M25.511 Pain in right shoulder; G89.29 Other chronic pain; Z03.818 Encounter for observation for suspected exposure to other biological agents ruled out; M79.7 Fibromyalgia
CPT/HCPCS: 36415; 80048; 85025; 87502; 87635; 96372; 97162; 99284; J1885

== ENCOUNTER 2025-05-23 12:11 | Emergency (ER) | payer MEDICARE, MEDICAID, SELFPAY ==
--- NOTE | 2025-05-23 12:15 | MHC.CM.ED ---
Patient was d/c'd from [facility] to [facility] for STR. When patient arrived at [facility], she was unhappy that she was put in a 4 person bed. Patient refused to get off of the stretcher and returned to the ER. SNF referral will be broadcasted at this time. Continue to monitor for d/c needs.
[2025-05-23 12:23] VITALS: BP 138/78; PULSE 72; O2SAT 97
[2025-05-23 12:50] VITALS: BP 145/67; PULSE 71; RESP 12; TEMP 37.2; O2SAT 97; BMI 28.2
--- NOTE | 2025-05-23 12:50 | ED.GENADULT ---
HPI - General Adult General Chief complaint: General Medical Stated complaint: shoulder, back pain Time Seen by Provider: 05/23/25 12:43 Source: patient, EMS, RN notes reviewed and old records reviewed Mode of arrival: EMS Limitations: no limitations History of Present Illness ED Provider: ANDREA Garcia HPI narrative: 74-year-old female with medical history of chronic pain syndrome, failed back syndrome, fibromyalgia, polyarthralgia, chronic right shoulder pain with osteoarthritis s/p right shoulder surgery at [facility] in [place] on 05/09/2025 was transported to STR facility today by EMS. When patient arrived to the rehab facility she thought she was getting a 2 person bedroom instead saw a 4 person room with no private bathroom and refused to get out of the stretcher to go to this rehab facility. Case management is aware, and [facility] is able to offer a bed which the patient accepts. Patient to discharge to [facility] tomorrow morning. Patient without any physical complaints MD complaint: STR placement Related Data Home Medications ?Medication ?Instructions ?Recorded ?Confirmed aspirin 81 mg tablet,delayed 81 mg PO DAILY 05/22/25 05/23/25 release cyclosporine 0.05 % eye drops in a 1 drp ophthalmic (eye) BID 05/22/25 05/23/25 dropperette diclofenac sodium 1 % topical gel 2 g topical QID 05/22/25 05/23/25 ezetimibe 10 mg tablet 10 mg PO DAILY 05/22/25 05/23/25 finasteride 5 mg tablet 2.5 mg PO DAILY 05/22/25 05/23/25 hydromorphone 2 mg tablet 2 mg PO BID PRN pain 05/22/25 05/23/25 levothyroxine 100 mcg tablet 100 mcg PO DAILY@0600 05/22/25 05/23/25 metoprolol succinate 25 mg 25 mg PO DAILY 05/22/25 05/23/25 tablet,extended release 24 hr metronidazole 0.75 % topical cream 1 appl topical BID 05/22/25 05/23/25 minoxidil 2.5 mg tablet 5 mg PO DAILY alopecia 05/22/25 05/23/25 ondansetron 4 mg disintegrating 4 mg PO TID PRN Nausea And Vomiting 05/22/25 05/23/25 tablet pregabalin 100 mg capsule 100 mg PO BID 05/22/25 05/23/25 tramadol 50 mg tablet 50 - 100 mg PO Q4-6H PRN pain 05/22/25 05/23/25 valacyclovir 1 gram tablet 1,000 mg PO DAILY 05/22/25 05/23/25 Previous Rx's ?Medication ?Instructions ?Recorded hydromorphone 2 mg tablet 2 mg PO Q12H PRN severe pain 05/24/25 (scale score 7-10) #10 tabs Allergies Allergy/AdvReac Type Severity Reaction Status Date / Time [id number] Reductase Allergy Mild rash Verified 05/22/25 02:08 Inhibitor oxycodone AdvReac Mild Dizziness Verified 05/23/25 12:52 Review of Systems Review of Systems: CONST: Negative for fever, body aches and chills. HENT: Negative for neck pain/stiffness, headache, congestion, sore throat, swelling. EYES: Negative for discharge/pain or vision changes. RESP: Negative for cough/hemoptysis and shortness of breath. CV: Negative chest pain, difficulty breathing, palpitations. ABD: Negative pain, nausea, vomiting. : Negative increase frequency, dysuria, blood in urine or stool. MUSC: Negative for muscle aches, edema. SKIN: Negative rash, lesions/sores. NEURO: Negative headache, dizziness, weakness. Yes all other systems are reviewed and are negative [facility] Social History Social History Smoked in Last 30 Days: No Use of substances other than those prescribed or required for medical reasons: No Advance Directives: No Advance Directives Information Provided: No Physical Exam ED Vital Signs: Vital Signs - 24 hr 05/23/25 17:39 05/23/25 22:14 05/24/25 05:47 Temperature 98.2 F 97.8 F Pulse Rate 67 80 70 Respiratory Rate 16 17 Blood Pressure 150/67 H 127/63 111/71 Pulse Oximetry 98 96 Oxygen Delivery Method Room Air Room Air 05/24/25 10:08 05/24/25 10:32 Temperature 97.5 F 98 F Pulse Rate 77 77 Respiratory Rate 18 16 Blood Pressure 113/54 L 113/54 L Pulse Oximetry 98 98 Oxygen Delivery Method Room Air Room Air BMI result Body Mass Index 28.2 GENERAL APPEARANCE: ?AxOx4, generally well-appearing, no acute distress. HEENT: ?NC, AT. MMM. EOMI, clear conjunctiva, oropharynx clear. NECK: ?Supple without lymphadenopathy.? No stiffness or restricted ROM. HEART:? Normal rate and regular rhythm, normal S1/S1, no m/r/g LUNGS:? CTAB, moving air well. No crackles or wheezes are heard. ABDOMEN: ?Soft, nontender, nondistended with good bowel sounds heard. BACK: No CVAT, no obvious deformity. EXTREMITIES: ?Without cyanosis, clubbing or edema. NEUROLOGICAL: ?Grossly nonfocal. Alert and oriented, moving all 4 extremities. Observed to ambulate with normal gait. Skin: ?Warm and dry without any rash. Course Reevaluation(s) Reevaluation #1: Time: 08:19 Date: 05/24/25 Provider: Kassy Wasserman PA-C Patient was placed physician observation for case management needs yesterday at 130 pm pending STR placement. CM consult done. No acute events reported overnight.? No current issues or complaints. VS stable. Patient will be sent to STR rehab today with private room. Physician Observation ended at 10 am today 05.24.25. Medications Administered Discontinued Medications Generic Name Dose Route Start Last Admin Trade Name Freq PRN Reason Stop Dose Admin Aspirin 81 mg 05/23/25 17:00 05/24/25 08:07 Aspirin Enteric Coated 81 Mg Tablet. PO 81 mg DAILY CRISTAL Administration Ezetimibe 10 mg 05/23/25 17:00 05/24/25 08:07 Ezetimibe 10 Mg Tablet PO 10 mg DAILY CRISTAL Administration Finasteride 2.5 mg 05/23/25 17:00 05/24/25 08:07 Finasteride 5 Mg Tablet PO 2.5 mg DAILY CRISTAL Administration Hydromorphone HCl 2 mg 05/23/25 16:59 05/24/25 08:06 Hydromorphone Hcl 2 Mg Tablet PO 2 mg BID PRN Administration Pain, Severe (Pain Scale 7-10) Levothyroxine Sodium 100 mcg 05/24/25 06:00 05/24/25 05:36 Levothyroxine Sodium 100 Mcg Tablet PO 100 mcg DAILY@0600 CRISTAL Administration Metoprolol Succinate 25 mg 05/23/25 17:00 05/24/25 08:07 Metoprolol Succinate Er 25 Mg Tab.Er.24h PO 25 mg DAILY CRISTAL Administration Protocol Minoxidil 5 mg 05/23/25 17:00 05/24/25 08:07 Minoxidil 2.5 Mg Tablet PO 5 mg DAILY CRISTAL Administration Pregabalin 100 mg 05/23/25 21:00 05/24/25 08:07 Pregabalin 100 Mg Capsule PO 100 mg BID CRISTAL Administration Tramadol HCl 50 mg 05/23/25 16:59 05/24/25 05:41 Tramadol Hcl 50 Mg Tablet PO 50 mg Q4H PRN Administration Pain, Moderate(Pain Scale 4-6) Valacyclovir HCl 1,000 mg 05/23/25 17:00 05/24/25 08:07 Valacyclovir Hcl 1,000 Mg Tablet PO 1,000 mg DAILY CRISTAL Administration Medical Decision Making Medical Decision Making MDM Narrative: 74-year-old female with medical history of chronic pain syndrome, failed back syndrome, fibromyalgia, polyarthralgia, chronic right shoulder pain with osteoarthritis s/p right shoulder surgery at [facility] in [place] on 05/09/2025 was transported to STR facility today by EMS. When patient arrived to the rehab facility she thought she was getting a 2 person bedroom instead saw a 4 person room with no private bathroom and refused to get out of the stretcher to go to this rehab facility. Case management is aware, and [facility] is able to offer a bed which the patient accepts. Patient to discharge to [facility] tomorrow morning. Patient without any physical complaints Differential Diagnosis Differential Diagnoses: The differential diagnosis associated with the presentation includes Admission/Observation Consideration of admission/observation: Escalation of care including admission/observation considered Consult Healthcare Provider Management of the patient was discussed with: Cellophane Wrapping Examiner Tests considered The following testing was considered but not selected: WOuld have considered work up for acute illness or injuries. Discharge Plan Discharge Clinical Impression: Polyarthralgia, Fibromyalgia, Failed back syndrome Patient Disposition: Xfer Inpatient Rehab Fac Transfer Details: [facility] Additional Instructions: You came to the ED without any medical ailments other than your chronic pain requesting different STR placement. You are going to [facility]. Return to ED with any acute medical concerns. I hope you continue to do well. Prescriptions: New hydromorphone 2 mg tablet 2 mg PO Q12H PRN (Reason: severe pain (scale score 7-10)) Qty: 10 0RF Rx Instructions: Partial Fill upon patient request. No Action valacyclovir 1 gram tablet 1,000 mg PO DAILY minoxidil 2.5 mg tablet 5 mg PO DAILY aspirin 81 mg tablet,delayed release (DR/EC) 81 mg PO DAILY tramadol 50 mg tablet 50 - 100 mg PO Q4-6H PRN (Reason: pain) levothyroxine 100 mcg tablet 100 mcg PO DAILY@0600 metronidazole 0.75 % cream 1 appl topical BID metoprolol succinate 25 mg tablet extended release 24 hr 25 mg PO DAILY ondansetron 4 mg tablet,disintegrating 4 mg PO TID PRN (Reason: Nausea And Vomiting) finasteride 5 mg tablet 2.5 mg PO DAILY ezetimibe 10 mg tablet 10 mg PO DAILY cyclosporine 0.05 % dropperette 1 drp ophthalmic (eye) BID pregabalin 100 mg capsule 100 mg PO BID diclofenac sodium 1 % gel 2 g topical QID hydromorphone 2 mg tablet 2 mg PO BID PRN (Reason: pain) Patient Comments: hasn't taken this medication since being prescribed in ED Referrals: En[facility] Cle[facility] [place] [Outside] Pavan Kan DO [Primary Care Provider, Internal Medicine] Interventions: ED Discharge Assessment Last Done: 05/24/25 10:32 Discharge Date/Time: 05/24/25 10:32 Print Language: Yemeni
[2025-05-23 12:57] VITALS: BP 145/67; PULSE 71; RESP 12; TEMP 37.2; O2SAT 97
--- NOTE | 2025-05-23 13:08 | PC.NURSE ---
Attempted to do med rec with patient. Pt unaware of medications fully, unsure of last dose. Will contact pharmacy to assist.
--- NOTE | 2025-05-23 13:24 | PC.NURSE ---
Pharmacy aware of need for med rec, will attempt to get it done later today. Will continue to attempt to work on it with patient
--- NOTE | 2025-05-23 14:14 | PC.NURSE ---
Med rec completed from paperwork provided from medical record. ED Case Management Provider aware.
--- NOTE | 2025-05-23 14:42 | MHC.CM.ED ---
[facility] bed. [facility] Gott[facility], [facility] are still reviewing. Met with patient to discuss bed options. Patient accepts bed at [facility]. [facility] aware. Attempted to contact [facility] at [facility]. Left voicemail requesting approval be sent to [facility]. [facility] about facility change. Waiting for approval to send to [facility]. Continue to monitor for d/c needs.
[2025-05-23 16:09] VITALS: BP 150/67; PULSE 67; RESP 148; TEMP 36.9; O2SAT 95
--- NOTE | 2025-05-23 17:18 | PHA.MEDREC ---
Pharmacy Consult ? Medication Reconciliation Pharmacy reviewed med rec done by nursing. Pt just admitted 05/22-05/23 and utilized DC packet and claims to confirm med rec.
--- OUTSIDE RECORDS SUMMARY | 2025-05-23 17:26 | XMS_ITS | Patient Health Record ---
Author Organization [facility] Address [address] [place] [address] Care Team Providers Care Order Checker Packer Processer Name Role Phone Kan, Gary Primary Care Provider Harjeet Muniz MD MSc, Raine Unavailable [phone] Allergies Allergen (clinical drug ingredient) Drug/Non Drug Allergy documented on EMR Reaction Allergy Type Onset Date Status Substance with 6-epknftu-4-methylgluta ryl-coenzyme A reductase inhibitor mechanism of action [...] MEDICARE NGS [address] [place] [phone] [id number] Lucy Hendrickson Self - patient is the insured Medical (General) History Medical History History ICD Code Fibromyalgia Osteoarthritis Mild asthma Surgical History Surgery Date(Month/Year) Tonsillectomy 3x left hand surgeries (thumb joint fusi on), 2x right hand surgeries Right knee fusion 2014 Hammer left toe Uterus suspension lumbar fusion L2-S1 for scoliosis 020
--- OUTSIDE RECORDS SUMMARY | 2025-05-23 17:26 | XMS_ITS | Data Portability ---
Author Organization [facility] Address [address] [address] Assessment Encounter Date Assessment Date Assessment LastModified by Organization Details LastModified Time 01/15/2022 01/15/2022 Patient is recovering s/p lumbar removal of hardware. [email or web address] Not available 01/15/2022 12:18:30 03/05/2022 03/05/2022 Patient is recovering s/p removal of lumbar hardware. She has pain related to chronic low back pain Not available 03/05/2022 13:10:02 Plan of Treatment [...] mg tablet 2021 022 [email or web address] [id number], [address] [place], [address], 15:51:21 tramadol 50 mg tablet 2021 022 [id number], [address] [place], [address], 12:22:08 Patient TargetsNo targets recorded. Patient InstructionsNo instructions recorded. Reason for Referral Physical Therapist Referral for Lumbar spondylosis improve pain and functionality, return to normal activity s/p instrumentation removal L5-S1 Referring Physician: Holden Cantu, Orthopedic Surgery, [phone] Encounter Date: 01/15/2022 Results Created Date Observation Date Name Description Value Unit Range Abnormal Flag Note LastModifiedBy Organization Detail LastModifiedTime 01/19/20 22 01/15/2022 XR, lumba r spine , 2 view No observ ation record ed. [facility] [address], [place], [address], 02/11/2022 10:55:27 03/08/20 22 03/05/2022 XR, lumba r spine No observ ation record ed. Not Available 03/2022 14:46:00 Result Notes None recorded. Problems Name Problem SNOMED Code Status Onset Date Resolution Date Notes Provider Name and Address Organization Details Recorded Time Idiopathic scoliosis of thoracic spine 857024995 Active Other idiopathic scoliosis, thoracolum bar region Debbie spence [facility] 2 20:37:29 Pseudoarth rosis of spine 375677211 Active Lumbar Debbie spence [facility] 2 20:38:07 Problem Notes None recorded. Procedures Surgical History Date Name Laterality Status Provider Name and Address Organization Details Recorded Time 12/04/19 removal spinal instrumentation completed Ivon Naylor [facility] 01/15/2022 11:27:59 08/02/19 fusion completed Debbie Durán [facility] 12/26/19 22 20:47:56 Imaging Results [...] Updated DateTime 01/15/2022 167.64 cm 28.2 kg/m2 98408.66 g Ivon Adamsherbertbrandycece [facility] 01/15/2022 11:44:45 Social History Question Answer Notes LastModified by Organizat ion Details LastModified Time Tobacco Smoking Status Never Smoker Debbie spence, [facility] 12/25/2021 20:48:33 What Is Your [...] ICD10 Code Diagnosis IMO Codes Diagnosis Note [id number] INGRID Saenz [facility] [address] [address] 01/15/2022 10:52:39 01/15/2022 12:06:57 Lumbar spondylosis 645445172 M47.896 I recommend 6 weeks of PT. I have provided tramadol refill for pain. Gentle increase in exercise and activity. [id number] Anup Sauceda MD [facility] [address] [address] 03/05/2022 11:28:00 03/05/2022 13:09:49 Lumbar spondylosis 714041345 M47.896 She may proceed with left knee [...] Name 03/05/2022 2 [place] Lucy Hendrickson [id number] Lucy Hendrickson 03/05/2022 1 [place] [employer] Lucy Hendrickson [id number] Lucy Hendrickson Notes Date Note Type Note [...] 800mg she was already taking. INGRID Saenz [address] [place] [address], [phone], [facility] 01/15/2022 12:22:09 03/05/2022 text/html Ms. [...] denies weakness or paresthesias. Anup Sauceda MD [address] [place] [address], [phone], [facility] 03/07/2022 17:41:10 OBGyn Episode No OBEpisode recorded.
--- OUTSIDE RECORDS SUMMARY | 2025-05-23 17:26 | XMS_ITS | Continuity of Care Document ---
Author Organization [facility] Address [address] [place] [address] Phone [phone] Social History Type Date Description Comments Sex Female Sex Unknown Medical Devices Description No Information Available Encounters Description No Information Available Assessments Description No Information Available Plan of Treatment No Information Available Functional Status Description No Information Available Mental Status Description No Information Available Referrals Description No Information Available
--- OUTSIDE RECORDS SUMMARY | 2025-05-23 17:26 | XMS_ITS | Patient Health Record ---
Author Organization [facility] Address [address] [place] [address] Care Team Providers Care Salesperson Hearing Aids Name Role Phone Pavan Kan Primary Care Provider UnavailJuan Lusi Greco Unavailable [phone] Ysabel Medina Unavailable [phone] Elida Paniagua Unavailable [phone] Allergies Allergen (clinical drug ingredient) Drug/Non Drug Allergy documented on EMR Reaction Allergy Type Onset Date Status oxycodone Oxycodone Unknown Drug Allergy Active Substance with 1-utpwfxh-3-methylgluta ryl-coenzyme A reductase inhibitor mechanism of action [...] W/U Status Risk Notes Problem Essential hypertension (62965206) Essential (primary) hypertension (I10) Active confirmed Problem Ventricular premature depolarization (409865598) 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) Active confirmed Problem Idiopathic pulmonary fibrosis (256775154) Idiopathic pulmonary fibrosis (J84.112) Active confirmed Problem Non-pressure 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 (L97.822) Active confirmed Problem Fibromyalgia (762088567) Fibromyalgia (M79.7) Active confirmed Problem Post-laminectomy syndrome (33864817) Postlaminectomy syndrome, not elsewhere classified (M96.1) Active confirmed Problem Open wound of left lower leg (2483454448466978 6) Unspecified open wound, left lower leg, subsequent encounter (S81.802D) Active confirmed Problem Anemia (217596888) Anemia (D64.9) Active confirmed Problem Renal failure (43539301) Renal failure (N19) Active confirmed Problem Hypothyroidism (10702942) Hypothyroidism (E03.9) Active confirmed Problem Macrocytosis (22835368) Macrocytosis (D75.89) Active confirmed Problem Urinary incontinence (094199166) Urinary incontinence (R32) Active confirmed Vital Signs [...] 10/31/2024 Encounters Encounter Location Date Provider Diagnosis [facility] [address] [address] 09/05/2024 Juan Luis Cheung Essential (primary) hypertension I10 and Unspecified open wound, left lower leg, initial encounter S81.802A [facility] [address] [address] 09/12/2024 Jooyun Paniagua Unspecified open wound, left lower leg, initial encounter S81.802A ; Unspecified open wound, left lower leg, subsequent encounter S81.802D and Essential (primary) hypertension I10 [facility] [address] [address] 09/19/2024 Juan Luis Cheung Unspecified open wound, left lower leg, subsequent encounter S81.802D ; Non-pressure 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 L97.822 and Essential (primary) hypertension I10 [facility] [address] [address] 09/26/2024 Juan Luis Cheung Unspecified open wound, left lower leg, subsequent encounter S81.802D ; Non-pressure 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 L97.822 and Essential (primary) hypertension I10 [facility] [address] [address] 10/03/2024 Juan Luis Orrnne Unspecified open wound, left lower leg, subsequent encounter S81.802D ; Non-pressure 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 L97.822 and Essential (primary) hypertension I10 [facility] [address] [address] 10/10/2024 Juan Luis Cheung Unspecified open wound, left lower leg, subsequent encounter S81.802D ; Non-pressure 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 L97.822 and Essential (primary) hypertension I10 [facility] [address] 10/17/2024 Juan Luis Cheung Unspecified open wound, left lower leg, subsequent encounter S81.802D ; Non-pressure 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 L97.822 and Essential (primary) hypertension I10 [facility] [address] 10/24/2024 Juan Luis Cheung Unspecified open wound, left lower leg, subsequent encounter S81.802D ; Non-pressure 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 L97.822 and Essential (primary) hypertension I10 [facility] [address] 10/31/2024 Anzjeanninea Tyrela Essential (primary) hypertension I10 and Non-pressure 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 L97.822 [facility] [address] [address] 09/01/2024 Juan Luis Cheung [facility] [address] [place] [address] 09/06/2024 Juan Luis Cheung [facility] [address] [address] 09/22/2024 Juan Luis Cheung Assessments Encounter Date [...] one week I Juan Luis Cheung, MSN, SNOW REMOVAL/PLOWING, LOAN MANAGER-C, examined, evaluated, and treated the patient. Dr. [...] I10) 09/05/2024 [place] Ayala is a 74 [id number] that presents today for initial evaluation and [...] the note. I, Juan Luis Cheung, MSN, SNOW REMOVAL/PLOWING, LOAN MANAGER-C, examined, evaluated, and treated the patient. Dr. [...] one week I Juan Luis Cheung, MSN, SNOW REMOVAL/PLOWING, LOAN MANAGER-C, examined, evaluated, and treated the patient. Dr. [...] one week I Juan Luis Cheung, MSN, SNOW REMOVAL/PLOWING, LOAN MANAGER-C, examined, evaluated, and treated the patient. Dr. [...] one week I Juan Luis Cheung, MSN, SNOW REMOVAL/PLOWING, LOAN MANAGER-C, examined, evaluated, and treated the patient. Dr. [...] one week I Juan Luis Cheung, MSN, SNOW REMOVAL/PLOWING, LOAN MANAGER-C, examined, evaluated, and treated the patient. Dr. [...] one week I Juan Luis Cheung, MSN, SNOW REMOVAL/PLOWING, LOAN MANAGER-C, examined, evaluated, and treated the patient. Dr. [...] Medicare [address] [place], [place] [id number] Lucy Hendrickson Self - patient is the insured [address] [facility] (Medicaid) [address] [place], [place] [id number] Lucy Hendrickson Self - patient is the [...]
--- OUTSIDE RECORDS SUMMARY | 2025-05-23 17:27 | XMS_ITS | Clinical Summary ---
Author Organization [facility] Address [address] [place] [address] Care Team Providers Care Supervisor Lending Activities Name Role Phone Pavan Kan MD Primary Care Provider [phone] Allergies Active Allergy Reactions Criticality Noted Date [...] Refills, Maintenance, 05/13/21 13:25:00 EDT, Capsule, [id number], Partial fill upon patient request if the [...] age to complete this topic Care Teams Supervisor Lending Activities Relationship Specialty Start Date End Date Pavan Kan MD [address] [place] [id number] PCP - General Family Medicine 08/08/21
--- OUTSIDE RECORDS SUMMARY | 2025-05-23 17:27 | XMS_ITS | Patient Health Record ---
Author Organization [facility] Address [address] [place] [address] Care Team Providers Care Tool Setter Name Role Phone Herlinda Zaragoza MD Primary [...] Risk Notes Problem Thoracic spondylosis without myelopathy (065804500) Spondylosis without myelopathy or radiculopathy, thoracic region (M47.814) Active confirmed Plan Of Treatment No Information Insurance Providers Payer Name Payer Address Payer Phone Subscriber Number Group Number Insured Name Patient Relationship to Insured Coverage Start Date Coverage End Date [place] [address] [place] [phone] [id number] ABDIEL HOUSE Self - patient is the insured [employer] of [place] [address] [place] [id number] [phone] [id number] HARSH ABDIEL Self - patient is the insured Medical (General) History Medical History History ICD Code solitary sacrolitis scoliosis deformity of spine chronic pain syndrome tronchanteric bursitis fibromyalgia disorder of sacrum lumbosacral stenosis low back pain degeneration of lumbosacral intervertebr al disc lumbar spondylosis Surgical History Surgery Date(Month/Year) bl hand surgery bl foot surgery tonsillectomy hysterectomy
--- OUTSIDE RECORDS SUMMARY | 2025-05-23 17:27 | XMS_ITS | Clinical Summary ---
Author Organization [facility] Address [address] [place] [address] Care Team Providers Care Real Estate Manager Name Role Phone Pavan Kan MD Primary Care Provider [phone] Allergies Active Allergy Reactions Criticality Noted Date [...] topic Insurance MEDICARE PART A & B [facility] Care Teams Real Estate Manager Relationship Specialty Start Date End Date Pavan Kan MD [address] [place] [address] PCP - General Psychiatry, General 05/25/23
[2025-05-23 17:39] VITALS: BP 150/67; PULSE 67
[2025-05-23] MEDS: Metoprolol Succinate ER 25 MG TAB.ER.24H PO (17:39)
[2025-05-23] MEDS: Aspirin Enteric Coated 81 MG TABLET.DR PO (17:39)
[2025-05-23 22:14] VITALS: BP 127/63; PULSE 80; RESP 16; TEMP 36.8; O2SAT 98
[2025-05-24 05:47] VITALS: BP 111/71; PULSE 70; RESP 17; TEMP 36.6; O2SAT 96
[2025-05-24] MEDS: Metoprolol Succinate ER 25 MG TAB.ER.24H PO (08:07)
[2025-05-24] MEDS: Aspirin Enteric Coated 81 MG TABLET.DR PO (08:07)
[2025-05-24 10:08] VITALS: BP 113/54; PULSE 77; RESP 18; TEMP 36.4; O2SAT 98
[2025-05-24 10:32] VITALS: BP 113/54; PULSE 77; RESP 16; TEMP 36.6; O2SAT 98
== END 2025-05-24 10:32 ==
PROVIDERS: Emergency Provider Emergency Medicine; PCP Family Medicine
DX: M25.50 Pain in unspecified joint (principal); M79.7 Fibromyalgia; M96.1 Postlaminectomy syndrome, not elsewhere classified; M25.511 Pain in right shoulder; M54.9 Dorsalgia, unspecified; M19.90 Unspecified osteoarthritis, unspecified site
CPT/HCPCS: 99284